=== PATIENT | female | born 1970 | race Caucasian/White ===

== ENCOUNTER 2019-11-18 19:54 | Emergency (ER) | payer OTHER ==
[2019-11-18] MEDS ORDERED: SODIUM CHLORIDE 0.9% 1,000 ML IV STA (20:31)
[2019-11-18] MEDS ORDERED: SODIUM CHLORIDE 0.9% 500 ML 500 ML IV STA (20:31)
--- NOTE | 2019-11-18 20:51 | XR ---
EXAMINATION TYPE: XR KUB DATE OF EXAM: 11/18/2019 COMPARISON: NONE HISTORY: Abdominal pain TECHNIQUE: 2 views upright FINDINGS: Bowel gas pattern is normal. There is no sign of intestinal obstruction or pneumoperitoneum . Fecal pattern is normal there are phleboliths in the pelvis. There are no pathologic calcifications over the kidneys. Lung bases are clear. There is a metal ring over the mid sacrum. IMPRESSION: Nonacute abdomen. Ring metallic foreign body over the sacrum in uncertain location.
[2019-11-18 20:59] LABS: Basophils # (A) 0.1 k/uL (0-0.2); Basophils % (A) 1 %; Eosinophils # (A) 0.1 k/uL (0-0.7); Eosinophils % (A) 1 %; HCT 46.5 % (34.0-46.0); HGB 14.9 gm/dL (11.4-16.0); Lymphocytes # (A) 2.4 k/uL (1.0-4.8); Lymphocytes % (A) 18 %; MCH 27.3 pg (25.0-35.0); MCV 85.3 fL (80.0-100.0); Mean Platelet Volume 7.5; Monocytes # (A) 0.8 k/uL (0-1.0); Monocytes % (A) 6 %; Neutrophils # (A) 9.8 k/uL (1.3-7.7); Neutrophils % (A) 72 %; Platelet Count 504 k/uL (150-450); RBC 5.45 m/uL (3.80-5.40); RDW 13.2 % (11.5-15.5); WBC 13.5 k/uL (3.8-10.6)
[2019-11-18 21:29] LABS: ALT 14 U/L (4-34); AST 29 U/L (14-36); African American GFR (CKD) >90 (>60 ml/min/1.73 sqM); Alkaline Phosphatase 109 U/L (38-126); Anion Gap 12 mmol/L; Blood Urea Nitrogen 10 mg/dL (7-17); Calcium 9.7 mg/dL (8.4-10.2); Carbon Dioxide 27 mmol/L (22-30); Chloride 99 mmol/L (98-107); Glucose 111 mg/dL (74-99); Non-African American GFR(CKD) >90 (>60 ml/min/1.73 sqM); Potassium 3.8 mmol/L (3.5-5.1); Sodium 138 mmol/L (137-145); Total Bilirubin 0.8 mg/dL (0.2-1.3); Total Protein 7.4 g/dL (6.3-8.2)
[2019-11-18 22:11] LABS: Appearance,Urine Cloudy (Clear); Bacteria,Urine Many /hpf; Bilirubin,Urine Negative (Negative); Blood,Urine Moderate (Negative); Color,Urine Dark Yellow; Glucose,Urine (UA) Negative (Negative); Hyaline Casts,Urine 186 /lpf (0-2); Ketones,Urine Trace (Negative); Leukocyte Esterase,Urine Small (Negative); Mucus,Urine Many /hpf; Nitrite,Urine Negative (Negative); Protein,Urine 1+ (Negative); RBC,Urine 8 /hpf (0-5); Squamous Epithelial Cell,Urine 13 /hpf (0-4); WBC,Urine 46 /hpf (0-5)
--- NOTE | 2019-11-18 22:59 | ED ---
Nausea/Vomiting/Diarrhea HPI - General Chief complaint: Nausea/Vomiting/Diarrhea Stated complaint: Blood in Stool Time Seen by Provider: 11/18/19 20:08 Source: patient Mode of arrival: ambulatory Limitations: no limitations - History of Present Illness Initial comments: 49-year-old female patient presents to the emergency department today for evaluation of abdominal pain and diarrhea. Patient states symptoms were present for the last 3 months. States just prior to symptom onset she ate dinner at a diner thought she had food poisoning but never went away. Patient states whenever she eats or drinks anything she becomes very crampy and has diarrhea almost immediately. States she has upwards of 20 episodes per day. States more recently the stool has been formed. States she does occasionally pass blood with this. Denies any fevers but states she has been chilled. Denies any travel in her out of the country within the last few months. Denies any sick contacts. Patient denies any recent rash, cough, shortness of breath, chest pain, back pain, numbness, tingling, dizziness, weakness, hematuria, dysuria, urinary urgency, urinary frequency, headache, visual changes, or any other complaints. - Related Data Allergies Allergy/AdvReac Type Severity Reaction Status Date / Time clarithromycin [From Biaxin] Allergy Rash/Hives Verified 11/18/19 20:03 fluticasone [From Flonase] Allergy Rash/Hives Verified 11/18/19 20:03 gatifloxacin [From Tequin] Allergy Rash/Hives Verified 11/18/19 20:03 Penicillins Allergy Rash/Hives Verified 11/18/19 20:03 Sulfa (Sulfonamide Allergy Rash/Hives Verified 11/18/19 20:03 Antibiotics) Review of Systems ROS Statement: Those systems with pertinent positive or pertinent negative responses have been documented in the HPI. ROS Other: All systems not noted in ROS Statement are negative. Past Medical History Past Medical History: Cancer, Thyroid Disorder History of Any Multi-Drug Resistant Organisms: None Reported Past Surgical History: Appendectomy Additional Past Surgical History / Comment(s): thyroidectomy, right labia Past Psychological History: Anxiety Smoking Status: Current some day smoker Past Alcohol Use History: None Reported Past Drug Use History: None Reported General Exam Limitations: no limitations General appearance: alert, in no apparent distress, other (Physical well-d eveloped, well-nourished adult female patient in no acute distress. Vital signs upon presentation are temperature 98.2F, pulse 119, respirations 18, blood pressure 118/80, pulse ox 94% on room air.) ENT exam: Present: normal exam, normal oropharynx, mucous membranes moist Respiratory exam: Present: normal lung sounds bilaterally. Absent: respiratory distress, wheezes, rales, rhonchi, stridor Cardiovascular Exam: Present: regular rate, normal rhythm, normal heart sounds. Absent: systolic murmur, diastolic murmur, rubs, gallop, clicks GI/Abdominal exam: Present: soft, normal bowel sounds. Absent: distended, tenderness, guarding, rebound, rigid Neurological exam: Present: alert, oriented X3, CN II-XII intact Psychiatric exam: Present: normal affect, normal mood Skin exam: Present: warm, dry, intact, normal color. Absent: rash Course Vital Signs 11/18/19 11/18/19 11/18/19 19:58 22:04 23:01 Temperature 98.2 F 97.9 F Pulse Rate 119 H 83 85 Respiratory 18 18 19 Rate Blood Pressure 118/80 114/79 119/76 O2 Sat by Pulse 94 L 98 100 Oximetry Medical Decision Making - Medical Decision Making 49-year-old female patient presented to the emergency department today for evaluation of diarrhea 3 months. Physical examination revealed soft nontender abdomen. Labs revealed did reveal mildly elevated white blood cell count at 13.5. Urinalysis did show 46 white blood cells. Patient is having no urinary infectious symptoms. We will send urine for culture. We did send obtain a stool culture but patient was unable to go. She is afebrile normal vital signs currently stable discharged home with a stool collection kit. We did discuss antibiotic use however given her multiple ALLERGIES would be beneficial for her to await culture results. She is instructed to follow up with GI specialist for further evaluation as soon as possible. Instructed to follow-up with the primary care physician, one was recommended to her. Return parameters were discussed in detail. She verbalizes understanding and agrees with this plan. - Lab Data Result diagrams: 11/18/19 20:20 11/18/19 20:20 Lab Results 11/18/19 11/18/19 11/18/19 Range/Units 20:20 20:20 21:40 WBC 13.5 H (3.8-10.6) k/uL RBC 5.45 H (3.80-5.40) m/uL Hgb 14.9 (11.4-16.0) gm/dL Hct 46.5 H (34.0-46.0) % MCV 85.3 (80.0-100.0) fL MCH 27.3 (25.0-35.0) pg MCHC 32.0 (31.0-37.0) g/dL RDW 13.2 (11.5-15.5) % Plt Count 504 H (150-450) k/uL Neutrophils % 72 % Lymphocytes % 18 % Monocytes % 6 % Eosinophils % 1 % Basophils % 1 % Neutrophils # 9.8 H (1.3-7.7) k/uL Lymphocytes # 2.4 (1.0-4.8) k/uL Monocytes # 0.8 (0-1.0) k/uL Eosinophils # 0.1 (0-0.7) k/uL Basophils # 0.1 (0-0.2) k/uL Sodium 138 (137-145) mmol/L Potassium 3.8 (3.5-5.1) mmol/L Chloride 99 (98-107) mmol/L Carbon Dioxide 27 (22-30) mmol/L Anion Gap 12 mmol/L BUN 10 (7-17) mg/dL Creatinine 0.69 (0.52-1.04) mg/dL Est GFR (CKD-EPI)AfAm >90 (>60 ml/min/1.73 sqM) Est GFR (CKD-EPI)NonAf >90 (>60 ml/min/1.73 sqM) Glucose 111 H (74-99) mg/dL Calcium 9.7 (8.4-10.2) mg/dL Total Bilirubin 0.8 (0.2-1.3) mg/dL AST 29 (14-36) U/L ALT 14 (4-34) U/L Alkaline Phosphatase 109 (38-126) U/L Total Protein 7.4 (6.3-8.2) g/dL Albumin 4.0 (3.5-5.0) g/dL Lipase 30 (23-300) U/L Urine Color Dark Yellow Urine Appearance Cloudy H (Clear) Urine pH 6.0 (5.0-8.0) Ur Specific [place] 1.020 (1.001-1.035) Urine Protein 1+ H (Negative) Urine Glucose (UA) Negative (Negative) Urine Ketones Trace H (Negative) Urine Blood Moderate H (Negative) Urine Nitrite Negative (Negative) Urine Bilirubin Negative (Negative) Urine Urobilinogen 4.0 (<2.0) mg/dL Ur Leukocyte Esterase Small H (Negative) Urine RBC 8 H (0-5) /hpf Urine WBC 46 H (0-5) /hpf Ur Squamous Epith Cells 13 H (0-4) /hpf Urine Bacteria Many H (None) /hpf Hyaline Casts 186 H (0-2) /lpf Urine Mucus Many H (None) /hpf - Radiology Data Radiology results: report reviewed, image reviewed KUB x-ray was obtained. Report was reviewed in its entirety. Impression by Dr. Alfaro shows nonacute abdomen. Ring metallic foreign body over the sacrum and uncertain location. Patient admits to having a ring in her umbilicus. Disposition Clinical Impression: Diarrhea, Dehydration Disposition: HOME SELF-CARE Condition: Good Instructions (If sedation given, give patient instructions): Acute Diarrhea (ED) Additional Instructions: Collect stool sample and return it to the lab with the order. Follow up with a primary care physician one has been recommended below. Follow up with GI specia list for further evaluation as soon as possible. Return to the emergency department immediately for any new, worsening, or concerning symptoms. Is patient prescribed a controlled substance at d/c from ED?: No Referrals: Masood Coker DO [STAFF PHYSICIAN] - 1-2 days Linda Helton MD [STAFF PHYSICIAN] - 1-2 days Time of Disposition: 22:58
[2019-11-18 23:11] VITALS: BP 119/76; PULSE 85; RESP 19; TEMP 97.9
== END 2019-11-18 23:01 | disposition home or self-care (01) ==
LOC: EC 19:54
DX: E86.0 Dehydration (principal); R19.7 Diarrhea, unspecified; D72.829 Elevated white blood cell count, unspecified; R82.998 Other abnormal findings in urine; F17.200 Nicotine dependence, unspecified, uncomplicated; Z88.1 Allergy status to other antibiotic agents; Z88.0 Allergy status to penicillin; Z88.2 Allergy status to sulfonamides; Z88.8 Allergy status to other drugs, medicaments and biological substances
CPT/HCPCS: 36415; 74018; 80053; 81001; 83690; 85025; 87086; 96360; 99285

== ENCOUNTER 2020-05-19 17:21 | Inpatient (IN) | payer OTHER ==
[2020-05-19] MEDS ORDERED: SODIUM CHLORIDE 0.9% 1,000 ML IV STA (18:02)
[2020-05-19] MEDS ORDERED: KETOROLAC 15 MG/ML 1 ML VIAL IVP STA (18:02)
--- NOTE | 2020-05-19 18:24 | ED ---
Abdominal Pain HPI - General Source: patient Mode of arrival: ambulatory Limitations: no limitations <Isa Aranda - Last Filed: 05/19/20 19:27> <Nova Barfield - Last Filed: 05/19/20 20:14> - General Chief Complaint: Abdominal Pain Stated Complaint: lt lower abdominal pain Time Seen by Provider: 05/19/20 17:35 - History of Present Illness Initial Comments: Patient is a 49-year-old female presenting to the emergency Department with complaints of lower left quadrant abdominal pain as well as nausea and intermittent diarrhea has been giving worse over the past week. Patient states she has been having abdominal issues since the beginning of this year including bloating, intermittent diarrhea, intermittent abdominal pains. Patient states she has not seen a PCP as she just moved to [place] from [place] this year. She has never had these issues in the past. She has not seen a GI doctor. She denies any fever, chills, chest pain, shortness of breath. She admits to history of appendectomy, no other abdominal surgeries. She denies any urinary complaints. She denies being . She states that the pain has been more severe over the past 2 days and she wanted to be seen. She has no further complaints at this time. Upon arrival to the ER her vitals are stable. (Isa Aranda) - Related Data Allergies Allergy/AdvReac Type Severity Reaction Status Date / Time clarithromycin [From Biaxin] Allergy Rash/Hives Verified 05/19/20 17:26 fluticasone [From Flonase] Allergy Rash/Hives Verified 05/19/20 17:26 gatifloxacin [From Tequin] Allergy Rash/Hives Verified 05/19/20 17:26 Penicillins Allergy Rash/Hives Verified 05/19/20 17:26 Sulfa (Sulfonamide Allergy Rash/Hives Verified 05/19/20 17:26 Antibiotics) Review of Systems ROS Other: All systems not noted in ROS Statement are negative. <Isa Aranda - Last Filed: 05/19/20 19:27> ROS Other: All systems not noted in ROS Statement are negative. <Nova Barfield - Last Filed: 05/19/20 20:14> ROS Statement: Those systems with pertinent positive or pertinent negative responses have been documented in the HPI. Past Medical History Past Medical History: Cancer, Thyroid Disorder History of Any Multi-Drug Resistant Organisms: None Reported Past Surgical History: Appendectomy Additional Past Surgical History / Comment(s): thyroidectomy, right labia Past Psychological History: Anxiety Smoking Status: Former smoker Past Alcohol Use History: None Reported Past Drug Use History: None Reported <Isa Aranda - Last Filed: 05/19/20 19:27> General Exam Limitations: no limitations <Isa Aranda - Last Filed: 05/19/20 19:27> - General Exam Comments Initial Comments: GENERAL: Patient is well-developed and well-nourished. Patient is nontoxic and in no acute distress. HEAD: Atraumatic, normocephalic. EYES: Pupils equal round and reactive to light, extraocular movements intact, sclera anicteric, conjunctiva are normal. Eyelids were unremarkable. ENT: TMs normal, nares patent, oropharynx clear without exudates. Moist mucous memb ranes. NECK: Normal range of motion, supple without lymphadenopathy or JVD. LUNGS: Unlabored respirations. Breath sounds clear to auscultation bilaterally and equal. No wheezes rales or rhonchi. HEART: Regular rate and rhythm without murmurs, rubs or gallops. ABDOMEN: Tender to palpation of left lower quadrant. Soft, normoactive bowel sounds. No guarding, no rebound. No masses appreciated. : Deferred MUSCULOSKELETAL: Normal extremities with adequate strength and normal range of motion, no pitting or edema. No clubbing or cyanosis. NEUROLOGICAL: Patient is alert and oriented x 3. Motor and sensory are also intact. Cranial nerves II through XII grossly intact. Symmetrical smile. Normal speech, normal gait. PSYCH: Normal mood, normal affect. SKIN: Warm, Dry, normal turgor, no rashes or lesions noted. (Isa Aranda) Course <Isa Aranda - Last Filed: 05/19/20 19:27> Vital Signs 05/19/20 05/19/20 17:24 19:49 Temperature 98.4 F 98.5 F Pulse Rate 97 99 Respiratory 20 18 Rate Blood Pressure 155/98 178/81 O2 Sat by Pulse 98 100 Oximetry - Reevaluation(s) Reevaluation #1: 05/19/20 19:27 Care was transferred to GLENDA Garvin at shift change. (Isa Aranda) Medical Decision Making - Lab Data Result diagrams: 05/19/20 18:17 05/19/20 18:17 <Isa Aranda - Last Filed: 05/19/20 19:27> - Lab Data Result diagrams: 05/19/20 18:17 05/19/20 18:17 - Radiology Data Radiology results: report reviewed, image reviewed <Nova Barfield - Last Filed: 05/19/20 20:14> - Medical Decision Making 49-year-old female patient presents to the emergency department today for evaluation of left lower quadrant abdominal pain and diarrhea. Patient has been having intermittent pain over the last year but symptoms worsened over the last few days. Denies fever or chills. Physical examination did reveal left lower quadrant abdominal tenderness. Vital signs within normal ranges. Labs did reveal elevated white blood cell count, acute kidney injury most likely secondary to dehydration. She was given IV fluids. A CT abdomen and pelvis was obtained and showed evidence for diverticulitis with possible intra-abdominal abscess formation. There is also left hydronephrosis. She'll be admitted to the hospital with surgery consult. He did request interventional radiology consult as well. We'll start Flagyl and Rocephin. Patient is agreeable with this plan. (Nova Barfield) - Lab Data Lab Results 05/19/20 05/19/20 05/19/20 Range/Units 18:17 18:17 18:17 WBC 13.1 H (3.8-10.6) k/uL RBC 4.85 (3.80-5.40) m/uL Hgb 13.0 (11.4-16.0) gm/dL Hct 42.3 (34.0-46.0) % MCV 87.2 (80.0-100.0) fL MCH 26.9 (25.0-35.0) pg MCHC 30.8 L (31.0-37.0) g/dL RDW 13.9 (11.5-15.5) % Plt Count 668 H (150-450) k/uL Neutrophils % 68 % Lymphocytes % 19 % Monocytes % 5 % Eosinophils % 7 % Basophils % 1 % Neutrophils # 8.9 H (1.3-7.7) k/uL Lymphocytes # 2.4 (1.0-4.8) k/uL Monocytes # 0.7 (0-1.0) k/uL Eosinophils # 0.9 H (0-0.7) k/uL Basophils # 0.1 (0-0.2) k/uL Hypochromasia Slight Sodium 140 (137-145) mmol/L Potassium 4.7 (3.5-5.1) mmol/L Chloride 107 (98-107) mmol/L Carbon Dioxide 24 (22-30) mmol/L Anion Gap 9 mmol/L BUN 18 H (7-17) mg/dL Creatinine 1.19 H (0.52-1.04) mg/dL Est GFR (CKD-EPI)AfAm 62 (>60 ml/min/1.73 sqM) Est GFR (CKD-EPI)NonAf 54 (>60 ml/min/1.73 sqM) Glucose 103 H (74-99) mg/dL Plasma Lactic Acid Eleazar 1.4 (0.7-2.0) mmol/L Calcium 9.8 (8.4-10.2) mg/dL Total Bilirubin 0.4 (0.2-1.3) mg/dL AST 20 (14-36) U/L ALT 10 (4-34) U/L Alkaline Phosphatase 103 (38-126) U/L Total Protein 7.1 (6.3-8.2) g/dL Albumin 3.7 (3.5-5.0) g/dL Lipase 60 (23-300) U/L Urine Color Urine Appearance (Clear) Urine pH (5.0-8.0) Ur Specific [place] (1.001-1.035) Urine Protein (Negative) Urine Glucose (UA) (Negative) Urine Ketones (Negative) Urine Blood (Negative) Urine Nitrite (Negative) Urine Bilirubin (Negative) Urine Urobilinogen (<2.0) mg/dL Ur Leukocyte Esterase (Negative) Urine RBC (0-5) /hpf Urine WBC (0-5) /hpf Ur Squamous Epith Cells (0-4) /hpf Urine Bacteria (None) /hpf Urine Mucus (None) /hpf Urine HCG, Qual (Not Detectd) 05/19/20 05/19/20 Range/Units 18:17 18:21 WBC (3.8-10.6) k/uL RBC (3.80-5.40) m/uL Hgb (11.4-16.0) gm/dL Hct (34.0-46.0) % MCV (80.0-100.0) fL MCH (25.0-35.0) pg MCHC (31.0-37.0) g/dL RDW (11.5-15.5) % Plt Count (150-450) k/uL Neutrophils % % Lymphocytes % % Monocytes % % Eosinophils % % Basophils % % Neutrophils # (1.3-7.7) k/uL Lymphocytes # (1.0-4.8) k/uL Monocytes # (0-1.0) k/uL Eosinophils # (0-0.7) k/uL Basophils # (0-0.2) k/uL Hypochromasia Sodium (137-145) mmol/L Potassium (3.5-5.1) mmol/L Chloride (98-107) mmol/L Carbon Dioxide (22-30) mmol/L Anion Gap mmol/L BUN (7-17) mg/dL Creatinine (0.52-1.04) mg/dL Est GFR (CKD-EPI)AfAm (>60 ml/min/1.73 sqM) Est GFR (CKD-EPI)NonAf (>60 ml/min/1.73 sqM) Glucose (74-99) mg/dL Plasma Lactic Acid Eleazar (0.7-2.0) mmol/L Calcium (8.4-10.2) mg/dL Total Bilirubin (0.2-1.3) mg/dL AST (14-36) U/L ALT (4-34) U/L Alkaline Phosphatase (38-126) U/L Total Protein (6.3-8.2) g/dL Albumin (3.5-5.0) g/dL Lipase (23-300) U/L Urine Color Yellow Urine Appearance Cloudy H (Clear) Urine pH 5.5 (5.0-8.0) Ur Specific [place] 1.017 (1.001-1.035) Urine Protein Trace H (Negative) Urine Glucose (UA) Negative (Negative) Urine Ketones Negative (Negative) Urine Blood Trace H (Negative) Urine Nitrite Negative (Negative) Urine Bilirubin Negative (Negative) Urine Urobilinogen <2.0 (<2.0) mg/dL Ur Leukocyte Esterase Small H (Negative) Urine RBC 1 (0-5) /hpf Urine WBC 6 H (0-5) /hpf Ur Squamous Epith Cells 4 (0-4) /hpf Urine Bacteria Rare H (None) /hpf Urine Mucus Few H (None) /hpf Urine HCG, Qual Not Detected (Not Detectd) - Radiology Data CT abdomen and pelvis is obtained. Report reviewed in its entirety. Impression by Dr. Alfaro shows inflammatory appearing mass involving the left lower quadrant. This overall measures 8 x 5 cm and is adjacent to thickened sigmoid colon with diverticula. I consider possibilities of diverticulitis with hermelinda- diverticular phlegmon and abscess and less likely tubo-ovarian abscess. There is involvement of the distal ureter on the left side with obstruction of the left upper collecting system. (Nova Barfield) Disposition <Isa Aranda - Last Filed: 05/19/20 19:27> Decision to Admit Reason: Admit from EC Decision Date: 05/19/20 Decision Time: 20:11 <Nova Barfield - Last Filed: 05/19/20 20:14> Clinical Impression: Diverticulitis of intestine with abscess, Acute kidney injury Disposition: ADMITTED IP TO THIS [facility] Condition: Serious Referrals: None,Stated [Primary Care Provider] - 1-2 days
[2020-05-19 18:39] LABS: Appearance,Urine Cloudy (Clear); Bacteria,Urine Rare /hpf; Bilirubin,Urine Negative (Negative); Blood,Urine Trace (Negative); Color,Urine Yellow; Glucose,Urine (UA) Negative (Negative); Ketones,Urine Negative (Negative); Leukocyte Esterase,Urine Small (Negative); Mucus,Urine Few /hpf; Nitrite,Urine Negative (Negative); PH, Urine 5.5 (5.0-8.0); Protein,Urine Trace (Negative); RBC,Urine 1 /hpf (0-5); Specific Gravity,Urine 1.017 (1.001-1.035); Squamous Epithelial Cell,Urine 4 /hpf (0-4); Urobilinogen,Urine <2.0 mg/dL (<2.0); WBC,Urine 6 /hpf (0-5)
[2020-05-19 18:47] LABS: Basophils # (A) 0.1 k/uL (0-0.2); Basophils % (A) 1 %; Eosinophils # (A) 0.9 k/uL (0-0.7); Eosinophils % (A) 7 %; HCT 42.3 % (34.0-46.0); Hypochromasia Slight; Lymphocytes # (A) 2.4 k/uL (1.0-4.8); Lymphocytes % (A) 19 %; MCH 26.9 pg (25.0-35.0); MCHC 30.8 g/dL (31.0-37.0); MCV 87.2 fL (80.0-100.0); Mean Platelet Volume 6.7; Monocytes # (A) 0.7 k/uL (0-1.0); Monocytes % (A) 5 %; Neutrophils # (A) 8.9 k/uL (1.3-7.7); Neutrophils % (A) 68 %; Platelet Count 668 k/uL (150-450); RBC 4.85 m/uL (3.80-5.40); RDW 13.9 % (11.5-15.5); WBC 13.1 k/uL (3.8-10.6)
[2020-05-19 18:56] LABS: Albumin 3.7 g/dL (3.5-5.0); Calcium 9.8 mg/dL (8.4-10.2); Potassium 4.7 mmol/L (3.5-5.1); Total Bilirubin 0.4 mg/dL (0.2-1.3); Total Protein 7.1 g/dL (6.3-8.2)
--- NOTE | 2020-05-19 19:30 | CT ---
EXAMINATION TYPE: CT abdomen pelvis w con DATE OF EXAM: 05/19/2020 COMPARISON: None HISTORY: Left lower quadrant abdominal pain. CT DLP: 1090.4 mGycm Automated exposure control for dose reduction was used. CONTRAST: Performed with IV Contrast, patient injected with 100ml mL of Isovue 300. Images were obtained from the diaphragm to the floor the pelvis with IV contrast. FINDINGS: Lung bases are clear. There is no pleural effusion. Heart size is normal. There is no pericardial eff usion. There is 5 cm low-density thin wall cystic fluid collection at the right cardiac border. This could be a pericardial cyst. Liver and spleen appear normal. Stomach is intact. The bile ducts are not dilated. There is no eviden ce of pancreatic mass. There is no adrenal mass. Kidneys have normal size. There is left-sided hydronephrosis and hydrourete r. There are numerous phleboliths in the pelvis. Delayed images show a delayed left side pyelogram. There is no definite ureteral calculus. Uterus is anteverted. Bladder distends smoothly. There is wal l thickening and fat stranding around the mid sigmoid colon. There are multiple diverticula. There is also complex septated fluid collection in the pelvis on the left side in the left adnexal region. I see no definite free fluid in the pelvis. Appendix is not definitely seen. There is no sign of thickened appendix. There is no evidence of a bowel obstruction. There are no dilated loops. There is no evidence of free air. There is some surgical clips on the anterior mid abdomen in the omentum. Lumbar vertebra have normal alignment. Disc spaces are fairly normal. There is no compression fractur e. IMPRESSION: Inflammatory-appearing mass involving the left lower quadrant. This overall measures 8 x 5 cm and is adjacent to thickened sigmoid colon with diverticula. I consider possibilities of diverticulitis with peridiverticular phlegmon and abscess and less likely tubo-ovarian abscess. There is involvement of the distal ureter on the left side with obstruction of the left upper collecting system.
[2020-05-19] MEDS ORDERED: metroNIDAZOLE-NS PMX 500 MG in SALINE 1 100ML.BAG IVPB STA (19:37)
[2020-05-19] MEDS ORDERED: ONDANSETRON 4 MG/2 ML VIAL IVP PRN (20:03)
[2020-05-19] MEDS ORDERED: MORPHINE SULFATE 4 MG/ML SYRINGE IV PRN (20:03)
[2020-05-19] MEDS ORDERED: NALOXONE 0.4 MG/ML 1 ML VIAL IV PRN (20:03)
[2020-05-19] MEDS: SODIUM CHLORIDE 0.9% 1,000 ML IV SCH (21:04)
[2020-05-19] MEDS ORDERED: ALPRAZolam 0.5 MG TAB PO STA (21:12)
[2020-05-20] MEDS ORDERED: KETOROLAC 15 MG/ML 1 ML VIAL IVP PRN ×2 (00:30→01:00)
[2020-05-20] MEDS: ALPRAZolam 0.5 MG TAB PO PRN ×2 (00:55→19:39)
--- NOTE | 2020-05-20 01:24 | P.HPIM ---
History of Present Illness H&P Date: 05/19/20 Chief Complaint: abd pain 49 year old female with hypothyroid patient comes in complaining of left lower quadrant abd pain . she claims that she hadpain since July of this year, with pain off/on. however over the past 2 weeks she felt pain has progressively gotten worse,. associated with diarrhea sts with blood. she also claims occasional fever and chills, no vomiting, but positive for nausea. pain currently is up to 8/10 in severity over the past week , but responds well to pain meds. she denies any travel, or unsanitary food, denies any urinary symptoms , denies any history of kidney stones. denies any vaginal discharge or bleeding in the ED, imaging showed, peridiverticular abscess along with left hydroureter. patient started on antibiotics in the ED. Review of Systems Pertinent positives as noted in HPI. All other systems were reviewed and are negative Past Medical History Past Medical History: Cancer, Thyroid Disorder Additional Past Medical History / Comment(s): Thyroid cancer History of Any Multi-Drug Resistant Organisms: None Reported Past Surgical History: Appendectomy Additional Past Surgical History / Comment(s): Thyroidectomy, right labia Past Psychological History: Anxiety Smoking Status: Former smoker Past Alcohol Use History: None Reported Past Drug Use History: None Reported - Past Family History family Family Medical History: Coronary Artery Disease (CAD), CVA/TIA Medications and Allergies Home Medications Medication Instructions Recorded Confirmed Type ALPRAZolam [Xanax] 1 mg PO BID PRN 05/19/20 05/19/20 History Dextroamphetamine/Amphetamine 20 mg PO BID PRN 05/19/20 05/19/20 History [Adderall] Levothyroxine Sodium [Synthroid] 137 mcg PO DAILY 05/19/20 05/19/20 History Liothyronine Sodium [Cytomel] 5 mcg PO DAILY 05/19/20 05/19/20 History Allergies Allergy/AdvReac Type Severity Reaction Status Date / Time clarithromycin [From Biaxin] Allergy Rash/Hives Verified 05/19/20 21:10 fluticasone [From Flonase] Allergy Rash/Hives Verified 05/19/20 21:10 gatifloxacin [From Tequin] Allergy Rash/Hives Verified 05/19/20 21:10 Penicillins Allergy Rash/Hives Verified 05/19/20 21:10 Sulfa (Sulfonamide Allergy Rash/Hives Verified 05/19/20 21:10 Antibiotics) Physical Exam Vitals: Vital Signs Temp Pulse Resp BP Pulse Ox 05/19/20 21:05 98.7 F 115 H 19 167/102 96 05/19/20 19:49 98.5 F 99 18 178/81 100 05/19/20 17:24 98.4 F 97 20 155/98 98 Intake and Output 05/19/20 05/19/20 05/19/20 06:59 14:59 22:59 Other: Weight 83.007 kg Constitutional: No acute distress, conversant, pleasant Eyes: Anicteric sclerae, moist conjunctiva, Pupils equal round reactive to light ENMT: NC/AT Oropharynx clear, no erythema, or exudates Neck: Supple, FROM, no masses, or JVD No carotid bruits No thyromegaly Lungs: Clear to auscultation Clear to percussion Normal respiratory effort, no accessory muscle use Cardiovascular: Heart regular in rate and rhythm, No murmurs, gallops, or rubs No peripheral edema Abdominal: Soft Tenderness palpation over the suprapubic and left lower quadrant area, no guarding, rebound or rigidity Abdomen moving with respiration Normoactive bowel sounds No hepatomegaly, No splenomegaly No palpable mass No abdominal wall hernia noted Skin: Normal temperature, tone, texture, turgor No induration No subcutaneous nodules No rash, lesions No ulcers Extremities: No digital cyanosis No clubbing Pedal pulses intact and symmetrical Radial pulses intact and symmetrical No calf tenderness Psychiatric: Alert and oriented to person, place and time Appropriate affect fair judgement Neuro Muscles Strength 5/5 in all 4 extremities Sensation to light touch grossly present throughout Cranial nerves II-XII grossly intact No focal sensory deficits Lymphatics: no palpable cervical or supraclavicular , or inguinal lymph nodes Results CBC & Chem 7: 05/19/20 18:17 05/19/20 18:17 Labs: Abnormal Lab Results - Last 24 Hours (Table) 05/19/20 05/19/20 05/19/20 Range/Units 18:17 18:17 18:21 WBC 13.1 H (3.8-10.6) k/uL MCHC 30.8 L (31.0-37.0) g/dL Plt Count 668 H (150-450) k/uL Neutrophils # 8.9 H (1.3-7.7) k/uL Eosinophils # 0.9 H (0-0.7) k/uL BUN 18 H (7-17) mg/dL Creatinine 1.19 H (0.52-1.04) mg/dL Glucose 103 H (74-99) mg/dL Urine Appearance Cloudy H (Clear) Urine Protein Trace H (Negative) Urine Blood Trace H (Negative) Ur Leukocyte Esterase Small H (Negative) Urine WBC 6 H (0-5) /hpf Urine Bacteria Rare H (None) /hpf Urine Mucus Few H (None) /hpf Thrombosis Risk Factor Assmnt - Choose All That Apply Any of the Below Risk Factors Present?: Yes Each Factor Represents 1 point: Age 41-60 years Other Risk Factors: No Thrombosis Risk Factor Assessment Total Risk Factor Score: 1 Thrombosis Risk Factor Assessment Level: Low Risk Assessment and Plan Assessment: 30 diverticular abscess Follow-up cultures Antibiotics with Rocephin and Flagyl Nothing by mouth IV fluid hydration Pain control with Toradol patient declined opiates Surgery consultation to evaluate abscess Hypothyroid Resume levothyroxine CODE STATUS: Full code DVT prophylaxis: Lovenox Discussed with: Patient, ER, RN Anticipated length of stay more than [address]: home A total of 70 minutes was spent on the care of this complex patient more than 50% of the time was spent in counseling and care coordination.
[2020-05-20] MEDS: metroNIDAZOLE-NS PMX 500 MG in SALINE 1 100ML.BAG IVPB SCH ×3 (04:33→19:39)
[2020-05-20] MEDS: SODIUM CHLORIDE 0.9% 1,000 ML IV SCH ×2 (04:33→14:23)
[2020-05-20] MEDS ORDERED: LEVOTHYROXINE 137 MCG TAB PO SCH (06:30)
[2020-05-20 07:19] LABS: Basophils # (A) 0.1 k/uL (0-0.2); Basophils % (A) 1 %; Eosinophils # (A) 0.9 k/uL (0-0.7); Eosinophils % (A) 8 %; HCT 33.9 % (34.0-46.0); HGB 10.5 gm/dL (11.4-16.0); Hypochromasia Slight; Lymphocytes # (A) 2.7 k/uL (1.0-4.8); Lymphocytes % (A) 24 %; MCH 27.3 pg (25.0-35.0); MCV 88.2 fL (80.0-100.0); Mean Platelet Volume 6.6; Monocytes # (A) 0.6 k/uL (0-1.0); Monocytes % (A) 5 %; Neutrophils % (A) 61 %; Platelet Count 536 k/uL (150-450); RBC 3.84 m/uL (3.80-5.40); WBC 11.4 k/uL (3.8-10.6)
[2020-05-20] MEDS: KETOROLAC 15 MG/ML 1 ML VIAL IVP PRN ×2 (08:23→17:00)
--- NOTE | 2020-05-20 08:42 | US ---
EXAMINATION TYPE: US transvaginal DATE OF EXAM: 05/20/2020 COMPARISON: CT yesterday CLINICAL HISTORY: Left ovarian mass. Abnormal CT. TECHNIQUE: Transvaginal (TV). Date of LMP: over one year ago, no HRT. EXAM MEASUREMENTS: Uterus: 8.9 x 2.6 x 5.2 cm Endometrial Stripe: 0.6 cm Right Ovary: 3.7 x 2.1 x 3.1 cm Left Ovary: 4.9 x 4.7 x 4.3 cm 1. Uterus: Anteverted wnl 2. Endometrium: measures 0.6 cm 3. Right Ovary: Hypoechoic lesion 4. Left Ovary: appears bulky with multiple cystic areas. Spectral, color and waveform doppler imaging shows good arterial and venous flow within the ovaries ; . 5. Bilateral Adnexa: wnl 6. Posterior cul-de-sac: bowel mass affect measuring 8.8 x 4.6 cm. Heterogeneous anteverted uterus. Endometrium is 6 mm in thickness. No free fluid in pelvis. Left ovary is asymmetrically larger with thin-walled cysts by solid tissue. Right ovary hyp oechoic poorly defined lesion occupying the majority of it. IMPRESSION: Probable 3.0 cm hemorrhagic cyst right ovary. Suspicion for mixed solid and cystic mass o r neoplasm left ovary versus asymmetrically enlarged left ovary that has scattered thin-walled cysts. Advise short-term ultrasound in 6 weeks' time to reassess. Consider correlating with ovarian tumor m meenu. Pelvic MRI may be beneficial based on follow-up and correlation.
[2020-05-20 08:58] LABS: ALT 8 U/L (4-34); AST 14 U/L (14-36); African American GFR (CKD) 74 (>60 ml/min/1.73 sqM); Albumin 2.6 g/dL (3.5-5.0); Alkaline Phosphatase 75 U/L (38-126); Anion Gap 3 mmol/L; Blood Urea Nitrogen 12 mg/dL (7-17); Calcium 8.7 mg/dL (8.4-10.2); Carbon Dioxide 25 mmol/L (22-30); Chloride 110 mmol/L (98-107); Globulin 2.7 g/dL; Glucose 89 mg/dL (74-99); Non-African American GFR(CKD) 65 (>60 ml/min/1.73 sqM); Potassium 4.6 mmol/L (3.5-5.1); Sodium 138 mmol/L (137-145); Total Bilirubin 0.4 mg/dL (0.2-1.3); Total Protein 5.3 g/dL (6.3-8.2)
[2020-05-20] MEDS ORDERED: LIOTHYRONINE SODIUM 5 MCG TAB PO SCH (09:00)
[2020-05-20] MEDS: CYTOMEL 5 MCG PO SCH (12:14)
[2020-05-20] MEDS: SYNTHROID 137 MCG PO SCH (12:15)
[2020-05-20] MEDS: ENOXAPARIN 40 MG/0.4 ML SYRINGE SQ SCH (12:32)
--- NOTE | 2020-05-20 12:41 | P.GSCN ---
History of Present Illness Consult date: 05/20/20 Reason for Consult: Left Hydronephrosis Requesting physician: Frederick Connors History of present illness: Patient is a 49-year-old white female with a 9 month history of left lower quadrant abdominal pain, associated with nausea. For the past 2 weeks, the pain has increased, and for the past several days she has experienced left flank discomfort. She denies dysuria and hematuria. She has no prior history of urolithiasis. She's been treated for UTIs in the remote past. A computed tomography scan has shown evidence of left hydroureteronephrosis, down to a 5 x 8 cm inflammatory mass within the left lower quadrant, and adjacent to the sigmoid colon. I am consulted for this reason. Review of Systems - Constitutional Reports fever, Denies chills - Gastrointestinal Reports abdominal pain, Reports diarrhea, Reports nausea - Genitourinary Genitourinary: Reports as per HPI Past Medical History Past Medical History: Cancer, Thyroid Disorder Additional Past Medical History / Comment(s): Thyroid cancer History of Any Multi-Drug Resistant Organisms: None Reported Past Surgical History: Appendectomy Additional Past Surgical History / Comment(s): Thyroidectomy, right labia Past Psychological History: Anxiety Smoking Status: Former smoker Past Alcohol Use History: None Reported Past Drug Use History: None Reported - Past Family History family Family Medical History: Coronary Artery Disease (CAD), CVA/TIA Medications and Allergies Home Medications Medication Instructions Recorded Confirmed Type ALPRAZolam [Xanax] 1 mg PO BID PRN 05/19/20 05/19/20 History Dextroamphetamine/Amphetamine 20 mg PO BID PRN 05/19/20 05/19/20 History [Adderall] Levothyroxine Sodium [Synthroid] 137 mcg PO DAILY 05/19/20 05/19/20 History Liothyronine Sodium [Cytomel] 5 mcg PO DAILY 05/19/20 05/19/20 History Allergies Allergy/AdvReac Type Severity Reaction Status Date / Time clarithromycin [From Biaxin] Allergy Rash/Hives Verified 05/19/20 21:10 fluticasone [From Flonase] Allergy Rash/Hives Verified 05/19/20 21:10 gatifloxacin [From Tequin] Allergy Rash/Hives Verified 05/19/20 21:10 Penicillins Allergy Rash/Hives Verified 05/19/20 21:10 Sulfa (Sulfonamide Allergy Rash/Hives Verified 05/19/20 21:10 Antibiotics) Surgical - Exam Vital Signs Temp Pulse Resp BP Pulse Ox 98.4 F 97 20 155/98 98 05/19/20 17:24 05/19/20 17:24 05/19/20 17:24 05/19/20 17:24 05/19/20 17:24 - General well developed, well nourished, no distress - Respiratory normal respiratory effort - Abdomen Abdomen: soft, tender (Mild left lower quadrant tenderness to palpation), no masses, no guarding, no rigid, no rebound - Psychiatric oriented to time, oriented to person, oriented to place, speech is normal, memory intact Results - Labs 05/20/20 06:11 05/20/20 06:11 Abnormal Lab Results - Last 24 Hours (Table) 05/19/20 05/19/20 05/19/20 Range/Units 18:17 18:17 18:21 WBC 13.1 H (3.8-10.6) k/uL Hgb (11.4-16.0) gm/dL Hct (34.0-46.0) % MCHC 30.8 L (31.0-37.0) g/dL Plt Count 668 H (150-450) k/uL Neutrophils # 8.9 H (1.3-7.7) k/uL Eosinophils # 0.9 H (0-0.7) k/uL Chloride (98-107) mmol/L BUN 18 H (7-17) mg/dL Creatinine 1.19 H (0.52-1.04) mg/dL Glucose 103 H (74-99) mg/dL Total Protein (6.3-8.2) g/dL Albumin (3.5-5.0) g/dL Urine Appearance Cloudy H (Clear) Urine Protein Trace H (Negative) Urine Blood Trace H (Negative) Ur Leukocyte Esterase Small H (Negative) Urine WBC 6 H (0-5) /hpf Urine Bacteria Rare H (None) /hpf Urine Mucus Few H (None) /hpf 05/20/20 05/20/20 Range/Units 06:11 06:11 WBC 11.4 H (3.8-10.6) k/uL Hgb 10.5 L (11.4-16.0) gm/dL Hct 33.9 L (34.0-46.0) % MCHC (31.0-37.0) g/dL Plt Count 536 H (150-450) k/uL Neutrophils # (1.3-7.7) k/uL Eosinophils # 0.9 H (0-0.7) k/uL Chloride 110 H (98-107) mmol/L BUN (7-17) mg/dL Creatinine (0.52-1.04) mg/dL Glucose (74-99) mg/dL Total Protein 5.3 L (6.3-8.2) g/dL Albumin 2.6 L (3.5-5.0) g/dL Urine Appearance (Clear) Urine Protein (Negative) Urine Blood (Negative) Ur Leukocyte Esterase (Negative) Urine WBC (0-5) /hpf Urine Bacteria (None) /hpf Urine Mucus (None) /hpf Diabetes panel 05/19/20 05/20/20 Range/Units 18:17 06:11 Sodium 140 138 (137-145) mmol/L Potassium 4.7 4.6 (3.5-5.1) mmol/L Chloride 107 110 H (98-107) mmol/L Carbon Dioxide 24 25 (22-30) mmol/L BUN 18 H 12 (7-17) mg/dL Creatinine 1.19 H 1.03 (0.52-1.04) mg/dL Glucose 103 H 89 (74-99) mg/dL Calcium 9.8 8.7 (8.4-10.2) mg/dL AST 20 14 (14-36) U/L ALT 10 8 (4-34) U/L Alkaline Phosphatase 103 75 (38-126) U/L Total Protein 7.1 5.3 L (6.3-8.2) g/dL Albumin 3.7 2.6 L (3.5-5.0) g/dL Calcium panel 05/19/20 05/20/20 Range/Units 18:17 06:11 Calcium 9.8 8.7 (8.4-10.2) mg/dL Albumin 3.7 2.6 L (3.5-5.0) g/dL Pituitary panel 05/19/20 05/20/20 Range/Units 18:17 06:11 Sodium 140 138 (137-145) mmol/L Potassium 4.7 4.6 (3.5-5.1) mmol/L Chloride 107 110 H (98-107) mmol/L Carbon Dioxide 24 25 (22-30) mmol/L BUN 18 H 12 (7-17) mg/dL Creatinine 1.19 H 1.03 (0.52-1.04) mg/dL Glucose 103 H 89 (74-99) mg/dL Calcium 9.8 8.7 (8.4-10.2) mg/dL Adrenal panel 05/19/20 05/20/20 Range/Units 18:17 06:11 Sodium 140 138 (137-145) mmol/L Potassium 4.7 4.6 (3.5-5.1) mmol/L Chloride 107 110 H (98-107) mmol/L Carbon Dioxide 24 25 (22-30) mmol/L BUN 18 H 12 (7-17) mg/dL Creatinine 1.19 H 1.03 (0.52-1.04) mg/dL Glucose 103 H 89 (74-99) mg/dL Calcium 9.8 8.7 (8.4-10.2) mg/dL Total Bilirubin 0.4 0.4 (0.2-1.3) mg/dL AST 20 14 (14-36) U/L ALT 10 8 (4-34) U/L Alkaline Phosphatase 103 75 (38-126) U/L Total Protein 7.1 5.3 L (6.3-8.2) g/dL Albumin 3.7 2.6 L (3.5-5.0) g/dL - Imaging CT scan - abdomen: report reviewed, image reviewed Assessment and Plan (1) Unspecified hydronephrosis Current Visit: Yes Status: Acute Code(s): N13.30 - UNSPECIFIED HYDRONEPHROSIS SNOMED Code(s): 03241636 Plan: The patient has left hydroureteronephrosis due to a left pelvic inflammatory mass. This is likely due to a diverticular abscess, which will likely require surgical drainage. I anticipate that this will relieve the ureteral obstruction. If placement of a ureteral stent at the time of exploration is desired, please contact us in advance so that this can be coordinated. Time with Patient: Greater than 30
--- NOTE | 2020-05-20 12:49 | P.GSCN ---
History of Present Illness Consult date: 05/20/20 History of present illness: This is a 49 y/o female that presented to the ER with abdominal pain. She states she has been having abdominal pain and diarrhea for the better part of a year. She has had stool studies done in the past apparently but says she was not told that there were any abnormal results. She has a history of ovarian cysts on the left which have been operated on before in the past when she lived in [place]. She states that over the past two weeks she has had increasing left lower quadrant abdominal pain she states this feels very similar to the pain she has with her ovarian cysts. She denies fever/chills. No other complaints. No NV Past Medical History Past Medical History: Cancer, Thyroid Disorder Additional Past Medical History / Comment(s): Thyroid cancer History of Any Multi-Drug Resistant Organisms: None Reported Past Surgical History: Appendectomy Additional Past Surgical History / Comment(s): Thyroidectomy, right labia Past Psychological History: Anxiety Smoking Status: Former smoker Past Alcohol Use History: None Reported Past Drug Use History: None Reported - Past Family History family Family Medical History: Coronary Artery Disease (CAD), CVA/TIA Medications and Allergies Home Medications Medication Instructions Recorded Confirmed Type ALPRAZolam [Xanax] 1 mg PO BID PRN 05/19/20 05/19/20 History Dextroamphetamine/Amphetamine 20 mg PO BID PRN 05/19/20 05/19/20 History [Adderall] Levothyroxine Sodium [Synthroid] 137 mcg PO DAILY 05/19/20 05/19/20 History Liothyronine Sodium [Cytomel] 5 mcg PO DAILY 05/19/20 05/19/20 History Allergies Allergy/AdvReac Type Severity Reaction Status Date / Time clarithromycin [From Biaxin] Allergy Rash/Hives Verified 05/19/20 21:10 fluticasone [From Flonase] Allergy Rash/Hives Verified 05/19/20 21:10 gatifloxacin [From Tequin] Allergy Rash/Hives Verified 05/19/20 21:10 Penicillins Allergy Rash/Hives Verified 05/19/20 21:10 Sulfa (Sulfonamide Allergy Rash/Hives Verified 05/19/20 21:10 Antibiotics) Surgical - Exam Osteopathic Statement: *. No significant issues noted on an osteopathic structural exam other than those noted in the History and Physical/Consult. Vital Signs Temp Pulse Resp BP Pulse Ox 98.4 F 97 20 155/98 98 05/19/20 17:24 05/19/20 17:24 05/19/20 17:24 05/19/20 17:24 05/19/20 17:24 - General well developed, well nourished, no distress - Neck no masses, no bruits - Respiratory normal expansion, normal respiratory effort - Cardiovascular Rhythm: regular - Abdomen Abdomen: soft, non tender - Psychiatric oriented to time Results - Labs 05/20/20 06:11 05/20/20 06:11 Abnormal Lab Results - Last 24 Hours (Table) 05/19/20 05/19/20 05/19/20 Range/Units 18:17 18:17 18:21 WBC 13.1 H (3.8-10.6) k/uL Hgb (11.4-16.0) gm/dL Hct (34.0-46.0) % MCHC 30.8 L (31.0-37.0) g/dL Plt Count 668 H (150-450) k/uL Neutrophils # 8.9 H (1.3-7.7) k/uL Eosinophils # 0.9 H (0-0.7) k/uL Chloride (98-107) mmol/L BUN 18 H (7-17) mg/dL Creatinine 1.19 H (0.52-1.04) mg/dL Glucose 103 H (74-99) mg/dL Total Protein (6.3-8.2) g/dL Albumin (3.5-5.0) g/dL Urine Appearance Cloudy H (Clear) Urine Protein Trace H (Negative) Urine Blood Trace H (Negative) Ur Leukocyte Esterase Small H (Negative) Urine WBC 6 H (0-5) /hpf Urine Bacteria Rare H (None) /hpf Urine Mucus Few H (None) /hpf 05/20/20 05/20/20 Range/Units 06:11 06:11 WBC 11.4 H (3.8-10.6) k/uL Hgb 10.5 L (11.4-16.0) gm/dL Hct 33.9 L (34.0-46.0) % MCHC (31.0-37.0) g/dL Plt Count 536 H (150-450) k/uL Neutrophils # (1.3-7.7) k/uL Eosinophils # 0.9 H (0-0.7) k/uL Chloride 110 H (98-107) mmol/L BUN (7-17) mg/dL Creatinine (0.52-1.04) mg/dL Glucose (74-99) mg/dL Total Protein 5.3 L (6.3-8.2) g/dL Albumin 2.6 L (3.5-5.0) g/dL Urine Appearance (Clear) Urine Protein (Negative) Urine Blood (Negative) Ur Leukocyte Esterase (Negative) Urine WBC (0-5) /hpf Urine Bacteria (None) /hpf Urine Mucus (None) /hpf Diabetes panel 05/19/20 05/20/20 Range/Units 18:17 06:11 Sodium 140 138 (137-145) mmol/L Potassium 4.7 4.6 (3.5-5.1) mmol/L Chloride 107 110 H (98-107) mmol/L Carbon Dioxide 24 25 (22-30) mmol/L BUN 18 H 12 (7-17) mg/dL Creatinine 1.19 H 1.03 (0.52-1.04) mg/dL Glucose 103 H 89 (74-99) mg/dL Calcium 9.8 8.7 (8.4-10.2) mg/dL AST 20 14 (14-36) U/L ALT 10 8 (4-34) U/L Alkaline Phosphatase 103 75 (38-126) U/L Total Protein 7.1 5.3 L (6.3-8.2) g/dL Albumin 3.7 2.6 L (3.5-5.0) g/dL Calcium panel 05/19/20 05/20/20 Range/Units 18:17 06:11 Calcium 9.8 8.7 (8.4-10.2) mg/dL Albumin 3.7 2.6 L (3.5-5.0) g/dL Pituitary panel 05/19/20 05/20/20 Range/Units 18:17 06:11 Sodium 140 138 (137-145) mmol/L Potassium 4.7 4.6 (3.5-5.1) mmol/L Chloride 107 110 H (98-107) mmol/L Carbon Dioxide 24 25 (22-30) mmol/L BUN 18 H 12 (7-17) mg/dL Creatinine 1.19 H 1.03 (0.52-1.04) mg/dL Glucose 103 H 89 (74-99) mg/dL Calcium 9.8 8.7 (8.4-10.2) mg/dL Adrenal panel 05/19/20 05/20/20 Range/Units 18:17 06:11 Sodium 140 138 (137-145) mmol/L Potassium 4.7 4.6 (3.5-5.1) mmol/L Chloride 107 110 H (98-107) mmol/L Carbon Dioxide 24 25 (22-30) mmol/L BUN 18 H 12 (7-17) mg/dL Creatinine 1.19 H 1.03 (0.52-1.04) mg/dL Glucose 103 H 89 (74-99) mg/dL Calcium 9.8 8.7 (8.4-10.2) mg/dL Total Bilirubin 0.4 0.4 (0.2-1.3) mg/dL AST 20 14 (14-36) U/L ALT 10 8 (4-34) U/L Alkaline Phosphatase 103 75 (38-126) U/L Total Protein 7.1 5.3 L (6.3-8.2) g/dL Albumin 3.7 2.6 L (3.5-5.0) g/dL Assessment and Plan Assessment: Left lower quadrant pain Ovarian cysts Questionable diverticulitis Plan: General surgery was initially consulted secondary to concern for diverticular abscess. Looking at the CT and pelvic ultrasound along with the presentation and history I do not feel this is likely diverticulitis and is more likely pathology related to the left ovary. IR was consulted last night due to the CT stating large diverticular abscess and will follow up on IR recs. There appears to be dilation of the left proximal ureter likely secondary to mass affect, follow up urology recs. Recommend [employer]OR consult regard the left ovarian cysts. Continue with abx and patient will benefit from colonoscopy to rule out colon pathology as an outpatient once the inflammation resolves. No plans for general surgical intervention
--- NOTE | 2020-05-20 13:22 | P.PN ---
Subjective Progress Note Date: 05/20/20 Patient was seen and examined. No acute events overnight. Patient reports significant improvement in her left lower quadrant abdominal pain. She denies any chest pain, shortness of breath or palpitations. No nausea or vomiting. No fever or chills. Reports history of ruptured cyst on the left ovary. Has family history of breast cancer and ovarian cancer. Objective - Vital Signs Vital signs: Vital Signs Temp 98.3 F 05/20/20 07:00 Pulse 92 05/20/20 07:00 Resp 16 05/20/20 07:00 BP 100/69 05/20/20 07:00 Pulse Ox 96 05/20/20 07:00 Intake & Output 05/19/20 05/20/20 05/20/20 18:59 06:59 18:59 Weight 83.007 kg 83.007 kg Other: Voiding Method Toilet # Voids 1 - Exam General: [non toxic], [no distress], [appears at stated age] Derm: [warm], [dry] Head: [atraumatic], [normocephalic], [symmetric] Eyes: [EOMI], [no lid lag], [anicteric sclera] Mouth: [no lip lesion], [mucus membranes moist] Cardiovascular: [S1S2 reg], [no murmur], [positive DP pulse bilateral], Lungs: [CTA bilateral], [no rhonchi, no rales] , [no accessory muscle use] Abdominal: [soft], [ nontender to palpation], [no guarding], [no appreciable organomegaly] Ext: [no gross muscle atrophy], [no edema], [no contractures] Neuro: [no focal neuro deficits] Psych: [Alert], [oriented], [appropriate affect] - Labs CBC & Chem 7: 05/20/20 06:11 05/20/20 06:11 Labs: Abnormal Lab Results - Last 24 Hours (Table) 05/19/20 05/19/20 05/19/20 Range/Units 18:17 18:17 18:21 WBC 13.1 H (3.8-10.6) k/uL Hgb (11.4-16.0) gm/dL Hct (34.0-46.0) % MCHC 30.8 L (31.0-37.0) g/dL Plt Count 668 H (150-450) k/uL Neutrophils # 8.9 H (1.3-7.7) k/uL Eosinophils # 0.9 H (0-0.7) k/uL Chloride (98-107) mmol/L BUN 18 H (7-17) mg/dL Creatinine 1.19 H (0.52-1.04) mg/dL Glucose 103 H (74-99) mg/dL Total Protein (6.3-8.2) g/dL Albumin (3.5-5.0) g/dL Urine Appearance Cloudy H (Clear) Urine Protein Trace H (Negative) Urine Blood Trace H (Negative) Ur Leukocyte Esterase Small H (Negative) Urine WBC 6 H (0-5) /hpf Urine Bacteria Rare H (None) /hpf Urine Mucus Few H (None) /hpf 05/20/20 05/20/20 Range/Units 06:11 06:11 WBC 11.4 H (3.8-10.6) k/uL Hgb 10.5 L (11.4-16.0) gm/dL Hct 33.9 L (34.0-46.0) % MCHC (31.0-37.0) g/dL Plt Count 536 H (150-450) k/uL Neutrophils # (1.3-7.7) k/uL Eosinophils # 0.9 H (0-0.7) k/uL Chloride 110 H (98-107) mmol/L BUN (7-17) mg/dL Creatinine (0.52-1.04) mg/dL Glucose (74-99) mg/dL Total Protein 5.3 L (6.3-8.2) g/dL Albumin 2.6 L (3.5-5.0) g/dL Urine Appearance (Clear) Urine Protein (Negative) Urine Blood (Negative) Ur Leukocyte Esterase (Negative) Urine WBC (0-5) /hpf Urine Bacteria (None) /hpf Urine Mucus (None) /hpf Assessment and Plan Assessment: Left lower quadrant mass Ovarian cyst Hydroureteronephrosis Chronic diarrhea with hematochezia Hypothyroidism with history of thyroid cancer CT abdomen and pelvis shows inflammatory appearing mass involving the left lower quadrant, 8 x 5 cm, thickened sigmoid colon, diverticulitis with abscess less likely tubo-ovarian abscess with involvement of the distal ureter on the left si de with obstruction of the left upper collecting system. Transvaginal ultrasound shows probable 3 cm hemorrhagic cyst, suspicious for mixed solid and cystic mass or neoplasm. Plans: CHURN DRILLER consulted. Follow general surgery recommendations. Continue Rocephin and Flagyl. Zofran as needed for nausea or vomiting. Pain control with Toradol or morphine as needed. Follow blood culture. Plans: Management as above. Urology consulted, recommends stent placement if necessary. Plans: Continue to monitor. Patient reports chronic diarrhea with hematochezia that has been on and off for the past year. Plans: Given her family history for malignancy, she would benefit from colonoscopy to rule out serious pathology in the outpatient setting. Plans: Continue liothyronine. [Patient admitted for left lower quadrant mass causing hydroureteronephrosis. On IV antibiotics for possible abscess. General surgery and will be on board. She is pending clinical improvement. Likely DC in 2-3 days.]
--- NOTE | 2020-05-20 14:48 | P.OBCN ---
History of Present Illness Consult date: 05/20/20 Requesting physician: Frederick Connors Reason for consult: pelvic mass Chief complaint: Pelvic pain with mass History of present illness: Patient is a 49-year-old G one P0 with an elective termination at age 16 who presents for pelvic pain that is been going on for approximately 2 weeks in the left lower quadrant. She gives a somewhat distally did history that goes back to August this year when she had some diarrhea issues and then some bloody diarrhea and then normal stool that was not fully worked up. She relates in October she was seen in the emergency room and was told she had a bladder infection and while she still had some GI issues through the summer and into the fall 2 weeks ago she began having significant left lower quadrant pain that continued to progress and worsen until she came into the emergency room last night. She relates that she has had nausea and vomiting as well and that the pain is located in the left lower quadrant. She relates that if it rotates anywhere it rotates to the midline. In her medical history she has a history of thyroid cancer but she also has a remote history of an ovarian cyst that ruptured she believes on the left side approximately 23 years ago. At that time she was told she has significant adhesions from unknown source although she believes that they said it was from her elective termination. Clinically I'm not sure how that really would happen since the termination would've been intrauterine and her scarring is extrauterine. She further relates that from a gynecologic perspective, she has not had a period in almost 18 months and has had no workup for possible menopause. Her significant other that is also there relates that she is had perimenopausal symptoms for a number of years so this is certainly possible particularly when you consider that she had thyroid cancer and had removal of her thyroid about the same time. I have ordered labs for menopause as well as this may factor into decisions on who anywhere her surgery for her ovary may need to be done. I did review the CAT scan and the ultrasound and there appears to be a large 8 x 5 cm left ovarian mass. Ultrasound shows both cystic and solid components sodas difficult to completely exclude neoplasm. I understand the inflammatory changes that were noted on CT the don't seem to be as reflected in the ultrasound and with her white count coming down and not quite as concerned with urgent need for surgical intervention since her pain has essentially resolved at this time. Due to the fact that I cannot rule out neoplasm and with a family history of having a sister that had ovarian cancer at age 25, I have ordered tumor markers for ovarian cancer. Should these be elevated I would certainly think referral to a gynecologic oncologist like yaneth was would be within her best interest stable have a much higher success rate in getting the cancer removed and would do the correct surgical procedure. That said, if she has a significant turn for the worse with pain indicating potential for torsion or reocclusion of her ureter it is certainly possible that I would be willing to take her to surgery for an exploratory laparotomy and removal of the left ovary. Again with her being essentially asymptomatic at this time I would not recommend doing that without further knowing what her potential risk for cancer is. Certainly if I took her to surgery due to the fact that I cannot rule out the possibility that there is also some other bowel involvement would definitely notify Dr. connors prior to surgery so he was at least aware if we needed him to assist for some reason. Past medical history is seen him for thyroid cancer. Past gynecologic history is significant for starting menses at age 13, elective termination at age 16, and menopause likely at age 48 Past surgical history exploratory laparotomy for left ovarian cyst at age 26, labial biopsy for carcinoma in situ, 2 surgeries for thyroid cancer On physical exam by manual exam was performed with what felt to be a heavy mass now more midline and a mid-flexed uterus. She had significant tenderness on exam but all for tenderness was in the midline. I did not feel anything in the posterior cul-de-sac or the left adnexa so I think that the cyst has rotated towards the midline which would also explain her decrease in back pain and potential symptomatic relief of her hydroureter with the shift of this heavy mass. Assessment left ovarian mass no evidence of torsion based on ultrasound today and at this time likely there is at least some resolution of the hydroureter aced on her symptoms Plan tumor markers are ordered if elevated and her labs revealed postmenopausal status would recommend transfer to [facility] or other gynecologic oncologist for definitive therapy. Should she have a change in symptoms and required emergent surgery would plan to do that here is I think very difficult to transfer her in a timely manner and have surgery scheduled there during the weekend. She understands that there is a risk that should we have to surgery and she has ovarian cancer that we would definitely not complete the surgery and would transfer her at some point for definitive surgery. Past Medical History Past Medical History: Cancer, Thyroid Disorder Additional Past Medical History / Comment(s): Thyroid cancer History of Any Multi-Drug Resistant Organisms: None Reported Past Surgical History: Appendectomy Additional Past Surgical History / Comment(s): Thyroidectomy, right labia Past Psychological History: Anxiety Smoking Status: Former smoker Past Alcohol Use History: None Reported Past Drug Use History: None Reported - Past Family History family Family Medical History: Coronary Artery Disease (CAD), CVA/TIA Medications and Allergies Home Medications Medication Instructions Recorded Confirmed Type ALPRAZolam [Xanax] 1 mg PO BID PRN 05/19/20 05/19/20 History Dextroamphetamine/Amphetamine 20 mg PO BID PRN 05/19/20 05/19/20 History [Adderall] Levothyroxine Sodium [Synthroid] 137 mcg PO DAILY 05/19/20 05/19/20 History Liothyronine Sodium [Cytomel] 5 mcg PO DAILY 05/19/20 05/19/20 History Allergies Allergy/AdvReac Type Severity Reaction Status Date / Time clarithromycin [From Biaxin] Allergy Rash/Hives Verified 05/19/20 21:10 fluticasone [From Flonase] Allergy Rash/Hives Verified 05/19/20 21:10 gatifloxacin [From Tequin] Allergy Rash/Hives Verified 05/19/20 21:10 Mushroom Allergy Rash/Hives Verified 05/20/20 14:24 Penicillins Allergy Rash/Hives Verified 05/19/20 21:10 Sulfa (Sulfonamide Allergy Rash/Hives Verified 05/19/20 21:10 Antibiotics) naproxin Allergy Swelling Uncoded 05/20/20 14:26 Exam Osteopathic Statement: *. No significant issues noted on an osteopathic structural exam other than those noted in the History and Physical/Consult. Vital Signs Temp Pulse Pulse Resp BP BP Pulse Ox 05/20/20 07:00 98.3 F 92 16 100/69 96 05/20/20 01:05 98.0 F 101 H 16 146/97 99 05/20/20 00:40 100 16 05/19/20 21:50 98.1 F 102 H 16 138/94 98 05/19/20 21:05 98.7 F 115 H 19 167/102 96 05/19/20 19:49 98.5 F 99 18 178/81 100 05/19/20 17:24 98.4 F 97 20 155/98 98 Intake and Output 05/19/20 05/20/20 05/20/20 22:59 06:59 14:59 Intake Total 1040 Balance 1040 Intake: IV 1040 Sodium Chloride 0.9% 1, 1040 000 ml @ 130 mls/hr IV . Q7H42M [facility] Rx#:[id number] Other: Voiding Method Toilet # Voids 1 Weight 83.007 kg Results Result Diagrams: 05/20/20 06:11 05/20/20 06:11 Abnormal Lab Results - Last 24 Hours (Table) 05/19/20 05/19/20 05/19/20 Range/Units 18:17 18:17 18:21 WBC 13.1 H (3.8-10.6) k/uL Hgb (11.4-16.0) gm/dL Hct (34.0-46.0) % MCHC 30.8 L (31.0-37.0) g/dL Plt Count 668 H (150-450) k/uL Neutrophils # 8.9 H (1.3-7.7) k/uL Eosinophils # 0.9 H (0-0.7) k/uL Chloride (98-107) mmol/L BUN 18 H (7-17) mg/dL Creatinine 1.19 H (0.52-1.04) mg/dL Glucose 103 H (74-99) mg/dL Total Protein (6.3-8.2) g/dL Albumin (3.5-5.0) g/dL Urine Appearance Cloudy H (Clear) Urine Protein Trace H (Negative) Urine Blood Trace H (Negative) Ur Leukocyte Esterase Small H (Negative) Urine WBC 6 H (0-5) /hpf Urine Bacteria Rare H (None) /hpf Urine Mucus Few H (None) /hpf 05/20/20 05/20/20 Range/Units 06:11 06:11 WBC 11.4 H (3.8-10.6) k/uL Hgb 10.5 L (11.4-16.0) gm/dL Hct 33.9 L (34.0-46.0) % MCHC (31.0-37.0) g/dL Plt Count 536 H (150-450) k/uL Neutrophils # (1.3-7.7) k/uL Eosinophils # 0.9 H (0-0.7) k/uL Chloride 110 H (98-107) mmol/L BUN (7-17) mg/dL Creatinine (0.52-1.04) mg/dL Glucose (74-99) mg/dL Total Protein 5.3 L (6.3-8.2) g/dL Albumin 2.6 L (3.5-5.0) g/dL Urine Appearance (Clear) Urine Protein (Negative) Urine Blood (Negative) Ur Leukocyte Esterase (Negative) Urine WBC (0-5) /hpf Urine Bacteria (None) /hpf Urine Mucus (None) /hpf
[2020-05-21 01:25] LABS: T4, Free (Free Thyroxine) 2.33 ng/dL (0.78-2.19)
[2020-05-21] MEDS: KETOROLAC 15 MG/ML 1 ML VIAL IVP PRN ×4 (01:54→21:07)
[2020-05-21] MEDS: SODIUM CHLORIDE 0.9% 1,000 ML IV SCH ×4 (04:06→21:08)
[2020-05-21] MEDS: metroNIDAZOLE-NS PMX 500 MG in SALINE 1 100ML.BAG IVPB SCH ×3 (05:16→21:05)
[2020-05-21] MEDS: SYNTHROID 137 MCG PO SCH (05:20)
[2020-05-21] MEDS: CYTOMEL 5 MCG PO SCH (05:20)
[2020-05-21] MEDS: ENOXAPARIN 40 MG/0.4 ML SYRINGE SQ SCH (10:14)
[2020-05-21 12:09] LABS: Follicle Stimulating Hormone 83.2 mIU/mL; Luteinizing Hormone 59.7 mIU/mL; Prolactin 9.5 ng/mL (2.8-29.2)
--- NOTE | 2020-05-21 12:14 | P.PN ---
Progress Note - Text Progress Note Date: 05/21/20 Patient is seen and evaluated again this morning. From a gynecologic standpoint she seems very stable. Her pain is essentially completely resolved and at this time she voices no complaints other than that she has not slept the last 2 days. Review of current labs do include a normal CA-125, CA-19-9, and CEA. Her menopausal hormone labs are not back. I believe that with this reduced risk for ovarian cancer with a normal CA-125 level she is safe for surgical intervention locally if she desires. She and I had a long discussion on options and she is not interested in surgery unless it is absolutely necessary. Following the recommendations from radiology she could have an ultrasound in 6-8 weeks to reassess ovaries and verify resolution or at least reduction in size of the complex ovarian mass on the left side. I did explain I suspected at some point she would need surgical intervention because I'm out that this was a pretty heavy mass and that it likely is not going to just resolve on its own and remains at risk for torsion or repeat occlusion of the left ureter and continued hydronephrosis. She again relates that she does not want surgery at this time she understands and verbalizes understanding of risks of ovarian torsion but unless she absolutely has to have surgery she does not want surgery. I have provided my office card and will have them make an appointment with me in the next week or to sit we can reevaluate her on an outpatient basis and reschedule a ultrasound to reassess the ovary in the near future. All of the questions are answered for her at this time and from a gynecologic standpoint again she is stable.
[2020-05-21 12:54] LABS: Estradiol 18.6 pg/mL
--- NOTE | 2020-05-21 13:30 | P.PN ---
Subjective Progress Note Date: 05/21/20 Principal diagnosis: CC: L lower quadrant pain Patient stated that she still has left lower quadrant pain. She is also complaining of left flank pain. Patient denies any fever or chills. Objective - Vital Signs Vital signs: Vital Signs Temp 97.7 F 05/21/20 12:07 Pulse 85 05/21/20 12:07 Resp 18 05/21/20 12:07 BP 160/92 05/21/20 12:07 Pulse Ox 98 05/21/20 12:07 Intake & Output 05/20/20 05/21/20 05/21/20 19:59 06:59 18:59 Intake Total Balance Intake: IV Sodium Chloride 0.9% 1, 000 ml @ 130 mls/hr IV . Q7H42M [facility] Rx#:[id number] Oral Other: Voiding Method Toilet # Voids - Exam General examination - Alert and Oriented 3 in NAD Heart - + S1S2 no murmurs Lungs - Clear to auscultation Abdomen soft tenderness to palpate in the left lower quadrant ND +ve BS Extremities - No edema WIRE DROPPER - Moving all 4 extremities spontaneously Psych - Calm and cooperative - Labs CBC & Chem 7: 05/20/20 06:11 05/20/20 06:11 Labs: Abnormal Lab Results - Last 24 Hours (Table) 05/21/20 Range/Units 00:23 TSH <0.015 L (0.465-4.680) mIU/L Free T4 2.33 H (0.78-2.19) ng/dL Microbiology - Last 24 Hours (Table) 05/19/20 20:03 Blood Culture - Preliminary Blood No Growth after 24 hours Assessment and Plan Assessment: #Left lower quadrant pain #Left lower quadrant mass concerning for diverticulitis with abscess versus left ovarian mass. #Distal left ureteral obstruction likely due to mass -Patient initially had a CT abdomen and pelvis that showed inflammatory appearing mass in the left lower quadrant that is more likely diverticulitis with abscess and less likely to be ovarian abscess and also obstruction of the distal ureter on the left side -Patient seen by general surgery who ordered a transvaginal ultrasound that showed suspicion for mixed solid and cystic mass or neoplasm of the left ovary. -Patient tumor markers were within normal limits. Patient was seen by POWER PLANT ENGINEER who offered surgery however patient declined. -Awaiting for follow-up from Gen. surgery. Gen. surgery also waiting for IR evaluation. -Patient also seen by urology who said that ureter obstruction likely to be relieved after aspiration of the possible abscess. If no surgical intervention or aspiration is planned then we will need to discuss with urology if there is plan for ureteral stent placement. -Patient currently on Rocephin and Flagyl -Abdominal pain has been improving while on antibiotics -Follow blood cultures. #Chronic diarrhea with hematochezia -Patient reports chronic diarrhea with hematochezia that has been on and off for the past year. Plans: Given her family history for malignancy, she would benefit from colonoscopy to rule out serious pathology in the outpatient setting . #Hypothyroidism with history of thyroid cancer -Continue liothyronine. Disposition: If no IR or Gen. surgical interventions will then need to discuss with urology about possible ureteral stent placement. Anticipate patient will be ready for discharge in the next 24 hours if there is no surgical intervention planned.
--- NOTE | 2020-05-21 14:44 | P.PN ---
Subjective Progress Note Date: 05/21/20 patient is feeling better today Objective - Vital Signs Vital signs: Vital Signs Temp 97.7 F 05/21/20 12:07 Pulse 85 05/21/20 12:07 Resp 18 05/21/20 12:07 BP 160/92 05/21/20 12:07 Pulse Ox 98 05/21/20 12:07 Intake & Output 05/20/20 05/21/20 05/21/20 19:59 06:59 18:59 Intake Total 240 Balance 240 Intake: IV Sodium Chloride 0.9% 1, 000 ml @ 130 mls/hr IV . Q7H42M [facility] Rx#:[id number] Oral 240 Other: Voiding Method Toilet # Voids 1 - Constitutional General appearance: Present: cooperative - Respiratory Details: nonlabored - Cardiovascular Rhythm: regular - Gastrointestinal Gastrointestinal Comment(s): S/NT/ND - Psychiatric Psychiatric: Present: A&O x's 3 - Labs CBC & Chem 7: 05/20/20 06:11 05/20/20 06:11 Labs: Abnormal Lab Results - Last 24 Hours (Table) 05/21/20 Range/Units 00:23 TSH <0.015 L (0.465-4.680) mIU/L Free T4 2.33 H (0.78-2.19) ng/dL Microbiology - Last 24 Hours (Table) 05/19/20 20:03 Blood Culture - Preliminary Blood No Growth after 24 hours Assessment and Plan Assessment: Left lower quadrant pain Ovarian cyst/mass Questionable diverticulitis Plan: Appreciate CONSTRUCTION CONTROLLER recs. I think that it is less likely that this is related to diverticulitis given CONSTRUCTION CONTROLLER findings. Patient is cleared from general surgery standpoint. I do not believe she would benefit from IR at this time given that this likely not a diverticular abscess. She should still follow up for colonoscopy once this is resolved as an outpatient. Patient has plans to follow up with Dr. Smith who recommended possible surgery due to size and nature of cyst/mass but patient is declining at this time.
[2020-05-21] MEDS: ALPRAZolam 0.5 MG TAB PO PRN (19:36)
[2020-05-22] MEDS: ALPRAZolam 0.5 MG TAB PO PRN (01:36)
[2020-05-22] MEDS: KETOROLAC 15 MG/ML 1 ML VIAL IVP PRN ×2 (05:07→10:59)
[2020-05-22] MEDS: SYNTHROID 137 MCG PO SCH (05:09)
[2020-05-22] MEDS: metroNIDAZOLE-NS PMX 500 MG in SALINE 1 100ML.BAG IVPB SCH ×2 (05:09→11:00)
[2020-05-22] MEDS: CYTOMEL 5 MCG PO SCH (05:09)
[2020-05-22] MEDS: SODIUM CHLORIDE 0.9% 1,000 ML IV SCH ×2 (05:10→10:56)
[2020-05-22 06:22] LABS: Basophils # (A) 0.1 k/uL (0-0.2); Basophils % (A) 1 %; Eosinophils # (A) 0.8 k/uL (0-0.7); Eosinophils % (A) 8 %; HCT 34.3 % (34.0-46.0); HGB 10.8 gm/dL (11.4-16.0); Hypochromasia Slight; Lymphocytes # (A) 2.3 k/uL (1.0-4.8); Lymphocytes % (A) 25 %; MCH 27.4 pg (25.0-35.0); MCHC 31.3 g/dL (31.0-37.0); MCV 87.6 fL (80.0-100.0); Mean Platelet Volume 6.5; Monocytes # (A) 0.5 k/uL (0-1.0); Monocytes % (A) 5 %; Neutrophils # (A) 5.5 k/uL (1.3-7.7); Neutrophils % (A) 59 %; Platelet Count 542 k/uL (150-450); RBC 3.92 m/uL (3.80-5.40); RDW 13.9 % (11.5-15.5); WBC 9.3 k/uL (3.8-10.6)
[2020-05-22 06:55] LABS: Calcium 8.7 mg/dL (8.4-10.2); Potassium 4.1 mmol/L (3.5-5.1)
[2020-05-22 09:08] LABS: INR 0.9 (<1.2); Prothrombin Time 9.7 sec (9.0-12.0)
[2020-05-22 09:13] VITALS: BP 125/86; PULSE 109; RESP 20; TEMP 98.4
[2020-05-22] MEDS: ENOXAPARIN 40 MG/0.4 ML SYRINGE SQ SCH (09:43)
--- NOTE | 2020-05-22 13:01 | P.DS ---
Providers Date of admission: 05/19/20 19:45 Expected date of discharge: 05/22/20 Attending physician: Rowdy Topete MD Consults: 05/19/20 20:04 Consult Physician Routine Consulting Provider: Frederick Connors Consult Reason/Comments: Diverticulitis with abscess Do you want consulting provider notified?: Already Contacted 05/20/20 10:46 Consult Physician Routine Consulting Provider: Sohail Castellanos Consult Reason/Comments: possible blockage related to cysts Do you want consulting provider notified?: Yes 05/20/20 10:56 Consult Physician Routine Consulting Provider: Paul Noguera Consult Reason/Comments: ovarian cysts Do you want consulting provider notified?: Yes Primary care physician: Stated None Hospital Course: #Left lower quadrant pain #Left lower quadrant mass concerning for diverticulitis with abscess versus left ovarian mass. #Distal left ureteral obstruction likely due to mass 41-year-old woman hypothyroidism and chronic pelvic pain/diarrhea presented with acute on chronic left lower quadrant abdominal pain. In the ED, imaging showed massive left lower quadrant thought to be abscess versus ovarian mass with some mild hydroureter. Follow-up transvaginal ultrasound demonstrated a 3 cm hemorrhagic cyst of the right ovary, and suspicion for mixed solid and cystic mass or neoplasm the left ovary. General surgery was consulted and recommended IR guided drainage of possible diverticular abscess; I taniya Loomis thought that history isn't consistent with abscess and possibly more related to tubular ovarian disease. Therefore, NETWORK RELAY TESTER consulted, who recommended that we obtain tumor markers to determine whether or not referral to [facility] for gynecologic definitive therapy was warranted, otherwise, they felt no need for surgery at this time given improvement pain, improvement in hydroureter on repeat ultrasound, and the patient herself did not want any surgical procedure done unless emergently warranted. Patient was treated for diverticulitis with ceftriaxone and Flagyl, and improved during the course of her hospitalization. She was able tolerate a diet, regular, on day of discharge. She'll have outpatient colonoscopy arranged, and return to see DIRECTOR LONG TERM CARE, surgery in the future. I spent more than 30 minutes preparing this discharge Assessment: Gen: awake, alert HEENT: normocephalic, atraumatic, good hearing acuity, moist mucous membranes Resp: CTAB, good air exchange, no accessory muscle use, no wheezes, crackles, rhonchi CVS: good distal perfusion x 4, RRR, no murmurs, clicks, gallops GI: soft, NTTP, ND : no SPT, no CVAT, mcnally catheter not present MSK: no pitting edema, no clubbing Neuro: non-focal, no sensory deficits, appropriate tone Psych: cooperative, euthymic mood Patient Condition at Discharge: Serious Plan - Discharge Summary Discharge Rx Participant: No New Discharge Prescriptions: New Cefdinir [Omnicef] 300 mg PO Q12HR #14 capsule Azithromycin [Zithromax] 500 mg PO DAILY 7 Days #7 tab Continue Dextroamphetamine/Amphetamine [Adderall] 20 mg PO BID PRN PRN Reason: ADHD ALPRAZolam [Xanax] 1 mg PO BID PRN PRN Reason: Anxiety Or Insomnia Liothyronine Sodium [Cytomel] 5 mcg PO DAILY Levothyroxine Sodium [Synthroid] 137 mcg PO DAILY Discharge Medication List ALPRAZolam [Xanax] 1 mg PO BID PRN 05/19/20 [History] Dextroamphetamine/Amphetamine [Adderall] 20 mg PO BID PRN 05/19/20 [History] Levothyroxine Sodium [Synthroid] 137 mcg PO DAILY 05/19/20 [History] Liothyronine Sodium [Cytomel] 5 mcg PO DAILY 05/19/20 [History] Azithromycin [Zithromax] 500 mg PO DAILY 7 Days #7 tab 05/22/20 [Rx] Cefdinir [Omnicef] 300 mg PO Q12HR #14 capsule 05/22/20 [Rx] Follow up Appointment(s)/Referral(s): Paul Noguera DO [Doctor of Osteopathic Medicine] - 05/30/20 11:00 am Frederick Connors DO [Doctor of Osteopathic Medicine] - As Needed Bright Boyce MD [STAFF PHYSICIAN] - 1 Week None,Stated [Primary Care Provider] - 1-2 days Activity/Diet/Wound Care/Special Instructions: ( HOME MEDS IN MED ROOM)
[2020-05-23 18:44] LABS: Inhibin B <10 pg/mL
== END 2020-05-22 13:40 | disposition home or self-care (01) | DRG 392 ==
LOC: EC 17:21 → 4SSUR 19:45 → 6PED 05-21 10:44
PROVIDERS: ADMIT Internal Medicine; ATTEND Internal Medicine
DX: K57.20 Diverticulitis of large intestine with perforation and abscess without bleeding (principal); N17.9 Acute kidney failure, unspecified; N13.1 Hydronephrosis with ureteral stricture, not elsewhere classified; K92.1 Melena; E89.0 Postprocedural hypothyroidism; F41.9 Anxiety disorder, unspecified; E86.0 Dehydration; N83.202 Unspecified ovarian cyst, left side; K52.9 Noninfective gastroenteritis and colitis, unspecified; N83.201 Unspecified ovarian cyst, right side; G89.29 Other chronic pain; N70.93 Salpingitis and oophoritis, unspecified; G47.00 Insomnia, unspecified; R19.09 Other intra-abdominal and pelvic swelling, mass and lump; Z79.890 Hormone replacement therapy; Z79.899 Other long term (current) drug therapy; Z90.49 Acquired absence of other specified parts of digestive tract; Z98.890 Other specified postprocedural states; Z87.891 Personal history of nicotine dependence; Z85.850 Personal history of malignant neoplasm of thyroid; Z78.0 Asymptomatic menopausal state; Z87.440 Personal history of urinary (tract) infections; Z86.008 Personal history of in-situ neoplasm of other site; Z87.42 Personal history of other diseases of the female genital tract; Z88.1 Allergy status to other antibiotic agents; Z88.0 Allergy status to penicillin; Z88.2 Allergy status to sulfonamides; Z88.8 Allergy status to other drugs, medicaments and biological substances; Z80.3 Family history of malignant neoplasm of breast; Z80.41 Family history of malignant neoplasm of ovary; Z82.49 Family history of ischemic heart disease and other diseases of the circulatory system; Z82.3 Family history of stroke
CPT/HCPCS: 36415; 74177; 76830; 80048; 80053; 81001; 81025; 82378; 82670; 83001; 83002; 83520; 83605; 83690; 84146; 84439; 84443; 85025; 85610; 86301; 86304; 86336; 87040; 93975; 96361; 96365; 96366; 96375; 99285

== ENCOUNTER 2020-07-29 15:08 | Emergency (ER) | payer OTHER ==
[2020-07-29 15:15] VITALS: TEMP 98.2
[2020-07-29] MEDS ORDERED: oxyCODONE-APAP 5-325MG 1 EACH TAB PO STA (15:29)
--- NOTE | 2020-07-29 15:33 | ED ---
General Adult HPI - General Chief complaint: Recheck/Abnormal Lab/Rx Stated complaint: colostomy issues, Colon Cancer Time Seen by Provider: 07/29/20 15:22 Source: patient Mode of arrival: ambulatory Limitations: no limitations - History of Present Illness Initial comments: 50-year-old female with history of advanced colon cancer presenting to the emerg ency department with chief complaint of abdominal pain. Patient reports recent colectomy and a new ostomy site which she has been maintaining accordingly. Patient reports she was only discharged with one week of oxycodone 53 25. Patient states she contacted her surgeon Dr. Toney out of [facility] regarding the pain and he could not prescribe her any refills of the oxycodone over the phone. He advised her to come to the emergency department for symptomatic control. Patient reports she has an appointment with her oncologist on who will give a refill for her oxycodone. Patient reports she is here only for pain relief. She did also report increased urinary urgency but denies dysuria or frequency. Denies any flank pain. - Related Data Home Medications Medication Instructions Recorded Confirmed ALPRAZolam [Xanax] 1 mg PO BID PRN 05/19/20 07/29/20 Levothyroxine Sodium [Synthroid] 137 mcg PO DAILY 05/19/20 07/29/20 Liothyronine Sodium [Cytomel] 5 mcg PO DAILY 05/19/20 07/29/20 Acetaminophen [Tylenol] 1,000 mg PO Q4-6H PRN 07/29/20 07/29/20 oxyCODONE HCL [OxyIR] 5 mg PO Q6H PRN 07/29/20 07/29/20 Previous Rx's Medication Instructions Recorded Cephalexin [Keflex] 500 mg PO Q6HR #28 cap 07/29/20 diphenhydrAMINE [Benadryl] 50 mg PO QID PRN #20 capsule 07/29/20 oxyCODONE-APAP 5-325MG [Percocet 1 tab PO Q6HR PRN 3 Days #12 tab 07/29/20 5-325 mg] Allergies Allergy/AdvReac Type Severity Reaction Status Date / Time clarithromycin [From Biaxin] Allergy Rash/Hives Verified 07/29/20 15:52 fluticasone [From Flonase] Allergy Rash/Hives Verified 07/29/20 15:52 gatifloxacin [From Tequin] Allergy Rash/Hives Verified 07/29/20 15:52 Mushroom Allergy Rash/Hives Verified 07/29/20 15:52 Penicillins Allergy Rash/Hives Verified 07/29/20 15:52 Sulfa (Sulfonamide Allergy Rash/Hives Verified 07/29/20 15:52 Antibiotics) naproxin Allergy Swelling Uncoded 07/29/20 15:15 Review of Systems ROS Statement: Those systems with pertinent positive or pertinent negative responses have been documented in the HPI. ROS Other: All systems not noted in ROS Statement are negative. Past Medical History Past Medical History: Cancer, Thyroid Disorder Additional Past Medical History / Comment(s): Thyroid cancer, COLON CA History of Any Multi-Drug Resistant Organisms: None Reported Past Surgical History: Appendectomy Additional Past Surgical History / Comment(s): Thyroidectomy, right labia Past Psychological History: Anxiety Smoking Status: Former smoker Past Alcohol Use History: None Reported Past Drug Use History: None Reported - Past Family History family Family Medical History: Coronary Artery Disease (CAD), CVA/TIA General Exam Limitations: no limitations General appearance: alert, in no apparent distress Head exam: Present: atraumatic, normocephalic, normal inspection Eye exam: Present: normal appearance, PERRL, EOMI Pupils: Present: normal accommodation ENT exam: Present: normal exam, normal oropharynx, mucous membranes moist, TM's normal bilaterally, normal external ear exam Neck exam: Present: normal inspection, full ROM. Absent: tenderness Respiratory exam: Present: normal lung sounds bilaterally. Absent: respiratory distress, wheezes, rales Cardiovascular Exam: Present: normal rhythm, tachycardia, normal heart sounds GI/Abdominal exam: Present: soft, other (Laparoscopic incision sites appear to be healing well. Ostomy sites have new dressings on them and are not having any discharge.). Absent: distended Extremities exam: Present: normal inspection, full ROM, normal capillary refill. Absent: tenderness, pedal edema, joint swelling Back exam: Present: normal inspection, full ROM. Absent: tenderness, CVA tenderness (R), CVA tenderness (L) Neurological exam: Present: alert, oriented X3 Psychiatric exam: Present: normal affect, normal mood Skin exam: Present: warm, dry, intact, normal color Course Vital Signs 07/29/20 07/29/20 15:12 16:29 Temperature 98.2 F Pulse Rate 125 H 110 H Respiratory 20 Rate Blood Pressure 115/72 O2 Sat by Pulse 98 Oximetry Medical Decision Making - Medical Decision Making 50-year-old female with advanced colon cancer presenting to the emergency department with chief complaint of abdominal pain. Patient is only requesting refill of her Percocet until she is able to see her oncologist on Friday. On physical examination, the ostomy site appears to be well without any discharge. No signs of any surrounding infection. Dressing was clean. The incision sites from a laparoscopic procedure were healing well. Patient has minimal abdominal tenderness. Patient was offered laboratory work, she declined. She did complain of UTI like symptoms. UA did reveal elevated leukocyte esterase and white blood cells. Microscopic hematuria also noted. Urine culture pending. Patient will be started on Keflex. She tolerated this before. Patient was given Percocet in the emergency department. Considering her advanced metastatic disease, She will be discharged with 3 days of Percocet for symptom control. Patient was offered imaging as well, she declined. Return parameters discussed with patient was up standing and agreeable. Narcotic form signed. Case discussed with physician. - Lab Data Lab Results 07/29/20 Range/Units 15:35 Urine Color Yellow Urine Appearance Turbid H (Clear) Urine pH 7.0 (5.0-8.0) Ur Specific [place] 1.029 (1.001-1.035) Urine Protein 2+ H (Negative) Urine Glucose (UA) Negative (Negative) Urine Ketones Negative (Negative) Urine Blood Trace H (Negative) Urine Nitrite Negative (Negative) Urine Bilirubin Negative (Negative) Urine Urobilinogen 2.0 (<2.0) mg/dL Ur Leukocyte Esterase Large H (Negative) Urine RBC 58 H (0-5) /hpf Urine WBC >182 H (0-5) /hpf Urine WBC Clumps Moderate H (None) /hpf Ur Squamous Epith Cells 14 H (0-4) /hpf Urine Bacteria Occasional H (None) /hpf Urine Mucus Rare H (None) /hpf Disposition Clinical Impression: Encounter for medication refill, Urinary tract infection Disposition: HOME SELF-CARE Condition: Stable Instructions (If sedation given, give patient instructions): Urinary Tract Infection in Women (DC) Additional Instructions: Take the medication as directed. Follow up with an oncologist. Return to emergency department if symptoms worsen. Prescriptions: diphenhydrAMINE [Benadryl] 50 mg PO QID PRN #20 capsule PRN Reason: rash Cephalexin [Keflex] 500 mg PO Q6HR #28 cap oxyCODONE-APAP 5-325MG [Percocet 5-325 mg] 1 tab PO Q6HR PRN 3 Days #12 tab PRN Reason: Pain Is patient prescribed a controlled substance at d/c from ED?: No Referrals: Julee Garcia III, MD [Primary Care Provider] - 1-2 days Time of Disposition: 16:12
[2020-07-29] MEDS ORDERED: ONDANSETRON 4 MG TAB PO STA (15:46)
[2020-07-29 15:55] LABS: Appearance,Urine Turbid (Clear); Bacteria,Urine Occasional /hpf; Bilirubin,Urine Negative (Negative); Blood,Urine Trace (Negative); Color,Urine Yellow; Glucose,Urine (UA) Negative (Negative); Ketones,Urine Negative (Negative); Leukocyte Esterase,Urine Large (Negative); Mucus,Urine Rare /hpf; Nitrite,Urine Negative (Negative); Protein,Urine 2+ (Negative); RBC,Urine 58 /hpf (0-5); Specific Gravity,Urine 1.029 (1.001-1.035); Squamous Epithelial Cell,Urine 14 /hpf (0-4); WBC,Urine >182 /hpf (0-5)
[2020-07-29] MEDS ORDERED: CEPHALEXIN 500 MG CAP PO STA (16:11)
[2020-07-29 16:29] VITALS: PULSE 110
[2020-07-29 16:54] VITALS: BP 118/75; RESP 18
== END 2020-07-29 16:54 | disposition home or self-care (01) ==
LOC: EC 15:08
DX: N39.0 Urinary tract infection, site not specified (principal); R10.9 Unspecified abdominal pain; R10.819 Abdominal tenderness, unspecified site; E07.9 Disorder of thyroid, unspecified; F41.9 Anxiety disorder, unspecified; Z79.890 Hormone replacement therapy; Z88.1 Allergy status to other antibiotic agents; Z88.0 Allergy status to penicillin; Z88.2 Allergy status to sulfonamides; Z91.018 Allergy to other foods; Z88.6 Allergy status to analgesic agent; Z76.0 Encounter for issue of repeat prescription; Z85.850 Personal history of malignant neoplasm of thyroid; Z85.038 Personal history of other malignant neoplasm of large intestine; Z87.891 Personal history of nicotine dependence; Z90.89 Acquired absence of other organs; Z90.49 Acquired absence of other specified parts of digestive tract; Z93.3 Colostomy status
CPT/HCPCS: 81001; 87086; 99284

== ENCOUNTER 2020-10-07 00:23 | Inpatient (IN) | payer OTHER ==
[2020-10-07] MEDS ORDERED: PANTOPRAZOLE 40 MG/10 ML VIAL IVP STA (00:38)
[2020-10-07] MEDS ORDERED: SODIUM CHLORIDE 0.9% 1,000 ML IV STA (00:38)
--- NOTE | 2020-10-07 01:18 | ED ---
GI Bleed HPI - General Chief complaint: GI Bleed Stated complaint: Colostomy bag broke/rectal bleeding Time Seen by Provider: 10/07/20 00:37 Source: patient, family, RN notes reviewed, old records reviewed Mode of arrival: wheelchair Limitations: no limitations - History of Present Illness Initial comments: This is a 50-year-old female in for blood in her ostomy. Also blood and mucus from her rectum. Patient does have a positive diagnosis: 1, colorectal cancer. Has not had surgery, patient is continuing to do be under evaluation for treatment plan. Patient has severe diffuse body aches and pains. Otherwise no fevers no other complaints she is on blood thinners, shots of Lovenox for DVT prophylaxis MD complaint: blood on toilet paper, blood streaked stool -: hour(s) Radiation: none Severity scale (1-10): 6 Quality: painless Consistency: constant Improves with: none Worsens with: none Context: history of GI bleed, medication/supplement use, blood thinners Associated Symptoms: abdominal pain, weakness Treatments Prior to Arrival: none - Related Data Home Medications Medication Instructions Recorded Confirmed Levothyroxine Sodium [Synthroid] 137 mcg PO DAILY 05/19/20 10/07/20 Ergocalciferol [Vitamin D2 (1250 1,250 mcg PO Q7D 10/07/20 10/07/20 Mcg = 25961 Iu)] HYDROcodone/APAP 10-325MG [[place] 1 tab PO Q6H PRN 10/07/20 10/07/20 10-325] Naloxone HCl [Narcan] 4 mg NASAL ONCE PRN 10/07/20 10/07/20 Ondansetron [Zofran] 4 mg PO Q8H PRN 10/07/20 10/07/20 Previous Rx's Medication Instructions Recorded Apixaban [Eliquis] 5 mg PO BID #60 tab 10/11/20 Morphine Sulfate ER [Ms Contin] 30 mg PO Q8H #21 tab 10/13/20 Allergies Allergy/AdvReac Type Severity Reaction Status Date / Time clarithromycin [From Biaxin] Allergy Rash/Hives Verified 10/07/20 00:30 fluticasone [From Flonase] Allergy Rash/Hives Verified 10/07/20 00:30 gatifloxacin [From Tequin] Allergy Rash/Hives Verified 10/07/20 00:30 Mushroom Allergy Rash/Hives Verified 10/07/20 00:30 Penicillins Allergy Rash/Hives Verified 10/07/20 00:30 Sulfa (Sulfonamide Allergy Rash/Hives Verified 10/07/20 00:30 Antibiotics) hydromorphone [From Dilaudid] AdvReac Unknown Verified 10/16/20 19:33 prochlorperazine AdvReac Hallucinati Verified 10/16/20 19:33 ons naproxin Allergy Swelling Uncoded 10/07/20 00:30 Review of Systems ROS Statement: Those systems with pertinent positive or pertinent negative responses have been documented in the HPI. ROS Other: All systems not noted in ROS Statement are negative. Past Medical History Past Medical History: Cancer, Thyroid Disorder Additional Past Medical History / Comment(s): Thyroid cancer, COLON CA History of Any Multi-Drug Resistant Organisms: None Reported Past Surgical History: Appendectomy Additional Past Surgical History / Comment(s): Thyroidectomy, right labia Past Psychological History: Anxiety Smoking Status: Former smoker Past Alcohol Use History: None Reported Past Drug Use History: None Reported - Past Family History family Family Medical History: Coronary Artery Disease (CAD), CVA/TIA General Exam Limitations: no limitations General appearance: alert, in no apparent distress, anxious, in distress Head exam: Present: atraumatic, normocephalic, normal inspection Eye exam: Present: normal appearance, PERRL, EOMI. Absent: scleral icterus, conjunctival injection, periorbital swelling ENT exam: Present: normal exam, mucous membranes moist Neck exam: Present: normal inspection. Absent: tenderness, meningismus, lymphadenopathy Respiratory exam: Present: normal lung sounds bilaterally. Absent: respiratory distress, wheezes, rales, rhonchi, stridor Cardiovascular Exam: Present: normal rhythm, bradycardia, normal heart sounds. Absent: systolic murmur, diastolic murmur, rubs, gallop, clicks GI/Abdominal exam: Present: soft, normal bowel sounds. Absent: distended, tenderness, guarding, rebound, rigid Extremities exam: Present: normal inspection, full ROM, normal capillary refill. Absent: tenderness, pedal edema, joint swelling, calf tenderness Back exam: Present: normal inspection Neurological exam: Present: alert, oriented X3, CN II-XII intact Psychiatric exam: Present: normal affect, normal mood Skin exam: Present: warm, dry, intact, normal color. Absent: rash Course Vital Signs 10/07/20 10/07/20 10/07/20 00:30 03:38 03:53 Temperature 98.1 F 98.3 F 98.3 F Pulse Rate 135 H 102 H Pulse Rate [ 106 H Pulse Oximetery ] Respiratory 16 16 16 Rate Blood Pressure 106/70 93/68 Blood Pressure 98/62 [Left Arm] O2 Sat by Pulse 97 100 99 Oximetry - Reevaluation(s) Reevaluation #1: Medical record is reviewed Patient feels significantly improved well here in the ER Patient spoke with results, questions answered Patient has no blood output here in the ER Medical Decision Making - Medical Decision Making 50 female DF for evaluation patient presents today for evaluation regards to GI bleed with diffuse body aches and pains. Patient will be admitted for further evaluation management watching of bleeding, patient does have generalized pain - Lab Data Result diagrams: 10/17/20 11:44 10/17/20 11:44 Lab Results 10/07/20 10/07/20 10/07/20 Range/Units 01:36 01:36 01:36 WBC 14.5 H (3.8-10.6) k/uL RBC 3.40 L (3.80-5.40) m/uL Hgb 9.1 L (11.4-16.0) gm/dL Hct 29.2 L (34.0-46.0) % MCV 86.0 (80.0-100.0) fL MCH 26.9 (25.0-35.0) pg MCHC 31.3 (31.0-37.0) g/dL RDW 19.3 H (11.5-15.5) % Plt Count 866 H (150-450) k/uL MPV 6.5 Neutrophils % 83 % Lymphocytes % 10 % Monocytes % 5 % Eosinophils % 1 % Basophils % 0 % Neutrophils # 11.9 H (1.3-7.7) k/uL Lymphocytes # 1.5 (1.0-4.8) k/uL Monocytes # 0.8 (0-1.0) k/uL Eosinophils # 0.1 (0-0.7) k/uL Basophils # 0.0 (0-0.2) k/uL Hypochromasia Slight Anisocytosis Slight Microcytosis Slight PT 10.7 (9.0-12.0) sec INR 1.0 (<1.2) APTT 32.0 H (22.0-30.0) sec Sodium 134 L (137-145) mmol/L Potassium 4.1 (3.5-5.1) mmol/L Chloride 97 L (98-107) mmol/L Carbon Dioxide 27 (22-30) mmol/L Anion Gap 10 mmol/L BUN 14 (7-17) mg/dL Creatinine 0.96 (0.52-1.04) mg/dL Est GFR (CKD-EPI)AfAm 80 (>60 ml/min/1.73 sqM) Est GFR (CKD-EPI)NonAf 70 (>60 ml/min/1.73 sqM) Glucose 110 H (74-99) mg/dL Calcium 9.2 (8.4-10.2) mg/dL Magnesium 1.9 (1.6-2.3) mg/dL Iron (50-170) ug/dL TIBC (228-460) ug/dL % Saturation (12.00-45.00) Ferritin (10.0-291.0) ng/mL Total Bilirubin 0.4 (0.2-1.3) mg/dL AST 22 (14-36) U/L ALT <6 (4-34) U/L Alkaline Phosphatase 72 (38-126) U/L Troponin I (0.000-0.034) ng/mL Total Protein 6.5 (6.3-8.2) g/dL Albumin 3.4 L (3.5-5.0) g/dL Lipase 51 (23-300) U/L Coronavirus (PCR) (Not Detectd) Blood Type Blood Type Confirm Blood Type Recheck Bld Type Recheck Status Antibody Screen Antibody Identification Direct Antiglob Test Spec Expiration Date 10/07/20 10/07/20 10/07/20 Range/Units 01:36 01:36 01:38 WBC (3.8-10.6) k/uL RBC (3.80-5.40) m/uL Hgb (11.4-16.0) gm/dL Hct (34.0-46.0) % MCV (80.0-100.0) fL MCH (25.0-35.0) pg MCHC (31.0-37.0) g/dL RDW (11.5-15.5) % Plt Count (150-450) k/uL MPV Neutrophils % % Lymphocytes % % Monocytes % % Eosinophils % % Basophils % % Neutrophils # (1.3-7.7) k/uL Lymphocytes # (1.0-4.8) k/uL Monocytes # (0-1.0) k/uL Eosinophils # (0-0.7) k/uL Basophils # (0-0.2) k/uL Hypochromasia Anisocytosis Microcytosis PT (9.0-12.0) sec INR (<1.2) APTT (22.0-30.0) sec Sodium (137-145) mmol/L Potassium (3.5-5.1) mmol/L Chloride (98-107) mmol/L Carbon Dioxide (22-30) mmol/L Anion Gap mmol/L BUN (7-17) mg/dL Creatinine (0.52-1.04) mg/dL Est GFR (CKD-EPI)AfAm (>60 ml/min/1.73 sqM) Est GFR (CKD-EPI)NonAf (>60 ml/min/1.73 sqM) Glucose (74-99) mg/dL Calcium (8.4-10.2) mg/dL Magnesium (1.6-2.3) mg/dL Iron (50-170) ug/dL TIBC (228-460) ug/dL % Saturation (12.00-45.00) Ferritin (10.0-291.0) ng/mL Total Bilirubin (0.2-1.3) mg/dL AST (14-36) U/L ALT (4-34) U/L Alkaline Phosphatase (38-126) U/L Troponin I <0.012 (0.000-0.034) ng/mL Total Protein (6.3-8.2) g/dL Albumin (3.5-5.0) g/dL Lipase (23-300) U/L Coronavirus (PCR) (Not Detectd) Blood Type O Positive Blood Type Confirm O Positive Blood Type Recheck No Previous Record Bld Type Recheck Status CABO Indicated Antibody Screen POSITIVE Antibody Identification Not Reportable Direct Antiglob Test Positive Spec Expiration Date 10/10/2020233510/07/20 10/07/20 10/08/20 Range/Units 02:47 08:56 06:57 WBC 7.9 (3.8-10.6) k/uL RBC 3.22 L (3.80-5.40) m/uL Hgb 8.6 L (11.4-16.0) gm/dL Hct 27.9 L (34.0-46.0) % MCV 86.8 (80.0-100.0) fL MCH 26.8 (25.0-35.0) pg MCHC 30.8 L (31.0-37.0) g/dL RDW 19.4 H (11.5-15.5) % Plt Count 703 H (150-450) k/uL MPV 6.5 Neutrophils % 72 % Lymphocytes % 16 % Monocytes % 7 % Eosinophils % 3 % Basophils % 1 % Neutrophils # 5.7 (1.3-7.7) k/uL Lymphocytes # 1.3 (1.0-4.8) k/uL Monocytes # 0.6 (0-1.0) k/uL Eosinophils # 0.2 (0-0.7) k/uL Basophils # 0.0 (0-0.2) k/uL Hypochromasia Moderate Anisocytosis Slight Microcytosis Slight PT (9.0-12.0) sec INR (<1.2) APTT (22.0-30.0) sec Sodium (137-145) mmol/L Potassium (3.5-5.1) mmol/L Chloride (98-107) mmol/L Carbon Dioxide (22-30) mmol/L Anion Gap mmol/L BUN (7-17) mg/dL Creatinine (0.52-1.04) mg/dL Est GFR (CKD-EPI)AfAm (>60 ml/min/1.73 sqM) Est GFR (CKD-EPI)NonAf (>60 ml/min/1.73 sqM) Glucose (74-99) mg/dL Calcium (8.4-10.2) mg/dL Magnesium (1.6-2.3) mg/dL Iron (50-170) ug/dL TIBC (228-460) ug/dL % Saturation (12.00-45.00) Ferritin (10.0-291.0) ng/mL Total Bilirubin (0.2-1.3) mg/dL AST (14-36) U/L ALT (4-34) U/L Alkaline Phosphatase (38-126) U/L Troponin I (0.000-0.034) ng/mL Total Protein (6.3-8.2) g/dL Albumin (3.5-5.0) g/dL Lipase (23-300) U/L Coronavirus (PCR) Not Detected (Not Detectd) Blood Type O Positive Blood Type Confirm Blood Type Recheck O Pos Bld Type Recheck Status No Antibody Screen POSITIVE Antibody Identification Anti-K Direct Antiglob Test Positive Spec Expiration Date 10/10/2020 - 235510/08/20 10/08/20 10/09/20 Range/Units 06:57 21:31 01:04 WBC 11.0 H 8.8 (3.8-10.6) k/uL RBC 3.28 L 3.33 L (3.80-5.40) m/uL Hgb 8.8 L 9.4 L (11.4-16.0) gm/dL Hct 28.4 L 28.9 L (34.0-46.0) % MCV 86.6 86.8 (80.0-100.0) fL MCH 26.8 28.1 (25.0-35.0) pg MCHC 30.9 L 32.4 (31.0-37.0) g/dL RDW 19.2 H 19.4 H (11.5-15.5) % Plt Count 709 H 692 H (150-450) k/uL MPV 6.1 6.3 Neutrophils % 73 % Lymphocytes % 17 % Monocytes % 6 % Eosinophils % 3 % Basophils % 0 % Neutrophils # 6.4 (1.3-7.7) k/uL Lymphocytes # 1.5 (1.0-4.8) k/uL Monocytes # 0.5 (0-1.0) k/uL Eosinophils # 0.2 (0-0.7) k/uL Basophils # 0.0 (0-0.2) k/uL Hypochromasia Moderate Slight Anisocytosis Slight Slight Microcytosis Slight Slight PT (9.0-12.0) sec INR (<1.2) APTT (22.0-30.0) sec Sodium (137-145) mmol/L Potassium (3.5-5.1) mmol/L Chloride (98-107) mmol/L Carbon Dioxide (22-30) mmol/L Anion Gap mmol/L BUN (7-17) mg/dL Creatinine (0.52-1.04) mg/dL Est GFR (CKD-EPI)AfAm (>60 ml/min/1.73 sqM) Est GFR (CKD-EPI)NonAf (>60 ml/min/1.73 sqM) Glucose (74-99) mg/dL Calcium (8.4-10.2) mg/dL Magnesium (1.6-2.3) mg/dL Iron 31 L (50-170) ug/dL TIBC 158 L (228-460) ug/dL % Saturation 19.62 (12.00-45.00) Ferritin 179.5 (10.0-291.0) ng/mL Total Bilirubin (0.2-1.3) mg/dL AST (14-36) U/L ALT (4-34) U/L Alkaline Phosphatase (38-126) U/L Troponin I (0.000-0.034) ng/mL Total Protein (6.3-8.2) g/dL Albumin (3.5-5.0) g/dL Lipase (23-300) U/L Coronavirus (PCR) (Not Detectd) Blood Type Blood Type Confirm Blood Type Recheck Bld Type Recheck Status Antibody Screen Antibody Identification Direct Antiglob Test Spec Expiration Date 10/09/20 10/09/20 10/09/20 Range/Units 01:04 06:24 06:24 WBC 8.4 (3.8-10.6) k/uL RBC 3.13 L (3.80-5.40) m/uL Hgb 8.8 L (11.4-16.0) gm/dL Hct 27.1 L (34.0-46.0) % MCV 86.8 (80.0-100.0) fL MCH 28.1 (25.0-35.0) pg MCHC 32.4 (31.0-37.0) g/dL RDW 19.3 H (11.5-15.5) % Plt Count 652 H (150-450) k/uL MPV 6.3 Neutrophils % % Lymphocytes % % Monocytes % % Eosinophils % % Basophils % % Neutrophils # (1.3-7.7) k/uL Lymphocytes # (1.0-4.8) k/uL Monocytes # (0-1.0) k/uL Eosinophils # (0-0.7) k/uL Basophils # (0-0.2) k/uL Hypochromasia Slight Anisocytosis Slight Microcytosis Slight PT 10.5 (9.0-12.0) sec INR 1.0 (<1.2) APTT (22.0-30.0) sec Sodium 135 L (137-145) mmol/L Potassium 4.3 (3.5-5.1) mmol/L Chloride 100 (98-107) mmol/L Carbon Dioxide 30 (22-30) mmol/L Anion Gap 5 mmol/L BUN 12 (7-17) mg/dL Creatinine 0.84 (0.52-1.04) mg/dL Est GFR (CKD-EPI)AfAm >90 (>60 ml/min/1.73 sqM) Est GFR (CKD-EPI)NonAf 82 (>60 ml/min/1.73 sqM) Glucose 87 (74-99) mg/dL Calcium 8.7 (8.4-10.2) mg/dL Magnesium (1.6-2.3) mg/dL Iron (50-170) ug/dL TIBC (228-460) ug/dL % Saturation (12.00-45.00) Ferritin (10.0-291.0) ng/mL Total Bilirubin (0.2-1.3) mg/dL AST (14-36) U/L ALT (4-34) U/L Alkaline Phosphatase (38-126) U/L Troponin I (0.000-0.034) ng/mL Total Protein (6.3-8.2) g/dL Albumin (3.5-5.0) g/dL Lipase (23-300) U/L Coronavirus (PCR) (Not Detectd) Blood Type Blood Type Confirm Blood Type Recheck Bld Type Recheck Status Antibody Screen Antibody Identification Direct Antiglob Test Spec Expiration Date 10/09/20 Range/Units 06:24 WBC (3.8-10.6) k/uL RBC (3.80-5.40) m/uL Hgb (11.4-16.0) gm/dL Hct (34.0-46.0) % MCV (80.0-100.0) fL MCH (25.0-35.0) pg MCHC (31.0-37.0) g/dL RDW (11.5-15.5) % Plt Count (150-450) k/uL MPV Neutrophils % % Lymphocytes % % Monocytes % % Eosinophils % % Basophils % % Neutrophils # (1.3-7.7) k/uL Lymphocytes # (1.0-4.8) k/uL Monocytes # (0-1.0) k/uL Eosinophils # (0-0.7) k/uL Basophils # (0-0.2) k/uL Hypochromasia Anisocytosis Microcytosis PT (9.0-12.0) sec INR (<1.2) APTT 32.8 H (22.0-30.0) sec Sodium (137-145) mmol/L Potassium (3.5-5.1) mmol/L Chloride (98-107) mmol/L Carbon Dioxide (22-30) mmol/L Anion Gap mmol/L BUN (7-17) mg/dL Creatinine (0.52-1.04) mg/dL Est GFR (CKD-EPI)AfAm (>60 ml/min/1.73 sqM) Est GFR (CKD-EPI)NonAf (>60 ml/min/1.73 sqM) Glucose (74-99) mg/dL Calcium (8.4-10.2) mg/dL Magnesium (1.6-2.3) mg/dL Iron (50-170) ug/dL TIBC (228-460) ug/dL % Saturation (12.00-45.00) Ferritin (10.0-291.0) ng/mL Total Bilirubin (0.2-1.3) mg/dL AST (14-36) U/L ALT (4-34) U/L Alkaline Phosphatase (38-126) U/L Troponin I (0.000-0.034) ng/mL Total Protein (6.3-8.2) g/dL Albumin (3.5-5.0) g/dL Lipase (23-300) U/L Coronavirus (PCR) (Not Detectd) Blood Type Blood Type Confirm Blood Type Recheck Bld Type Recheck Status Antibody Screen Antibody Identification Direct Antiglob Test Spec Expiration Date Disposition Clinical Impression: GI bleed, Anemia Disposition: ADMITTED IP TO THIS HOSP Condition: Fair Is patient prescribed a controlled substance at d/c from ED?: No
[2020-10-07 02:01] LABS: Anisocytosis Slight; Basophils % (A) 0 %; Eosinophils # (A) 0.1 k/uL (0-0.7); Eosinophils % (A) 1 %; HCT 29.2 % (34.0-46.0); HGB 9.1 gm/dL (11.4-16.0); Hypochromasia Slight; Lymphocytes # (A) 1.5 k/uL (1.0-4.8); Lymphocytes % (A) 10 %; MCH 26.9 pg (25.0-35.0); MCHC 31.3 g/dL (31.0-37.0); Mean Platelet Volume 6.5; Microcytosis Slight; Monocytes # (A) 0.8 k/uL (0-1.0); Monocytes % (A) 5 %; Neutrophils # (A) 11.9 k/uL (1.3-7.7); Neutrophils % (A) 83 %; Platelet Count 866 k/uL (150-450); RDW 19.3 % (11.5-15.5); WBC 14.5 k/uL (3.8-10.6)
[2020-10-07] MEDS ORDERED: LORazepam 2 MG/ML INJ IV STA (02:03)
[2020-10-07] MEDS ORDERED: HYDROmorphone 1 MG/ML 1 ML SYRINGE IVP STA (02:03)
[2020-10-07] MEDS ORDERED: HYDROmorphone 1 MG/ML 1 ML SYRINGE IVP PRN (02:03)
[2020-10-07 02:17] LABS: Prothrombin Time 10.7 sec (9.0-12.0)
[2020-10-07] MEDS ORDERED: NALOXONE 0.4 MG/ML 1 ML VIAL IV PRN (02:28)
[2020-10-07] MEDS ORDERED: HYDROcodone/APAP 10-325MG 1 EACH TAB PO ONE (02:30)
[2020-10-07] MEDS: ONDANSETRON 4 MG/2 ML VIAL IVP PRN ×3 (02:37→19:57)
[2020-10-07 02:40] LABS: AST 22 U/L (14-36); African American GFR (CKD) 80 (>60 ml/min/1.73 sqM); Albumin 3.4 g/dL (3.5-5.0); Alkaline Phosphatase 72 U/L (38-126); Anion Gap 10 mmol/L; Blood Urea Nitrogen 14 mg/dL (7-17); Carbon Dioxide 27 mmol/L (22-30); Chloride 97 mmol/L (98-107); Glucose 110 mg/dL (74-99); Non-African American GFR(CKD) 70 (>60 ml/min/1.73 sqM); Potassium 4.1 mmol/L (3.5-5.1); Sodium 134 mmol/L (137-145); Total Bilirubin 0.4 mg/dL (0.2-1.3); Total Protein 6.5 g/dL (6.3-8.2)
[2020-10-07 03:43] LABS: ALT <6 U/L (4-34); Calcium 9.2 mg/dL (8.4-10.2); Lipase 51 U/L (23-300); Magnesium 1.9 mg/dL (1.6-2.3)
[2020-10-07] MEDS: metroNIDAZOLE 500 MG TAB PO SCH ×2 (05:36→13:01)
[2020-10-07] MEDS: HYDROcodone/APAP 10-325MG 1 EACH TAB PO PRN ×3 (05:37→19:55)
[2020-10-07] MEDS: ALPRAZolam 0.5 MG TAB PO PRN ×2 (05:37→13:01)
[2020-10-07] MEDS: LEVOTHYROXINE 137 MCG PO SCH (05:38)
[2020-10-07] MEDS: MORPHINE SULFATE ER 30 MG TABLET PO SCH ×2 (08:06→16:47)
[2020-10-07] MEDS: PANTOPRAZOLE 40 MG/10 ML VIAL IVP SCH (08:07)
--- NOTE | 2020-10-07 17:22 | P.HPIM ---
History of Present Illness 50-year-old female is admitted with concerns of GI bleed. Patient the had a colostomy. Patient had colon cancer with a colostomy and patient also had history of abscesses around the colostomy site area leading to urinary obstruction patient presently has nephrostomy tubes. Is having some blood per rectum which is slight x-ray with liquidy small amount of stool. This started yesterday. Patient was started on the Lovenox for her DVT in the right leg. Patient was also complaining of excess amount of stool into her colostomy bag. She says her colostomy bag broke although no evidence of bleeding in the colostomy. Patient denied any hematemesis and the trapezia denied any significant abdominal pain. Patient was not started on chemotherapy yet. Review of Systems REVIEW OF SYSTEMS: CONSTITUTIONAL: No fever, no malaise, no fatigue. HEENT: No recent visual problems or hearing problems. Denied any sore throat. CARDIOVASCULAR: No chest pain, orthopnea, PND, no palpitations, no syncope. PULMONARY: No shortness of breath, no cough, no hemoptysis. GASTROINTESTINAL: no abdominal pain. NEUROLOGICAL: No headaches, no weakness, no numbness. HEMATOLOGICAL: Denies any bleeding or petechiae. GENITOURINARY: Denies any burning micturition, frequency, or urgency. MUSCULOSKELETAL/RHEUMATOLOGICAL: Denies any joint pain, swelling, or any muscle pain. ENDOCRINE: Denies any polyuria or polydipsia. The rest of the 14-point review of systems is negative. Past Medical History Past Medical History: Cancer, Thyroid Disorder Additional Past Medical History / Comment(s): Thyroid cancer, COLON CA History of Any Multi-Drug Resistant Organisms: None Reported Past Surgical History: Appendectomy Additional Past Surgical History / Comment(s): Thyroidectomy, right labia Past Anesthesia/Blood Transfusion Reactions: No Reported Reaction Past Psychological History: Anxiety Smoking Status: Former smoker Past Alcohol Use History: None Reported Past Drug Use History: None Reported - Past Family History family Family Medical History: Coronary Artery Disease (CAD), CVA/TIA Medications and Allergies Home Medications Medication Instructions Recorded Confirmed Type Levothyroxine Sodium [Synthroid] 137 mcg PO DAILY 05/19/20 10/07/20 History Enoxaparin [Lovenox] 100 mg SQ DAILY 10/07/20 10/07/20 History Ergocalciferol [Vitamin D2 (1250 1,250 mcg PO Q7D 10/07/20 10/07/20 History Mcg = 61435 Iu)] HYDROcodone/APAP 10-325MG [[place] 1 tab PO Q6H PRN 10/07/20 10/07/20 History 10-325] Morphine Sulfate ER [Ms Contin] 30 mg PO Q8H 10/07/20 10/07/20 History Naloxone HCl [Narcan] 4 mg NASAL ONCE PRN 10/07/20 10/07/20 History Ondansetron [Zofran] 4 mg PO Q8H PRN 10/07/20 10/07/20 History metroNIDAZOLE [Flagyl] 500 mg PO TID 10/07/20 10/07/20 History Allergies Allergy/AdvReac Type Severity Reaction Status Date / Time clarithromycin [From Biaxin] Allergy Rash/Hives Verified 10/07/20 00:30 fluticasone [From Flonase] Allergy Rash/Hives Verified 10/07/20 00:30 gatifloxacin [From Tequin] Allergy Rash/Hives Verified 10/07/20 00:30 Mushroom Allergy Rash/Hives Verified 10/07/20 00:30 Penicillins Allergy Rash/Hives Verified 10/07/20 00:30 Sulfa (Sulfonamide Allergy Rash/Hives Verified 10/07/20 00:30 Antibiotics) naproxin Allergy Swelling Uncoded 10/07/20 00:30 Physical Exam Vitals: Vital Signs Temp Pulse Pulse Resp BP BP Pulse Ox 10/07/20 16:50 98.4 F 94 16 91/52 97 10/07/20 11:53 98.3 F 64 14 89/50 94 L 10/07/20 08:00 97.8 F 96 14 87/55 97 10/07/20 03:53 98.3 F 102 H 16 93/68 99 10/07/20 03:38 98.3 F 106 H 16 98/62 100 10/07/20 00:30 98.1 F 135 H 16 106/70 97 Intake and Output 10/07/20 10/07/20 10/07/20 06:59 14:59 22:59 Output Total 200 Balance -200 Output: Drainage 200 Left Lateral 100 Right Lateral 100 Other: Weight 72.9 kg 72.9 kg PHYSICAL EXAMINATION: GENERAL: The patient is alert and oriented x3, not in any acute distress. Well d eveloped, well nourished. He is to be tired and fatigued HEENT: Pupils are round and equally reacting to light. EOMI. No scleral icterus. No conjunctival pallor. Normocephalic, atraumatic. No pharyngeal erythema. No thyromegaly. CARDIOVASCULAR: S1 and S2 present. No murmurs, rubs, or gallops. PULMONARY: Chest is clear to auscultation, no wheezing or crackles. ABDOMEN: Soft, nontender, nondistended, normoactive bowel sounds. No palpable organomegaly. Left-sided colostomy bag in place nephrostomy site looks clean without any infection MUSCULOSKELETAL: No joint swelling or deformity. EXTREMITIES: No cyanosis, clubbing, or pedal edema. NEUROLOGICAL: Gross neurological examination did not reveal any focal deficits. SKIN: No rashes. Results CBC & Chem 7: 10/07/20 01:36 10/07/20 01:36 Labs: Abnormal Lab Results - Last 24 Hours (Table) 10/07/20 10/07/20 10/07/20 Range/Units 01:36 01:36 01:36 WBC 14.5 H (3.8-10.6) k/uL RBC 3.40 L (3.80-5.40) m/uL Hgb 9.1 L (11.4-16.0) gm/dL Hct 29.2 L (34.0-46.0) % RDW 19.3 H (11.5-15.5) % Plt Count 866 H (150-450) k/uL Neutrophils # 11.9 H (1.3-7.7) k/uL APTT 32.0 H (22.0-30.0) sec Sodium 134 L (137-145) mmol/L Chloride 97 L (98-107) mmol/L Glucose 110 H (74-99) mg/dL Albumin 3.4 L (3.5-5.0) g/dL Thrombosis Risk Factor Assmnt - Choose All That Apply Any of the Below Risk Factors Present?: Yes Each Factor Represents 1 point: Age 41-60 years, Obesity (BMI >25), Swollen legs (current) Other Risk Factors: No Each Risk Factor Represents 3 Points: History of DVT/PE Other congenital or acquired thrombophilia - If yes, enter type in comment: No Thrombosis Risk Factor Assessment Total Risk Factor Score: 6 Thrombosis Risk Factor Assessment Level: High Risk Assessment and Plan Plan: possible mild lower GI bleed: Patient will be monitored gastroenterology will be consulted will hold off on anticoagulation for now but patient need to be resumed on this and anticoagulation as soon as possible will obtain medical records from the subacute rehabilitation where she had Doppler of the right lower extremity that showed DVT. We will also consult hematology. -Abdominal abscess patient completed antibiotic therapy antibiotics were discontinued -Diarrhea may be related to antibiotics if she can use her diarrhea will obtain C. diff testing patient will be started and continued on IV fluids -Colon cancer status post colectomy not initiated on chemotherapy at patient has a colostomy in place -Hypothyroidism -IPOL anemic hyponatremia expected to improve with IV fluids -Leukocytosis reactive -Tachycardia: Secondary to dehydration IV fluids as mentioned above
[2020-10-08] MEDS: MORPHINE SULFATE ER 30 MG TABLET PO SCH ×4 (00:02→23:52)
[2020-10-08] MEDS: HYDROcodone/APAP 10-325MG 1 EACH TAB PO PRN ×4 (02:26→20:41)
[2020-10-08] MEDS: ONDANSETRON 4 MG/2 ML VIAL IVP PRN ×4 (02:26→20:42)
[2020-10-08] MEDS: SODIUM CHLORIDE 0.9% 1,000 ML IV SCH ×4 (04:09→20:55)
[2020-10-08] MEDS: LEVOTHYROXINE 137 MCG PO SCH (05:22)
[2020-10-08] MEDS: ALPRAZolam 0.5 MG TAB PO PRN ×2 (05:23→18:34)
[2020-10-08 07:59] LABS: Anisocytosis Slight; Basophils % (A) 1 %; Eosinophils # (A) 0.2 k/uL (0-0.7); Eosinophils % (A) 3 %; HCT 27.9 % (34.0-46.0); HGB 8.6 gm/dL (11.4-16.0); Hypochromasia Moderate; Lymphocytes # (A) 1.3 k/uL (1.0-4.8); Lymphocytes % (A) 16 %; MCH 26.8 pg (25.0-35.0); MCHC 30.8 g/dL (31.0-37.0); MCV 86.8 fL (80.0-100.0); Mean Platelet Volume 6.5; Microcytosis Slight; Monocytes # (A) 0.6 k/uL (0-1.0); Monocytes % (A) 7 %; Neutrophils # (A) 5.7 k/uL (1.3-7.7); Neutrophils % (A) 72 %; Platelet Count 703 k/uL (150-450); RBC 3.22 m/uL (3.80-5.40); RDW 19.4 % (11.5-15.5); WBC 7.9 k/uL (3.8-10.6)
[2020-10-08] MEDS: PANTOPRAZOLE 40 MG/10 ML VIAL IVP SCH (08:02)
--- NOTE | 2020-10-08 10:27 | P.PN ---
Subjective 50-year-old female is admitted with concerns of GI bleed. Patient the had a colostomy. Patient had colon cancer with a colostomy and patient also had history of abscesses around the colostomy site area leading to urinary obstruction patient presently has nephrostomy tubes. Is having some blood per rectum which is slight x-ray with liquidy small amount of stool. This started yesterday. Patient was started on the Lovenox for her DVT in the right leg. Patient was also complaining of excess amount of stool into her colostomy bag. She says her colostomy bag broke although no evidence of bleeding in the colostomy. Patient denied any hematemesis and the trapezia denied any significant abdominal pain. Patient was not started on chemotherapy yet. 10/08/2020 Patient has multiple areas of bullous lesions which are draining serous fluid no evidence of infection but will consult the general surgery because of this reason. Patient probably will not require any antibiotics at this time. Patient's surgical site areas appear to be clean with multiple of these bullous lesions. Patient's immobility remains fairly stable no more GI bleed issues Constitutional: Denied any fatigue denied any fever. Cardio vascular: denied any chest pain, palpitations Gastrointestinal denied any nausea vomiting Pulmonary: Denied any shortness of breath cough Neurologic denied any new focal deficits All inpatient medications were reviewed and appropriate changes in these medications as dictated in the interval history and assessment and plan. Objective - Vital Signs Vital signs: Vital Signs Temp 98.3 F 10/08/20 07:58 Pulse 80 10/08/20 07:58 Resp 16 10/08/20 07:58 BP 94/62 10/08/20 07:58 Pulse Ox 97 10/08/20 07:58 Intake & Output 10/07/20 10/08/20 10/08/20 18:59 06:59 18:59 Intake Total 561 350 Output Total 600 400 300 Balance -39 -400 50 Weight 72.9 kg Intake: Intake, IV Titration 75 150 Amount Sodium Chloride 0.9% 1, 75 150 000 ml @ 75 mls/hr IV . [id number] [facility] Rx#:[id number] Oral 486 200 Output: Drainage 300 300 Left Lateral 200 100 Right Lateral 100 200 Stool 600 100 Other: Voiding Method Ileal Conduit (Right) Ileal Conduit (Right) Ileal Conduit (Left) Ileal Conduit (Left) - Exam PHYSICAL EXAMINATION: GENERAL: The patient is alert and oriented x3, not in any acute distress. Well developed, well nourished. He is to be tired and fatigued HEENT: Pupils are round and equally reacting to light. EOMI. No scleral icterus. No conjunctival pallor. Normocephalic, atraumatic. No pharyngeal erythema. No thyromegaly. CARDIOVASCULAR: S1 and S2 present. No murmurs, rubs, or gallops. PULMONARY: Chest is clear to auscultation, no wheezing or crackles. ABDOMEN: Soft, nontender, nondistended, normoactive bowel sounds. No palpable organomegaly. Left-sided colostomy bag in place nephrostomy site looks clean without any infection, there are multiple bullae particularly around the surgical site area is draining serous fluid MUSCULOSKELETAL: No joint swelling or deformity. EXTREMITIES: No cyanosis, clubbing, or pedal edema. NEUROLOGICAL: Gross neurological examination did not reveal any focal deficits. SKIN: As mentioned above - Labs CBC & Chem 7: 10/08/20 06:57 10/07/20 01:36 Labs: Abnormal Lab Results - Last 24 Hours (Table) 10/08/20 Range/Units 06:57 RBC 3.22 L (3.80-5.40) m/uL Hgb 8.6 L (11.4-16.0) gm/dL Hct 27.9 L (34.0-46.0) % MCHC 30.8 L (31.0-37.0) g/dL RDW 19.4 H (11.5-15.5) % Plt Count 703 H (150-450) k/uL Assessment and Plan Plan: possible mild lower GI bleed: Patient will be monitored gastroenterology will be consulted will hold off on anticoagulation for now but patient need to be resumed on this and anticoagulation as soon as possible will obtain medical records from the subacute rehabilitation where she had Doppler of the right lower extremity that showed DVT. We will also consult hematology. -Abdominal abscess patient completed antibiotic therapy antibiotics were discontinued, patient has serous drainage from around the surgical site areas -Diarrhea may be related to antibiotics if she can use her diarrhea will obtain C. diff testing patient will be started and continued on IV fluids -Colon cancer status post colectomy not initiated on chemotherapy at patient has a colostomy in place -Hypothyroidism -Hypovolemic hyponatremia expected to improve with IV fluids, today morning labs are pending -Leukocytosis reactive -Tachycardia: Secondary to dehydration IV fluids as mentioned above
--- NOTE | 2020-10-08 10:35 | P.GSCN ---
History of Present Illness Consult date: 10/08/20 Reason for Consult: Lower midline wound History of present illness: 50-year-old female with recent diagnosis of nonresectable sigmoid colon cancer. Patient underwent her recent workup and procedures at [facility]. Patient had a diverting ostomy created and then later revised. She has bilateral ureterostomy tubes present. Has plans for chemotherapy to begin in [facility] where her family and support system are located. She was supposed to leave to drive to [place] tomorrow with her family. She came to the ER because she was having some mucousy bloody stools rectally and also was having some issues with her ostomy appliance leaking. Patient has a wound in the lower midline which has been present since her prior surgery. It seemed to be gradually getting smaller but recently now is draining more serous fluid. Patient complaining of mild pain. We're consulted to evaluate her lower midline wound. Patient was recently diagnosed with right lower extremity DVT and started Lovenox at home. Patient is afebrile. She was tachycardic on arrival but that has improved. White blood cell count 14.5. Review of Systems The patient denies any acute changes in vision or hearing, no dysphagia or odynophagia, no chest pain or shortness of breath, no dysuria or hematuria, no headache, no runny nose, no melena Past Medical History Past Medical History: Cancer, Thyroid Disorder Additional Past Medical History / Comment(s): Thyroid cancer, COLON CA History of Any Multi-Drug Resistant Organisms: None Reported Past Surgical History: Appendectomy Additional Past Surgical History / Comment(s): Thyroidectomy, right labia Past Anesthesia/Blood Transfusion Reactions: No Reported Reaction Past Psychological History: Anxiety Smoking Status: Former smoker Past Alcohol Use History: None Reported Past Drug Use History: None Reported - Past Family History family Family Medical History: Coronary Artery Disease (CAD), CVA/TIA Medications and Allergies Home Medications Medication Instructions Recorded Confirmed Type Levothyroxine Sodium [Synthroid] 137 mcg PO DAILY 05/19/20 10/07/20 History Enoxaparin [Lovenox] 100 mg SQ DAILY 10/07/20 10/07/20 History Ergocalciferol [Vitamin D2 (1250 1,250 mcg PO Q7D 10/07/20 10/07/20 History Mcg = 04955 Iu)] HYDROcodone/APAP 10-325MG [[place] 1 tab PO Q6H PRN 10/07/20 10/07/20 History 10-325] Morphine Sulfate ER [Ms Contin] 30 mg PO Q8H 10/07/20 10/07/20 History Naloxone HCl [Narcan] 4 mg NASAL ONCE PRN 10/07/20 10/07/20 History Ondansetron [Zofran] 4 mg PO Q8H PRN 10/07/20 10/07/20 History metroNIDAZOLE [Flagyl] 500 mg PO TID 10/07/20 10/07/20 History Allergies Allergy/AdvReac Type Severity Reaction Status Date / Time clarithromycin [From Biaxin] Allergy Rash/Hives Verified 10/07/20 00:30 fluticasone [From Flonase] Allergy Rash/Hives Verified 10/07/20 00:30 gatifloxacin [From Tequin] Allergy Rash/Hives Verified 10/07/20 00:30 Mushroom Allergy Rash/Hives Verified 10/07/20 00:30 Penicillins Allergy Rash/Hives Verified 10/07/20 00:30 Sulfa (Sulfonamide Allergy Rash/Hives Verified 10/07/20 00:30 Antibiotics) naproxin Allergy Swelling Uncoded 10/07/20 00:30 Surgical - Exam Vital Signs Temp Pulse Resp BP Pulse Ox 98.1 F 135 H 16 106/70 97 10/07/20 00:30 10/07/20 00:30 10/07/20 00:30 10/07/20 00:30 10/07/20 00:30 Physical exam: General: Well-developed, well-nourished HEENT: Normocephalic, sclerae nonicteric Abdomen: Nontender, nondistended, left upper quadrant ostomy with appliance in place, midline incision with lower aspect of the incision open wound measuring 3 x 3 cm with a depth of approximately 3 cm, serous fluid small volume seen draining from the wound site, no significant erythema, bilateral urostomy tubes present Extremities: No edema Neuro: Alert and oriented Results - Labs 10/08/20 06:57 10/07/20 01:36 Abnormal Lab Results - Last 24 Hours (Table) 10/08/20 Range/Units 06:57 RBC 3.22 L (3.80-5.40) m/uL Hgb 8.6 L (11.4-16.0) gm/dL Hct 27.9 L (34.0-46.0) % MCHC 30.8 L (31.0-37.0) g/dL RDW 19.4 H (11.5-15.5) % Plt Count 703 H (150-450) k/uL Assessment and Plan (1) Colon cancer Narrative/Plan: 50-year-old female with unresectable colon cancer. Patient has a lower midline wound present. Begin local wound care. Certainly patient would benefit from being closer to her family so that she can initiate chemotherapy support system in place. Will consult ostomy nurse. Hopefully can have patient discharged so on so that she can make her trip to [place]. Will follow. Current Visit: Yes Status: Acute Code(s): C18.9 - MALIGNANT NEOPLASM OF COLON, UNSPECIFIED SNOMED Code(s): 866391172
--- NOTE | 2020-10-08 11:54 | P.CONS ---
History of Present Illness - Reason for Consult Consult date: 10/08/20 Recent DVT, GIB, Colon ca - History of Present Illness The patient is a 50-year-old, with a very completed recent past medical and surgical history. The patient had been admitted to this hospital at the end of 05/09, for possible diverticular abscess. She was subsequently diagnosed with a sigmoid colon cancer. She had attempted resection at the [facility] in 07/09 which was unsuccessful because of the tumor being locally advanced and adherent to surrounding structures. The patient had a diverting ostomy placed. The plan was to do cytoreductive therapy, followed by the attempt at surgery. According to the patient imaging studies did not show any evidence of metastatic disease. The patient states that unfortunately, the initial ostomy failed with development of a fistula and abscess. Therefore had to have ostomy revision. She also had to have bilateral nephrostomy tubes placed. After recovery from the same, she had a follow-up with Dr. Coelho from medical oncology at the [facility], to start chemotherapy. However she was found to be anemic, and septic and had to be admitted to the hospital for more than 2 weeks. Performance status declined significantly, due to which she required subacute rehab. She was then discharged from rehab on 10/05/20. While in rehab, she was diagnosed with right lower extremity DVT and was started on Lovenox. The plan of discharge was for her to travel to [place], and have further treatment at the [facility], as she has more family and support there. The patient states that she started noticing some blood in the nephrostomy bags, and then also had bleeding per rectum. She was having increased ostomy output and also noted a small amount of blood through the ostomy. She therefore stopped her Lovenox, and given to the hospital. Hemoglobin was in the low 9 range, with subsequent level 8.6. She has had no further, obvious bleeding. Consult was therefore placed further evaluation and recommendations Review of Systems Constitutional: Reports fatigue, Reports weakness, Reports weight loss Eyes: denies blurred vision, denies pain Ears: deny: decreased hearing, ear discharge, earache, tinnitus Ears, nose, mouth and throat: Denies headache, Denies sore throat Cardiovascular: Reports decreased exercise tolerance Respiratory: Denies cough Gastrointestinal: Reports as per HPI, Reports abdominal pain, Reports hematochezia Genitourinary: Reports as per HPI, Reports hematuria Musculoskeletal: Reports muscle weakness Integumentary: Denies pruritus, Denies rash Neurological: Reports weakness Psychiatric: Reports anxiety Endocrine: Reports fatigue, Reports weight change Hematologic/Lymphatic: Reports as per HPI, Reports thrombophilia Past Medical History Past Medical History: Cancer, Thyroid Disorder Additional Past Medical History / Comment(s): Thyroid cancer, COLON CA History of Any Multi-Drug Resistant Organisms: None Reported Past Surgical History: Appendectomy Additional Past Surgical History / Comment(s): Thyroidectomy, right labia Past Anesthesia/Blood Transfusion Reactions: No Reported Reaction Past Psychological History: Anxiety Smoking Status: Former smoker Past Alcohol Use History: None Reported Past Drug Use History: None Reported - Past Family History family Family Medical History: Coronary Artery Disease (CAD), CVA/TIA Medications and Allergies Home Medications Medication Instructions Recorded Confirmed Type Levothyroxine Sodium [Synthroid] 137 mcg PO DAILY 05/19/20 10/07/20 History Enoxaparin [Lovenox] 100 mg SQ DAILY 10/07/20 10/07/20 History Ergocalciferol [Vitamin D2 (1250 1,250 mcg PO Q7D 10/07/20 10/07/20 History Mcg = 41921 Iu)] HYDROcodone/APAP 10-325MG [[place] 1 tab PO Q6H PRN 10/07/20 10/07/20 History 10-325] Morphine Sulfate ER [Ms Contin] 30 mg PO Q8H 10/07/20 10/07/20 History Naloxone HCl [Narcan] 4 mg NASAL ONCE PRN 10/07/20 10/07/20 History Ondansetron [Zofran] 4 mg PO Q8H PRN 10/07/20 10/07/20 History metroNIDAZOLE [Flagyl] 500 mg PO TID 10/07/20 10/07/20 History Allergies Allergy/AdvReac Type Severity Reaction Status Date / Time clarithromycin [From Biaxin] Allergy Rash/Hives Verified 10/07/20 00:30 fluticasone [From Flonase] Allergy Rash/Hives Verified 10/07/20 00:30 gatifloxacin [From Tequin] Allergy Rash/Hives Verified 10/07/20 00:30 Mushroom Allergy Rash/Hives Verified 10/07/20 00:30 Penicillins Allergy Rash/Hives Verified 10/07/20 00:30 Sulfa (Sulfonamide Allergy Rash/Hives Verified 10/07/20 00:30 Antibiotics) naproxin Allergy Swelling Uncoded 10/07/20 00:30 Physical Exam Vitals: Vital Signs Temp Pulse Resp BP Pulse Ox 10/08/20 07:58 98.3 F 80 16 94/62 97 10/08/20 03:17 98.1 F 100 18 96/60 98 10/08/20 01:58 16 10/07/20 23:28 98.4 F 95 16 89/55 99 10/07/20 20:00 98 F 101 H 18 94/61 98 10/07/20 16:50 98.4 F 94 16 91/52 97 10/07/20 11:53 98.3 F 64 14 89/50 94 L Intake and Output 10/07/20 10/08/20 10/08/20 22:59 06:59 14:59 Intake Total 350 Output Total 300 100 300 Balance -300 -100 50 Intake: Intake, IV Titration 150 Amount Sodium Chloride 0.9% 1, 150 000 ml @ 75 mls/hr IV . [id number] [facility] Rx#:[id number] Oral 200 Output: Drainage 300 300 Left Lateral 200 100 Right Lateral 100 200 Stool 100 Other: Voiding Method Ileal Conduit (Right) Ileal Conduit (Right) Ileal Conduit (Left) Ileal Conduit (Left) - Constitutional General appearance: no acute distress - EENT Eyes: EOMI, PERRLA ENT: hearing grossly normal, normal oropharynx - Neck Neck: no lymphadenopathy - Respiratory Respiratory: bilateral: CTA - Cardiovascular Rhythm: regular Heart sounds: normal: S1, S2 - Gastrointestinal Left lower quadrant ostomy. Lower mid abdomen covered with bandage. Patient states open areas on prior incision line General gastrointestinal: normal bowel sounds, soft - Integumentary Integumentary: normal - Neurologic Neurologic: CNII-XII intact - Musculoskeletal Musculoskeletal: generalized weakness, strength equal bilaterally - Psychiatric Psychiatric: A&O x's 3, appropriate affect Results CBC & Chem 7: 10/08/20 06:57 10/07/20 01:36 Labs: Abnormal Lab Results - Last 24 Hours (Table) 10/08/20 Range/Units 06:57 RBC 3.22 L (3.80-5.40) m/uL Hgb 8.6 L (11.4-16.0) gm/dL Hct 27.9 L (34.0-46.0) % MCHC 30.8 L (31.0-37.0) g/dL RDW 19.4 H (11.5-15.5) % Plt Count 703 H (150-450) k/uL Abdominal x-ray: report reviewed CT scan - abdomen: report reviewed CT scan - pelvis: report reviewed US - abdomen: report reviewed Assessment and Plan (1) GI bleed Narrative/Plan: Developed bleeding in her nephrostomy, as well as per rectum, after starting Lovenox. This stopped fairly quickly after stopping Lovenox. Case was discussed with general surgery. The patient had photographs of the rectal bleed in her adult diaper. Overall this appeared to be quite minor and mostly more consistent with a sanguinous mucoid discharge. Amount of bleeding from ostomy appear to be very minor also. - Anticoagulation is currently on hold. Monitor hemoglobin. If this remains stable, it would be reasonable, based on the amount of bleeding experienced by the patient, as well as risk-benefit given recent DVT, to resume anticoagulation with IV heparin and ongoing monitoring. Current Visit: Yes Status: Acute Code(s): K92.2 - GASTROINTESTINAL HEMORRHAGE, UNSPECIFIED SNOMED Code(s): 82161983 (2) Anemia Narrative/Plan: Plan as above. Check iron stores. Replace with IV iron if needed. Transfuse for hemoglobin less than 7 Current Visit: Yes Status: Acute Code(s): D64.9 - ANEMIA, UNSPECIFIED SNOMED Code(s): 659154864 (3) Deep vein thrombosis (DVT) Narrative/Plan: We do not have the actual report of the venous Doppler which diagnosed her DVT at the [facility]. Repeat lower extremity Doppler study. If there is significant clot, this is further support trial of resuming anticoagulation. - Risk versus benefit aspects discussed in detail with the patient. She was advised that with a recent DVT, malignancy, and ongoing inflammation, she would be at very high risk of clot progression and PE without anticoagulation. Risk of and the correlation would obviously be recurrent bleeding. So far based on her clinical picture, risk versus benefit favors repeat trial of anticoagulation. This would be given with IV heparin, due to the short half life easy reversibility if needed. If the patient developed recurrent, significant bleeding, then it would be very reasonable to consider IVC filter placement Current Visit: Yes Status: Acute Code(s): I82.409 - ACUTE EMBOLISM AND THOMBOS UNSP DEEP VN UNSP LOWER EXTREMITY SNOMED Code(s): 761295520
--- NOTE | 2020-10-08 15:00 | US ---
EXAMINATION TYPE: US venous doppler duplex LE BI DATE OF EXAM: 10/08/2020 11:55 AM COMPARISON: NONE CLINICAL HISTORY: RLE DVT , LE swelling. edema bilaterally, no h/o dvt SIDE PERFORMED: Bilateral TECHNIQUE: The lower extremity deep venous system is examined utilizing real time linear array sonog michael with graded compression, doppler sonography and color-flow sonography. VESSELS IMAGED: Common Femoral Vein Deep Femoral Vein Greater Saphenous Vein * Femoral Vein Popliteal Vein Small Saphenous Vein * Proximal Calf Veins (* superficial vessels) Right Leg: Negative for DVT Left Leg: Negative for DVT IMPRESSION: No evidence of deep vein thrombosis in both legs.
[2020-10-08 16:11] LABS: Ferritin 179.5 ng/mL (10.0-291.0)
[2020-10-08 16:39] LABS: % Iron Saturation 19.62 (12.00-45.00)
--- NOTE | 2020-10-08 19:00 | CONS ---
CONSULTATION DATE OF SERVICE: 10/08/2020 REASON FOR CONSULTATION: Bloody rectal discharge. HISTORY OF PRESENT ILLNESS: The patient is a 50-year-old pleasant white female who was diagnosed with unresectable sigmoid colon cancer about two months ago. Apparently she presented with a diverticular abscess and subsequently had multiple imaging studies and had exploratory laparotomy and was diagnosed with sigmoid colon cancer that could not be resected and underwent a diverting colostomy. She was on her way to [place] to undergo chemo radiation, but she was diagnosed with DVT about three years ago and was started on Lovenox. Since then she is noticing some rectal discharge that has been bloody for the last three days. After coming to the hospital her initial hemoglobin was 9.1 g/dL and currently dropped to 8.6. The Lovenox is currently on hold and the rectal discharge has completely subsided. There was no bleeding noted in the colostomy bag. In fact, she has somewhat loose stool in the colostomy bag. She reports no abdominal pain. She reports no nausea, vomiting. No fever, chills, or night sweats. PAST MEDICAL HISTORY: Significant for sigmoid colon cancer diagnosed two months ago and history of thyroid cancer in the past. PAST SURGICAL HISTORY: Exploratory laparotomy with diverting colostomy at [facility], history of appendectomy, thyroidectomy. MEDICATIONS: Medications at home include levothyroxine, Lovenox, vitamin D3, [place], morphine, ( ), Zofran, and Flagyl. ALLERGIES: CLARITHROMYCIN, TEQUIN, FLONASE, PENICILLIN, SULFA, NAPROXEN. SOCIAL HISTORY: No smoking, no alcohol use. FAMILY HISTORY: Father has diabetes mellitus and coronary artery disease. REVIEW OF SYSTEMS: CARDIOPULMONARY: No chest pain or shortness of breath. GENITOURINARY: No dysuria or hematuria. MUSCULOSKELETAL: Unremarkable. SKIN: Unremarkable. ENDOCRINE: Unremarkable. PSYCHIATRIC: Unremarkable. NEUROLOGY: Unremarkable. ENT/VISION: Unremarkable. CONSTITUTIONAL: Weight loss of about 10 pounds. No fever, chills, night sweats. GI: As mentioned above. PHYSICAL EXAMINATION: Blood pressure 94/62, pulse 81, temperature 98.3. HEENT examination unremarkable. Conjunctivae pink. Sclerae anicteric. Oral cavity, no lesions. NECK: No JVD or lymph node enlargement. CHEST: Clear to auscultation. HEART: Regular rate and rhythm. ABDOMEN: Soft. Bowel sounds are positive. Colostomy bag located in the left upper quadrant area. There was minimal tenderness in the suprapubic area. EXTREMITIES: No pedal edema. SKIN; No rashes. NEUROLOGIC: Alert and oriented x3. No focal deficits. LABS: Labs done yesterday: WBC 14.5, hemoglobin 9.1, platelets 866. Today hemoglobin is 8.6 g/dL. PT/INR is within normal limits. BUN and creatinine are within normal limits. Coronavirus PCR is negative. IMPRESSION: 1. This lady with history of unresectable colon cancer diagnosed about a month ago for which she underwent exploratory laparotomy and diverting colostomy and the tumor could not be resected because it was locally invasive. She is set to undergo chemo radiation therapy in [place]. In the meantime she was diagnosed with DVT and was started on Lovenox three days ago and since then she has been having bloody rectal discharge. The Lovenox currently is on hold and the discharge has significantly subsided today. Her hemoglobin has remained stable with a slight drop from 9.1-8.6 g/dL but clinically and hemodynamically she appears to be stable. Most likely the rectal discharge is from the sigmoid tumor currently. 2. History of deep venous thrombosis diagnosed three days ago, on Lovenox, currently on hold. 3. Lower midline open wound for which Dr. Sampson is following the patient, recommended wound care. RECOMMENDATIONS: 1. No need for any endoscopic intervention. 2. If hemoglobin drops less than 7, transfuse as needed. 3. Continue to hold Lovenox for now. 4. Repeat CBC in the morning and will follow with you closely. Thank you for this consultation. MMODL / IJN: [id number] /
[2020-10-08 21:45] LABS: Anisocytosis Slight; HCT 28.4 % (34.0-46.0); HGB 8.8 gm/dL (11.4-16.0); Hypochromasia Moderate; MCH 26.8 pg (25.0-35.0); MCHC 30.9 g/dL (31.0-37.0); MCV 86.6 fL (80.0-100.0); Mean Platelet Volume 6.1; Microcytosis Slight; Platelet Count 709 k/uL (150-450); RBC 3.28 m/uL (3.80-5.40); RDW 19.2 % (11.5-15.5)
[2020-10-09] MEDS ORDERED: HEPARIN SODIUM,PORCINE 5,000 UNIT/ML 1 ML VIAL IV PRN (00:50)
[2020-10-09] MEDS: HEPARIN SOD,PORK IN 0.45% NACL 25,000 UNIT in 0.45% NACL 1 250ML.BAG IV SCH ×2 (01:25→21:16)
[2020-10-09 01:40] LABS: Anisocytosis Slight; Basophils % (A) 0 %; Eosinophils # (A) 0.2 k/uL (0-0.7); Eosinophils % (A) 3 %; HCT 28.9 % (34.0-46.0); HGB 9.4 gm/dL (11.4-16.0); Hypochromasia Slight; Lymphocytes # (A) 1.5 k/uL (1.0-4.8); Lymphocytes % (A) 17 %; MCH 28.1 pg (25.0-35.0); MCHC 32.4 g/dL (31.0-37.0); MCV 86.8 fL (80.0-100.0); Mean Platelet Volume 6.3; Microcytosis Slight; Monocytes # (A) 0.5 k/uL (0-1.0); Monocytes % (A) 6 %; Neutrophils # (A) 6.4 k/uL (1.3-7.7); Neutrophils % (A) 73 %; Platelet Count 692 k/uL (150-450); RBC 3.33 m/uL (3.80-5.40); RDW 19.4 % (11.5-15.5); WBC 8.8 k/uL (3.8-10.6)
[2020-10-09 02:17] LABS: Prothrombin Time 10.5 sec (9.0-12.0)
[2020-10-09] MEDS: HYDROcodone/APAP 10-325MG 1 EACH TAB PO PRN ×5 (02:57→23:27)
[2020-10-09] MEDS: ONDANSETRON 4 MG/2 ML VIAL IVP PRN ×4 (02:57→21:21)
[2020-10-09] MEDS: LEVOTHYROXINE 137 MCG PO SCH (06:18)
[2020-10-09 07:25] LABS: Anisocytosis Slight; HCT 27.1 % (34.0-46.0); HGB 8.8 gm/dL (11.4-16.0); Hypochromasia Slight; MCH 28.1 pg (25.0-35.0); MCHC 32.4 g/dL (31.0-37.0); MCV 86.8 fL (80.0-100.0); Mean Platelet Volume 6.3; Microcytosis Slight; Platelet Count 652 k/uL (150-450); RBC 3.13 m/uL (3.80-5.40); RDW 19.3 % (11.5-15.5); WBC 8.4 k/uL (3.8-10.6)
[2020-10-09 07:39] LABS: African American GFR (CKD) >90 (>60 ml/min/1.73 sqM); Anion Gap 5 mmol/L; Blood Urea Nitrogen 12 mg/dL (7-17); Carbon Dioxide 30 mmol/L (22-30); Chloride 100 mmol/L (98-107); Glucose 87 mg/dL (74-99); Non-African American GFR(CKD) 82 (>60 ml/min/1.73 sqM); Potassium 4.3 mmol/L (3.5-5.1); Sodium 135 mmol/L (137-145)
[2020-10-09 07:40] LABS: Calcium 8.7 mg/dL (8.4-10.2)
[2020-10-09] MEDS: PANTOPRAZOLE 40 MG/10 ML VIAL IVP SCH (08:40)
[2020-10-09] MEDS: MORPHINE SULFATE ER 30 MG TABLET PO SCH ×2 (08:40→17:14)
--- NOTE | 2020-10-09 10:33 | P.PN ---
<[facility] - Last Filed: 10/09/20 10:21> Subjective Progress Note Date: 10/09/20 CHIEF COMPLAINT: Lower midline wound HISTORY OF PRESENT ILLNESS: Patient has recent diagnosis of nonresectable sigmoid colon cancer. She also had diagnosis of right lower extremity DVT and was started on Lovenox at home. She had been having some mucousy bloody stools per her rectum after starting the Lovenox. Lovenox was discontinued. Apparently last night patient was started on IV heparin by Heme/onc service. Patient reported decrease in blood from her rectum yesterday. As of now no blood reported from her ostomy. She is afebrile. WBC is 8.4 hemoglobin is 8.8 venous Doppler shows no DVT bilaterally. She does complain of some nausea and cramping abdominal pain that improves with medication and is not new for patient . PHYSICAL EXAM: VITAL SIGNS: Reviewed. GENERAL: Well-developed in no acute distress. HEENT: No sclera icterus. Extraocular movements grossly intact. Moist buccal mucosa. Head is atraumatic, normocephalic. ABDOMEN: Soft. Nondistended. Nontender. Dressing clean dry and intact. Ostomy with brown orangeish stool present NEUROLOGIC: Alert and oriented. Cranial nerves II through XII grossly intact. ASSESSMENT: 1. Lower midline wound 2. Recent diagnosis of nonresectable sigmoid colon cancer PLAN: -Continue local wound care -Continue supportive care -Anticoagulation per heme/onc service Physician Mental Hygienist note has been reviewed by physician. Signing provider agrees with the documented findings, assessment, and plan of care. Objective - Vital Signs Vital signs: Vital Signs Temp 98.5 F 10/09/20 04:00 Pulse 89 10/09/20 04:00 Resp 17 10/09/20 04:00 BP 101/67 10/09/20 04:00 Pulse Ox 95 10/09/20 04:00 Intake & Output 10/08/20 10/09/20 10/09/20 18:59 06:59 18:59 Intake Total 586 64.589 Output Total 1200 1120 100 Balance -614 -1120 -35.411 Weight 78 kg Intake: Intake, IV Titration 150 64.589 Amount Heparin Sod,Pork in 0.45% 64.589 NaCl 25,000 unit In 0.45 % NaCl 1 250ml.bag @ 12 UNITS/KG/HR 8.748 mls/hr IV .Q24H [facility] Rx#: [id number] Sodium Chloride 0.9% 1, 150 000 ml @ 75 mls/hr IV . [id number] [facility] Rx#:[id number] Oral 436 Output: Drainage 600 920 Left Lateral 200 320 Right Lateral 400 600 Urine 600 100 Stool 200 Other: Voiding Method Ileal Conduit (Right) Ileal Conduit (Left) # Bowel Movements 0 - Labs CBC & Chem 7: 10/09/20 06:24 10/09/20 06:24 Labs: Abnormal Lab Results - Last 24 Hours (Table) 10/08/20 10/08/20 10/09/20 Range/Units 06:57 21:31 01:04 WBC 11.0 H (3.8-10.6) k/uL RBC 3.28 L 3.33 L (3.80-5.40) m/uL Hgb 8.8 L 9.4 L (11.4-16.0) gm/dL Hct 28.4 L 28.9 L (34.0-46.0) % MCHC 30.9 L (31.0-37.0) g/dL RDW 19.2 H 19.4 H (11.5-15.5) % Plt Count 709 H 692 H (150-450) k/uL APTT (22.0-30.0) sec Sodium (137-145) mmol/L Iron 31 L (50-170) ug/dL TIBC 158 L (228-460) ug/dL 10/09/20 10/09/20 10/09/20 Range/Units 06:24 06:24 06:24 WBC (3.8-10.6) k/uL RBC 3.13 L (3.80-5.40) m/uL Hgb 8.8 L (11.4-16.0) gm/dL Hct 27.1 L (34.0-46.0) % MCHC (31.0-37.0) g/dL RDW 19.3 H (11.5-15.5) % Plt Count 652 H (150-450) k/uL APTT 32.8 H (22.0-30.0) sec Sodium 135 L (137-145) mmol/L Iron (50-170) ug/dL TIBC (228-460) ug/dL Microbiology - Last 24 Hours (Table) 10/08/20 12:59 Gram Stain - Preliminary Abdomen Wound Culture - Preliminary 10/08/20 12:59 Anaerobic Culture - Preliminary Abdomen <[facility] - Last Filed: 10/09/20 14:37> Subjective As above. Patient has no new complaints. She is afebrile. Tolerating diet. Wound with serosanguinous drainage. Continue local wound care. We'll follow. Objective - Vital Signs Vital signs: Vital Signs Temp 98.5 F 10/09/20 04:00 Pulse 92 10/09/20 08:00 Resp 20 10/09/20 08:00 BP 102/67 10/09/20 08:00 Pulse Ox 96 10/09/20 08:00 Intake & Output 10/08/20 10/09/20 10/09/20 18:59 06:59 18:59 Intake Total 586 64.589 Output Total 1200 1120 900 Balance -614 -1120 -835.411 Weight 78 kg Intake: Intake, IV Titration 150 64.589 Amount Heparin Sod,Pork in 0.45% 64.589 NaCl 25,000 unit In 0.45 % NaCl 1 250ml.bag @ 12 UNITS/KG/HR 8.748 mls/hr IV .Q24H [facility] Rx#: [id number] Sodium Chloride 0.9% 1, 150 000 ml @ 75 mls/hr IV . [id number] [facility] Rx#:[id number] Oral 436 Output: Drainage 600 920 800 Left Lateral 200 320 200 Right Lateral 400 600 600 Urine 600 100 Stool 200 Other: Voiding Method Ileal Conduit (Right) Ileal Conduit (Right) Ileal Conduit (Left) Ileal Conduit (Left) # Bowel Movements 0 - Labs CBC & Chem 7: 10/09/20 06:24 10/09/20 06:24 Labs: Abnormal Lab Results - Last 24 Hours (Table) 10/08/20 10/08/20 10/09/20 Range/Units 06:57 21:31 01:04 WBC 11.0 H (3.8-10.6) k/uL RBC 3.28 L 3.33 L (3.80-5.40) m/uL Hgb 8.8 L 9.4 L (11.4-16.0) gm/dL Hct 28.4 L 28.9 L (34.0-46.0) % MCHC 30.9 L (31.0-37.0) g/dL RDW 19.2 H 19.4 H (11.5-15.5) % Plt Count 709 H 692 H (150-450) k/uL APTT (22.0-30.0) sec Sodium (137-145) mmol/L Iron 31 L (50-170) ug/dL TIBC 158 L (228-460) ug/dL 10/09/20 10/09/20 10/09/20 Range/Units 06:24 06:24 06:24 WBC (3.8-10.6) k/uL RBC 3.13 L (3.80-5.40) m/uL Hgb 8.8 L (11.4-16.0) gm/dL Hct 27.1 L (34.0-46.0) % MCHC (31.0-37.0) g/dL RDW 19.3 H (11.5-15.5) % Plt Count 652 H (150-450) k/uL APTT 32.8 H (22.0-30.0) sec Sodium 135 L (137-145) mmol/L Iron (50-170) ug/dL TIBC (228-460) ug/dL Microbiology - Last 24 Hours (Table) 10/08/20 12:59 Gram Stain - Preliminary Abdomen Wound Culture - Preliminary 10/08/20 12:59 Anaerobic Culture - Preliminary Abdomen Assessment and Plan (1) Colon cancer Current Visit: Yes Status: Acute Code(s): C18.9 - MALIGNANT NEOPLASM OF COLON, UNSPECIFIED SNOMED Code(s): 197020184
--- NOTE | 2020-10-09 13:38 | P.PN ---
Subjective Progress Note Date: 10/09/20 Principal diagnosis: GI Bleed Hemoglobin has remained stable since initiation of heparin Objective - Vital Signs Vital signs: Vital Signs Temp 98.5 F 10/09/20 04:00 Pulse 92 10/09/20 08:00 Resp 20 10/09/20 08:00 BP 102/67 10/09/20 08:00 Pulse Ox 96 10/09/20 08:00 Intake & Output 10/08/20 10/09/20 10/09/20 18:59 06:59 18:59 Intake Total 586 64.589 Output Total 1200 1120 500 Balance -614 -1120 -435.411 Weight 78 kg Intake: Intake, IV Titration 150 64.589 Amount Heparin Sod,Pork in 0.45% 64.589 NaCl 25,000 unit In 0.45 % NaCl 1 250ml.bag @ 12 UNITS/KG/HR 8.748 mls/hr IV .Q24H [facility] Rx#: [id number] Sodium Chloride 0.9% 1, 150 000 ml @ 75 mls/hr IV . [id number] [facility] Rx#:[id number] Oral 436 Output: Drainage 600 920 400 Left Lateral 200 320 100 Right Lateral 400 600 300 Urine 600 100 Stool 200 Other: Voiding Method Ileal Conduit (Right) Ileal Conduit (Right) Ileal Conduit (Left) Ileal Conduit (Left) # Bowel Movements 0 - Exam Constitutional General appearance: no acute distress - EENT Eyes: EOMI, PERRLA ENT: hearing grossly normal, normal oropharynx - Neck Neck: no lymphadenopathy - Respiratory Respiratory: bilateral: CTA - Cardiovascular Rhythm: regular Heart sounds: normal: S1, S2 - Gastrointestinal Left lower quadrant ostomy. Lower mid abdomen covered with bandage. Patient states open areas on prior incision line General gastrointestinal: normal bowel sounds, soft - Integumentary Integumentary: normal - Neurologic Neurologic: CNII-XII intact - Musculoskeletal Musculoskeletal: generalized weakness, strength equal bilaterally - Psychiatric Psychiatric: A&O x's 3, appropriate affect - Labs CBC & Chem 7: 10/09/20 06:24 10/09/20 06:24 Labs: Abnormal Lab Results - Last 24 Hours (Table) 10/08/20 10/08/20 10/09/20 Range/Units 06:57 21:31 01:04 WBC 11.0 H (3.8-10.6) k/uL RBC 3.28 L 3.33 L (3.80-5.40) m/uL Hgb 8.8 L 9.4 L (11.4-16.0) gm/dL Hct 28.4 L 28.9 L (34.0-46.0) % MCHC 30.9 L (31.0-37.0) g/dL RDW 19.2 H 19.4 H (11.5-15.5) % Plt Count 709 H 692 H (150-450) k/uL APTT (22.0-30.0) sec Sodium (137-145) mmol/L Iron 31 L (50-170) ug/dL TIBC 158 L (228-460) ug/dL 10/09/20 10/09/20 10/09/20 Range/Units 06:24 06:24 06:24 WBC (3.8-10.6) k/uL RBC 3.13 L (3.80-5.40) m/uL Hgb 8.8 L (11.4-16.0) gm/dL Hct 27.1 L (34.0-46.0) % MCHC (31.0-37.0) g/dL RDW 19.3 H (11.5-15.5) % Plt Count 652 H (150-450) k/uL APTT 32.8 H (22.0-30.0) sec Sodium 135 L (137-145) mmol/L Iron (50-170) ug/dL TIBC (228-460) ug/dL Microbiology - Last 24 Hours (Table) 10/08/20 12:59 Gram Stain - Preliminary Abdomen Wound Culture - Preliminary 10/08/20 12:59 Anaerobic Culture - Preliminary Abdomen Assessment and Plan Plan: Abdominal x-ray: report reviewed CT scan - abdomen: report reviewed CT scan - pelvis: report reviewed US - abdomen: report reviewed Assessment and Plan Colon Cancer: - Treatment at outside facility - Return to primary oncologist after hospital discharge GI bleed - Hemoglobin remains stable 8.8 today - Developed bleeding in her nephrostomy, as well as per rectum, after starting Lovenox. - This stopped fairly quickly after stopping Lovenox. - General surgery following. The patient had photographs of the rectal bleed in her adult diaper. Overall this appeared to be quite minor and mostly more consistent with a sanguinous mucoid discharge. Amount of bleeding from ostomy appear to be very minor also. - Anticoagulation has been restarted heparin drip, no overt bleeding noted overnight - Monitor hemoglobin. If this remains stable, it would be reasonable, based on the amount of bleeding experienced by the patient, as well as risk-benefit g iven recent DVT - Await ECF doppler for continued rec Anemia - Stable, Plan as above. - Stable iron stores. - Replace with IV iron if needed. - Transfuse for hemoglobin less than 7 Recent Dx Acute Deep vein thrombosis (DVT) - Awaiting outside doppler, repeat doppler at this hospital stay was negative. - Therefore will need this prior to decision on anti-coagulation at discharge to confirm that there is indeed a recent diagnosis of DVT. - Risk versus benefit aspects discussed in detail with the patient. She was advised that with a recent DVT, malignancy, and ongoing inflammation, she would be at very high risk of clot progression and PE without anticoagulation. - Risk of and the correlation would obviously be recurrent bleeding. So far based on her clinical picture, risk versus benefit favors repeat trial of anticoagulation. Hemoglobin wThis would be given with IV heparin, due to the short half life easy reversibility if needed. If the patient developed recurrent, significant bleeding, then it would be very reasonable to consider IVC filter placement Physician Attest: I have completed the full history and physical and agree with above dictation, dictated as a scribe.
--- NOTE | 2020-10-09 14:57 | P.PN ---
Subjective Progress Note Date: 10/09/20 Principal diagnosis: Rectal bleeding Patient was seen and examined lying in bed. She denies any further rectal bleeding. She was restarted on a heparin drip. She has moderate amount of output from her ostomy, no blood noted. She denies any abdominal pain, nausea, or vomiting today. Objective - Vital Signs Vital signs: Vital Signs Temp 98.5 F 10/09/20 04:00 Pulse 89 10/09/20 04:00 Resp 17 10/09/20 04:00 BP 101/67 10/09/20 04:00 Pulse Ox 95 10/09/20 04:00 Intake & Output 10/08/20 10/09/20 10/09/20 18:59 06:59 18:59 Intake Total 586 64.589 Output Total 1200 1120 100 Balance -614 -1120 -35.411 Weight 78 kg Intake: Intake, IV Titration 150 64.589 Amount Heparin Sod,Pork in 0.45% 64.589 NaCl 25,000 unit In 0.45 % NaCl 1 250ml.bag @ 12 UNITS/KG/HR 8.748 mls/hr IV .Q24H [facility] Rx#: [id number] Sodium Chloride 0.9% 1, 150 000 ml @ 75 mls/hr IV . [id number] [facility] Rx#:[id number] Oral 436 Output: Drainage 600 920 Left Lateral 200 320 Right Lateral 400 600 Urine 600 100 Stool 200 Other: Voiding Method Ileal Conduit (Right) Ileal Conduit (Left) # Bowel Movements 0 - Exam General appearance: The patient is alert, oriented, appears in no acute distress. HET: Head is normocephalic and atraumatic. Conjunctiva pink. Sclera anicteric. Neck: Supple without lymphadenopathy. Abdomen: Soft, nontender, abdominal incision with dressing that is clean dry and intact, ostomy, nondistended with bowel sounds. No guarding or rigidity. Extremities: Normal skin color and turgor. No pedal edema Skin: No rashes, no jaundice Neurological: No focal deficits. Alert and oriented 3. - Labs CBC & Chem 7: 10/09/20 06:24 10/09/20 06:24 Labs: Abnormal Lab Results - Last 24 Hours (Table) 10/08/20 10/08/20 10/09/20 Range/Units 06:57 21:31 01:04 WBC 11.0 H (3.8-10.6) k/uL RBC 3.28 L 3.33 L (3.80-5.40) m/uL Hgb 8.8 L 9.4 L (11.4-16.0) gm/dL Hct 28.4 L 28.9 L (34.0-46.0) % MCHC 30.9 L (31.0-37.0) g/dL RDW 19.2 H 19.4 H (11.5-15.5) % Plt Count 709 H 692 H (150-450) k/uL APTT (22.0-30.0) sec Sodium (137-145) mmol/L Iron 31 L (50-170) ug/dL TIBC 158 L (228-460) ug/dL 10/09/20 10/09/20 10/09/20 Range/Units 06:24 06:24 06:24 WBC (3.8-10.6) k/uL RBC 3.13 L (3.80-5.40) m/uL Hgb 8.8 L (11.4-16.0) gm/dL Hct 27.1 L (34.0-46.0) % MCHC (31.0-37.0) g/dL RDW 19.3 H (11.5-15.5) % Plt Count 652 H (150-450) k/uL APTT 32.8 H (22.0-30.0) sec Sodium 135 L (137-145) mmol/L Iron (50-170) ug/dL TIBC (228-460) ug/dL Microbiology - Last 24 Hours (Table) 10/08/20 12:59 Gram Stain - Preliminary Abdomen Wound Culture - Preliminary 10/08/20 12:59 Anaerobic Culture - Preliminary Abdomen Assessment and Plan (1) Rectal bleeding Narrative/Plan: CC pleasant 50-year-old female with a history of unresectable colon cancer diagnosed about a month ago for which he underwent exploratory laparotomy and eye burning colostomy and the tumor could not be resected because it was locally invasive. She is set to undergo chemoradiation therapy in [place]. In the meantime she was diagnosed with a DVT and was started on Lovenox 3 days ago and has since been having bloody rectal discharge. The Lovenox currently is on hold and the discharge has subsided. Patient is now on a heparin drip, however reports no further rectal bleeding that she knows of. Hemoglobin remained stable. Most likely the rectal discharges from the sigmoid tumor currently. Current Visit: Yes Status: Acute Code(s): K62.5 - HEMORRHAGE OF ANUS AND RECTUM SNOMED Code(s): 21083512 (2) Colon cancer Current Visit: Yes Status: Acute Code(s): C18.9 - MALIGNANT NEOPLASM OF COLON, UNSPECIFIED SNOMED Code(s): 182484093 (3) Deep vein thrombosis (DVT) Narrative/Plan: History of deep vein thrombosis diagnosed 3 days ago was on Lovenox, Lovenox on hold. Currently on heparin drip. Current Visit: Yes Status: Acute Code(s): I82.409 - ACUTE EMBOLISM AND THOMBOS UNSP DEEP VN UNSP LOWER EXTREMITY SNOMED Code(s): 466172756 Plan: 1. No need for any endoscopic intervention 2. CBC daily, transfuse as needed 3. Continue to monitor for signs of GI bleed Thank you for this consultation, will be on standby. Dr. Bray I agree with the dictator's note, documented as a scribe by Lacey López.
[2020-10-09 15:01] VITALS: BMI 30.4
[2020-10-09] MEDS: ALPRAZolam 0.5 MG TAB PO PRN (17:40)
[2020-10-09] MEDS: SODIUM CHLORIDE 0.9% 1,000 ML IV SCH (21:17)
--- NOTE | 2020-10-09 23:06 | P.PN ---
Subjective Progress Note Date: 10/09/20 Principal diagnosis: Bleeding in Nephrostomy tubes and Colostomy Ms. Corral is a 50-year-old female with a past medical history of colon cancer with metastasis coming in with a chief complaint of wanting her nephrostomy bag and also bleeding per rectum along with increased ostomy output with small amount of blood per the ostomy. Patient also has history of intra-abdominal abscess, with pigtail catheter placement at [facility], treated with 3 weeks of antibiotics. Patient has locally advanced tumor that is adherent to surrounding structures for which she needed bilateral nephrostomy tubes and diverting colostomy. She was then discharged to rehab facility. In the rehab facility patient was diagnosed with right lower extremity DVT and was started on Lovenox. As the patient noticed bleeding in her mouth ostomy bags and colostomy she stopped taking her Lovenox and she is here for further management. On 10/09/2020 patient is seen and examined at bedside. She is comfortably lying in bed appears to be in no acute distress. Patient's hemoglobin has been stable around 8-9. She denied having any more bleeding. As the patient has recent lower extremity DVT malignancy, she has been started on by oncology night. Patient denies having any chest pain or palpitations. No cough or difficulty in breathing. No fevers. She complains of some nausea but no vomiting. She complains of abdominal discomfort that is chronic in nature. On reviewing her vitals T-max of 98.5, heart rate 98, respiratory 17, blood pressure 101 x 67 saturating at 100% on room air. Reviewing her labs hemoglobin stable at 8.8, platelets 652, sodium 135, potassium 4.3, BUN 12, creatinine 0.84 Active Medications Hydrocodone Bitart/Acetaminophen (Hydrocodone/Apap 10-325mg 1 Each Tab) 1 each PO Q4HR PRN PRN Reason: Pain Last Admin: 10/09/20 19:21 Dose: 1 each Documented by: Alprazolam (Alprazolam 0.5 Mg Tab) 0.5 mg PO TID PRN PRN Reason: Anxiety Last Admin: 10/09/20 17:40 Dose: 0.5 mg Documented by: Heparin Sodium (Porcine) (Heparin Sodium,Porcine 5,000 Unit/Ml 1 Ml Vial) 0 unit IV PER PROTOCOL PRN; Protocol PRN Reason: Low PTT Hydromorphone HCl (Hydromorphone 1 Mg/Ml 1 Ml Syringe) 1 mg IVP Q4HR PRN PRN Reason: Pain Sodium Chloride (Saline 0.9%) 1,000 mls @ 75 mls/hr IV .[id number] [facility] Last Admin: 10/09/20 21:17 Dose: 75 mls/hr Documented by: Heparin Sodium/Sodium Chloride (25,000 unit/ Sodium Chloride) 250 mls @ 8.748 mls/hr IV .Q24H [facility]; Protocol Last Admin: 10/09/20 21:16 Dose: 18.79 units/kg/hr, 13.7 mls/hr Documented by: Morphine Sulfate (Morphine Sulfate Er 30 Mg Tablet) 30 mg PO Q8HR [facility]; Protocol Last Admin: 10/09/20 17:14 Dose: 30 mg Documented by: Naloxone HCl (Naloxone 0.4 Mg/Ml 1 Ml Vial) 0.2 mg IV Q2M PRN PRN Reason: Opioid Reversal Non Formulary Drug ( Levothyroxine 137mcg . Brand) 1 each PO DAILY@0630 [facility] Last Admin: 10/09/20 06:18 Dose: 1 each Documented by: Ondansetron HCl (Ondansetron 4 Mg/2 Ml Vial) 4 mg IVP Q6HR PRN PRN Reason: Nausea And Vomiting Last Admin: 10/09/20 21:21 Dose: 4 mg Documented by: Pantoprazole Sodium (Pantoprazole 40 Mg/10 Ml Vial) 40 mg IVP DAILY [facility] Last Admin: 10/09/20 08:40 Dose: 40 mg Documented by: Objective - Vital Signs Vital signs: Vital Signs Temp 98.5 F 10/09/20 04:00 Pulse 92 10/09/20 08:00 Resp 20 10/09/20 08:00 BP 102/67 10/09/20 08:00 Pulse Ox 96 10/09/20 08:00 Intake & Output 10/08/20 10/09/20 10/09/20 18:59 06:59 18:59 Intake Total 586 64.589 Output Total 1200 1120 900 Balance -614 -1120 -835.411 Weight 78 kg 78 kg Intake: Intake, IV Titration 150 64.589 Amount Heparin Sod,Pork in 0.45% 64.589 NaCl 25,000 unit In 0.45 % NaCl 1 250ml.bag @ 12 UNITS/KG/HR 8.748 mls/hr IV .Q24H [facility] Rx#: [id number] Sodium Chloride 0.9% 1, 150 000 ml @ 75 mls/hr IV . [id number] [facility] Rx#:[id number] Oral 436 Output: Drainage 600 920 800 Left Lateral 200 320 200 Right Lateral 400 600 600 Urine 600 100 Stool 200 Other: Voiding Method Ileal Conduit (Right) Ileal Conduit (Right) Ileal Conduit (Left) Ileal Conduit (Left) # Bowel Movements 0 - Exam PHYSICAL EXAMINATION: GENERAL: The patient is alert and oriented x3, not in any acute distress. HEENT: Pupils are round and equally reacting to light. EOMI. No scleral icterus. No conjunctival pallor. Normocephalic, atraumatic. No pharyngeal erythema. No thyromegaly. CARDIOVASCULAR: S1 and S2 present. No murmurs, rubs, or gallops. PULMONARY: Chest is clear to auscultation, no wheezing or crackles. ABDOMEN: Adbominal scar covered in dressing - clean. Left-sided colostomy bag in place nephrostomy site looks clean without any infection MUSCULOSKELETAL: No joint swelling or deformity. EXTREMITIES: No cyanosis, clubbing, or pedal edema. NEUROLOGICAL: Gross neurological examination did not reveal any focal deficits. SKIN: No rashes. - Labs CBC & Chem 7: 10/09/20 06:24 10/09/20 06:24 Labs: Abnormal Lab Results - Last 24 Hours (Table) 10/08/20 10/08/20 10/09/20 Range/Units 06:57 21:31 01:04 WBC 11.0 H (3.8-10.6) k/uL RBC 3.28 L 3.33 L (3.80-5.40) m/uL Hgb 8.8 L 9.4 L (11.4-16.0) gm/dL Hct 28.4 L 28.9 L (34.0-46.0) % MCHC 30.9 L (31.0-37.0) g/dL RDW 19.2 H 19.4 H (11.5-15.5) % Plt Count 709 H 692 H (150-450) k/uL APTT (22.0-30.0) sec Sodium (137-145) mmol/L Iron 31 L (50-170) ug/dL TIBC 158 L (228-460) ug/dL 10/09/20 10/09/20 10/09/20 Range/Units 06:24 06:24 06:24 WBC (3.8-10.6) k/uL RBC 3.13 L (3.80-5.40) m/uL Hgb 8.8 L (11.4-16.0) gm/dL Hct 27.1 L (34.0-46.0) % MCHC (31.0-37.0) g/dL RDW 19.3 H (11.5-15.5) % Plt Count 652 H (150-450) k/uL APTT 32.8 H (22.0-30.0) sec Sodium 135 L (137-145) mmol/L Iron (50-170) ug/dL TIBC (228-460) ug/dL Microbiology - Last 24 Hours (Table) 10/08/20 12:59 Gram Stain - Preliminary Abdomen Wound Culture - Preliminary 10/08/20 12:59 Anaerobic Culture - Preliminary Abdomen Assessment and Plan Assessment: ASSESSMENT Mild lower GI bleed Recent right lower extremity DVT Intra-abdominal abscess completed antibiotic therapy Hypovolemic hyponatremia Colon cancer with extensive local invasion Hypothyroidism Bilateral nephrostomy tubes in place Thrombocytosis PLAN: Patient's hemoglobin has been stable around 8-9. She has been initiated on IV heparin for recent diagnosis of right lower extremity DVT. She recently completed an antibiotic course for her intra-abdominal abscess. Bilateral nephrostomy tubes in place and a creatinine has been stable. Continue with Protonix for GI prophylaxis. Continue with current pain medication regimen. Overall prognosis is poor. Further recommendations to follow depending on the progress of the patient.
[2020-10-10] MEDS: MORPHINE SULFATE ER 30 MG TABLET PO SCH ×4 (00:03→23:58)
[2020-10-10] MEDS: HYDROcodone/APAP 10-325MG 1 EACH TAB PO PRN ×4 (03:40→20:43)
[2020-10-10] MEDS: ONDANSETRON 4 MG/2 ML VIAL IVP PRN ×4 (03:40→23:59)
[2020-10-10] MEDS: ALPRAZolam 0.5 MG TAB PO PRN ×2 (04:42→23:58)
[2020-10-10] MEDS: LEVOTHYROXINE 137 MCG PO SCH (06:05)
[2020-10-10 07:20] LABS: Anisocytosis Slight; Basophils # (A) 0.1 k/uL (0-0.2); Basophils % (A) 1 %; Eosinophils # (A) 0.2 k/uL (0-0.7); Eosinophils % (A) 3 %; HCT 27.6 % (34.0-46.0); HGB 9.1 gm/dL (11.4-16.0); Hypochromasia Slight; Lymphocytes # (A) 1.9 k/uL (1.0-4.8); Lymphocytes % (A) 23 %; MCH 28.8 pg (25.0-35.0); MCHC 32.9 g/dL (31.0-37.0); MCV 87.4 fL (80.0-100.0); Mean Platelet Volume 6.3; Microcytosis Slight; Monocytes # (A) 0.5 k/uL (0-1.0); Monocytes % (A) 6 %; Neutrophils # (A) 5.8 k/uL (1.3-7.7); Neutrophils % (A) 67 %; Platelet Count 654 k/uL (150-450); RBC 3.16 m/uL (3.80-5.40); RDW 19.4 % (11.5-15.5); WBC 8.6 k/uL (3.8-10.6)
[2020-10-10 08:19] LABS: African American GFR (CKD) >90 (>60 ml/min/1.73 sqM); Anion Gap 2 mmol/L; Blood Urea Nitrogen 12 mg/dL (7-17); Calcium 8.7 mg/dL (8.4-10.2); Carbon Dioxide 32 mmol/L (22-30); Chloride 102 mmol/L (98-107); Glucose 92 mg/dL (74-99); Non-African American GFR(CKD) 89 (>60 ml/min/1.73 sqM); Sodium 136 mmol/L (137-145)
[2020-10-10] MEDS: PANTOPRAZOLE 40 MG/10 ML VIAL IVP SCH (09:21)
--- NOTE | 2020-10-10 10:57 | P.PN ---
<Selena Small - Last Filed: 10/10/20 10:53> Subjective Progress Note Date: 10/10/20 CHIEF COMPLAINT: Lower midline wound HISTORY OF PRESENT ILLNESS: Patient has recent diagnosis of nonresectable sigmoid colon cancer. She also had diagnosis of right lower extremity DVT and was started on Lovenox at home. She had been having some mucousy bloody stools per her rectum after starting the Lovenox. Lovenox was discontinued. Patient is currently on IV heparin by Heme/onc service for DVT. Patient reports bleeding from rectum has lessened. Per nursing staff who helped patient to the restroom there is no rectal bleeding noted. Stool for occult blood was negative. Patient reports that her pain is better controlled today. She denies any nausea or vomiting. She is tolerating diet. Afebrile. WBC 8.6 hemoglobin is up from 8.8-9.1 PHYSICAL EXAM: VITAL SIGNS: Reviewed. GENERAL: Well-developed in no acute distress. HEENT: No sclera icterus. Extraocular movements grossly intact. Moist buccal mucosa. Head is atraumatic, normocephalic. ABDOMEN: Soft. Nondistended. Nontender. Dressing clean dry and intact. Ostomy with stool present. No bleeding from ostomy noted NEUROLOGIC: Alert and oriented. Cranial nerves II through XII grossly intact. ASSESSMENT: 1. Lower midline wound 2. Recent diagnosis of nonresectable sigmoid colon cancer PLAN: -Continue local wound care -Continue supportive care -Anticoagulation per heme/onc service Physician Territory Development Manager note has been reviewed by physician. Signing provider agrees with the documented findings, assessment, and plan of care. Objective - Vital Signs Vital signs: Vital Signs Temp 97.8 F 10/10/20 08:02 Pulse 85 10/10/20 09:08 Resp 16 10/10/20 08:02 BP 95/54 10/10/20 09:08 Pulse Ox 99 10/10/20 03:39 Intake & Output 10/09/20 10/10/20 10/10/20 18:59 06:59 18:59 Intake Total 886.160 3226.43 Output Total 1350 1300 Balance -1184.770 -46.57 Weight 78 kg 74.4 kg Intake: Intake, IV Titration 459.455 8729.43 Amount Heparin Sod,Pork in 0.45% 165.230 53.43 NaCl 25,000 unit In 0.45 % NaCl 1 250ml.bag @ 12 UNITS/KG/HR 8.748 mls/hr IV .Q24H [facility] Rx#: [id number] Sodium Chloride 0.9% 1, 1200 000 ml @ 75 mls/hr IV . [id number] [facility] Rx#:[id number] Output: Drainage 1250 1300 Left Lateral 300 350 Right Lateral 950 950 Urine 100 Other: Voiding Method Ileal Conduit (Right) Ileal Conduit (Right) Ileal Conduit (Left) Ileal Conduit (Left) - Labs CBC & Chem 7: 10/10/20 06:19 10/10/20 06:19 Labs: Abnormal Lab Results - Last 24 Hours (Table) 10/09/20 10/09/20 10/10/20 Range/Units 15:15 23:10 06:19 RBC 3.16 L (3.80-5.40) m/uL Hgb 9.1 L (11.4-16.0) gm/dL Hct 27.6 L (34.0-46.0) % RDW 19.4 H (11.5-15.5) % Plt Count 654 H (150-450) k/uL APTT 42.1 H 43.8 H (22.0-30.0) sec Sodium (137-145) mmol/L Carbon Dioxide (22-30) mmol/L 10/10/20 10/10/20 Range/Units 06:19 06:19 RBC (3.80-5.40) m/uL Hgb (11.4-16.0) gm/dL Hct (34.0-46.0) % RDW (11.5-15.5) % Plt Count (150-450) k/uL APTT 51.6 H (22.0-30.0) sec Sodium 136 L (137-145) mmol/L Carbon Dioxide 32 H (22-30) mmol/L <Tang Sampson - Last Filed: 10/10/20 16:13> Subjective As above. Patient's wound is clean with serosanguineous drainage noted. No active bleeding. Continue local wound care as ordered. We'll sign off. Please call if needed. Objective - Vital Signs Vital signs: Vital Signs Temp 98.2 F 10/10/20 12:00 Pulse 75 10/10/20 12:00 Resp 16 10/10/20 12:00 BP 107/55 10/10/20 12:00 Pulse Ox 95 10/10/20 12:00 Intake & Output 10/09/20 10/10/20 10/10/20 18:59 06:59 18:59 Intake Total 499.451 1423.43 560 Output Total 1350 1300 750 Balance -1184.770 -46.57 -190 Weight 78 kg 74.4 kg Intake: Intake, IV Titration 610.843 9826.43 Amount Heparin Sod,Pork in 0.45% 165.230 53.43 NaCl 25,000 unit In 0.45 % NaCl 1 250ml.bag @ 12 UNITS/KG/HR 8.748 mls/hr IV .Q24H [facility] Rx#: [id number] Sodium Chloride 0.9% 1, 1200 000 ml @ 75 mls/hr IV . [id number] [facility] Rx#:[id number] Oral 560 Output: Drainage 1250 1300 750 Left Lateral 300 350 650 Right Lateral 950 950 100 Urine 100 Other: Voiding Method Ileal Conduit (Right) Ileal Conduit (Right) Ileal Conduit (Right) Ileal Conduit (Left) Ileal Conduit (Left) Ileal Conduit (Left) # Bowel Movements 1 - Labs CBC & Chem 7: 10/10/20 06:19 10/10/20 06:19 Labs: Abnormal Lab Results - Last 24 Hours (Table) 10/09/20 10/10/20 10/10/20 Range/Units 23:10 06:19 06:19 RBC 3.16 L (3.80-5.40) m/uL Hgb 9.1 L (11.4-16.0) gm/dL Hct 27.6 L (34.0-46.0) % RDW 19.4 H (11.5-15.5) % Plt Count 654 H (150-450) k/uL APTT 43.8 H (22.0-30.0) sec Sodium 136 L (137-145) mmol/L Carbon Dioxide 32 H (22-30) mmol/L 10/10/20 Range/Units 06:19 RBC (3.80-5.40) m/uL Hgb (11.4-16.0) gm/dL Hct (34.0-46.0) % RDW (11.5-15.5) % Plt Count (150-450) k/uL APTT 51.6 H (22.0-30.0) sec Sodium (137-145) mmol/L Carbon Dioxide (22-30) mmol/L Assessment and Plan (1) Colon cancer Current Visit: Yes Status: Acute Code(s): C18.9 - MALIGNANT NEOPLASM OF COLON, UNSPECIFIED SNOMED Code(s): 032981370
[2020-10-10] MEDS: SODIUM CHLORIDE 0.9% 1,000 ML IV SCH ×2 (12:15→20:44)
--- NOTE | 2020-10-10 16:35 | P.PN ---
Subjective Progress Note Date: 10/10/20 Principal diagnosis: GI Bleed Hemoglobin remains stable Objective - Vital Signs Vital signs: Vital Signs Temp 98.2 F 10/10/20 12:00 Pulse 75 10/10/20 12:00 Resp 16 10/10/20 12:00 BP 107/55 10/10/20 12:00 Pulse Ox 95 10/10/20 12:00 Intake & Output 10/09/20 10/10/20 10/10/20 18:59 06:59 18:59 Intake Total 625.207 9785.43 560 Output Total 1350 1300 750 Balance -1184.770 -46.57 -190 Weight 78 kg 74.4 kg Intake: Intake, IV Titration 982.455 0763.43 Amount Heparin Sod,Pork in 0.45% 165.230 53.43 NaCl 25,000 unit In 0.45 % NaCl 1 250ml.bag @ 12 UNITS/KG/HR 8.748 mls/hr IV .Q24H [facility] Rx#: [id number] Sodium Chloride 0.9% 1, 1200 000 ml @ 75 mls/hr IV . [id number] [facility] Rx#:[id number] Oral 560 Output: Drainage 1250 1300 750 Left Lateral 300 350 650 Right Lateral 950 950 100 Urine 100 Other: Voiding Method Ileal Conduit (Right) Ileal Conduit (Right) Ileal Conduit (Right) Ileal Conduit (Left) Ileal Conduit (Left) Ileal Conduit (Left) # Bowel Movements 1 - Exam Constitutional General appearance: no acute distress - EENT Eyes: EOMI, PERRLA ENT: hearing grossly normal, normal oropharynx - Neck Neck: no lymphadenopathy - Respiratory Respiratory: bilateral: CTA - Cardiovascular Rhythm: regular Heart sounds: normal: S1, S2 - Gastrointestinal Left lower quadrant ostomy. Lower mid abdomen covered with bandage. Patient states open areas on prior incision line General gastrointestinal: normal bowel sounds, soft - Integumentary Integumentary: normal - Neurologic Neurologic: CNII-XII intact - Musculoskeletal Musculoskeletal: generalized weakness, strength equal bilaterally - Psychiatric Psychiatric: A&O x's 3, appropriate affect - Labs CBC & Chem 7: 10/11/20 08:55 10/10/20 06:19 Labs: Abnormal Lab Results - Last 24 Hours (Table) 10/09/20 10/10/20 10/10/20 Range/Units 23:10 06:19 06:19 RBC 3.16 L (3.80-5.40) m/uL Hgb 9.1 L (11.4-16.0) gm/dL Hct 27.6 L (34.0-46.0) % RDW 19.4 H (11.5-15.5) % Plt Count 654 H (150-450) k/uL APTT 43.8 H (22.0-30.0) sec Sodium 136 L (137-145) mmol/L Carbon Dioxide 32 H (22-30) mmol/L 10/10/20 Range/Units 06:19 RBC (3.80-5.40) m/uL Hgb (11.4-16.0) gm/dL Hct (34.0-46.0) % RDW (11.5-15.5) % Plt Count (150-450) k/uL APTT 51.6 H (22.0-30.0) sec Sodium (137-145) mmol/L Carbon Dioxide (22-30) mmol/L Assessment and Plan Plan: Abdominal x-ray: report reviewed CT scan - abdomen: report reviewed CT scan - pelvis: report reviewed US - abdomen: report reviewed Assessment and Plan Colon Cancer: - Treatment at outside facility - Return to primary oncologist after hospital discharge GI bleed - Hemoglobin remains stable 9.1 today - Developed bleeding in her nephrostomy, as well as per rectum, after starting Lovenox. - This stopped fairly quickly after stopping Lovenox. - General surgery following. The patient had photographs of the rectal bleed in her adult diaper. Overall this appeared to be quite minor and mostly more consistent with a sanguinous mucoid discharge. Amount of bleeding from ostomy appear to be very minor also. - Anticoagulation has been restarted heparin drip, no overt bleeding noted overnight - Monitor hemoglobin. If this remains stable, it would be reasonable, based on the amount of bleeding experienced by the patient, as well as risk-benefit given recent DVT - Await ECF doppler for continued rec Anemia - Stable, Plan as above. - Stable iron stores. - Replace with IV iron if needed. - Transfuse for hemoglobin less than 7 Recent Dx Acute Deep vein thrombosis (DVT) - Awaiting outside doppler, repeat doppler at this hospital stay was negative. - Therefore will need this prior to decision on anti-coagulation at discharge to confirm that there is indeed a recent diagnosis of DVT. - Risk versus benefit aspects discussed in detail with the patient. She was advised that with a recent DVT, malignancy, and ongoing inflammation, she would be at very high risk of clot progression and PE without anticoagulation. - Risk of and the correlation would obviously be recurrent bleeding. So far based on her clinical picture, risk versus benefit favors repeat trial of anticoagulation. Hemoglobin wThis would be given with IV heparin, due to the short half life easy reversibility if needed. If the patient developed recu rrent, significant bleeding, then it would be very reasonable to consider IVC filter placement Continue to await Ultrasound In the Interim per primary team for abx and other problems including intra abd abscess Physician Attest: I have completed the full history and physical and agree with above dictation, dictated as a scribe.
--- NOTE | 2020-10-10 22:40 | P.PN ---
Subjective Progress Note Date: 10/10/20 Principal diagnosis: Bleeding in Nephrostomy tubes and Colostomy Ms. Corral is a 50-year-old female with a past medical history of colon cancer with metastasis coming in with a chief complaint of wanting her nephrostomy bag and also bleeding per rectum along with increased ostomy output with small amount of blood per the ostomy. Patient also has history of intra-abdominal abscess, with pigtail catheter placement at [facility], treated with 3 weeks of antibiotics. Patient has locally advanced tumor that is adherent to surrounding structures for which she needed bilateral nephrostomy tubes and diverting colostomy. She was then discharged to rehab facility. In the rehab facility patient was diagnosed with right lower extremity DVT and was started on Lovenox. As the patient noticed bleeding in her mouth ostomy bags and colostomy she stopped taking her Lovenox and she is here for further management. On 10/09/2020 patient is seen and examined at bedside. She is comfortably lying in bed appears to be in no acute distress. Patient's hemoglobin has been stable around 8-9. She denied having any more bleeding. As the patient has recent lower extremity DVT malignancy, she has been started on by oncology night. Patient denies having any chest pain or palpitations. No cough or difficulty in breathing. No fevers. She complains of some nausea but no vomiting. She complains of abdominal discomfort that is chronic in nature. On reviewing her vitals T-max of 98.5, heart rate 98, respiratory 17, blood pressure 101 x 67 saturating at 100% on room air. Reviewing her labs hemoglobin stable at 8.8, platelets 652, sodium 135, potassium 4.3, BUN 12, creatinine 0.84\ On 10/10/2020 -patient was seen and examined at bedside. She was comfortably lying in bed appears to be in no acute distress. She denied having any blood in her nephrostomy tubes or colostomy bag. She mentions about having streaks of bloody discharge from her rectum. On reviewing her vitals T-max of 98.2, heart rate 75, respiratory 16, blood pressure 107 x 55, saturating at 95% on room air. On reviewing her labs hemoglobin stable at 9.1, platelets 654. Sodium 136, potassium 4, chloride 102, bicarb 32, BUN 12, creatinine 0.79. Patient continues to be on a heparin drip. On review of systems -constitutional patient denied having any fevers chills or rigors. Respiratory no cough or difficulty breathing. Cardiovascular no chest pain or palpitations. GI as mentioned above. patient has nephrostomy bags in place. Active Medications Hydrocodone Bitart/Acetaminophen (Hydrocodone/Apap 10-325mg 1 Each Tab) 1 each PO Q4HR PRN PRN Reason: Pain Last Admin: 10/10/20 20:43 Dose: 1 each Documented by: Alprazolam (Alprazolam 0.5 Mg Tab) 0.5 mg PO TID PRN PRN Reason: Anxiety Last Admin: 10/10/20 04:42 Dose: 0.5 mg Documented by: Heparin Sodium (Porcine) (Heparin Sodium,Porcine 5,000 Unit/Ml 1 Ml Vial) 0 unit IV PER PROTOCOL PRN; Protocol PRN Reason: Low PTT Hydromorphone HCl (Hydromorphone 1 Mg/Ml 1 Ml Syringe) 1 mg IVP Q4HR PRN PRN Reason: Pain Sodium Chloride (Saline 0.9%) 1,000 mls @ 75 mls/hr IV .[id number] LONNIE Last Admin: 10/10/20 20:44 Dose: 75 mls/hr Documented by: Heparin Sodium/Sodium Chloride (25,000 unit/ Sodium Chloride) 250 mls @ 8.748 mls/hr IV .Q24H LONNIE; Protocol Last Admin: 10/09/20 21:16 Dose: 18.79 units/kg/hr, 13.7 mls/hr Documented by: Morphine Sulfate (Morphine Sulfate Er 30 Mg Tablet) 30 mg PO Q8HR LONNIE; Protocol Last Admin: 10/10/20 17:01 Dose: 30 mg Documented by: Naloxone HCl (Naloxone 0.4 Mg/Ml 1 Ml Vial) 0.2 mg IV Q2M PRN PRN Reason: Opioid Reversal Non Formulary Drug ( Levothyroxine 137mcg . Brand) 1 each PO DAILY@0630 [facility] Last Admin: 10/10/20 06:05 Dose: 1 each Documented by: Ondansetron HCl (Ondansetron 4 Mg/2 Ml Vial) 4 mg IVP Q6HR PRN PRN Reason: Nausea And Vomiting Last Admin: 10/10/20 17:01 Dose: 4 mg Documented by: Pantoprazole Sodium (Pantoprazole 40 Mg/10 Ml Vial) 40 mg IVP DAILY [facility] Last Admin: 10/10/20 09:21 Dose: 40 mg Documented by: Objective - Vital Signs Vital signs: Vital Signs Temp 98.2 F 10/10/20 12:00 Pulse 75 10/10/20 12:00 Resp 16 10/10/20 12:00 BP 107/55 10/10/20 12:00 Pulse Ox 95 10/10/20 12:00 Intake & Output 10/09/20 10/10/20 10/10/20 18:59 06:59 18:59 Intake Total 371.660 5118.43 Output Total 1350 1300 750 Balance -1184.770 -46.57 -750 Weight 78 kg 74.4 kg Intake: Intake, IV Titration 026.318 4297.43 Amount Heparin Sod,Pork in 0.45% 165.230 53.43 NaCl 25,000 unit In 0.45 % NaCl 1 250ml.bag @ 12 UNITS/KG/HR 8.748 mls/hr IV .Q24H [facility] Rx#: [id number] Sodium Chloride 0.9% 1, 1200 000 ml @ 75 mls/hr IV . [id number] [facility] Rx#:[id number] Output: Drainage 1250 1300 750 Left Lateral 300 350 650 Right Lateral 950 950 100 Urine 100 Other: Voiding Method Ileal Conduit (Right) Ileal Conduit (Right) Ileal Conduit (Right) Ileal Conduit (Left) Ileal Conduit (Left) Ileal Conduit (Left) - Exam PHYSICAL EXAMINATION: GENERAL: The patient is alert and oriented x3, not in any acute distress. HEENT: Pupils are round and equally reacting to light. EOMI. No scleral icterus. No conjunctival pallor. Normocephalic, atraumatic. No pharyngeal erythema. No thyromegaly. CARDIOVASCULAR: S1 and S2 present. No murmurs, rubs, or gallops. PULMONARY: Chest is clear to auscultation, no wheezing or crackles. ABDOMEN: Adbominal scar covered in dressing - clean. Left-sided colostomy bag in place. Nephrostomy tubes clear urine MUSCULOSKELETAL: No joint swelling or deformity. EXTREMITIES: No cyanosis, clubbing, or pedal edema. NEUROLOGICAL: Gross neurological examination did not reveal any focal deficits. - Labs CBC & Chem 7: 10/10/20 06:19 10/10/20 06:19 Labs: Abnormal Lab Results - Last 24 Hours (Table) 10/09/20 10/09/20 10/10/20 Range/Units 15:15 23:10 06:19 RBC 3.16 L (3.80-5.40) m/uL Hgb 9.1 L (11.4-16.0) gm/dL Hct 27.6 L (34.0-46.0) % RDW 19.4 H (11.5-15.5) % Plt Count 654 H (150-450) k/uL APTT 42.1 H 43.8 H (22.0-30.0) sec Sodium (137-145) mmol/L Carbon Dioxide (22-30) mmol/L 10/10/20 10/10/20 Range/Units 06:19 06:19 RBC (3.80-5.40) m/uL Hgb (11.4-16.0) gm/dL Hct (34.0-46.0) % RDW (11.5-15.5) % Plt Count (150-450) k/uL APTT 51.6 H (22.0-30.0) sec Sodium 136 L (137-145) mmol/L Carbon Dioxide 32 H (22-30) mmol/L Assessment and Plan Assessment: ASSESSMENT Mild lower GI bleed Recent right lower extremity DVT Intra-abdominal abscess completed antibiotic therapy Hypovolemic hyponatremia Colon cancer with extensive local invasion Hypothyroidism Bilateral nephrostomy tubes in place Thrombocytosis PLAN: Patient's hemoglobin has been stable around 9.No evidence of active bleeding She has been initiated on IV heparin for recent diagnosis of right lower extremity DVT, which will be continued for now. She recently completed an antibiotic course for her intra-abdominal abscess. Bilateral nephrostomy tubes in place and a creatinine has been stable. Continue with Protonix for GI prophylaxis. Continue with current pain medication regimen. Overall prognosis is poor. Further recommendations to follow depending on the progress of the patient.
[2020-10-11] MEDS: HYDROcodone/APAP 10-325MG 1 EACH TAB PO PRN ×5 (03:12→21:05)
[2020-10-11] MEDS: HEPARIN SOD,PORK IN 0.45% NACL 25,000 UNIT in 0.45% NACL 1 250ML.BAG IV SCH (06:16)
[2020-10-11] MEDS: LEVOTHYROXINE 137 MCG PO SCH (06:16)
[2020-10-11] MEDS: MORPHINE SULFATE ER 30 MG TABLET PO SCH ×3 (08:17→22:35)
[2020-10-11] MEDS: ALPRAZolam 0.5 MG TAB PO PRN ×2 (08:19→16:33)
[2020-10-11] MEDS: ONDANSETRON 4 MG/2 ML VIAL IVP PRN ×3 (09:59→22:44)
[2020-10-11] MEDS: PANTOPRAZOLE 40 MG/10 ML VIAL IVP SCH (10:00)
[2020-10-11 10:52] LABS: Anisocytosis Slight; HCT 29.3 % (34.0-46.0); HGB 9.5 gm/dL (11.4-16.0); Hypochromasia Slight; MCH 28.2 pg (25.0-35.0); MCHC 32.4 g/dL (31.0-37.0); MCV 87.1 fL (80.0-100.0); Mean Platelet Volume 7.3; Microcytosis Slight; Platelet Count 689 k/uL (150-450); RBC 3.37 m/uL (3.80-5.40); RDW 19.5 % (11.5-15.5); WBC 10.2 k/uL (3.8-10.6)
[2020-10-11 11:26] LABS: Lymphocytes # (M) 1.63 k/uL (1.0-4.8); Metamyelocytes % 1 %; Monocytes # (M) 0.51 k/uL (0-1.0); Myelocytes % 1 %; Neutrophils # (M) 7.65 k/uL (1.3-7.7); Neutrophils % (M) 75 %; Nucleated Red Blood Cells 0 /100 WBC (0-0); Total Cells Counted 200
[2020-10-11 11:27] LABS: Poikilocytosis (M) Present; Rouleaux Present
--- NOTE | 2020-10-11 11:33 | P.PN ---
Subjective Progress Note Date: 10/11/20 Principal diagnosis: GI Bleed DVT confirmed in report from ECF Right Gastronem Vein, discussed with RN. Hemoglobin remains stable. WIll stop heparin and monitor on eliquis. Have sent script to [facility] pharmacy and asked sr. payroll manager to document copay. Patient had bleeding on Lovenox Objective - Vital Signs Vital signs: Vital Signs Temp 98.3 F 10/11/20 09:46 Pulse 83 10/11/20 09:46 Resp 14 10/11/20 09:46 BP 98/65 10/11/20 09:46 Pulse Ox 96 10/11/20 07:43 Intake & Output 10/10/20 10/11/20 10/11/20 18:59 06:59 18:59 Intake Total 1050 Output Total 1350 2040 Balance -300 -2040 Weight 79 kg Intake: Intake, IV Titration 250 Amount Heparin Sod,Pork in 0.45% 250 NaCl 25,000 unit In 0.45 % NaCl 1 250ml.bag @ 12 UNITS/KG/HR 8.748 mls/hr IV .Q24H [facility] Rx#: [id number] Oral 800 Output: Drainage 1350 1840 Left Lateral 850 500 Right Lateral 500 1340 Urine 100 Stool 100 Other: Voiding Method Ileal Conduit (Right) Ileal Conduit (Right) Ileal Conduit (Left) Ileal Conduit (Left) # Bowel Movements 1 - Exam Constitutional General appearance: no acute distress - EENT Eyes: EOMI, PERRLA ENT: hearing grossly normal, normal oropharynx - Neck Neck: no lymphadenopathy - Respiratory Respiratory: bilateral: CTA - Cardiovascular Rhythm: regular Heart sounds: normal: S1, S2 - Gastrointestinal Left lower quadrant ostomy. Lower mid abdomen covered with bandage. Patient states open areas on prior incision line General gastrointestinal: normal bowel sounds, soft - Integumentary Integumentary: normal - Neurologic Neurologic: CNII-XII intact - Musculoskeletal Musculoskeletal: generalized weakness, strength equal bilaterally - Psychiatric Psychiatric: A&O x's 3, appropriate affect - Labs CBC & Chem 7: 10/11/20 08:55 10/10/20 06:19 Labs: Abnormal Lab Results - Last 24 Hours (Table) 10/11/20 10/11/20 Range/Units 08:55 08:55 RBC 3.37 L (3.80-5.40) m/uL Hgb 9.5 L (11.4-16.0) gm/dL Hct 29.3 L (34.0-46.0) % RDW 19.5 H (11.5-15.5) % Plt Count 689 H (150-450) k/uL APTT 45.0 H (22.0-30.0) sec Microbiology - Last 24 Hours (Table) 10/08/20 12:59 Anaerobic Culture - Preliminary Abdomen 10/08/20 12:59 Gram Stain - Final Abdomen Wound Culture - Final Assessment and Plan Plan: Abdominal x-ray: report reviewed CT scan - abdomen: report reviewed CT scan - pelvis: report reviewed US - abdomen: report reviewed Assessment and Plan Colon Cancer: - Treatment at outside facility - Return to primary oncologist after hospital discharge GI bleed - Hemoglobin remains stable - Developed bleeding in her nephrostomy, as well as per rectum, after starting Lovenox. 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 - Stable iron stores. - Replace with IV iron if needed. - Transfuse for hemoglobin less than 7 Recent Dx Acute Deep vein thrombosis (DVT) - No recurrent bleeding, Hemoglobin continues to improve, will switch to eliquis today. Physician Attest: I have completed the full history and physical and agree with above dictation, dictated as a scribe.
--- NOTE | 2020-10-11 12:42 | CDI ---
Documentation Clarification Form Date: 10/11/2020 12:27:54 PM From: Katiuska DormanRamírezOSMAN, CCDS Admit Date: 10/09/2020 02:52:00 PM Patient Name: Jennifer Corral Visit Number: [id number] Discharge Date: ATTENTION: The Clinical Documentation Specialists (CDI) and [facility] Coding Staff appreciate your assistance in clarifying documentation. Please respond to the clarification below the line at the bottom and electronically sign. The CDI & [facility] Coding staff will review the response and follow-up if needed. Please note: Queries are made part of the Legal Health Record. If you have any questions, please contact the author of this message via ITS. Dr. Jose Novoa: Anemia is documented in the 10/07 ED Note, the 10/08 Hematology/Oncology Consult and in subsequent Hematology/Oncology Progress Notes without further specificity. 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 Clinical indicators: Presented to the ED on 10/07 with GI bleed: rectal bleeding & broken colostomy bag. Ed Clinical Impression: GI bleed, Anemia Hemoglobin 10/07: 9.1. 10/08: 8.6 - 8.8. 10/09: 9.4 - 8.8. 10/10: 9.1. 10/11: 9.5 Hematocrit 10/07: 29.2. 10/08 79.9 - 28.4. 10/09: 28.9 - 27.1. 10/10: 27.6. 10/11: 29.3 10/08 C Diff & Iron studies ordered, pending. 10/09 Stool Occult Blood negative. Treatment: Anticoagulant held, IV fluid 1,000 mls @ 999 mls/hr q1H, IV Ativan, IV Zofran, PO Mosca, Xanax, Flagyl, Synthroid, Ms Contin. 10/09: IV Heparin. 10/11: po Eliquis ordered. In order to capture the severity of condition, please clarify the type of anemia and etiology if known:. [ ] Acute blood loss anemia [ ] Acute on chronic blood loss anemia [ ] Chronic blood loss anemia, please specify condition or cause: [ ] Iron deficiency anemia [ ] Drug induced anemia, please specify drug or drugs: [ ] Anemia due to malignancy [ ] Unable to determine [ ] Other, please specify (Last Form Revision: September 2019) 10/12 Query response documented in 10/11 Hem/Onc Progress Note: Normocytic Anemia secondary to blood loss & malignancy. MTDD
[2020-10-11] MEDS: APIXABAN 5 MG TAB PO SCH ×2 (12:56→21:06)
[2020-10-11] MEDS: SODIUM CHLORIDE 0.9% 1,000 ML IV SCH (15:11)
--- NOTE | 2020-10-11 23:47 | P.PN ---
Subjective Progress Note Date: 10/11/20 Principal diagnosis: Bleeding in Nephrostomy tubes and Colostomy Ms. Corral is a 50-year-old female with a past medical history of colon cancer with metastasis coming in with a chief complaint of wanting her nephrostomy bag and also bleeding per rectum along with increased ostomy output with small amount of blood per the ostomy. Patient also has history of intra-abdominal abscess, with pigtail catheter placement at [facility], treated with 3 weeks of antibiotics. Patient has locally advanced tumor that is adherent to surrounding structures for which she needed bilateral nephrostomy tubes and diverting colostomy. She was then discharged to rehab facility. In the rehab facility patient was diagnosed with right lower extremity DVT and was started on Lovenox. As the patient noticed bleeding in her mouth ostomy bags and colostomy she stopped taking her Lovenox and she is here for further management. On 10/09/2020 patient is seen and examined at bedside. She is comfortably lying in bed appears to be in no acute distress. Patient's hemoglobin has been stable around 8-9. She denied having any more bleeding. As the patient has recent lower extremity DVT malignancy, she has been started on by oncology night. Patient denies having any chest pain or palpitations. No cough or difficulty in breathing. No fevers. She complains of some nausea but no vomiting. She complains of abdominal discomfort that is chronic in nature. On reviewing her vitals T-max of 98.5, heart rate 98, respiratory 17, blood pressure 101 x 67 saturating at 100% on room air. Reviewing her labs hemoglobin stable at 8.8, platelets 652, sodium 135, potassium 4.3, BUN 12, creatinine 0.84\ On 10/10/2020 -patient was seen and examined at bedside. She was comfortably lying in bed appears to be in no acute distress. She denied having any blood in her nephrostomy tubes or colostomy bag. She mentions about having streaks of bloody discharge from her rectum. On reviewing her vitals T-max of 98.2, heart rate 75, respiratory 16, blood pressure 107 x 55, saturating at 95% on room air. On reviewing her labs hemoglobin stable at 9.1, platelets 654. Sodium 136, potassium 4, chloride 102, bicarb 32, BUN 12, creatinine 0.79. Patient continues to be on a heparin drip. On review of systems -constitutional patient denied having any fevers chills or rigors. Respiratory no cough or difficulty breathing. Cardiovascular no chest pain or palpitations. GI as mentioned above. patient has nephrostomy bags in place. 10/11/2020 Patient is currently resting in the bed comfortably. Awake alert oriented x3. He is lethargic and weak. Patient was started on PT OT Otherwise denied any further bleeding from the nephrostomy tubes or colostomy ba g. Patient also complains of streaks of bloody discharge from her rectal area which has improved. Hemoglobin level improved to 9.5 today. Anticoagulation was changed to Eliquis and heparin drip has been discontinued. Oncology/hematology is following. Patient denies any complaints of fever or chills. No nausea vomiting abdominal pain or diarrhea. No headache or dizziness or lightheadedness. Prescription for Eliquis was sent to pharmacy. Possible discharge to home with home PT in the next 24 hours. PT OT is following. Current medications reviewed. Active Medications Generic Name Dose Route Start Last Admin Trade Name Freq PRN Reason Stop Dose Admin Hydrocodone Bitart/Acetaminophen 1 each 10/08/20 19:04 10/11/20 21:05 Hydrocodone/Apap 10-325mg 1 Each Tab PO 1 each Q4HR PRN Administration Pain Alprazolam 0.5 mg 10/07/20 06:00 10/11/20 16:33 Alprazolam 0.5 Mg Tab PO 0.5 mg TID PRN Administration Anxiety Apixaban 5 mg 10/11/20 11:30 10/11/20 21:06 Apixaban 5 Mg Tab PO 5 mg BID LONNIE Administration Hydromorphone HCl 1 mg 10/07/20 02:03 Hydromorphone 1 Mg/Ml 1 Ml Syringe IVP Q4HR PRN Pain Sodium Chloride 1,000 mls @ 75 mls/hr 10/07/20 15:45 10/11/20 15:11 Saline 0.9% IV Not Given .[id number] LONNIE Morphine Sulfate 30 mg 10/07/20 08:00 10/11/20 22:35 Morphine Sulfate Er 30 Mg Tablet PO 30 mg Q8HR LONNIE Administration Protocol Naloxone HCl 0.2 mg 10/07/20 02:28 Naloxone 0.4 Mg/Ml 1 Ml Vial IV Q2M PRN Opioid Reversal Non Formulary Drug ( 1 each 10/07/20 06:30 10/11/20 06:16 Levothyroxine 137mcg PO 1 each . Brand) DAILY@0630 LONNIE Administration Ondansetron HCl 4 mg 10/07/20 20:23 10/11/20 22:44 Ondansetron 4 Mg/2 Ml Vial IVP 4 mg Q6HR PRN Administration Nausea And Vomiting Pantoprazole Sodium 40 mg 10/07/20 09:00 10/11/20 10:00 Pantoprazole 40 Mg/10 Ml Vial IVP 40 mg DAILY LONNIE Administration Objective - Vital Signs Vital signs: Vital Signs Temp 98.4 F 10/11/20 12:00 Pulse 79 10/11/20 16:15 Resp 16 10/11/20 16:15 BP 103/62 10/11/20 16:15 Pulse Ox 95 10/11/20 16:15 Intake & Output 10/10/20 10/11/20 10/11/20 18:59 06:59 18:59 Intake Total 1050 Output Total 1350 2040 975 Balance -300 -2040 -975 Weight 79 kg Intake: Intake, IV Titration 250 Amount Heparin Sod,Pork in 0.45% 250 NaCl 25,000 unit In 0.45 % NaCl 1 250ml.bag @ 12 UNITS/KG/HR 8.748 mls/hr IV .Q24H [facility] Rx#: [id number] Oral 800 Output: Drainage 1350 1840 900 Left Lateral 850 500 225 Right Lateral 500 1340 675 Urine 100 Stool 100 75 Other: Voiding Method Ileal Conduit (Right) Ileal Conduit (Right) Ileal Conduit (Right) Ileal Conduit (Left) Ileal Conduit (Left) Ileal Conduit (Left) # Bowel Movements 1 - Exam PHYSICAL EXAMINATION: GENERAL: The patient is alert and oriented x3, not in any acute distress. HEENT: Pupils are round and equally reacting to light. EOMI. No scleral icterus. No conjunctival pallor. Normocephalic, atraumatic. No pharyngeal erythema. No thyromegaly. CARDIOVASCULAR: S1 and S2 present. No murmurs, rubs, or gallops. PULMONARY: Chest is clear to auscultation, no wheezing or crackles. ABDOMEN: Adbominal scar covered in dressing - clean. Left-sided colostomy bag in place. Nephrostomy tubes clear urine MUSCULOSKELETAL: No joint swelling or deformity. EXTREMITIES: No cyanosis, clubbing, or pedal edema. NEUROLOGICAL: Gross neurological examination did not reveal any focal deficits. - Labs CBC & Chem 7: 10/11/20 08:55 10/10/20 06:19 Labs: Abnormal Lab Results - Last 24 Hours (Table) 10/11/20 10/11/20 Range/Units 08:55 08:55 RBC 3.37 L (3.80-5.40) m/uL Hgb 9.5 L (11.4-16.0) gm/dL Hct 29.3 L (34.0-46.0) % RDW 19.5 H (11.5-15.5) % Plt Count 689 H (150-450) k/uL Metamyelocytes # (Man) 0.10 H (0) k/uL Myelocytes # (Manual) 0.10 H (0) k/uL APTT 45.0 H (22.0-30.0) sec Microbiology - Last 24 Hours (Table) 10/08/20 12:59 Anaerobic Culture - Preliminary Abdomen 10/08/20 12:59 Gram Stain - Final Abdomen Wound Culture - Final Assessment and Plan Assessment: Acute lower GI bleed with streaks of blood per rectum likely due to anticoagulation with Lovenox. Recent right lower extremity DVT Intra-abdominal abscess completed antibiotic therapy Hypovolemic hyponatremia Colon cancer with extensive local invasion Hypothyroidism Bilateral nephrostomy tubes in place Thrombocytosis PLAN: Patient's hemoglobin has been stable around 9.No evidence of active bleeding She has been initiated on IV heparin for recent diagnosis of right lower extremity DVT, Anticoagulation has been changed to Eliquis and monitor his headaches.. She recently completed an antibiotic course for her intra-abdominal abscess. Bilateral nephrostomy tubes in place and a creatinine has been stable. Continue with Protonix for GI prophylaxis. Continue with current pain medication regimen. Overall prognosis is poor. Further recommendations to follow depending on the progress of the patient. Time with Patient: Greater than 30
[2020-10-12] MEDS: ALPRAZolam 0.5 MG TAB PO PRN ×3 (00:29→21:58)
[2020-10-12] MEDS: HYDROcodone/APAP 10-325MG 1 EACH TAB PO PRN ×5 (03:04→22:16)
[2020-10-12] MEDS: SODIUM CHLORIDE 0.9% 1,000 ML IV SCH ×2 (03:36→10:49)
[2020-10-12] MEDS: LEVOTHYROXINE 137 MCG PO SCH (05:42)
[2020-10-12] MEDS: MORPHINE SULFATE ER 30 MG TABLET PO SCH ×3 (08:28→21:58)
[2020-10-12] MEDS: PANTOPRAZOLE 40 MG/10 ML VIAL IVP SCH (08:29)
[2020-10-12] MEDS: APIXABAN 5 MG TAB PO SCH ×2 (08:29→19:45)
[2020-10-12] MEDS: ONDANSETRON 4 MG/2 ML VIAL IVP PRN ×3 (08:37→21:58)
[2020-10-12 10:32] LABS: ALT <6 U/L (4-34); AST 19 U/L (14-36); African American GFR (CKD) 88 (>60 ml/min/1.73 sqM); Albumin 2.8 g/dL (3.5-5.0); Alkaline Phosphatase 59 U/L (38-126); Anion Gap 5 mmol/L; Blood Urea Nitrogen 12 mg/dL (7-17); Calcium 9.1 mg/dL (8.4-10.2); Carbon Dioxide 32 mmol/L (22-30); Chloride 99 mmol/L (98-107); Glucose 81 mg/dL (74-99); Non-African American GFR(CKD) 76 (>60 ml/min/1.73 sqM); Sodium 136 mmol/L (137-145); Total Bilirubin 0.3 mg/dL (0.2-1.3); Total Protein 5.6 g/dL (6.3-8.2)
[2020-10-12 11:00] LABS: Anisocytosis Slight; Basophils % (A) 0 %; Eosinophils # (A) 0.3 k/uL (0-0.7); Eosinophils % (A) 4 %; HCT 31.2 % (34.0-46.0); HGB 9.6 gm/dL (11.4-16.0); Hypochromasia Moderate; Lymphocytes # (A) 1.5 k/uL (1.0-4.8); Lymphocytes % (A) 16 %; MCH 27.2 pg (25.0-35.0); MCHC 30.8 g/dL (31.0-37.0); MCV 88.1 fL (80.0-100.0); Mean Platelet Volume 6.5; Monocytes # (A) 0.6 k/uL (0-1.0); Monocytes % (A) 6 %; Neutrophils # (A) 6.8 k/uL (1.3-7.7); Neutrophils % (A) 73 %; Platelet Count 731 k/uL (150-450); RBC 3.54 m/uL (3.80-5.40); RDW 19.6 % (11.5-15.5); WBC 9.3 k/uL (3.8-10.6)
--- NOTE | 2020-10-12 13:09 | P.PN ---
Subjective Progress Note Date: 10/12/20 Principal diagnosis: GI Bleed Spoke with Brother in detail yesterday at patients request, will need to obtain all records on disc of imaging and reports both from here and from [facility] for her plan to undergo ongoing treatment in [place] with family. She will also need to be prescribed enough of her scheduled pain medication to make the trip to [place] and allow time to establish relationship with oncologist there. Objective - Vital Signs Vital signs: Vital Signs Temp 97.9 F 10/12/20 12:45 Pulse 77 10/12/20 12:45 Resp 16 10/12/20 12:45 BP 105/69 10/12/20 12:45 Pulse Ox 95 10/12/20 12:45 Intake & Output 10/11/20 10/12/20 10/12/20 18:59 06:59 18:59 Intake Total 390 480 Output Total 590 686 3608 Balance -975 -485 -595 Weight 79.5 kg Intake: Intake, IV Titration 150 Amount Sodium Chloride 0.9% 1, 150 000 ml @ 75 mls/hr IV . [id number] [facility] Rx#:[id number] Oral 240 480 Output: Drainage 316 581 1328 Left Lateral 225 175 700 Right Lateral 675 550 300 Stool 75 150 75 Other: Voiding Method Ileal Conduit (Right) Ileal Conduit (Right) Ileal Conduit (Right) Ileal Conduit (Left) Ileal Conduit (Left) Ileal Conduit (Left) - Exam Constitutional General appearance: no acute distress - EENT Eyes: EOMI, PERRLA ENT: hearing grossly normal, normal oropharynx - Neck Neck: no lymphadenopathy - Respiratory Respiratory: bilateral: CTA - Cardiovascular Rhythm: regular Heart sounds: normal: S1, S2 - Gastrointestinal Left lower quadrant ostomy. Lower mid abdomen covered with bandage. Patient states open areas on prior incision line General gastrointestinal: normal bowel sounds, soft - Integumentary Integumentary: normal - Neurologic Neurologic: CNII-XII intact - Musculoskeletal Musculoskeletal: generalized weakness, strength equal bilaterally - Psychiatric Psychiatric: A&O x's 3, appropriate affect - Labs CBC & Chem 7: 10/12/20 08:35 10/12/20 08:35 Labs: Abnormal Lab Results - Last 24 Hours (Table) 10/12/20 10/12/20 Range/Units 08:35 08:35 RBC 3.54 L (3.80-5.40) m/uL Hgb 9.6 L (11.4-16.0) gm/dL Hct 31.2 L (34.0-46.0) % MCHC 30.8 L (31.0-37.0) g/dL RDW 19.6 H (11.5-15.5) % Plt Count 731 H (150-450) k/uL Sodium 136 L (137-145) mmol/L Carbon Dioxide 32 H (22-30) mmol/L Total Protein 5.6 L (6.3-8.2) g/dL Albumin 2.8 L (3.5-5.0) g/dL Assessment and Plan Plan: Abdominal x-ray: report reviewed CT scan - abdomen: report reviewed CT scan - pelvis: report reviewed US - abdomen: report reviewed Assessment and Plan Colon Cancer: - Treatment at outside facility - Return to primary oncologist after hospital discharge GI bleed - Hemoglobin remains stable - Developed bleeding in her nephrostomy, as well as per rectum, after starting Lovenox. 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 - Stable iron stores. - Replace with IV iron if needed. - Transfuse for hemoglobin less than 7 Recent Dx Acute Deep vein thrombosis (DVT) - No recurrent bleeding, Hemoglobin continues to improve, will switch to eliquis today. Patient and family very apprehensive for discharge given her recent re- hospitalizations. The plan is to be home with home healthcare with daily visiting nurse/PT/OT until leaving for [place]. Spoke with primary team an patient will have appropriate amount of pain medications and will follow-up with us in office prior to leaving to confirm she is safe for travel. I have spoke with case management and they will assist in obtaining records on disc and copies of record for her future oncologist. Physician Attest: I have completed the full history and physical and agree with above dictation, dictated as a scribe.
[2020-10-13] MEDS ORDERED: HYDROcodone/APAP 10-325MG 1 EACH TAB ONE (04:15)
[2020-10-13] MEDS: SODIUM CHLORIDE 0.9% 1,000 ML IV SCH ×2 (06:21→11:07)
[2020-10-13] MEDS: LEVOTHYROXINE 137 MCG PO SCH (06:22)
[2020-10-13] MEDS ORDERED: NON FORMULARY DRUG ONE (06:30)
[2020-10-13] MEDS: HYDROcodone/APAP 10-325MG 1 EACH TAB PO PRN ×4 (08:10→20:46)
[2020-10-13] MEDS: ALPRAZolam 0.5 MG TAB PO PRN ×2 (08:10→16:43)
[2020-10-13] MEDS: MORPHINE SULFATE ER 30 MG TABLET PO SCH ×3 (08:10→23:56)
[2020-10-13] MEDS: PANTOPRAZOLE 40 MG/10 ML VIAL IVP SCH (08:11)
[2020-10-13] MEDS: APIXABAN 5 MG TAB PO SCH ×2 (08:11→20:46)
[2020-10-13] MEDS: ONDANSETRON 4 MG/2 ML VIAL IVP PRN ×3 (08:13→20:47)
[2020-10-13 09:23] LABS: Anisocytosis Moderate; Basophils % (A) 1 %; Eosinophils # (A) 0.3 k/uL (0-0.7); Eosinophils % (A) 3 %; HCT 29.6 % (34.0-46.0); HGB 9.2 gm/dL (11.4-16.0); Hypochromasia Slight; Lymphocytes # (A) 1.7 k/uL (1.0-4.8); Lymphocytes % (A) 19 %; MCH 27.6 pg (25.0-35.0); MCHC 31.2 g/dL (31.0-37.0); MCV 88.4 fL (80.0-100.0); Mean Platelet Volume 6.5; Monocytes # (A) 0.6 k/uL (0-1.0); Monocytes % (A) 7 %; Neutrophils # (A) 6.2 k/uL (1.3-7.7); Neutrophils % (A) 69 %; Platelet Count 694 k/uL (150-450); RBC 3.34 m/uL (3.80-5.40); WBC 8.9 k/uL (3.8-10.6)
--- NOTE | 2020-10-13 21:34 | US ---
EXAMINATION TYPE: US venous doppler duplex LE DATE OF EXAM: 10/13/2020 8:40 PM COMPARISON: Same exam done 5 days prior CLINICAL HISTORY: increased swelling and pain. Exam done portable. SIDE PERFORMED: Bilateral TECHNIQUE: The lower extremity deep venous system is examined utilizing real time linear array sonog michael with graded compression, doppler sonography and color-flow sonography. VESSELS IMAGED: Common Femoral Vein Deep Femoral Vein Greater Saphenous Vein * Femoral Vein Popliteal Vein Small Saphenous Vein * Proximal Calf Veins (* superficial vessels) Right Leg: Appears negative for DVT Left Leg: Appears negative for DVT IMPRESSION: No evidence of bilateral lower extremity DVT.
--- NOTE | 2020-10-13 21:38 | P.PN ---
Subjective Progress Note Date: 10/13/20 Principal diagnosis: GI Bleed Objective - Vital Signs Vital signs: Vital Signs Temp 98.2 F 10/13/20 12:00 Pulse 99 10/13/20 16:00 Resp 16 10/13/20 16:00 BP 107/65 10/13/20 16:00 Pulse Ox 99 10/13/20 16:00 Intake & Output 10/13/20 10/13/20 10/14/20 06:59 18:59 06:59 Intake Total 720 Output Total 325 1900 Balance 395 -1900 Weight 78.5 kg Intake: Oral 720 Output: Drainage 250 1050 Left Lateral 50 300 Right Lateral 200 750 Urine 775 Stool 75 75 Other: Voiding Method Ileal Conduit (Right) Ileal Conduit (Right) Ileal Conduit (Left) Ileal Conduit (Left) - Exam Constitutional General appearance: no acute distress - EENT Eyes: EOMI, PERRLA ENT: hearing grossly normal, normal oropharynx - Neck Neck: no lymphadenopathy - Respiratory Respiratory: bilateral: CTA - Cardiovascular Rhythm: regular Heart sounds: normal: S1, S2 - Gastrointestinal Left lower quadrant ostomy. Lower mid abdomen covered with bandage. Patient states open areas on prior incision line General gastrointestinal: normal bowel sounds, soft - Integumentary Integumentary: normal - Neurologic Neurologic: CNII-XII intact - Musculoskeletal Musculoskeletal: generalized weakness, strength equal bilaterally - Psychiatric Psychiatric: A&O x's 3, appropriate affect Diffuse lower extremity edema, left greater than right. Drainage increased at site of abdominal wall. Right neohrostomy with increased blood tinged urine, Left clear - Labs CBC & Chem 7: 10/13/20 07:45 10/12/20 08:35 Labs: Abnormal Lab Results - Last 24 Hours (Table) 10/13/20 Range/Units 07:45 RBC 3.34 L (3.80-5.40) m/uL Hgb 9.2 L (11.4-16.0) gm/dL Hct 29.6 L (34.0-46.0) % RDW 20.0 H (11.5-15.5) % Plt Count 694 H (150-450) k/uL Microbiology - Last 24 Hours (Table) 10/08/20 12:59 Anaerobic Culture - Final Abdomen Assessment and Plan Plan: Abdominal x-ray: report reviewed CT scan - abdomen: report reviewed CT scan - pelvis: report reviewed US - abdomen: report reviewed Assessment and Plan Colon Cancer: - Treatment at outside facility - Return to primary oncologist after hospital discharge - CEA increasing, Increased adenopathy inguinal, concern for progression. Repeat CT scans prior to discharge at direction of onc. GI bleed - Resolved - Hemoglobin remains stable - Developed bleeding in her nephrostomy, as well as per rectum, after starting Lovenox. 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 - Stable iron stores. - Replace with IV iron if needed. - Transfuse for hemoglobin less than 7 Recent Dx Acute Deep vein thrombosis (DVT) - No recurrent bleeding, Hemoglobin continues to improve, will switch to eliquis today. Plan: Long discussion with patient today: concerns and ongoing probable causes of re- admission risks addressed. Increase Physical Activity: Patient has a hard time increasing motivation in am, she has refused PT in am, although we had long discussion of the need to remain adherent as not out of bed longer then to 5-10 minutes and increased muscular atrophy is evident. Increased risk for infections (pneumonia, skin abscess, and worsening edema). Patient understands and agrees to goal of up in chair BID - 20-40 minutes - Incentive spirometer to bedside - Increase activity and assess ostomy and nephrostomies for increased blood, without movement we will not be able to move forward with a treatment plan that bridgette be successful and will not be able to throughly assess for bleeding until movement ddaily included. Patient agrees Increase Protein, asked dieticien to supply campos collagen protein samples for wound healing Ostomy nurse to assess and provide measurements and supplies prior to discharge (likely friday) Repeat doppler (appears to be third space) secondary to intravascular dehydration and malnutrition and no activity PLan discharge friday/Friday Case managment and RN order to ensure records are provided to patient on disc and copies prior to discharge, plan was discharge today although this was not set up, please ensure this is, a second order placed today. Overall prognosis is guarded as patient will need continued reassurance and encouragement to increase activity and po intake.
[2020-10-13 21:49] LABS: Anisocytosis Moderate; Basophils # (A) 0.1 k/uL (0-0.2); Basophils % (A) 1 %; Eosinophils # (A) 0.3 k/uL (0-0.7); Eosinophils % (A) 3 %; HCT 31.8 % (34.0-46.0); HGB 9.7 gm/dL (11.4-16.0); Hypochromasia Slight; Lymphocytes # (A) 1.4 k/uL (1.0-4.8); Lymphocytes % (A) 12 %; MCH 26.8 pg (25.0-35.0); MCHC 30.5 g/dL (31.0-37.0); MCV 87.9 fL (80.0-100.0); Mean Platelet Volume 6.2; Microcytosis Slight; Monocytes # (A) 0.7 k/uL (0-1.0); Monocytes % (A) 6 %; Neutrophils % (A) 78 %; Platelet Count 726 k/uL (150-450); RBC 3.61 m/uL (3.80-5.40); WBC 11.6 k/uL (3.8-10.6)
[2020-10-14] MEDS: HYDROcodone/APAP 10-325MG 1 EACH TAB PO PRN ×5 (01:04→20:21)
[2020-10-14] MEDS: ALPRAZolam 0.5 MG TAB PO PRN ×2 (01:04→08:50)
[2020-10-14] MEDS: ONDANSETRON 4 MG/2 ML VIAL IVP PRN ×4 (01:05→20:21)
[2020-10-14] MEDS: LEVOTHYROXINE 137 MCG PO SCH (06:46)
[2020-10-14 07:44] LABS: Anisocytosis Moderate; Basophils # (A) 0.1 k/uL (0-0.2); Basophils % (A) 1 %; Eosinophils # (A) 0.4 k/uL (0-0.7); Eosinophils % (A) 4 %; HCT 29.6 % (34.0-46.0); HGB 9.3 gm/dL (11.4-16.0); Hypochromasia Slight; Lymphocytes # (A) 1.7 k/uL (1.0-4.8); Lymphocytes % (A) 17 %; MCH 27.5 pg (25.0-35.0); MCHC 31.4 g/dL (31.0-37.0); MCV 87.5 fL (80.0-100.0); Mean Platelet Volume 6.2; Microcytosis Slight; Monocytes # (A) 0.6 k/uL (0-1.0); Monocytes % (A) 6 %; Neutrophils # (A) 6.9 k/uL (1.3-7.7); Neutrophils % (A) 71 %; Platelet Count 689 k/uL (150-450); RBC 3.39 m/uL (3.80-5.40); RDW 20.1 % (11.5-15.5); WBC 9.7 k/uL (3.8-10.6)
[2020-10-14 07:54] LABS: ALT <6 U/L (4-34); AST 17 U/L (14-36); African American GFR (CKD) >90 (>60 ml/min/1.73 sqM); Albumin 2.7 g/dL (3.5-5.0); Alkaline Phosphatase 56 U/L (38-126); Anion Gap 5 mmol/L; Blood Urea Nitrogen 14 mg/dL (7-17); Carbon Dioxide 32 mmol/L (22-30); Chloride 96 mmol/L (98-107); Glucose 92 mg/dL (74-99); Non-African American GFR(CKD) 82 (>60 ml/min/1.73 sqM); Potassium 4.3 mmol/L (3.5-5.1); Sodium 133 mmol/L (137-145); Total Bilirubin 0.3 mg/dL (0.2-1.3); Total Protein 5.3 g/dL (6.3-8.2)
[2020-10-14] MEDS: MORPHINE SULFATE ER 30 MG TABLET PO SCH ×2 (07:56→16:53)
[2020-10-14] MEDS: APIXABAN 5 MG TAB PO SCH ×2 (07:57→20:21)
[2020-10-14] MEDS: PANTOPRAZOLE 40 MG/10 ML VIAL IVP SCH (07:57)
[2020-10-14] MEDS: SODIUM CHLORIDE 0.9% 1,000 ML IV SCH ×2 (09:07→20:33)
[2020-10-14] MEDS ORDERED: LORazepam 2 MG/ML INJ IV STA (12:47)
[2020-10-14] MEDS ORDERED: ONDANSETRON 4 MG/2 ML VIAL IVP STA (12:48)
[2020-10-14] MEDS: IOPAMIDOL CONTRAST (ORAL USE) VIAL PO PRN ×2 (14:01→15:01)
[2020-10-14] MEDS ORDERED: LORazepam 2 MG/ML INJ IV ONE (15:15)
[2020-10-14] MEDS ORDERED: ONDANSETRON 4 MG/2 ML VIAL IVP ONE (15:15)
[2020-10-14 17:53] LABS: % Iron Saturation 9.22 (12.00-45.00); Iron 20 ug/dL (50-170); Total Iron Binding Capacity 217 ug/dL (228-460)
--- NOTE | 2020-10-14 18:49 | CT ---
EXAMINATION TYPE: CT ChestAbdPelvis w con DATE OF EXAM: 10/14/2020 COMPARISON: 05/19/2020. HISTORY: ca restaging, c/o SOB CT DLP: 1282.9 mGycm Automated exposure control for dose reduction was used. CONTRAST: CT scan of the chest, abdomen and pelvis is performed with Oral Contrast and with IV Contrast, patien t injected with 100 mL of Isovue 300. FINDINGS: LUNGS: The lungs are grossly clear, there is no concerning parenchymal mass or nodule identified. T here is no pleural effusion or pneumothorax seen. The tracheobronchial tree is patent. MEDIASTINUM: There are no greater than 1 cm hilar or mediastinal lymph nodes. No specific small to mo derate right anterior epicardial fluid is seen. OTHER: Left IJ port catheter is seen. LIVER/GB: No significant abnormality is appreciated. PANCREAS: No significant abnormality is seen. SPLEEN: No significant abnormality is seen. ADRENALS: No significant abnormality is seen. KIDNEYS: Bilateral nephrostomy tube placements. No hydronephrosis or nephrolithiasis.. BOWEL: Interval left ostomy noted. Associated diffuse wall thickening and surrounding fat stranding involving the sigmoid colon to the level of the rectum. No bowel obstruction or free air. URINARY BLADDER: Decompressed and suboptimally evaluated. PELVIS AND LYMPH NODES: Interval increase in size of left pelvic mass along the iliac chain now measu ring 12 x 7.3 cm (previously measured approximately 7.9 x 3.3 cm). There is also increase in size of images a small mass now measuring 4 x 3.7 cm. There is a new 3.7 x 3.2 cm nodular lesion within the a nterior pelvic wall subcutaneous soft tissues. Also medial 2.8 x 1.9 cm rim-enhancing low attenuating lesion within the left iliopsoas musculature. Moderate pelvic free fluid. Multiple mildly enlarged b ilateral inguinal lymph nodes are seen OSSEOUS STRUCTURES: No significant abnormality is seen. OTHER: None IMPRESSION: Interval increase in size of large left pelvic mass and additional adjacent lesion, binta rning for progression of disease. New nodular lesion in the anterior pelvic wall, left iliopsoas peripherally enhancing lesion and mode rate free fluid. Worsening inflammatory changes and wall thickening of the sigmoid colon and rectum. Nonspecific bilateral mildly prominent inguinal lymph nodes and small epicardial fluid. Otherwise no acute cardiopulmonary abnormality. Additional incidental findings as above.
--- NOTE | 2020-10-14 22:59 | P.PN ---
Subjective Progress Note Date: 10/12/20 Principal diagnosis: Bleeding in Nephrostomy tubes and Colostomy Ms. Corral is a 50-year-old female with a past medical history of colon cancer with metastasis coming in with a chief complaint of wanting her nephrostomy bag and also bleeding per rectum along with increased ostomy output with small amount of blood per the ostomy. Patient also has history of intra-abdominal abscess, with pigtail catheter placement at [facility], treated with 3 weeks of antibiotics. Patient has locally advanced tumor that is adherent to surrounding structures for which she needed bilateral nephrostomy tubes and diverting colostomy. She was then discharged to rehab facility. In the rehab facility patient was diagnosed with right lower extremity DVT and was started on Lovenox. As the patient noticed bleeding in her mouth ostomy bags and colostomy she stopped taking her Lovenox and she is here for further management. On 10/09/2020 patient is seen and examined at bedside. She is comfortably lying in bed appears to be in no acute distress. Patient's hemoglobin has been stable around 8-9. She denied having any more bleeding. As the patient has recent lower extremity DVT malignancy, she has been started on by oncology night. Patient denies having any chest pain or palpitations. No cough or difficulty in breathing. No fevers. She complains of some nausea but no vomiting. She complains of abdominal discomfort that is chronic in nature. On reviewing her vitals T-max of 98.5, heart rate 98, respiratory 17, blood pressure 101 x 67 saturating at 100% on room air. Reviewing her labs hemoglobin stable at 8.8, platelets 652, sodium 135, potassium 4.3, BUN 12, creatinine 0.84\ On 10/10/2020 -patient was seen and examined at bedside. She was comfortably lying in bed appears to be in no acute distress. She denied having any blood in her nephrostomy tubes or colostomy bag. She mentions about having streaks of bloody discharge from her rectum. On reviewing her vitals T-max of 98.2, heart rate 75, respiratory 16, blood pressure 107 x 55, saturating at 95% on room air. On reviewing her labs hemoglobin stable at 9.1, platelets 654. Sodium 136, potassium 4, chloride 102, bicarb 32, BUN 12, creatinine 0.79. Patient continues to be on a heparin drip. On review of systems -constitutional patient denied having any fevers chills or rigors. Respiratory no cough or difficulty breathing. Cardiovascular no chest pain or palpitations. GI as mentioned above. patient has nephrostomy bags in place. 10/11/2020 Patient is currently resting in the bed comfortably. Awake alert oriented x3. He is lethargic and weak. Patient was started on PT OT Otherwise denied any further bleeding from the nephrostomy tubes or colostomy ba g. Patient also complains of streaks of bloody discharge from her rectal area which has improved. Hemoglobin level improved to 9.5 today. Anticoagulation was changed to Eliquis and heparin drip has been discontinued. Oncology/hematology is following. Patient denies any complaints of fever or chills. No nausea vomiting abdominal pain or diarrhea. No headache or dizziness or lightheadedness. Prescription for Eliquis was sent to pharmacy. Possible discharge to home with home PT in the next 24 hours. PT OT is following. 10/12/2020 Patient is currently resting in the bed complaints of pain. Patient is lethargic and complains of generalized weakness. PT OT is on board and patient is not participating very well. Otherwise patient is complaining of bleeding around the ostomy to which is crusted now. Nephrostomy tubes are functioning and no evidence of blood noted. Hemoglobin level improved to 9.7 today. Currently being continued on Eliquis. Patient is afebrile. No headache or dizziness or lightheadedness. Oncology is on board. Patient still feels very weak. Laboratory data reviewed. Current medications reviewed. Objective - Vital Signs Vital signs: Vital Signs Temp 98.2 F 10/12/20 20:00 Pulse 75 10/12/20 20:00 Resp 18 10/12/20 20:00 BP 101/68 10/12/20 20:00 Pulse Ox 99 10/12/20 20:00 Intake & Output 10/12/20 10/12/20 10/13/20 06:59 18:59 06:59 Intake Total 390 1140 Output Total 878 9323 325 Balance -485 -735 -325 Weight 79.5 kg Intake: Intake, IV Titration 150 Amount Sodium Chloride 0.9% 1, 150 000 ml @ 75 mls/hr IV . [id number] [facility] Rx#:[id number] Oral 240 1140 Output: Drainage 725 1000 250 Left Lateral 175 700 50 Right Lateral 550 300 200 Urine 800 Stool 150 75 75 Other: Voiding Method Ileal Conduit (Right) Ileal Conduit (Right) Ileal Conduit (Right) Ileal Conduit (Left) Ileal Conduit (Left) Ileal Conduit (Left) - Exam PHYSICAL EXAMINATION: GENERAL: The patient is alert and oriented x3, not in any acute distress. HEENT: Pupils are round and equally reacting to light. EOMI. No scleral icterus. No conjunctival pallor. Normocephalic, atraumatic. No pharyngeal erythema. No thyromegaly. CARDIOVASCULAR: S1 and S2 present. No murmurs, rubs, or gallops. PULMONARY: Chest is clear to auscultation, no wheezing or crackles. ABDOMEN: Adbominal scar covered in dressing - clean. Left-sided colostomy bag in place. Nephrostomy tubes clear urine MUSCULOSKELETAL: No joint swelling or deformity. EXTREMITIES: No cyanosis, clubbing, or pedal edema. NEUROLOGICAL: Gross neurological examination did not reveal any focal deficits. - Labs CBC & Chem 7: 10/14/20 07:35 10/14/20 07:22 Labs: Abnormal Lab Results - Last 24 Hours (Table) 10/12/20 10/12/20 10/12/20 Range/Units 08:35 08:35 08:35 RBC 3.54 L (3.80-5.40) m/uL Hgb 9.6 L (11.4-16.0) gm/dL Hct 31.2 L (34.0-46.0) % MCHC 30.8 L (31.0-37.0) g/dL RDW 19.6 H (11.5-15.5) % Plt Count 731 H (150-450) k/uL Sodium 136 L (137-145) mmol/L Carbon Dioxide 32 H (22-30) mmol/L Total Protein 5.6 L (6.3-8.2) g/dL Albumin 2.8 L (3.5-5.0) g/dL Carcinoembryonic Ag 10.7 H (0.0-4.9) ng/mL Assessment and Plan Assessment: Acute lower GI bleed with streaks of blood per rectum likely due to anticoagulation with Lovenox. Recent right lower extremity DVT Intra-abdominal abscess completed antibiotic therapy Hypovolemic hyponatremia Colon cancer with extensive local invasion Hypothyroidism Bilateral nephrostomy tubes in place Thrombocytosis PLAN: Patient's hemoglobin has been stable around 9.No evidence of active bleeding She has been initiated on IV heparin for recent diagnosis of right lower extremity DVT, Anticoagulation has been changed to Eliquis and monitor his headaches.. She recently completed an antibiotic course for her intra-abdominal abscess. Bilateral nephrostomy tubes in place and a creatinine has been stable. Continue with Protonix for GI prophylaxis. Continue with current pain medication regimen. Overall prognosis is poor. Further recommendations to foll ow depending on the progress of the patient. Time with Patient: Greater than 30
--- NOTE | 2020-10-14 23:02 | P.PN ---
Subjective Progress Note Date: 10/13/20 Principal diagnosis: Bleeding in Nephrostomy tubes and Colostomy Ms. Corral is a 50-year-old female with a past medical history of colon cancer with metastasis coming in with a chief complaint of wanting her nephrostomy bag and also bleeding per rectum along with increased ostomy output with small amount of blood per the ostomy. Patient also has history of intra-abdominal abscess, with pigtail catheter placement at [facility], treated with 3 weeks of antibiotics. Patient has locally advanced tumor that is adherent to surrounding structures for which she needed bilateral nephrostomy tubes and diverting colostomy. She was then discharged to rehab facility. In the rehab facility patient was diagnosed with right lower extremity DVT and was started on Lovenox. As the patient noticed bleeding in her mouth ostomy bags and colostomy she stopped taking her Lovenox and she is here for further management. On 10/09/2020 patient is seen and examined at bedside. She is comfortably lying in bed appears to be in no acute distress. Patient's hemoglobin has been stable around 8-9. She denied having any more bleeding. As the patient has recent lower extremity DVT malignancy, she has been started on by oncology night. Patient denies having any chest pain or palpitations. No cough or difficulty in breathing. No fevers. She complains of some nausea but no vomiting. She complains of abdominal discomfort that is chronic in nature. On reviewing her vitals T-max of 98.5, heart rate 98, respiratory 17, blood pressure 101 x 67 saturating at 100% on room air. Reviewing her labs hemoglobin stable at 8.8, platelets 652, sodium 135, potassium 4.3, BUN 12, creatinine 0.84\ On 10/10/2020 -patient was seen and examined at bedside. She was comfortably lying in bed appears to be in no acute distress. She denied having any blood in her nephrostomy tubes or colostomy bag. She mentions about having streaks of bloody discharge from her rectum. On reviewing her vitals T-max of 98.2, heart rate 75, respiratory 16, blood pressure 107 x 55, saturating at 95% on room air. On reviewing her labs hemoglobin stable at 9.1, platelets 654. Sodium 136, potassium 4, chloride 102, bicarb 32, BUN 12, creatinine 0.79. Patient continues to be on a heparin drip. On review of systems -constitutional patient denied having any fevers chills or rigors. Respiratory no cough or difficulty breathing. Cardiovascular no chest pain or palpitations. GI as mentioned above. patient has nephrostomy bags in place. 10/11/2020 Patient is currently resting in the bed comfortably. Awake alert oriented x3. He is lethargic and weak. Patient was started on PT OT Otherwise denied any further bleeding from the nephrostomy tubes or colostomy ba g. Patient also complains of streaks of bloody discharge from her rectal area which has improved. Hemoglobin level improved to 9.5 today. Anticoagulation was changed to Eliquis and heparin drip has been discontinued. Oncology/hematology is following. Patient denies any complaints of fever or chills. No nausea vomiting abdominal pain or diarrhea. No headache or dizziness or lightheadedness. Prescription for Eliquis was sent to pharmacy. Possible discharge to home with home PT in the next 24 hours. PT OT is following. 10/12/2020 Patient is currently resting in the bed complaints of pain. Patient is lethargic and complains of generalized weakness. PT OT is on board and patient is not participating very well. Otherwise patient is complaining of bleeding around the ostomy to which is crusted now. Nephrostomy tubes are functioning and no evidence of blood noted. Hemoglobin level improved to 9.7 today. Currently being continued on Eliquis. Patient is afebrile. No headache or dizziness or lightheadedness. Oncology is on board. Patient still feels very weak. Laboratory data reviewed. 10/13/2020 Patient is currently resting in bed comfortably. Tolerating oral diet. Denies any complaints of chest pain or shortness of breath. Laboratory data showed WBCs 11.6, hemoglobin 9.7 and platelets 726. Patient was also found to have CEA 10.7. Patient is also complaining of pain on the upper thigh region and swelling. Ultrasound duplex was ordered to rule DVT. IV fluids will be discontinued since the patient is tolerating oral diet very well. Patient has been afebrile. Complains of generalized weakness and PT OT is on board. Hemoglobin is stable. Oncology is planning for restaging at this time. CT abdomen pelvis and chest was ordered. Patient has been afebrile. Current medications reviewed. Objective - Vital Signs Vital signs: Vital Signs Temp 98.2 F 10/13/20 12:00 Pulse 99 10/13/20 16:00 Resp 16 10/13/20 16:00 BP 107/65 10/13/20 16:00 Pulse Ox 99 10/13/20 16:00 Intake & Output 10/13/20 10/13/20 10/14/20 06:59 18:59 06:59 Intake Total 720 Output Total 325 1900 Balance 395 -1900 Weight 78.5 kg Intake: Oral 720 Output: Drainage 250 1050 Left Lateral 50 300 Right Lateral 200 750 Urine 775 Stool 75 75 Other: Voiding Method Ileal Conduit (Right) Ileal Conduit (Right) Ileal Conduit (Left) Ileal Conduit (Left) - Exam PHYSICAL EXAMINATION: GENERAL: The patient is alert and oriented x3, not in any acute distress. HEENT: Pupils are round and equally reacting to light. EOMI. No scleral icterus. No conjunctival pallor. Normocephalic, atraumatic. No pharyngeal erythema. No thyromegaly. CARDIOVASCULAR: S1 and S2 present. No murmurs, rubs, or gallops. PULMONARY: Chest is clear to auscultation, no wheezing or crackles. ABDOMEN: Adbominal scar covered in dressing - clean. Left-sided colostomy bag in place. Nephrostomy tubes clear urine MUSCULOSKELETAL: No joint swelling or deformity. EXTREMITIES: No cyanosis, clubbing, or pedal edema. NEUROLOGICAL: Gross neurological examination did not reveal any focal deficits. - Labs CBC & Chem 7: 10/14/20 07:35 10/14/20 07:22 Labs: Abnormal Lab Results - Last 24 Hours (Table) 10/13/20 Range/Units 07:45 RBC 3.34 L (3.80-5.40) m/uL Hgb 9.2 L (11.4-16.0) gm/dL Hct 29.6 L (34.0-46.0) % RDW 20.0 H (11.5-15.5) % Plt Count 694 H (150-450) k/uL Microbiology - Last 24 Hours (Table) 10/08/20 12:59 Anaerobic Culture - Final Abdomen Assessment and Plan Assessment: Acute lower GI bleed with streaks of blood per rectum likely due to anticoagulation with Lovenox. Recent right lower extremity DVT Intra-abdominal abscess completed antibiotic therapy Hypovolemic hyponatremia Colon cancer with extensive local invasion Hypothyroidism Bilateral nephrostomy tubes in place Thrombocytosis PLAN: Patient's hemoglobin has been stable around 9.No evidence of active bleeding She has been initiated on IV heparin for recent diagnosis of right lower extremity DVT, Anticoagulation has been changed to Eliquis and monitor Her hemoglobin.. She recently completed an antibiotic course for her intra-abdominal abscess. Bilateral nephrostomy tubes in place and a creatinine has been stable. Continue with Protonix for GI prophylaxis. Continue with current pain medication regimen. Overall prognosis is poor. Further recommendations to follow depending on the progress of the patient. Time with Patient: Greater than 30
--- NOTE | 2020-10-14 23:05 | P.PN ---
Subjective Progress Note Date: 10/14/20 Principal diagnosis: Bleeding in Nephrostomy tubes and Colostomy Ms. Corral is a 50-year-old female with a past medical history of colon cancer with metastasis coming in with a chief complaint of wanting her nephrostomy bag and also bleeding per rectum along with increased ostomy output with small amount of blood per the ostomy. Patient also has history of intra-abdominal abscess, with pigtail catheter placement at [facility], treated with 3 weeks of antibiotics. Patient has locally advanced tumor that is adherent to surrounding structures for which she needed bilateral nephrostomy tubes and diverting colostomy. She was then discharged to rehab facility. In the rehab facility patient was diagnosed with right lower extremity DVT and was started on Lovenox. As the patient noticed bleeding in her mouth ostomy bags and colostomy she stopped taking her Lovenox and she is here for further management. On 10/09/2020 patient is seen and examined at bedside. She is comfortably lying in bed appears to be in no acute distress. Patient's hemoglobin has been stable around 8-9. She denied having any more bleeding. As the patient has recent lower extremity DVT malignancy, she has been started on by oncology night. Patient denies having any chest pain or palpitations. No cough or difficulty in breathing. No fevers. She complains of some nausea but no vomiting. She complains of abdominal discomfort that is chronic in nature. On reviewing her vitals T-max of 98.5, heart rate 98, respiratory 17, blood pressure 101 x 67 saturating at 100% on room air. Reviewing her labs hemoglobin stable at 8.8, platelets 652, sodium 135, potassium 4.3, BUN 12, creatinine 0.84\ On 10/10/2020 -patient was seen and examined at bedside. She was comfortably lying in bed appears to be in no acute distress. She denied having any blood in her nephrostomy tubes or colostomy bag. She mentions about having streaks of bloody discharge from her rectum. On reviewing her vitals T-max of 98.2, heart rate 75, respiratory 16, blood pressure 107 x 55, saturating at 95% on room air. On reviewing her labs hemoglobin stable at 9.1, platelets 654. Sodium 136, potassium 4, chloride 102, bicarb 32, BUN 12, creatinine 0.79. Patient continues to be on a heparin drip. On review of systems -constitutional patient denied having any fevers chills or rigors. Respiratory no cough or difficulty breathing. Cardiovascular no chest pain or palpitations. GI as mentioned above. patient has nephrostomy bags in place. 10/11/2020 Patient is currently resting in the bed comfortably. Awake alert oriented x3. He is lethargic and weak. Patient was started on PT OT Otherwise denied any further bleeding from the nephrostomy tubes or colostomy ba g. Patient also complains of streaks of bloody discharge from her rectal area which has improved. Hemoglobin level improved to 9.5 today. Anticoagulation was changed to Eliquis and heparin drip has been discontinued. Oncology/hematology is following. Patient denies any complaints of fever or chills. No nausea vomiting abdominal pain or diarrhea. No headache or dizziness or lightheadedness. Prescription for Eliquis was sent to pharmacy. Possible discharge to home with home PT in the next 24 hours. PT OT is following. 10/12/2020 Patient is currently resting in the bed complaints of pain. Patient is lethargic and complains of generalized weakness. PT OT is on board and patient is not participating very well. Otherwise patient is complaining of bleeding around the ostomy to which is crusted now. Nephrostomy tubes are functioning and no evidence of blood noted. Hemoglobin level improved to 9.7 today. Currently being continued on Eliquis. Patient is afebrile. No headache or dizziness or lightheadedness. Oncology is on board. Patient still feels very weak. Laboratory data reviewed. 10/13/2020 Patient is currently resting in bed comfortably. Tolerating oral diet. Denies any complaints of chest pain or shortness of breath. Laboratory data showed WBCs 11.6, hemoglobin 9.7 and platelets 726. Patient was also found to have CEA 10.7. Patient is also complaining of pain on the upper thigh region and swelling. Ultrasound duplex was ordered to rule DVT. IV fluids will be discontinued since the patient is tolerating oral diet very well. Patient has been afebrile. Complains of generalized weakness and PT OT is on board. Hemoglobin is stable. Oncology is planning for restaging at this time. CT abdomen pelvis and chest was ordered. Patient has been afebrile. 10/14/2020 Patient is currently resting in the bed comfortably. Bilateral upper thigh swelling is better. Duplex scan negative for DVT. Denied any complaints of bleeding. Hemoglobin level is stable and is at 9.3 today. WBC 9.7 Laboratory showed sodium 133 potassium 4.3 chloride 96 bicarb is 32 B12 and TSH within normal limits. Patient was found to have low iron level. CT of the chest, abdomen pelvis was done for restaging. Interval increase in size of large left pelvic mass and additional red skin lesion concerning for progression of disease. New nodular lesion in the anterior pelvic wall left iliopsoas peripherally enhancing lesion and moderate free fluid. Worsening inflammatory changes and wall thickening of the sigmoid colon and rectum. Nonspecific bilateral mildly prominent inguinal lymph nodes and small epicardial fluid. Otherwise no acute cardiopulmonary abnormality. Discussed with oncology and nursing staff and with the patient in detail. Current medications reviewed. Objective - Vital Signs Vital signs: Vital Signs Temp 98 F 10/14/20 15:21 Pulse 94 10/14/20 15:21 Resp 16 10/14/20 15:21 BP 101/66 10/14/20 15:21 Pulse Ox 98 10/14/20 15:21 Intake & Output 10/13/20 10/14/20 10/14/20 18:59 06:59 18:59 Intake Total 20 145 Output Total 1900 1989 2099 Balance -1899 -1969 -1954 Weight 78.6 kg Intake: IV 20 30 Invasive Line 1 20 30 Oral 115 Output: Drainage 1050 1190 1425 Left Lateral 300 410 375 Right Lateral 626 242 1561 Urine 775 500 675 Stool 75 300 Other: Voiding Method Ileal Conduit (Right) Ileal Conduit (Right) Ileal Conduit (Right) Ileal Conduit (Left) Ileal Conduit (Left) Ileal Conduit (Left) - Exam PHYSICAL EXAMINATION: GENERAL: The patient is alert and oriented x3, not in any acute distress. HEENT: Pupils are round and equally reacting to light. EOMI. No scleral icterus. No conjunctival pallor. Normocephalic, atraumatic. No pharyngeal erythema. No thyromegaly. CARDIOVASCULAR: S1 and S2 present. No murmurs, rubs, or gallops. PULMONARY: Chest is clear to auscultation, no wheezing or crackles. ABDOMEN: Adbominal scar covered in dressing - clean. Left-sided colostomy bag in place. Nephrostomy tubes clear urine MUSCULOSKELETAL: No joint swelling or deformity. EXTREMITIES: No cyanosis, clubbing, or pedal edema. NEUROLOGICAL: Gross neurological examination did not reveal any focal deficits. - Labs CBC & Chem 7: 10/14/20 07:35 10/14/20 07:22 Labs: Abnormal Lab Results - Last 24 Hours (Table) 10/13/20 10/14/20 10/14/20 Range/Units 21: 07:22 07:35 WBC 11.6 H (3.8-10.6) k/uL RBC 3.61 L 3.39 L (3.80-5.40) m/uL Hgb 9.7 L 9.3 L (11.4-16.0) gm/dL Hct 31.8 L 29.6 L (34.0-46.0) % MCHC 30.5 L (31.0-37.0) g/dL RDW 20.0 H 20.1 H (11.5-15.5) % Plt Count 726 H 689 H (150-450) k/uL Neutrophils # 9.0 H (1.3-7.7) k/uL Sodium 133 L (137-145) mmol/L Chloride 96 L (98-107) mmol/L Carbon Dioxide 32 H (22-30) mmol/L Iron 20 L (50-170) ug/dL TIBC 217 L (228-460) ug/dL % Saturation 9.22 L (12.00-45.00) Total Protein 5.3 L (6.3-8.2) g/dL Albumin 2.7 L (3.5-5.0) g/dL Assessment and Plan Assessment: Acute lower GI bleed with streaks of blood per rectum likely due to anticoagulation with Lovenox. Recent right lower extremity DVT Intra-abdominal abscess completed antibiotic therapy Hypovolemic hyponatremia Colon cancer with extensive local invasion Hypothyroidism Bilateral nephrostomy tubes in place Thrombocytosis PLAN: Patient's hemoglobin has been stable around 9.No evidence of active bleeding She has been initiated on IV heparin for recent diagnosis of right lower extremity DVT, Anticoagulation has been changed to Eliquis and monitor Her hemoglobin.. She recently completed an antibiotic course for her intra-abdominal abscess. Bilateral nephrostomy tubes in place and a creatinine has been stable. Continue with Protonix for GI prophylaxis. Continue with current pain medication regimen. CT of abdomen pelvis and chest showed progression of the diseaseWith new lesions. Overall prognosis is poor. Further recommendations to follow depending on the progress of the patient. Time with Patient: Greater than 30
[2020-10-15] MEDS: MORPHINE SULFATE ER 30 MG TABLET PO SCH ×3 (00:07→16:24)
[2020-10-15] MEDS: ALPRAZolam 0.5 MG TAB PO PRN ×3 (00:07→13:52)
[2020-10-15] MEDS: HYDROcodone/APAP 10-325MG 1 EACH TAB PO PRN ×6 (01:22→23:09)
[2020-10-15] MEDS: ONDANSETRON 4 MG/2 ML VIAL IVP PRN ×6 (01:22→23:09)
[2020-10-15] MEDS: LEVOTHYROXINE 137 MCG PO SCH (05:36)
[2020-10-15] MEDS: PANTOPRAZOLE 40 MG/10 ML VIAL IVP SCH (08:19)
[2020-10-15] MEDS: APIXABAN 5 MG TAB PO SCH ×2 (08:19→20:33)
[2020-10-15] MEDS: SODIUM CHLORIDE 0.9% 1,000 ML IV SCH ×2 (08:20→23:09)
[2020-10-15 09:13] LABS: Anisocytosis Slight; Basophils % (A) 1 %; Eosinophils # (A) 0.3 k/uL (0-0.7); Eosinophils % (A) 4 %; HCT 28.9 % (34.0-46.0); HGB 9.2 gm/dL (11.4-16.0); Hypochromasia Slight; Lymphocytes # (A) 1.6 k/uL (1.0-4.8); Lymphocytes % (A) 17 %; MCH 27.7 pg (25.0-35.0); MCHC 31.8 g/dL (31.0-37.0); MCV 87.2 fL (80.0-100.0); Mean Platelet Volume 6.4; Microcytosis Slight; Monocytes # (A) 0.6 k/uL (0-1.0); Monocytes % (A) 6 %; Neutrophils # (A) 6.4 k/uL (1.3-7.7); Neutrophils % (A) 71 %; Platelet Count 689 k/uL (150-450); RBC 3.32 m/uL (3.80-5.40); RDW 19.9 % (11.5-15.5)
[2020-10-15 09:14] LABS: Calcium 9.2 mg/dL (8.4-10.2); Potassium 4.4 mmol/L (3.5-5.1)
[2020-10-15] MEDS: SODIUM FERRIC GLUCONAT-SUCROSE 125 MG in SODIUM CHLORIDE 0.9% 100 ML IVPB SCH (16:25)
[2020-10-15] MEDS: LORazepam 2 MG/ML INJ IV PRN (19:37)
[2020-10-16] MEDS: MORPHINE SULFATE ER 30 MG TABLET PO SCH ×3 (00:24→17:37)
--- NOTE | 2020-10-16 00:57 | P.PN ---
Subjective Progress Note Date: 10/15/20 Principal diagnosis: Bleeding in Nephrostomy tubes and Colostomy Ms. Corral is a 50-year-old female with a past medical history of colon cancer with metastasis coming in with a chief complaint of wanting her nephrostomy bag and also bleeding per rectum along with increased ostomy output with small amount of blood per the ostomy. Patient also has history of intra-abdominal abscess, with pigtail catheter placement at [facility], treated with 3 weeks of antibiotics. Patient has locally advanced tumor that is adherent to surrounding structures for which she needed bilateral nephrostomy tubes and diverting colostomy. She was then discharged to rehab facility. In the rehab facility patient was diagnosed with right lower extremity DVT and was started on Lovenox. As the patient noticed bleeding in her mouth ostomy bags and colostomy she stopped taking her Lovenox and she is here for further management. On 10/09/2020 patient is seen and examined at bedside. She is comfortably lying in bed appears to be in no acute distress. Patient's hemoglobin has been stable around 8-9. She denied having any more bleeding. As the patient has recent lower extremity DVT malignancy, she has been started on by oncology night. Patient denies having any chest pain or palpitations. No cough or difficulty in breathing. No fevers. She complains of some nausea but no vomiting. She complains of abdominal discomfort that is chronic in nature. On reviewing her vitals T-max of 98.5, heart rate 98, respiratory 17, blood pressure 101 x 67 saturating at 100% on room air. Reviewing her labs hemoglobin stable at 8.8, platelets 652, sodium 135, potassium 4.3, BUN 12, creatinine 0.84\ On 10/10/2020 -patient was seen and examined at bedside. She was comfortably lying in bed appears to be in no acute distress. She denied having any blood in her nephrostomy tubes or colostomy bag. She mentions about having streaks of bloody discharge from her rectum. On reviewing her vitals T-max of 98.2, heart rate 75, respiratory 16, blood pressure 107 x 55, saturating at 95% on room air. On reviewing her labs hemoglobin stable at 9.1, platelets 654. Sodium 136, potassium 4, chloride 102, bicarb 32, BUN 12, creatinine 0.79. Patient continues to be on a heparin drip. On review of systems -constitutional patient denied having any fevers chills or rigors. Respiratory no cough or difficulty breathing. Cardiovascular no chest pain or palpitations. GI as mentioned above. patient has nephrostomy bags in place. 10/11/2020 Patient is currently resting in the bed comfortably. Awake alert oriented x3. He is lethargic and weak. Patient was started on PT OT Otherwise denied any further bleeding from the nephrostomy tubes or colostomy ba g. Patient also complains of streaks of bloody discharge from her rectal area which has improved. Hemoglobin level improved to 9.5 today. Anticoagulation was changed to Eliquis and heparin drip has been discontinued. Oncology/hematology is following. Patient denies any complaints of fever or chills. No nausea vomiting abdominal pain or diarrhea. No headache or dizziness or lightheadedness. Prescription for Eliquis was sent to pharmacy. Possible discharge to home with home PT in the next 24 hours. PT OT is following. 10/12/2020 Patient is currently resting in the bed complaints of pain. Patient is lethargic and complains of generalized weakness. PT OT is on board and patient is not participating very well. Otherwise patient is complaining of bleeding around the ostomy to which is crusted now. Nephrostomy tubes are functioning and no evidence of blood noted. Hemoglobin level improved to 9.7 today. Currently being continued on Eliquis. Patient is afebrile. No headache or dizziness or lightheadedness. Oncology is on board. Patient still feels very weak. Laboratory data reviewed. 10/13/2020 Patient is currently resting in bed comfortably. Tolerating oral diet. Denies any complaints of chest pain or shortness of breath. Laboratory data showed WBCs 11.6, hemoglobin 9.7 and platelets 726. Patient was also found to have CEA 10.7. Patient is also complaining of pain on the upper thigh region and swelling. Ultrasound duplex was ordered to rule DVT. IV fluids will be discontinued since the patient is tolerating oral diet very well. Patient has been afebrile. Complains of generalized weakness and PT OT is on board. Hemoglobin is stable. Oncology is planning for restaging at this time. CT abdomen pelvis and chest was ordered. Patient has been afebrile. 10/14/2020 Patient is currently resting in the bed comfortably. Bilateral upper thigh swelling is better. Duplex scan negative for DVT. Denied any complaints of bleeding. Hemoglobin level is stable and is at 9.3 today. WBC 9.7 Laboratory showed sodium 133 potassium 4.3 chloride 96 bicarb is 32 B12 and TSH within normal limits. Patient was found to have low iron level. CT of the chest, abdomen pelvis was done for restaging. Interval increase in size of large left pelvic mass and additional red skin lesion concerning for progression of disease. New nodular lesion in the anterior pelvic wall left iliopsoas peripherally enhancing lesion and moderate free fluid. Worsening inflammatory changes and wall thickening of the sigmoid colon and rectum. Nonspecific bilateral mildly prominent inguinal lymph nodes and small epicardial fluid. Otherwise no acute cardiopulmonary abnormality. Discussed with oncology and nursing staff and with the patient in detail. 10/15/2020 Patient is currently lying in the bed comfortably. Still complains of weakness. Denied any bleeding per rectum or bleeding in the hospital bag site. Bilateral leg swelling is improved. Hemoglobin is stable. Patient is being continued on anticoagulation for recent history of DVT. Change from Lovenox to Eliquis due to bleeding per rectum and ostomy site. No active bleeding so far. Oncology is following. CT thorax, abdomen pelvis was done showed progression of disease and further recommendations from oncology. PT OT is following. Discussed with the patient in detail. All questions were answered. Active Medications Hydrocodone Bitart/Acetaminophen (Hydrocodone/Apap 10-325mg 1 Each Tab) 1 each PO Q4HR PRN PRN Reason: Pain Last Admin: 10/15/20 23:09 Dose: 1 each Documented by: Alprazolam (Alprazolam 0.5 Mg Tab) 0.5 mg PO TID PRN PRN Reason: Anxiety Last Admin: 10/15/20 13:52 Dose: 0.5 mg Documented by: Apixaban (Apixaban 5 Mg Tab) 5 mg PO BID [facility] Last Admin: 10/15/20 20:33 Dose: 5 mg Documented by: Hydromorphone HCl (Hydromorphone 1 Mg/Ml 1 Ml Syringe) 1 mg IVP Q4HR PRN PRN Reason: Pain Sodium Chloride (Saline 0.9%) 1,000 mls @ 75 mls/hr IV .[id number] [facility] Last Admin: 10/15/20 23:09 Dose: Not Given Documented by: Ferric Sodium Gluconate 125 mg (/ Sodium Chloride) 110 mls @ 100 mls/hr IVPB DAILY [facility] Stop: 10/17/20 10:05 Last Admin: 10/15/20 16:25 Dose: 100 mls/hr Documented by: Lorazepam (Lorazepam 2 Mg/Ml Inj) 0.5 mg IV Q6HR PRN PRN Reason: nausea Last Admin: 10/15/20 19:37 Dose: 0.5 mg Documented by: Morphine Sulfate (Morphine Sulfate Er 30 Mg Tablet) 30 mg PO Q8HR [facility]; Protocol Last Admin: 10/16/20 00:24 Dose: 30 mg Documented by: Naloxone HCl (Naloxone 0.4 Mg/Ml 1 Ml Vial) 0.2 mg IV Q2M PRN PRN Reason: Opioid Reversal Non Formulary Drug ( Levothyroxine 137mcg . Brand) 1 each PO DAILY@0630 [facility] Last Admin: 10/15/20 05:36 Dose: 1 each Documented by: Ondansetron HCl (Ondansetron 4 Mg/2 Ml Vial) 4 mg IVP Q4H PRN PRN Reason: Nausea And Vomiting Last Admin: 10/15/20 23:09 Dose: 4 mg Documented by: Pantoprazole Sodium (Pantoprazole 40 Mg/10 Ml Vial) 40 mg IVP DAILY [facility] Last Admin: 10/15/20 08:19 Dose: 40 mg Documented by: Objective - Vital Signs Vital signs: Vital Signs Temp 98.2 F 10/15/20 12:00 Pulse 96 10/15/20 12:00 Resp 16 10/15/20 12:00 BP 96/57 10/15/20 12:00 Pulse Ox 96 10/15/20 12:00 Intake & Output 10/14/20 10/15/20 10/15/20 18:59 06:59 18:59 Intake Total 395 20 10 Output Total 2425 1550 450 Balance -2030 -1530 -440 Weight 78.5 kg Intake: IV 30 20 10 Invasive Line 1 30 20 10 Oral 365 0 Output: Drainage 1750 1350 450 Left Lateral 450 300 100 Right Lateral 1300 1050 350 Urine 675 Stool 200 Other: Voiding Method Ileal Conduit (Right) Ileal Conduit (Right) Ileal Conduit (Right) Ileal Conduit (Left) Ileal Conduit (Left) Ileal Conduit (Left) # Bowel Movements 1 - Exam PHYSICAL EXAMINATION: GENERAL: The patient is alert and oriented x3, not in any acute distress. HEENT: Pupils are round and equally reacting to light. EOMI. No scleral icterus. No conjunctival pallor. Normocephalic, atraumatic. No pharyngeal erythema. No thyromegaly. CARDIOVASCULAR: S1 and S2 present. No murmurs, rubs, or gallops. PULMONARY: Chest is clear to auscultation, no wheezing or crackles. ABDOMEN: Adbominal scar covered in dressing - clean. Left-sided colostomy bag in place. Nephrostomy tubes clear urine MUSCULOSKELETAL: No joint swelling or deformity. EXTREMITIES: No cyanosis, clubbing, or pedal edema. NEUROLOGICAL: Gross neurological examination did not reveal any focal deficits. - Labs CBC & Chem 7: 10/15/20 08:40 10/15/20 08:40 Labs: Abnormal Lab Results - Last 24 Hours (Table) 10/14/20 10/15/20 10/15/20 Range/Units 07:22 08:40 08:40 RBC 3.32 L (3.80-5.40) m/uL Hgb 9.2 L (11.4-16.0) gm/dL Hct 28.9 L (34.0-46.0) % RDW 19.9 H (11.5-15.5) % Plt Count 689 H (150-450) k/uL Sodium 133 L (137-145) mmol/L Chloride 94 L (98-107) mmol/L Carbon Dioxide 32 H (22-30) mmol/L Glucose 111 H (74-99) mg/dL Iron 20 L (50-170) ug/dL TIBC 217 L (228-460) ug/dL % Saturation 9.22 L (12.00-45.00) Assessment and Plan Assessment: Acute lower GI bleed with streaks of blood per rectum likely due to anticoagulation with Lovenox. changed to Eliquis Recent right lower extremity DVT Intra-abdominal abscess completed antibiotic therapy Hypovolemic hyponatremia Colon cancer with extensive local invasion Hypothyroidism Bilateral nephrostomy tubes in place Thrombocytosis PLAN: Patient's hemoglobin has been stable around 9.No evidence of active bleeding She has been initiated on IV heparin for recent diagnosis of right lower extremity DVT, Anticoagulation has been changed to Eliquis and monitor Her hemoglobin.. Hemoglobin is stable currently. Denied any GI bleed or at the ostomy site. She recently completed an antibiotic course for her intra-abdominal abscess. Bilateral nephrostomy tubes in place and a creatinine has been stable. Continue with Protonix for GI prophylaxis. Continue with current pain medication regimen. CT of abdomen pelvis and chest showed progression of the diseaseWith new lesions.Final recommendations from oncology. Overall prognosis is poor. Further recommendations to follow depending on the progress of the patient. Time with Patient: Greater than 30
[2020-10-16] MEDS: LORazepam 2 MG/ML INJ IV PRN ×3 (01:41→21:31)
[2020-10-16] MEDS: ONDANSETRON 4 MG/2 ML VIAL IVP PRN ×4 (04:09→14:26)
[2020-10-16] MEDS: HYDROcodone/APAP 10-325MG 1 EACH TAB PO PRN ×3 (04:09→14:25)
[2020-10-16] MEDS: LEVOTHYROXINE 137 MCG PO SCH (06:08)
[2020-10-16 08:04] LABS: Anisocytosis Slight; Basophils % (A) 0 %; Eosinophils # (A) 0.4 k/uL (0-0.7); Eosinophils % (A) 4 %; HGB 9.2 gm/dL (11.4-16.0); Lymphocytes # (A) 1.7 k/uL (1.0-4.8); Lymphocytes % (A) 18 %; MCH 28.4 pg (25.0-35.0); MCHC 32.7 g/dL (31.0-37.0); MCV 86.8 fL (80.0-100.0); Mean Platelet Volume 6.5; Microcytosis Slight; Monocytes # (A) 0.7 k/uL (0-1.0); Monocytes % (A) 7 %; Neutrophils % (A) 70 %; Platelet Count 664 k/uL (150-450); RBC 3.23 m/uL (3.80-5.40); RDW 19.6 % (11.5-15.5)
[2020-10-16 08:20] LABS: Calcium 9.3 mg/dL (8.4-10.2); Potassium 4.2 mmol/L (3.5-5.1)
[2020-10-16] MEDS: APIXABAN 5 MG TAB PO SCH ×2 (08:56→20:47)
[2020-10-16] MEDS: PANTOPRAZOLE 40 MG/10 ML VIAL IVP SCH (08:56)
[2020-10-16] MEDS: SODIUM FERRIC GLUCONAT-SUCROSE 125 MG in SODIUM CHLORIDE 0.9% 100 ML IVPB SCH (09:59)
--- NOTE | 2020-10-16 14:07 | P.PN ---
Subjective Progress Note Date: 10/16/20 Bleeding in Nephrostomy tubes and Colostomy Ms. Corral is a 50-year-old female with a past medical history of colon cancer with metastasis coming in with a chief complaint of wanting her nephrostomy bag and also bleeding per rectum along with increased ostomy output with small amount of blood per the ostomy. Patient also has history of intra-abdominal abscess, with pigtail catheter placement at [facility], treated with 3 weeks of antibiotics. Patient has locally advanced tumor that is adherent to surrounding structures for which she needed bilateral nephrostomy tubes and diverting colostomy. She was then discharged to rehab facility. In the rehab facility patient was diagnosed with right lower extremity DVT and was started on Lovenox. As the patient noticed bleeding in her mouth ostomy bags and colostomy she stopped taking her Lovenox and she is here for further management. On 10/09/2020 patient is seen and examined at bedside. She is comfortably lying in bed appears to be in no acute distress. Patient's hemoglobin has been stable around 8-9. She denied having any more bleeding. As the patient has recent lower extremity DVT malignancy, she has been started on by oncology night. Patient denies having any chest pain or palpitations. No cough or difficulty in breathing. No fevers. She complains of some nausea but no vomiting. She complains of abdominal discomfort that is chronic in nature. On reviewing her vitals T-max of 98.5, heart rate 98, respiratory 17, blood pressure 101 x 67 saturating at 100% on room air. Reviewing her labs hemoglobin stable at 8.8, platelets 652, sodium 135, potassium 4.3, BUN 12, creatinine 0.84\ On 10/10/2020 -patient was seen and examined at bedside. She was comfortably lying in bed appears to be in no acute distress. She denied having any blood in her nephrostomy tubes or colostomy bag. She mentions about having streaks of bloody discharge from her rectum. On reviewing her vitals T-max of 98.2, heart rate 75, respiratory 16, blood pressure 107 x 55, saturating at 95% on room air. On reviewing her labs hemoglobin stable at 9.1, platelets 654. Sodium 136, potassium 4, chloride 102, bicarb 32, BUN 12, creatinine 0.79. Patient continues to be on a heparin drip. On review of systems -constitutional patient denied having any fevers chills or rigors. Respiratory no cough or difficulty breathing. Cardiovascular no chest pain or palpitations. GI as mentioned above. patient has nephrostomy bags in place. 10/11/2020 Patient is currently resting in the bed comfortably. Awake alert oriented x3. He is lethargic and weak. Patient was started on PT OT Otherwise denied any further bleeding from the nephrostomy tubes or colostomy bag. Patient also complains of streaks of bloody discharge from her rectal area which has improved. Hemoglobin level improved to 9.5 today. Anticoagulation was changed to Eliquis and heparin drip has been discontinued. Oncology/hematology is following. Patient denies any complaints of fever or chills. No nausea vomiting abdominal pain or diarrhea. No headache or dizziness or lightheadedness. Prescription for Eliquis was sent to pharmacy. Possible discharge to home with home PT in the next 24 hours. PT OT is following. 10/12/2020 Patient is currently resting in the bed complaints of pain. Patient is lethargic and complains of generalized weakness. PT OT is on board and patient is not participating very well. Otherwise patient is complaining of bleeding around the ostomy to which is crusted now. Nephrostomy tubes are functioning and no evidence of blood noted. Hemoglobin level improved to 9.7 today. Currently being continued on Eliquis. Patient is afebrile. No headache or dizziness or lightheadedness. Oncology is on board. Patient still feels very weak. Laboratory data reviewed. 10/13/2020 Patient is currently resting in bed comfortably. Tolerating oral diet. Denies any complaints of chest pain or shortness of breath. Laboratory data showed WBCs 11.6, hemoglobin 9.7 and platelets 726. Patient was also found to have CEA 10.7. Patient is also complaining of pain on the upper thigh region and swelling. Ultrasound duplex was ordered to rule DVT. IV fluids will be discontinued since the patient is tolerating oral diet very well. Patient has been afebrile. Complains of generalized weakness and PT OT is on board. Hemoglobin is stable. Oncology is planning for restaging at this time. CT abdomen pelvis and chest was ordered. Patient has been afebrile. 10/14/2020 Patient is currently resting in the bed comfortably. Bilateral upper thigh swelling is better. Duplex scan negative for DVT. Denied any complaints of bleeding. Hemoglobin level is stable and is at 9.3 today. WBC 9.7 Laboratory showed sodium 133 potassium 4.3 chloride 96 bicarb is 32 B12 and TSH within normal limits. Patient was found to have low iron level. CT of the chest, abdomen pelvis was done for restaging. Interval increase in size of large left pelvic mass and additional red skin lesion concerning for progression of disease. New nodular lesion in the anterior pelvic wall left iliopsoas peripherally enhancing lesion and moderate free fluid. Worsening inflammatory changes and wall thickening of the sigmoid colon and rectum. Nonspecific bilateral mildly prominent inguinal lymph nodes and small epicardial fluid. Otherwise no acute cardiopulmonary abnormality. Discussed with oncology and nursing staff and with the patient in detail. 10/15/2020 Patient is currently lying in the bed comfortably. Still complains of weakness. Denied any bleeding per rectum or bleeding in the hospital bag site. Bilateral leg swelling is improved. Hemoglobin is stable. Patient is being continued on anticoagulation for recent history of DVT. Change from Lovenox to Eliquis due to bleeding per rectum and ostomy site. No active bleeding so far. Oncology is following. CT thorax, abdomen pelvis was done showed progression of disease and further recommendations from oncology. PT OT is following. Discussed with the patient in detail. All questions were answered. 10/16/2020 Patient is seen and evaluated in follow-up this morning currently working with physical therapy as patient continues to be extremely weak. Patient is having extreme nausea and difficulty working with physical therapy. Apparently patient is moving to [place] and will be seeking further treatment there. Hemoglobin is stable at 9.2 with no active bleeding noted. Oncology is following and recommending inpatient chemotherapy. Infectious disease consulted as patient re cently completed a course of antibiotics for intra-abdominal abscess and is currently pending. Patient underwent repeat CT abdomen showing further progression of the disease and will need to discuss with oncology about treatments moving forward. Review of systems: Constitutional: reports continued fatigue, no reports of fever, or chills Cardiovascular: No reports of chest pain or palpitations Respiratory: No reports of shortness of breath or cough GI: Reports continued nausea : No reports of dysuria or retention Neurovascular: Reports generalized weakness All medications have been reviewed Active Medications Hydrocodone Bitart/Acetaminophen (Hydrocodone/Apap 10-325mg 1 Each Tab) 1 each PO Q4HR PRN PRN Reason: Pain Last Admin: 10/16/20 08:56 Dose: 1 each Documented by: Alprazolam (Alprazolam 0.5 Mg Tab) 0.5 mg PO TID PRN PRN Reason: Anxiety Last Admin: 10/15/20 13:52 Dose: 0.5 mg Documented by: Apixaban (Apixaban 5 Mg Tab) 5 mg PO BID [facility] Last Admin: 10/16/20 08:56 Dose: 5 mg Documented by: Hydromorphone HCl (Hydromorphone 1 Mg/Ml 1 Ml Syringe) 1 mg IVP Q4HR PRN PRN Reason: Pain Sodium Chloride (Saline 0.9%) 1,000 mls @ 50 mls/hr IV .Q20H [facility] Last Admin: 10/15/20 23:09 Dose: Not Given Documented by: Ferric Sodium Gluconate 125 mg (/ Sodium Chloride) 110 mls @ 100 mls/hr IVPB DAILY [facility] Stop: 10/17/20 10:05 Last Admin: 10/16/20 09:59 Dose: 100 mls/hr Documented by: Lorazepam (Lorazepam 2 Mg/Ml Inj) 0.5 mg IV Q6HR PRN PRN Reason: nausea Last Admin: 10/16/20 01:41 Dose: 0.5 mg Documented by: Morphine Sulfate (Morphine Sulfate Er 30 Mg Tablet) 30 mg PO Q8HR [facility]; Protocol Last Admin: 10/16/20 08:56 Dose: 30 mg Documented by: Naloxone HCl (Naloxone 0.4 Mg/Ml 1 Ml Vial) 0.2 mg IV Q2M PRN PRN Reason: Opioid Reversal Non Formulary Drug ( Levothyroxine 137mcg . Brand) 1 each PO DAILY@0630 [facility] Last Admin: 10/16/20 06:08 Dose: 1 each Documented by: Ondansetron HCl (Ondansetron 4 Mg/2 Ml Vial) 4 mg IVP Q4H PRN PRN Reason: Nausea And Vomiting Last Admin: 10/16/20 09:58 Dose: 4 mg Documented by: Pantoprazole Sodium (Pantoprazole 40 Mg/10 Ml Vial) 40 mg IVP DAILY [facility] Last Admin: 10/16/20 08:56 Dose: 40 mg Documented by: Objective - Vital Signs Vital signs: Vital Signs Temp 98.5 F 10/16/20 08:00 Pulse 94 10/16/20 08:00 Resp 16 10/16/20 08:00 BP 90/58 10/16/20 08:00 Pulse Ox 96 10/16/20 08:00 Intake & Output 10/15/20 10/16/20 10/16/20 18:59 06:59 18:59 Intake Total 420 20 10 Output Total 1550 1270 1020 Balance -1130 -1250 -1010 Weight 77.8 kg Intake: IV 120 20 10 Invasive Line 1 20 20 10 Sodium Ferric Gluconat- 100 Sucrose 125 mg In Sodium Chloride 0.9% 100 ml @ 100 mls/hr IVPB DAILY [facility] Rx#:[id number] Oral 300 Output: Drainage 1450 970 720 Left Lateral 375 250 200 Right Lateral 1075 720 520 Stool 100 300 300 Other: Voiding Method Ileal Conduit (Right) Ileal Conduit (Right) Ileal Conduit (Right) Ileal Conduit (Left) Ileal Conduit (Left) Ileal Conduit (Left) # Voids 0 - Exam GENERAL: The patient is alert and oriented x3, awake. HEENT: Pupils are round and equally reacting to light. EOMI. No scleral icterus. No conjunctival pallor. Normocephalic, atraumatic. No pharyngeal erythema. No thyromegaly. CARDIOVASCULAR: S1 and S2 present. No murmurs, rubs, or gallops. PULMONARY: Chest is clear to auscultation, no wheezing or crackles. ABDOMEN: Adbominal scar covered in dressing - clean. Left-sided colostomy bag in place. Nephrostomy tubes clear urine MUSCULOSKELETAL: No joint swelling or deformity. EXTREMITIES: No cyanosis, clubbing, or pedal edema. NEUROLOGICAL: Gross neurological examination did not reveal any focal deficits. - Labs CBC & Chem 7: 10/16/20 06:50 10/16/20 06:50 Labs: Abnormal Lab Results - Last 24 Hours (Table) 10/16/20 10/16/20 Range/Units 06:50 06:50 RBC 3.23 L (3.80-5.40) m/uL Hgb 9.2 L (11.4-16.0) gm/dL Hct 28.0 L (34.0-46.0) % RDW 19.6 H (11.5-15.5) % Plt Count 664 H (150-450) k/uL Sodium 133 L (137-145) mmol/L Chloride 95 L (98-107) mmol/L Carbon Dioxide 34 H (22-30) mmol/L Assessment and Plan Assessment: Acute lower GI bleed with streaks of blood per rectum likely due to anticoagulation with Lovenox. changed to Eliquis Recent right lower extremity DVT Intra-abdominal abscess completed antibiotic therapy Hypovolemic hyponatremia Colon cancer with extensive local invasion Hypothyroidism Bilateral nephrostomy tubes in place Thrombocytosis GI prophylaxis DVT prophylaxis Full code Recommendations and discussion: Recommend to continue with current medications and management. Oncology following recommending inpatient chemotherapy as patient is apparently moving to [place] to seek further treatment although has no providers for follow-up therapy. She continues to be extremely weak and is having severe nausea today. PT/OT following. Patient continues bilateral nephrostomy tubes with recent completion of antibiotic for intra-abdominal abscess. Infectious disease consulted and pending at this time as a repeat CT of the abdomen was done showing increase in size of a large left pelvic mass with an additional adjacent lesion concerning for progression of disease along with new nodular lesion in the anterior pelvic wall, left iliopsoas peripherally enhancing lesion and moderate free fluid along with worsening inflammatory changes and wall thickening of the sigmoid colon and rectum. Hemoglobin is stable at 9.2 with no active bleeding noted. Sodium today is 133, potassium is 4.2, current creat inine is 0.98. Overall prognosis remains poor and will continue to monitor closely. Further recommendations to follow. Will discuss with oncology about the treatment plan moving forward.
--- NOTE | 2020-10-16 14:56 | P.PN ---
Subjective Progress Note Date: 10/16/20 Principal diagnosis: GI Bleed Patient up in chair, she is feeling better. Has worked with ostomy nurse today, has been using incentive spirometer, been sitting in chair for 2-4 hours a day. Her drainage from prior abscess has not changed. Her pain continues to spike after 4 hours without norco, however she is very worried to increase long acting. When 5 hours goes by she is unable to catch up on the level of pain. FOcus of controlling her pain will help to increase her mobility and this in turn will help for more positive outcomes with chemotherapy treatment to control her cancer. We will schedule her medications at this time and monitor closely. Objective - Vital Signs Vital signs: Vital Signs Temp 98.5 F 10/16/20 08:00 Pulse 94 10/16/20 08:00 Resp 16 10/16/20 08:00 BP 90/58 10/16/20 08:00 Pulse Ox 96 10/16/20 08:00 Intake & Output 10/15/20 10/16/20 10/16/20 18:59 06:59 18:59 Intake Total 420 20 970 Output Total 1550 1270 1020 Balance -1130 -1250 -50 Weight 77.8 kg Intake: IV 120 20 10 Invasive Line 1 20 20 10 Sodium Ferric Gluconat- 100 Sucrose 125 mg In Sodium Chloride 0.9% 100 ml @ 100 mls/hr IVPB DAILY [facility] Rx#:[id number] Oral 300 960 Output: Drainage 1450 970 720 Left Lateral 375 250 200 Right Lateral 1075 720 520 Stool 100 300 300 Other: Voiding Method Ileal Conduit (Right) Ileal Conduit (Right) Ileal Conduit (Right) Ileal Conduit (Left) Ileal Conduit (Left) Ileal Conduit (Left) # Voids 0 - Exam Constitutional General appearance: no acute distress - EENT Eyes: EOMI, PERRLA ENT: hearing grossly normal, normal oropharynx - Neck Neck: no lymphadenopathy - Respiratory Respiratory: bilateral: CTA - Cardiovascular Rhythm: regular Heart sounds: normal: S1, S2 - Gastrointestinal Left lower quadrant ostomy. Lower mid abdomen covered with bandage. Patient states open areas on prior incision line General gastrointestinal: normal bowel sounds, soft Right nephrostomy darker urine, left clear - Integumentary Integumentary: normal - Neurologic Neurologic: CNII-XII intact - Musculoskeletal Musculoskeletal: generalized weakness, strength equal bilaterally - Psychiatric Psychiatric: A&O x's 3, appropriate affect Diffuse lower extremity edema, left greater than right. Drainage increased at site of abdominal wall. Right neohrostomy with increased blood tinged urine, Left clear - Labs CBC & Chem 7: 10/16/20 06:50 10/16/20 06:50 Labs: Abnormal Lab Results - Last 24 Hours (Table) 10/16/20 10/16/20 Range/Units 06:50 06:50 RBC 3.23 L (3.80-5.40) m/uL Hgb 9.2 L (11.4-16.0) gm/dL Hct 28.0 L (34.0-46.0) % RDW 19.6 H (11.5-15.5) % Plt Count 664 H (150-450) k/uL Sodium 133 L (137-145) mmol/L Chloride 95 L (98-107) mmol/L Carbon Dioxide 34 H (22-30) mmol/L Assessment and Plan Plan: Abdominal x-ray: report reviewed CT scan - abdomen: report reviewed CT scan - pelvis: report reviewed US - abdomen: report reviewed Assessment and Plan Plan 10/16/20: CT Restaging: - Progressive cancer - Patient has yet to undergo treatment, will need all pathology from outside hospital - Spoke with patient and brother extensively and concern is she was recently hospitalized with psudomonas infection in abdomen, will ask ID to clear in the picture of emergent need of chemotherapy - Patient is suppose to be continuing care in [place], however the insurance delay between states is unknown and she does not see this oncologist until next month. - Risk and benefit of chemo is unknown, if we forgo treatment and delay further her overall performance may worsen and cancer may progress further, however if we treat and she is not strong enough and has any residual infection this could be very serious. Patient and brother aware of the overall situation and are hoping to undergo treatment. Await clearance from ID. - Transfer to [facility] Colon Cancer: - Treatment at outside facility - Return to primary oncologist after hospital discharge - CEA increasing, Increased adenopathy inguinal, concern for progression. Repeat CT scans prior to discharge at direction of onc. GI bleed - Resolved - Hemoglobin remains stable - Developed bleeding in her nephrostomy, as well as per rectum, after starting Lovenox. 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 - Stable iron stores. - Replace with IV iron if needed. - Transfuse for hemoglobin less than 7 Recent Dx Acute Deep vein thrombosis (DVT) - No recurrent bleeding, Hemoglobin continues to improve, will switch to eliquis today. Long discussion with patient today: concerns and ongoing probable causes of re-admission risks addressed. Increase Physical Activity: Patient has a hard time increasing motivation in am, she has refused PT in am, although we had long discussion of the need to remain adherent as not out of bed longer then to 5-10 minutes and increased muscular atrophy is evident. Increased risk for infections (pneumonia, skin abscess, and worsening edema). Patient understands and agrees to goal of up in chair BID - 20-40 minutes - Incentive spirometer to bedside - Increase activity and assess ostomy and nephrostomies for increased blood, without movement we will not be able to move forward with a treatment plan that bridgette be successful and will not be able to throughly assess for bleeding until movement ddaily included. Patient agrees Increase Protein, asked dieticien to supply campos collagen protein samples for wound healing Ostomy nurse to assess and provide measurements and supplies prior to discharge (likely friday) Repeat doppler (appears to be third space) secondary to intravascular dehydration and malnutrition and no activity
[2020-10-16] MEDS: ONDANSETRON 4 MG/2 ML VIAL IVP SCH (20:46)
[2020-10-16] MEDS: HYDROcodone/APAP 10-325MG 1 EACH TAB PO SCH ×2 (20:47→22:09)
[2020-10-16] MEDS: SODIUM CHLORIDE 0.9% 1,000 ML IV SCH (21:15)
[2020-10-17] MEDS: ONDANSETRON 4 MG/2 ML VIAL IVP SCH ×6 (00:40→20:33)
[2020-10-17] MEDS: MORPHINE SULFATE ER 30 MG TABLET PO SCH ×3 (00:40→16:59)
[2020-10-17] MEDS: HYDROcodone/APAP 10-325MG 1 EACH TAB PO SCH ×6 (00:51→20:32)
[2020-10-17] MEDS: LORazepam 2 MG/ML INJ IV PRN ×2 (04:03→18:19)
[2020-10-17] MEDS: PANTOPRAZOLE 40 MG/10 ML VIAL IVP SCH (08:11)
[2020-10-17] MEDS: APIXABAN 5 MG TAB PO SCH ×2 (08:11→20:32)
[2020-10-17] MEDS: SODIUM FERRIC GLUCONAT-SUCROSE 125 MG in SODIUM CHLORIDE 0.9% 100 ML IVPB SCH (09:41)
[2020-10-17] MEDS: LEVOTHYROXINE 137 MCG PO SCH (10:34)
--- NOTE | 2020-10-17 11:24 | P.PN ---
Subjective Progress Note Date: 10/17/20 Principal diagnosis: GI Bleed Plan for FOLFOX inpatient today as patient has rapid progression. with the anticipated delay in [place] state insurance coverage and her rapid growth the need to initiate chemo is imperative. She is still rather weak and performance status 2-3, although increased movement and up in chair >50% of day. She is anxious about treatment and feeling nauseated. Plan to start FOLFOX tomorrow, if ID clears from prior infection and then plan for inpatient rehab. ECF rehab will not be best suited for her as her overall status will decline, and this will pot entially delay the important need of staying on tract with chemo and hinder her overall outcome. Dr. Alfaro has been consulted and elementary school social worker has been asked to assist with insurance, disability coverage to prevent delay during transfer. she lives on second floor and does not have help here, her family is all in [place]. Objective - Vital Signs Vital signs: Vital Signs Temp 97.9 F 10/17/20 05:29 Pulse 96 10/17/20 05:29 Resp 16 10/17/20 05:29 BP 92/61 10/17/20 05:29 Pulse Ox 97 10/17/20 05:29 Intake & Output 10/16/20 10/17/20 10/17/20 18:59 06:59 18:59 Intake Total 1070 1840 10 Output Total 1745 1150 825 Balance -675 690 -815 Intake: IV 110 10 10 Invasive Line 1 10 10 10 Sodium Ferric Gluconat- 100 Sucrose 125 mg In Sodium Chloride 0.9% 100 ml @ 100 mls/hr IVPB DAILY [facility] Rx#:[id number] Oral 960 1830 Output: Drainage 1445 625 825 Left Lateral 775 450 275 Right Lateral 670 175 550 Urine 325 Stool 300 200 Other: Voiding Method Ileal Conduit (Right) Ileal Conduit (Right) Ileal Conduit (Left) Ileal Conduit (Left) - Exam Constitutional General appearance: no acute distress - EENT Eyes: EOMI, PERRLA ENT: hearing grossly normal, normal oropharynx - Neck Neck: no lymphadenopathy - Respiratory Respiratory: bilateral: CTA - Cardiovascular Rhythm: regular Heart sounds: normal: S1, S2 - Gastrointestinal Left lower quadrant ostomy. Lower mid abdomen covered with bandage. Patient states open areas on prior incision line General gastrointestinal: normal bowel sounds, soft Right nephrostomy darker urine, left clear - Integumentary Integumentary: normal - Neurologic Neurologic: CNII-XII intact - Musculoskeletal Musculoskeletal: generalized weakness, strength equal bilaterally - Psychiatric Psychiatric: A&O x's 3, appropriate affect Diffuse lower extremity edema, left greater than right. Drainage increased at site of abdominal wall. Right neohrostomy with increased blood tinged urine, Left clear - Labs CBC & Chem 7: 10/17/20 11:44 10/17/20 11:44 Assessment and Plan Plan: Abdominal x-ray: report reviewed CT scan - abdomen: report reviewed CT scan - pelvis: report reviewed US - abdomen: report reviewed Assessment and Plan Plan 10/16/20: CT Restaging: - Progressive cancer - Patient has yet to undergo treatment, will need all pathology from outside hospital Plan for FOLFOX inpatient today as patient has rapid progression. with the anticipated delay in cross state insurance coverage and her rapid growth the need to initiate chemo is imperative. She is still rather weak and performance status 2-3, although increased movement and up in chair >50% of day. She is anxious about treatment and feeling nauseated. Plan to start FOLFOX tomorrow, if ID clears from prior infection and then plan for inpatient rehab. ECF rehab will not be best suited for her as her overall status will decline, and this will potentially delay the important need of staying on tract with chemo and hinder her overall outcome. Dr. Alfaro has been consulted and elementary school social worker has been asked to assist with insurance, disability coverage to prevent delay during transfer. she lives on second floor and does not have help here, her family is all in [place]. Colon Cancer: - Treatment at outside facility - Return to primary oncologist after hospital discharge - CEA increasing, Increased adenopathy inguinal, concern for progression. Repeat CT scans prior to discharge at direction of onc. GI bleed - Resolved - Hemoglobin remains stable - Developed bleeding in her nephrostomy, as well as per rectum, after starting Lovenox. 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 - Stable iron stores. - Replace with IV iron if needed. - Transfuse for hemoglobin less than 7 Recent Dx Acute Deep vein thrombosis (DVT) - No recurrent bleeding, Hemoglobin continues to improve, will switch to eliquis today. Plan for FOLFOX inpatient today as patient has rapid progression. with the anticipated delay in cross state insurance coverage and her rapid growth the need to initiate chemo is imperative. She is still rather weak and performance status 2-3, although increased movement and up in chair >50% of day. She is anxious about treatment and feeling nauseated. Plan to start FOLFOX tomorrow, if ID clears from prior infection and then plan for inpatient rehab. ECF rehab will not be best suited for her as her overall status will decline, and this will potentially delay the important need of staying on tract with chemo and hinder her overall outcome. Dr. Alfaro has been consulted and elementary school social worker has been asked to assist with insurance, disability coverage to prevent delay during transfer. she lives on second floor and does not have help here, her family is all in [place]. - Discussed with primary team, RN and reed worker Physician Attest: I have completed the full history and physical and agree with above dictation, dictated as a scribe.
[2020-10-17] MEDS: SODIUM CHLORIDE 0.9% 1,000 ML IV SCH (12:23)
[2020-10-17 12:37] LABS: Albumin 3.3 g/dL (3.5-5.0); Albumin/Globulin Ratio 1.1; Globulin 2.9 g/dL; Glucose 118 mg/dL (74-99); Total Protein 6.2 g/dL (6.3-8.2)
[2020-10-17 12:38] LABS: ALT 6 U/L (4-34); AST 22 U/L (14-36); African American GFR (CKD) 78 (>60 ml/min/1.73 sqM); Alkaline Phosphatase 62 U/L (38-126); Anion Gap 6 mmol/L; Blood Urea Nitrogen 16 mg/dL (7-17); Calcium 9.7 mg/dL (8.4-10.2); Carbon Dioxide 33 mmol/L (22-30); Chloride 96 mmol/L (98-107); Magnesium 2.1 mg/dL (1.6-2.3); Non-African American GFR(CKD) 68 (>60 ml/min/1.73 sqM); Potassium 4.6 mmol/L (3.5-5.1); Sodium 135 mmol/L (137-145); Total Bilirubin 0.3 mg/dL (0.2-1.3)
[2020-10-17 13:24] LABS: Anisocytosis Slight; Basophils # (A) 0.1 k/uL (0-0.2); Basophils % (A) 1 %; Eosinophils # (A) 0.4 k/uL (0-0.7); Eosinophils % (A) 4 %; HCT 31.8 % (34.0-46.0); Hypochromasia Slight; Lymphocytes # (A) 1.5 k/uL (1.0-4.8); Lymphocytes % (A) 15 %; MCH 27.7 pg (25.0-35.0); MCHC 31.3 g/dL (31.0-37.0); MCV 88.3 fL (80.0-100.0); Mean Platelet Volume 6.6; Monocytes # (A) 0.6 k/uL (0-1.0); Monocytes % (A) 6 %; Neutrophils # (A) 7.5 k/uL (1.3-7.7); Neutrophils % (A) 74 %; Platelet Count 716 k/uL (150-450); RDW 19.8 % (11.5-15.5); WBC 10.1 k/uL (3.8-10.6)
--- NOTE | 2020-10-17 14:57 | PN ---
PROGRESS NOTE DATE OF SERVICE: 10/17/2020 This 50-year-old woman who was admitted with acute lower GI bleed also had significant history of colon cancer with extensive local invasion. The patient is also seen by Hematology/Oncology. CT restaging was recommended. Treatment chemotherapy is being planned. No chest pain. No palpitations. No fever. REVIEW OF SYSTEMS: CARDIOVASCULAR SYSTEM: No angina. RESPIRATORY SYSTEM: As mentioned earlier. GI: As mentioned earlier. : No dysuria. NERVOUS SYSTEM: No numbness, weakness. CURRENT MEDICATIONS: Current medications are [place], Xanax, Eliquis, Ativan, MS Contin, Narcan. Doses are reviewed. PHYSICAL EXAMINATION: Alert and oriented x3. Pulse 89, blood pressure 98/63, respirations 16, temperature 98.1, pulse ox 96% on room air. HEENT: Conjunctivae normal. NECK: No jugular venous distention. CARDIOVASCULAR: S1, S2 muffled. RESPIRATORY: Breath sounds diminished at the bases. No rhonchi, no crackles. ABDOMEN: Soft, nontender. No mass palpable. LEGS: No edema. No swelling. NERVOUS SYSTEM: No focal deficits. LABS: WBC 10.1, hemoglobin 10. Sodium 135. ASSESSMENT: 1. Acute lower gastrointestinal bleeding from anticoagulation with Lovenox, change it to Eliquis. 2. Colon cancer with diffuse metastasis. 3. Recent right lower extremity deep vein thrombosis. 4. History of recent intraabdominal abscess completed IV antibiotic therapy. 5. Hypovolemic hyponatremia. 6. Hypothyroidism. 7. Bilateral nephrostomy tubes in place. 8. Thrombocytopenia. 9. GI prophylaxis. 10.Deep vein thrombosis prophylaxis. 11.FULL CODE. RECOMMENDATIONS AND DISCUSSION: Recommend to continue current medications, continue symptomatic treatment. Otherwise hemoglobin is 10 at this time. Sodium is 135. Will monitor. Repeat electrolytes. Chemotherapy per Hematology/Oncology. PT, OT evaluation, possible inpatient rehab. Prognosis guarded. Further recommendations to follow. MMODL / IJN: [id number] /
--- NOTE | 2020-10-17 16:09 | P.CONS ---
History of Present Illness - Chief Complaint Medical debility - History of Present Illness I had the opportunity to see patient for inpatient rehab consultation with regard to patient with medical debility. Patient admitted to [facility] October 07 bright red blood per rectum. Note patient with renal and had a diverting ostomy created and then later revised. She has bilateral ureterostomy tubes present. Chemotherapy planned apparently to start tomorrow. Patient was on anticoagulation which apparently causes the BRBPR. Seen in consultation by surgeon Dr. cruz and oncology, Dr. Novoa. Started therapies. PT reports supervision for bed mobility, transfers, gait with roller walker for a total of 150 feet. OT reports supervision for all basic self-care tasks and functional mobility. Previous functional history as elicited patient: 50-year-old right-handed white female single lives and 2 floor home with boyfriend. Patient unemployed. has been doing the cooking, laundry, driving, at least for the last 2 months. Patient has been battling current problem for the last 2 months. Previously was independent. Since and has been independent with sponge bath and gait with walker. Review of Systems Review of systems: ENT: Denies sneezes or discharge. Eyes: Denies discharge or photophobia. Cardiac: Denies chest pain or palpitation. Pulmonary: Denies cough or shortness of breath. Breast: Denies discharge or lumps. Gastrointestinal: Denies nausea, emesis, constipation, diarrhea. Genitourinary: Denies discharge or frequency. Musculoskeletal: Denies muscle or bone aches. Neurologic: Patient reports numbness and weakness left leg since procedure and left groin area as well as current generalized weakness. Endocrine: Denies shakes or sweats. Oncology: Denies cancers. Dermatologic: Denies rash, itching, pruritus. ALLERGY/immunology: Denies sneezes, rashes. Past Medical History Past Medical History: Cancer, Thyroid Disorder Additional Past Medical History / Comment(s): Thyroid cancer, COLON CA History of Any Multi-Drug Resistant Organisms: None Reported Past Surgical History: Appendectomy Additional Past Surgical History / Comment(s): Thyroidectomy, right labia Past Anesthesia/Blood Transfusion Reactions: No Reported Reaction Past Psychological History: Anxiety Smoking Status: Former smoker Past Alcohol Use History: None Reported Past Drug Use History: None Reported - Past Family History family Family Medical History: Coronary Artery Disease (CAD), CVA/TIA Medications and Allergies Home Medications Medication Instructions Recorded Confirmed Type Levothyroxine Sodium [Synthroid] 137 mcg PO DAILY 05/19/20 10/07/20 History Ergocalciferol [Vitamin D2 (1250 1,250 mcg PO Q7D 10/07/20 10/07/20 History Mcg = [id number] Iu)] HYDROcodone/APAP 10-325MG [Temple 1 tab PO Q6H PRN 10/07/20 10/07/20 History 10-325] Naloxone HCl [Narcan] 4 mg NASAL ONCE PRN 10/07/20 10/07/20 History Ondansetron [Zofran] 4 mg PO Q8H PRN 10/07/20 10/07/20 History Apixaban [Eliquis] 5 mg PO BID #60 tab 10/11/20 Rx Morphine Sulfate ER [Ms Contin] 30 mg PO Q8H #21 tab 10/13/20 Rx Allergies Allergy/AdvReac Type Severity Reaction Status Date / Time clarithromycin [From Biaxin] Allergy Rash/Hives Verified 10/07/20 00:30 fluticasone [From Flonase] Allergy Rash/Hives Verified 10/07/20 00:30 gatifloxacin [From Tequin] Allergy Rash/Hives Verified 10/07/20 00:30 Mushroom Allergy Rash/Hives Verified 10/07/20 00:30 Penicillins Allergy Rash/Hives Verified 10/07/20 00:30 Sulfa (Sulfonamide Allergy Rash/Hives Verified 10/07/20 00:30 Antibiotics) hydromorphone [From Dilaudid] AdvReac Unknown Verified 10/16/20 19:33 prochlorperazine AdvReac Hallucinati Verified 10/16/20 19:33 ons naproxin Allergy Swelling Uncoded 10/07/20 00:30 Physical Exam Vitals: Vital Signs Temp Pulse Resp BP Pulse Ox 10/17/20 11:29 98.1 F 89 16 98/63 96 10/17/20 05:29 97.9 F 96 16 92/61 97 10/17/20 02:10 99.1 F 97 20 104/68 97 10/17/20 00:35 98.5 F 94 16 98/64 100 10/16/20 20:00 98.5 F 98 18 96/67 98 Intake and Output 10/17/20 10/17/20 10/17/20 06:59 14:59 22:59 Intake Total 690 10 Output Total 625 825 Balance 65 -815 Intake: IV 10 Invasive Line 1 10 Oral 690 Output: Drainage 300 825 Left Lateral 300 275 Right Lateral 550 Urine 325 Other: Weight 77.8 kg Skin: Good color, texture, turgor. General: Medium build and comfortable appearance. Head: Normocephalic, atraumatic. Eyes: Symmetric. Pupils equal round. Ears: Symmetric. Hearing within normal limits. Mouth: Clear. Neck: Supple. Carotid without bruit. Cardiac: Regular rate and rhythm. Lungs: Clear anteriorly and posteriorly. Abdomen: Soft active nontender. Extremities: Normal tone. Neurological: Mental status: Alert, cooperative, pleasant. Cranial nerves: Symmetric facial tone and trapezius. Motor: Active movement all 4 limbs. Sensation: Intact throughout. DTRs: Symmetric and equal throughout. Mobility: Did not sit or stand at this time. Results CBC & Chem 7: 10/17/20 11:44 10/17/20 11:44 Labs: Abnormal Lab Results - Last 24 Hours (Table) 10/17/20 10/17/20 Range/Units 11:44 11:44 RBC 3.60 L (3.80-5.40) m/uL Hgb 10.0 L (11.4-16.0) gm/dL Hct 31.8 L (34.0-46.0) % RDW 19.8 H (11.5-15.5) % Plt Count 716 H (150-450) k/uL Sodium 135 L (137-145) mmol/L Chloride 96 L (98-107) mmol/L Carbon Dioxide 33 H (22-30) mmol/L Glucose 118 H (74-99) mg/dL Total Protein 6.2 L (6.3-8.2) g/dL Albumin 3.3 L (3.5-5.0) g/dL Assessment and Plan (1) Colon cancer Current Visit: Yes Status: Acute Code(s): C18.9 - MALIGNANT NEOPLASM OF COLON, UNSPECIFIED SNOMED Code(s): 259141387 (2) GI bleed Current Visit: Yes Status: Acute Code(s): K92.2 - GASTROINTESTINAL HEMORRHAGE, UNSPECIFIED SNOMED Code(s): 46672753 (3) Acute kidney injury Current Visit: No Status: Acute Code(s): N17.9 - ACUTE KIDNEY FAILURE, UNSPECIFIED SNOMED Code(s): 63312158 (4) Diverticulitis of intestine with abscess Current Visit: No Status: Acute Code(s): K57.80 - DVTRCLI OF INTEST, PART UNSP, W PERF AND ABSCESS W/O BLEED SNOMED Code(s): 256480111 Plan: Impression: As noted above and to include hypothyroid. Comments and plan: PT and OT are ongoing. Patient reported and supervision or neural need for physical cyst. There are definite endurance issues but will not be able to admit patient for endurance issues alone. Thus do not anticipate inpatient rehab at this time.
--- NOTE | 2020-10-17 18:48 | PN ---
PROGRESS NOTE DATE OF SERVICE: 10/17/2020 REASON FOR FOLLOWUP: Abdominal wound, abnormal CT with concern for progression of tumor, recent history of abdominal sepsis. INTERVAL HISTORY: The patient is currently afebrile. The patient with no fever during this hospital stay, as the patient has been hospitalized for about 10 days now. The patient denies having any chest pain or shortness of breath or cough. The patient denies any worsening abdominal pain. The patient's lower abdominal incision is currently healing well. The patient denies any surrounding swelling or redness and there is no drainage. No nausea, no vomiting, no diarrhea. The patient has been evaluated by Oncology and they are planning for chemotherapy in view of the rapid progression of her malignancy. PHYSICAL EXAMINATION: Blood pressure is 98/63 with a pulse of 89, temperature 98.1. She is 96% on room air. General description is a middle-aged female up in the chair in no distress. HEENT: Examination shows pallor. Oral mucous membrane is dry. LUNGS: Unlabored breathing. Clear to auscultation anteriorly. HEART: S1, S2. Regular rate and rhythm. D ABDOMEN: Soft. No guarding or rigidity. The patient did show me the picture taken this morning. Wound is healing well. There is no swelling, no redness or any foul- smelling drainage. EXTREMITIES: No edema of the feet. LABS: Hemoglobin is 10 with white count 10.1, BUN of 16, creatinine 0.98. The patient did have a CT of the chest, abdomen and pelvis that was completed on 10/14; results showed lungs were clear. The patient did have an interval increase in the size of a large left pelvic mass and additional adjacent lesion, new nodular lesion in the anterior pelvic wall, left iliopsoas peripherally enhancing lesion and moderate fluid. DIAGNOSTIC IMPRESSION AND PLAN: Patient with a history of inoperable sigmoid malignancy in this patient who is status post diverting ostomy that has to be revised later and also bilateral urostomy tubes. The patient was admitted to the hospital about 10 days ago for some mucus drainage from her rectal area in this patient who did not have any fever over the last 10 days, and her white count has been normal. CT findings are mostly suspicious for progression of her malignancy rather than any abscess, as the patient is not showing any fever or elevated white count. Still the fluid seen on the anterior pelvic wall iliopsoas is concerning, which could be an abscess. Will request IR drainage of that area and the fluid sent for culture. If the culture is negative, the patient will be cleared for chemo however is high risk and this has been discussed with Oncology WAIST CUTTER. Continue with supportive care. ROLY / MILAN: [id number] / MENA
[2020-10-17] MEDS ORDERED: LORazepam 2 MG/ML INJ IV STA (20:46)
[2020-10-18] MEDS: MORPHINE SULFATE ER 30 MG TABLET PO SCH ×3 (00:14→15:43)
[2020-10-18] MEDS: ONDANSETRON 4 MG/2 ML VIAL IVP SCH ×6 (00:15→20:14)
[2020-10-18] MEDS: HYDROcodone/APAP 10-325MG 1 EACH TAB PO SCH ×6 (00:16→20:11)
[2020-10-18] MEDS: LORazepam 2 MG/ML INJ IV PRN ×3 (02:57→22:52)
[2020-10-18] MEDS: SODIUM CHLORIDE 0.9% 1,000 ML IV SCH ×2 (05:17→22:53)
[2020-10-18] MEDS: LEVOTHYROXINE 137 MCG PO SCH (05:20)
[2020-10-18 07:12] LABS: ALT <6 U/L (4-34); AST 18 U/L (14-36); African American GFR (CKD) 88 (>60 ml/min/1.73 sqM); Albumin 2.8 g/dL (3.5-5.0); Albumin/Globulin Ratio 1.1; Alkaline Phosphatase 60 U/L (38-126); Anion Gap 8 mmol/L; Blood Urea Nitrogen 16 mg/dL (7-17); Calcium 9.2 mg/dL (8.4-10.2); Carbon Dioxide 28 mmol/L (22-30); Chloride 98 mmol/L (98-107); Globulin 2.5 g/dL; Glucose 90 mg/dL (74-99); Magnesium 1.9 mg/dL (1.6-2.3); Non-African American GFR(CKD) 76 (>60 ml/min/1.73 sqM); Potassium 4.5 mmol/L (3.5-5.1); Sodium 134 mmol/L (137-145); Total Bilirubin 0.2 mg/dL (0.2-1.3); Total Protein 5.3 g/dL (6.3-8.2)
[2020-10-18] MEDS: PANTOPRAZOLE 40 MG/10 ML VIAL IVP SCH (08:02)
[2020-10-18 08:56] LABS: Basophils # (A) 0.06 X 10*3/uL (0.00-0.10); Basophils % (A) 0.6 %; Eosinophils # (A) 0.38 X 10*3/uL (0.04-0.35); HGB 8.6 g/dL (12.0-15.0); Lymphocytes # (A) 1.74 X 10*3/uL (0.90-5.00); Lymphocytes % (A) 18.5 %; MCH 28.4 pg (27.0-32.0); MCHC 30.7 g/dL (32.0-37.0); MCV 92.4 fL (80.0-97.0); Mean Platelet Volume 8.7 fL (9.5-12.2); Monocytes # (A) 0.81 X 10*3/uL (0.20-1.00); Monocytes % (A) 8.6 %; Neutrophils # (A) 6.38 X 10*3/uL (1.80-7.70); Neutrophils % (A) 67.9 %; Platelet Count 596 X 10*3/uL (140-440); RBC 3.03 X 10*6/uL (4.10-5.20); RDW 19.9 % (11.5-14.5); WBC 9.41 X 10*3/uL (4.50-10.00)
[2020-10-18] MEDS ORDERED: HEPARIN SODIUM,PORCINE 5,000 UNIT/ML 1 ML VIAL IV PRN (09:07)
[2020-10-18 10:05] LABS: Prothrombin Time 10.7 sec (9.0-12.0)
[2020-10-18 10:13] LABS: Anisocytosis Slight; Basophils # (A) 0.1 k/uL (0-0.2); Basophils % (A) 1 %; Eosinophils # (A) 0.4 k/uL (0-0.7); Eosinophils % (A) 4 %; HCT 28.1 % (34.0-46.0); HGB 8.9 gm/dL (11.4-16.0); Hypochromasia Slight; Lymphocytes # (A) 1.5 k/uL (1.0-4.8); Lymphocytes % (A) 17 %; MCH 27.9 pg (25.0-35.0); MCHC 31.8 g/dL (31.0-37.0); MCV 87.8 fL (80.0-100.0); Mean Platelet Volume 6.3; Microcytosis Slight; Monocytes # (A) 0.7 k/uL (0-1.0); Monocytes % (A) 8 %; Neutrophils # (A) 6.2 k/uL (1.3-7.7); Neutrophils % (A) 70 %; Platelet Count 656 k/uL (150-450); RDW 19.6 % (11.5-15.5)
[2020-10-18] MEDS ORDERED: FAMOTIDINE 20 MG/2 ML VIAL IV ONE (11:00)
[2020-10-18] MEDS ORDERED: DEXAMETHASONE SOD PHOSPHATE 10 MG/ML 1 ML VIAL IV ONE (11:00)
[2020-10-18] MEDS ORDERED: ONDANSETRON 16 MG in SODIUM CHLORIDE 0.9% 50 ML IVPB ONE (11:00)
[2020-10-18] MEDS: HEPARIN SOD,PORK IN 0.45% NACL 25,000 UNIT in 0.45% NACL 1 250ML.BAG IV SCH (11:32)
[2020-10-18] MEDS ORDERED: OXALIPLATIN 100 MG, OXALIPLATIN 50 MG in DEXTROSE 5% IN WATER 500 ML IV ONE ×3 (12:00)
[2020-10-18] MEDS ORDERED: LEUCOVORIN 700 MG in DEXTROSE 5% IN WATER 500 ML IV ONE ×2 (12:00)
[2020-10-18] MEDS ORDERED: FLUOROURACIL IV ONE (14:00)
[2020-10-18] MEDS ORDERED: SODIUM CHLORIDE 0.9% IV ONE (14:00)
[2020-10-18] MEDS ORDERED: LORazepam 2 MG/ML INJ IV STA (14:13)
--- NOTE | 2020-10-18 15:06 | P.PN ---
Subjective Progress Note Date: 10/18/20 Principal diagnosis: GI Bleed continues with persistent nausea and headache, question relation to her anxiety at baseline, however she does get relief with zofran and ativan. With her progressive cancer we need to consider progressive disease to brain, thereofre will assess with MRI. I have discussed case in detail with RN, ID, IR, and primary team, as well as IPR, the plan for her as changed as the immediate need for treatment is required to improve her overall status, she was recently treated for abdominal abscess pseudomonas. ID feels that it is resonable to drain abscess (psoas muscle) and re-culture as well as sent for cytology prior to initiation of chemo to ensure we do not increase risk of a systemic infection if still present. IR will need patient off eliquis for 3 days, heparin drip 4 hours. therefore eliquis last dose given on 10/17, and heparin drip without bolus started today. plan is to perform drainage and send culture and cytology tomorrow afternoon, this should hopefully allow for chemotherapy plan to be on Friday. Apparently PT attempted to work with patient htis am and she needed to change her ostomy bag as she was nervous of an accident once she started to move, PT has stated she refused, however this is not exactly clear of she has refused versus they were unable to come back and accomodate a later date. I will discuss with them further to see if they could strive for an early afternoon appointment daily as this will greatly help improve patients overall outcomes. Objective - Vital Signs Vital signs: Vital Signs Temp 97.8 F 10/18/20 11:39 Pulse 94 10/18/20 11:39 Resp 16 10/18/20 11:39 BP 96/61 10/18/20 11:39 Pulse Ox 95 10/18/20 11:39 Intake & Output 10/17/20 10/18/20 10/18/20 18:59 06:59 18:59 Intake Total 10 1490 Output Total 1175 1050 1025 Balance -1165 440 -1025 Weight 77.8 kg Intake: IV 10 Invasive Line 1 10 Intake, IV Titration 600 Amount Sodium Chloride 0.9% 1, 600 000 ml @ 50 mls/hr IV . Q20H [facility] Rx#:[id number] Oral 890 Output: Drainage 1134 218 6849 Left Lateral 375 200 325 Right Lateral 800 650 700 Stool 200 Other: Voiding Method Ileal Conduit (Right) Ileal Conduit (Left) - Exam Constitutional General appearance: no acute distress - EENT Eyes: EOMI, PERRLA ENT: hearing grossly normal, normal oropharynx - Neck Neck: no lymphadenopathy - Respiratory Respiratory: bilateral: CTA - Cardiovascular Rhythm: regular Heart sounds: normal: S1, S2 - Gastrointestinal Left lower quadrant ostomy. Lower mid abdomen covered with bandage. Patient states open areas on prior incision line General gastrointestinal: normal bowel sounds, soft Right nephrostomy darker urine, left clear - Integumentary Integumentary: normal - Neurologic Neurologic: CNII-XII intact - Musculoskeletal Musculoskeletal: generalized weakness, strength equal bilaterally - Psychiatric Psychiatric: A&O x's 3, appropriate affect Diffuse lower extremity edema, left greater than right. Drainage increased at site of abdominal wall. Right neohrostomy with increased blood tinged urine, Left clear - Labs CBC & Chem 7: 10/18/20 09:22 10/18/20 05:56 Labs: Abnormal Lab Results - Last 24 Hours (Table) 10/17/20 10/17/20 10/18/20 Range/Units 18:21 18:21 05:56 RBC (4.10-5.20) X 10*6/uL Hgb (12.0-15.0) g/dL Hct (37.2-46.3) % MCHC (32.0-37.0) g/dL RDW (11.5-14.5) % Plt Count (140-440) X 10*3/uL MPV (9.5-12.2) fL Eosinophils # (0.04-0.35) X 10*3/uL ESR 115 H (0-20) mm/hr Sodium 134 L (137-145) mmol/L C-Reactive Protein 66.1 H (<10.0) mg/L Total Protein 5.3 L (6.3-8.2) g/dL Albumin 2.8 L (3.5-5.0) g/dL 10/18/20 10/18/20 Range/Units 05:56 09:22 RBC 3.03 L 3.20 L (4.10-5.20) X 10*6/uL Hgb 8.6 L 8.9 L (12.0-15.0) g/dL Hct 28.0 L 28.1 L (37.2-46.3) % MCHC 30.7 L (32.0-37.0) g/dL RDW 19.9 H 19.6 H (11.5-14.5) % Plt Count 596 H 656 H (140-440) X 10*3/uL MPV 8.7 L (9.5-12.2) fL Eosinophils # 0.38 H (0.04-0.35) X 10*3/uL ESR (0-20) mm/hr Sodium (137-145) mmol/L C-Reactive Protein (<10.0) mg/L Total Protein (6.3-8.2) g/dL Albumin (3.5-5.0) g/dL Assessment and Plan Plan: Abdominal x-ray: report reviewed CT scan - abdomen: report reviewed CT scan - pelvis: report reviewed US - abdomen: report reviewed Assessment and Plan Persistent Nausea/Anxiety: - Worse after walking with PT/OT today - Also with complaints of dizziness and headache - This is all related to debilitiation and myopathy secondary to deconditioning - PT/OT to continue to work with her daily., - Ativan to utilize prn for nausea - I will add olanzaprine at bed to see if that helps with nausea and sleep - MRI brain for metastatic disease and premedicate prior. CT Restaging: - Progressive cancer - Patient has yet to undergo treatment, will need all pathology from outside hospital Plan for FOLFOX inpatient today as patient has rapid progression. with the anticipated delay in cross state insurance coverage and her rapid growth the need to initiate chemo is imperative. She is still rather weak and performance status 2-3, although increased movement and up in chair >50% of day. She is anxious about treatment and feeling nauseated. Plan to start FOLFOX tomorrow, if ID clears from prior infection and then plan for inpatient rehab. ECF rehab will not be best suited for her as her overall status will decline, and this will potentially delay the important need of staying on tract with chemo and hinder her overall outcome. Dr. Alfaro has been consulted and straightedge worker has been asked to assist with insurance, disability coverage to prevent delay during transfer. she lives on second floor and does not have help here, her family is a ll in [place]. Colon Cancer: - Treatment at outside facility - Return to primary oncologist after hospital discharge - CEA increasing, Increased adenopathy inguinal, concern for progression. Repeat CT scans prior to discharge at direction of onc. GI bleed - Resolved - Hemoglobin remains stable - Developed bleeding in her nephrostomy, as well as per rectum, after starting Lovenox. 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 - Stable iron stores. - Replace with IV iron if needed. - Transfuse for hemoglobin less than 7 Recent Dx Acute Deep vein thrombosis (DVT) - No recurrent bleeding, Hemoglobin continues to improve, will switch to eliquis today. PLAN: - Eliquis on Hold - Heparin drip without bolus until Abscess drainage, hold 4 hours prior - IR to drain 10/19/20 in afternoon, await culture and path - If neg culture, initiate FOLFOX Friday-Friday - COntinue daily PT/OT - MRI Brain with Premedication - Intensive PT program after discharge through [facility] (PT/OT will decide closer if eligible) versus home with homecare. Physician Attest: I have completed the full history and physical and agree with above dictation, dictated as a scribe.
--- NOTE | 2020-10-18 16:43 | P.PN ---
Subjective Progress Note Date: 10/18/20 This is a 50 year old female who was recently admitted with acute lower GI bleed also had significant history of colon cancer with extensive local invasion and is being closely monitored. Multiple medical consultations following. Oncology also following and recommending inpatient chemotherapy and currently being planned. Patient recently underwent repeat CT of the abdomen showing further progression and an interventional radiology consulted for possible drainage of the abscess and anticoagulation has been placed on hold. Patient continues to be extremely weak and needs physical therapy daily. Patient was interviewed and evaluated by Dr. Alfaro possible inpatient rehab at [facility] although has been denied believes she would not be a good candidate. Will continue to monitor closely with possible drainage of the abscess tomorrow. Will repeat a.m. labs. Review of systems: Constitutional: reports continued fatigue, no reports of fever, or chills Cardiovascular: No reports of chest pain or palpitations Respiratory: No reports of shortness of breath or cough GI: Reports continued nausea : No reports of dysuria or retention Neurovascular: Reports generalized weakness All medications have been reviewed Active Medications Hydrocodone Bitart/Acetaminophen (Hydrocodone/Apap 10-325mg 1 Each Tab) 1 each PO Q4HR [facility] Last Admin: 10/18/20 15:43 Dose: 1 each Documented by: Alprazolam (Alprazolam 0.5 Mg Tab) 0.5 mg PO TID PRN PRN Reason: Anxiety Last Admin: 10/15/20 13:52 Dose: 0.5 mg Documented by: Heparin Sodium (Porcine) (Heparin Sodium,Porcine 5,000 Unit/Ml 1 Ml Vial) 0 unit IV PER PROTOCOL PRN; Protocol PRN Reason: Low PTT Sodium Chloride (Saline 0.9%) 1,000 mls @ 50 mls/hr IV .Q20H [facility] Last Admin: 10/18/20 05:17 Dose: Not Given Documented by: Heparin Sodium/Sodium Chloride (25,000 unit/ Sodium Chloride) 250 mls @ 9.336 mls/hr IV .Q24H LONN[facility]; Protocol Last Admin: 10/18/20 11:32 Dose: 12 units/kg/hr, 9.336 mls/hr Documented by: Lorazepam (Lorazepam 2 Mg/Ml Inj) 0.5 mg IV Q4HR PRN PRN Reason: nausea Morphine Sulfate (Morphine Sulfate Er 30 Mg Tablet) 30 mg PO Q8HR LON[facility]; Protocol Last Admin: 10/18/20 15:43 Dose: 30 mg Documented by: Naloxone HCl (Naloxone 0.4 Mg/Ml 1 Ml Vial) 0.2 mg IV Q2M PRN PRN Reason: Opioid Reversal Non Formulary Drug ( Levothyroxine 137mcg . Brand) 1 each PO DAILY@0630 [facility] Last Admin: 10/18/20 05:20 Dose: 1 each Documented by: Ondansetron HCl (Ondansetron 4 Mg/2 Ml Vial) 4 mg IVP Q4H [facility] Last Admin: 10/18/20 15:43 Dose: 4 mg Documented by: Oxycodone HCl (Oxycodone Hcl 5 Mg Tab) 5 mg PO Q6H PRN PRN Reason: Pain Pantoprazole Sodium (Pantoprazole 40 Mg/10 Ml Vial) 40 mg IVP DAILY [facility] Last Admin: 10/18/20 08:02 Dose: 40 mg Documented by: Objective - Vital Signs Vital signs: Vital Signs Temp 97.8 F 10/18/20 11:39 Pulse 94 10/18/20 11:39 Resp 16 10/18/20 11:39 BP 96/61 10/18/20 11:39 Pulse Ox 95 10/18/20 11:39 Intake & Output 10/17/20 10/18/20 10/18/20 18:59 06:59 18:59 Intake Total 10 1490 Output Total 1175 1050 Balance -1165 440 Weight 77.8 kg Intake: IV 10 Invasive Line 1 10 Intake, IV Titration 600 Amount Sodium Chloride 0.9% 1, 600 000 ml @ 50 mls/hr IV . Q20H [facility] Rx#:[id number] Oral 890 Output: Drainage 1175 850 Left Lateral 375 200 Right Lateral 800 650 Stool 200 Other: Voiding Method Ileal Conduit (Right) Ileal Conduit (Left) - Exam GENERAL: The patient is alert and oriented x3, awake. Temp is 97.8F, pulse is 94, respirations are 16, blood pressure is 96/61, oxygen saturation is 95% on ro om air HEENT: Pupils are round and equally reacting to light. EOMI. No scleral icterus. No conjunctival pallor. Normocephalic, atraumatic. No pharyngeal erythema. No thyromegaly. CARDIOVASCULAR: S1, S2 are muffled PULMONARY: Diminished breath sounds bilaterally with no wheezing or rhonchi noted ABDOMEN: Adbominal scar covered in dressing - clean. Left-sided colostomy bag in place. Nephrostomy tubes clear urine MUSCULOSKELETAL: No joint swelling or deformity. EXTREMITIES: No cyanosis, clubbing, or pedal edema. NEUROLOGICAL: Gross neurological examination did not reveal any focal deficits. Diffuse weakness - Labs CBC & Chem 7: 10/18/20 09:22 10/18/20 05:56 Labs: Abnormal Lab Results - Last 24 Hours (Table) 10/17/20 10/17/20 10/17/20 Range/Units 11:44 18:21 18:21 RBC 3.60 L (3.80-5.40) m/uL Hgb 10.0 L (11.4-16.0) gm/dL Hct 31.8 L (34.0-46.0) % MCHC (32.0-37.0) g/dL RDW 19.8 H (11.5-15.5) % Plt Count 716 H (150-450) k/uL MPV (9.5-12.2) fL Eosinophils # (0.04-0.35) X 10*3/uL ESR 115 H (0-20) mm/hr Sodium (137-145) mmol/L C-Reactive Protein 66.1 H (<10.0) mg/L Total Protein (6.3-8.2) g/dL Albumin (3.5-5.0) g/dL 10/18/20 10/18/20 10/18/20 Range/Units 05:56 05:56 09:22 RBC 3.03 L 3.20 L (3.80-5.40) m/uL Hgb 8.6 L 8.9 L (11.4-16.0) gm/dL Hct 28.0 L 28.1 L (34.0-46.0) % MCHC 30.7 L (32.0-37.0) g/dL RDW 19.9 H 19.6 H (11.5-15.5) % Plt Count 596 H 656 H (150-450) k/uL MPV 8.7 L (9.5-12.2) fL Eosinophils # 0.38 H (0.04-0.35) X 10*3/uL ESR (0-20) mm/hr Sodium 134 L (137-145) mmol/L C-Reactive Protein (<10.0) mg/L Total Protein 5.3 L (6.3-8.2) g/dL Albumin 2.8 L (3.5-5.0) g/dL Assessment and Plan Assessment: Acute lower GI bleed with streaks of blood per rectum likely due to anticoagulation with Lovenox. changed to Eliquis Recent right lower extremity DVT Intra-abdominal abscess completed antibiotic therapy Hypovolemic hyponatremia Colon cancer with extensive local invasion and also with diffuse metastasis Hypothyroidism Bilateral nephrostomy tubes in place Thrombocytosis GI prophylaxis DVT prophylaxis Full code Recommendations and discussion: Recommend to continue with current medications and management. Oncology following recommending inpatient chemotherapy as patient is apparently moving to [place] to seek further treatment although has no providers for follow-up therapy. She continues to be extremely weak and needs aggressive PT/OT therapy. PT/OT following an need them to work with her daily. Interventional radiology consulted for possible abscess drainage of the abdomen and will continue to hold anticoagulants. Hold IV heparin 4 hours prior to procedure tomorrow. Infectious disease following and will be obtaining culture of the abscess for antibiotic recommendations. Hemoglobin is stable with no active bleeding noted. Continue to monitor labs closely and repeat a.m. labs. Overall prognosis remains poor and will continue to monitor closely. Further recommendations to follow.
--- NOTE | 2020-10-18 22:33 | PN ---
PROGRESS NOTE DATE OF SERVICE: 10/18/2020 REASON FOR FOLLOWUP: Abnormal CT and question of progression of malignancy versus abscess. INTERVAL HISTORY: The patient is currently afebrile. The patient is breathing comfortably. Denies having any chest pain. No shortness of breath or cough. No worsening abdominal pain. Did have output in her colostomy. PHYSICAL EXAMINATION: Blood pressure 105/69, pulse of 97, temperature of 98.5. She is 97% on room air. General description is a middle-aged female lying in bed in no distress. Respiratory system: Unlabored breathing, clear to auscultation anteriorly. Heart: S1, S2. Regular rate and rhythm. ABDOMEN: Soft, no tenderness. LAB DATA: Hemoglobin 8.1, white count 9.0. BUN of 16, creatinine 0.89. DIAGNOSTIC IMPRESSION AND PLAN: Patient with abnormal CT with concern for progression of her malignancy with question of possible iliopsoas collection. This patient did have a history of an abscess. Waiting for the CT-guided aspirate of this area to make sure no evidence of any abscess. If negative, she will be able to start chemo however is considered to be high risk. We will now continue to monitor the patient closely off antibiotic therapy. Continue supportive care. MMODL / IJN: [id number] / [id number]
[2020-10-19] MEDS: HYDROcodone/APAP 10-325MG 1 EACH TAB PO SCH ×6 (00:04→19:43)
[2020-10-19] MEDS: MORPHINE SULFATE ER 30 MG TABLET PO SCH ×3 (00:04→17:07)
[2020-10-19] MEDS: ONDANSETRON 4 MG/2 ML VIAL IVP SCH ×6 (00:05→19:44)
[2020-10-19] MEDS: ALPRAZolam 0.5 MG TAB PO PRN (04:21)
[2020-10-19] MEDS: LEVOTHYROXINE 137 MCG PO SCH (06:19)
[2020-10-19] MEDS ORDERED: HEPARIN SODIUM 1,000 UN/ML (10ML VL) IV PRN (08:28)
[2020-10-19 09:36] LABS: Basophils # (A) 0.06 X 10*3/uL (0.00-0.10); Basophils % (A) 0.6 %; HCT 27.9 % (37.2-46.3); HGB 8.5 g/dL (12.0-15.0); Lymphocytes # (A) 2.05 X 10*3/uL (0.90-5.00); Lymphocytes % (A) 20.7 %; MCH 28.2 pg (27.0-32.0); MCHC 30.5 g/dL (32.0-37.0); MCV 92.7 fL (80.0-97.0); Mean Platelet Volume 9.2 fL (9.5-12.2); Monocytes # (A) 0.76 X 10*3/uL (0.20-1.00); Monocytes % (A) 7.7 %; Neutrophils # (A) 6.55 X 10*3/uL (1.80-7.70); Neutrophils % (A) 66.4 %; Platelet Count 619 X 10*3/uL (140-440); RBC 3.01 X 10*6/uL (4.10-5.20); RDW 19.7 % (11.5-14.5); WBC 9.88 X 10*3/uL (4.50-10.00)
[2020-10-19] MEDS: PANTOPRAZOLE 40 MG/10 ML VIAL IVP SCH (09:49)
[2020-10-19] MEDS: LORazepam 2 MG/ML INJ IV PRN (09:49)
[2020-10-19] MEDS ORDERED: HYDROmorphone 0.5 MG/0.5 ML SYRINGE IVP STA (10:39)
--- NOTE | 2020-10-19 11:28 | CT ---
EXAMINATION TYPE: CT guided abscess drainage DATE OF EXAM: 10/19/2020 COMPARISON: CT 10/14/2020 HISTORY: Psoas abscess CT DLP: 917 mGycm Automated exposure control for dose reduction was used. PROCEDURE: Maximal barrier technique was utilized. The skin over suitable path to the abscess in the left psoas muscle was localized with CT and the overlying skin prepped and draped. Lidocaine was used for loca l anesthesia. A skin kaitlynn made with a scalpel. Access was gained using CT guidance with a 20-gauge needle, cloudy serous sanguinous material returned in the hub of the needle, approximately 5 cc. Aspi rated specimen submitted to cytology, microbiology. Needle was removed. No immediate complication. Th e patient remained in stable condition. IMPRESSION: STATUS POST CT GUIDED ABSCESS ASPIRATION, MICROBIOLOGY AND CYTOLOGY ANALYSIS IS PENDING. THIS PROCED URE WAS PERFORMED BY THE UNDERSIGNED.
--- NOTE | 2020-10-19 11:51 | P.PN ---
Subjective Progress Note Date: 10/19/20 Principal diagnosis: GI Bleed patient extremely anxious regarding the drainage today, regarding chemotherapy and situation. She is apprehensive to increase long acting pain meds or add long acting anti-anxiety. She has persistent nausea, dizziness, headaches, unsure if this is related to her anxiety or other. MRI brain is ordered. Will attempt olanzaprine low dose at bed to help with both. Objective - Vital Signs Vital signs: Vital Signs Temp 98.0 F 10/19/20 07:12 Pulse 98 10/19/20 11:10 Resp 16 10/19/20 11:10 BP 110/65 10/19/20 11:10 Pulse Ox 95 10/19/20 11:10 Intake & Output 10/18/20 10/19/20 10/19/20 18:59 06:59 18:59 Intake Total 987.379 Output Total 1025 1675 975 Balance -1025 -687.621 -975 Intake: Intake, IV Titration 397.379 Amount Heparin Sod,Pork in 0.45% 197.379 NaCl 25,000 unit In 0.45 % NaCl 1 250ml.bag @ 12 UNITS/KG/HR 9.336 mls/hr IV .Q24H [facility] Rx#: [id number] Sodium Chloride 0.9% 1, 200 000 ml @ 50 mls/hr IV . Q20H [facility] Rx#:[id number] Oral 590 Output: Drainage 1025 1475 975 Left Lateral 325 350 250 Right Lateral 700 1125 725 Stool 200 Other: # Voids 2 # Bowel Movements 1 - Exam Constitutional General appearance: no acute distress - EENT Eyes: EOMI, PERRLA ENT: hearing grossly normal, normal oropharynx - Neck Neck: no lymphadenopathy - Respiratory Respiratory: bilateral: CTA - Cardiovascular Rhythm: regular Heart sounds: normal: S1, S2 - Gastrointestinal Left lower quadrant ostomy. Lower mid abdomen covered with bandage. Patient states open areas on prior incision line General gastrointestinal: normal bowel sounds, soft Right nephrostomy darker urine, left clear - Integumentary Integumentary: normal - Neurologic Neurologic: CNII-XII intact - Musculoskeletal Musculoskeletal: generalized weakness, strength equal bilaterally - Psychiatric Psychiatric: A&O x's 3, appropriate affect Diffuse lower extremity edema, left greater than right. Drainage increased at site of abdominal wall. Right neohrostomy with increased blood tinged urine, Left clear Abdominal open area is protruding more, evidence of granulated tissue is present. - Labs CBC & Chem 7: 10/19/20 05:48 10/18/20 05:56 Labs: Abnormal Lab Results - Last 24 Hours (Table) 10/18/20 10/19/20 10/19/20 Range/Units 17:24 00:38 05:48 RBC 3.01 L (4.10-5.20) X 10*6/uL Hgb 8.5 L (12.0-15.0) g/dL Hct 27.9 L (37.2-46.3) % MCHC 30.5 L (32.0-37.0) g/dL RDW 19.7 H (11.5-14.5) % Plt Count 619 H (140-440) X 10*3/uL MPV 9.2 L (9.5-12.2) fL Immature Gran # 0.06 H (0.00-0.04) X 10*3/uL Eosinophils # 0.40 H (0.04-0.35) X 10*3/uL APTT 33.3 H 46.7 H (22.0-30.0) sec Microbiology - Last 24 Hours (Table) 10/17/20 18:21 Blood Culture - Preliminary Blood No Growth after 24 hours Assessment and Plan Plan: Abdominal x-ray: report reviewed CT scan - abdomen: report reviewed CT scan - pelvis: report reviewed US - abdomen: report reviewed Assessment and Plan Persistent Nausea/Anxiety: - Worse after walking with PT/OT today - Also with complaints of dizziness and headache - This is all related to debilitiation and myopathy secondary to deconditioning - PT/OT to continue to work with her daily., - Ativan to utilize prn for nausea - I will add olanzaprine at bed to see if that helps with nausea and sleep - MRI brain for metastatic disease and premedicate prior. CT Restaging: - Progressive cancer - Patient has yet to undergo treatment, will need all pathology from outside hospital Plan for FOLFOX inpatient today as patient has rapid progression. with the anticipated delay in cross state insurance coverage and her rapid growth the need to initiate chemo is imperative. She is still rather weak and performance status 2-3, although increased movement and up in chair >50% of day. She is anxious about treatment and feeling nauseated. Plan to start FOLFOX tomorrow, if ID clears from prior infection and then plan for inpatient rehab. ECF rehab will not be best suited for her as her overall status will decline, and this will potentially delay the important need of staying on tract with chemo and hinder her overall outcome. Dr. Alfaro has been consulted and brush worker has been asked to assist with insurance, disability coverage to prevent delay during transfer. she lives on second floor and does not have help here, her family is all in [place]. Colon Cancer: - Treatment at outside facility - Return to primary oncologist after hospital discharge - CEA increasing, Increased adenopathy inguinal, concern for progression. Repeat CT scans prior to discharge at direction of onc. GI bleed - Resolved NOrmocytic Anemia - Stable - Secondary to blood loss and malignancy - Stable, Plan as above. - Stable iron stores. - Replace with IV iron if needed. - Transfuse for hemoglobin less than 7 Recent Dx Acute Deep vein thrombosis (DVT) - No recurrent bleeding, Hemoglobin continues to improve, will switch to eliquis today. PLAN: - Eliquis to restart night of procedure - MRI brain Friday - IR to drain today 10/19/20 if culture negative after 48 hours ok to start chemo Friday - path - Discussed with ID - If neg culture, initiate FOLFOX Friday-Friday - COntinue daily PT/OT - MRI Brain with Premedication - Intensive PT program after discharge through [facility] (PT/OT will decide closer if eligible) versus home with homecare. - COncern of radpid progression Physician Attest: I have completed the full history and physical and agree with above dictation dictated asd ascribe Physician Attest: I have completed the full history and physical and agree with above dictation, dictated as a scribe.
[2020-10-19] MEDS: HEPARIN SOD,PORK IN 0.45% NACL 25,000 UNIT in 0.45% NACL 1 250ML.BAG IV SCH (13:51)
--- NOTE | 2020-10-19 16:03 | P.PN ---
Subjective Progress Note Date: 10/19/20 This is a 50 year old female who was recently admitted with acute lower GI bleed also had significant history of colon cancer with extensive local invasion and is being closely monitored. Multiple medical consultations following. Oncology also following and recommending inpatient chemotherapy and currently being planned. Patient recently underwent repeat CT of the abdomen showing further progression and an interventional radiology consulted for possible drainage of the abscess and anticoagulation has been placed on hold. Patient continues to be extremely weak and needs physical therapy daily. Patient was interviewed and evaluated by Dr. Alfaro possible inpatient rehab at [facility] although has been denied believes she would not be a good candidate. Will continue to monitor closely with possible drainage of the abscess tomorrow. Will repeat a.m. labs. 10/19/2020 Patient is seen and examined and follow-up this morning currently scheduled to undergo IR guided drainage to the abscess of the left psoas muscle. Microbiology and cytology obtained and currently pending. Infectious disease and oncology following. Patient was maintained on IV heparin as she needed to be off her anticoagulants for at least 3 days for this procedure and will resume Eliquis. Plan is for cultures to finalize and chemotherapy to start this Friday. Hemoglobin is stable at 8.5 with no active bleeding noted. White blood count is 9.8. Will repeat labs and continue to monitor closely. Patient contin ues to work with physical therapy and was able to walk slowly up and down the hallway yesterday. PT/OT therapy will be working with her daily. Review of systems: Constitutional: reports continued fatigue, no reports of fever, or chills Cardiovascular: No reports of chest pain or palpitations Respiratory: No reports of shortness of breath or cough GI: Reports continued nausea : No reports of dysuria or retention Neurovascular: Reports generalized weakness All medications have been reviewed Active Medications Hydrocodone Bitart/Acetaminophen (Hydrocodone/Apap 10-325mg 1 Each Tab) 1 each PO Q4HR [facility] Last Admin: 10/19/20 13:49 Dose: 1 each Documented by: Alprazolam (Alprazolam 0.5 Mg Tab) 0.5 mg PO TID PRN PRN Reason: Anxiety Last Admin: 10/19/20 04:21 Dose: 0.5 mg Documented by: Apixaban (Apixaban 5 Mg Tab) 5 mg PO BID [facility] Sodium Chloride (Saline 0.9%) 1,000 mls @ 50 mls/hr IV .Q20H [facility] Last Admin: 10/18/20 22:53 Dose: 50 mls/hr Documented by: Lorazepam (Lorazepam 2 Mg/Ml Inj) 0.5 mg IV Q4HR PRN PRN Reason: nausea Last Admin: 10/19/20 09:49 Dose: 0.5 mg Documented by: Morphine Sulfate (Morphine Sulfate Er 30 Mg Tablet) 30 mg PO Q8HR [facility]; Protocol Last Admin: 10/19/20 08:20 Dose: 30 mg Documented by: Naloxone HCl (Naloxone 0.4 Mg/Ml 1 Ml Vial) 0.2 mg IV Q2M PRN PRN Reason: Opioid Reversal Non Formulary Drug ( Levothyroxine 137mcg . Brand) 1 each PO DAILY@0630 [facility] Last Admin: 10/19/20 06:19 Dose: 1 each Documented by: Olanzapine (Olanzapine 2.5 Mg Tab) 2.5 mg PO HS [facility] Ondansetron HCl (Ondansetron 4 Mg/2 Ml Vial) 4 mg IVP Q4H [facility] Oxycodone HCl (Oxycodone Hcl 5 Mg Tab) 5 mg PO Q6H PRN PRN Reason: Pain Last Admin: 10/19/20 15:35 Dose: 5 mg Documented by: Pantoprazole Sodium (Pantoprazole 40 Mg/10 Ml Vial) 40 mg IVP DAILY [facility] Last Admin: 10/19/20 09:49 Dose: 40 mg Documented by: Objective - Vital Signs Vital signs: Vital Signs Temp 98.0 F 10/19/20 07:12 Pulse 90 10/19/20 07:12 Resp 16 10/19/20 07:12 BP 104/68 10/19/20 09:10 Pulse Ox 95 10/19/20 07:12 Intake & Output 10/18/20 10/19/20 10/19/20 18:59 06:59 18:59 Intake Total 987.379 Output Total 6422 9351 115 Balance -4709 -499.506 -253 Intake: Intake, IV Titration 397.379 Amount Heparin Sod,Pork in 0.45% 197.379 NaCl 25,000 unit In 0.45 % NaCl 1 250ml.bag @ 12 UNITS/KG/HR 9.336 mls/hr IV .Q24H [facility] Rx#: [id number] Sodium Chloride 0.9% 1, 200 000 ml @ 50 mls/hr IV . Q20H [facility] Rx#:[id number] Oral 590 Output: Drainage 1025 1475 975 Left Lateral 325 350 250 Right Lateral 700 1125 725 Stool 200 Other: # Voids 2 # Bowel Movements 1 - Exam GENERAL: The patient is alert and oriented x3, awake. Temp is 98.6F, pulse is 87, respirations are 16, blood pressure is 101/68, oxygen saturation is 98% on room air HEENT: Pupils are round and equally reacting to light. EOMI. No scleral icterus. No conjunctival pallor. Normocephalic, atraumatic. No pharyngeal erythema. No thyromegaly. CARDIOVASCULAR: S1, S2 are muffled PULMONARY: Diminished breath sounds bilaterally with no wheezing or rhonchi noted ABDOMEN: Adbominal scar covered in dressing - clean. Left-sided colostomy bag in place. Nephrostomy tubes clear urine MUSCULOSKELETAL: No joint swelling or deformity. EXTREMITIES: No cyanosis, clubbing, or pedal edema. NEUROLOGICAL: Gross neurological examination did not reveal any focal deficits. Diffuse weakness - Labs CBC & Chem 7: 10/19/20 05:48 10/18/20 05:56 Labs: Abnormal Lab Results - Last 24 Hours (Table) 10/18/20 10/18/20 10/19/20 Range/Units 09:22 17:24 00:38 RBC 3.20 L (3.80-5.40) m/uL Hgb 8.9 L (11.4-16.0) gm/dL Hct 28.1 L (34.0-46.0) % RDW 19.6 H (11.5-15.5) % Plt Count 656 H (150-450) k/uL APTT 33.3 H 46.7 H (22.0-30.0) sec Microbiology - Last 24 Hours (Table) 10/17/20 18:21 Blood Culture - Preliminary Blood No Growth after 24 hours Assessment and Plan Assessment: Acute lower GI bleed with streaks of blood per rectum likely due to anticoagulation with Lovenox. changed to Eliquis Recent right lower extremity DVT Intra-abdominal abscess completed antibiotic therapy Hypovolemic hyponatremia Colon cancer with extensive local invasion and also with diffuse metastasis Hypothyroidism Bilateral nephrostomy tubes in place Thrombocytosis GI prophylaxis DVT prophylaxis Full code Recommendations and discussion: Recommend to continue with current medications and management. Oncology following recommending inpatient chemotherapy as patient is apparently moving to [place] to seek further treatment although has no providers for follow-up therapy. She continues to be extremely weak and needs aggressive PT/OT therapy. PT/OT following will be working with her daily. Yesterday afternoon patient was able to walk the halls with physical therapy. Patient underwent Interventional radiology guided drainage of the abscess of the left psoas muscle today and cultures obtained and pending. Infectious disease is following. Anticoagulation has been resumed. Infectious disease awaiting for culture finalization to determine antibiotic recommendations. Hemoglobin is stable at 8.5 with no active bleeding noted. Continue to monitor labs closely and repeat a.m. labs. Overall prognosis remains poor and will continue to monitor closely. Further recommendations to follow.
[2020-10-19 17:09] LABS: Appearance,BF Blood Tinged; Color,BF Pink; Nucleated Cells, Body Fluid 67800 /uL; RBC, Body Fluid 63800 /uL
[2020-10-19 17:24] LABS: Mononuclear WBC,Body Fluid 2 %; Polynuclear WBC,Body Fluid 98 %; Total Cells Counted,Body Fluid 100
[2020-10-19] MEDS: OLANZapine 2.5 MG TAB PO SCH ×2 (19:44→19:54)
[2020-10-19] MEDS: APIXABAN 5 MG TAB PO SCH (19:44)
[2020-10-19] MEDS: SODIUM CHLORIDE 0.9% 1,000 ML IV SCH (21:41)
[2020-10-20] MEDS: ONDANSETRON 4 MG/2 ML VIAL IVP SCH ×7 (00:01→23:59)
[2020-10-20] MEDS: HYDROcodone/APAP 10-325MG 1 EACH TAB PO SCH ×7 (00:01→23:58)
--- NOTE | 2020-10-20 00:03 | PN ---
PROGRESS NOTE DATE OF SERVICE: 10/19/2020 REASON FOR FOLLOW UP: Locally advanced colon cancer, abnormal CT and a question of malignancy versus abscess. INTERVAL HISTORY: The patient is currently afebrile. The patient has been breathing comfortably. The patient is status post CT-guided aspirate of the suspicious area with drainage of some serosanguineous . Patient tolerated the procedure. Denies any worsening abdominal pain. No chest pain, shortness of breath or cough. PHYSICAL EXAMINATION: Blood pressure 100/66, pulse 83, temperature 98. She is 95% on room air. General description is a middle-aged female up in the chair in no distress. Respiratory system: Unlabored breathing. Clear to auscultation anteriorly. Heart S1, S2. Regular rate and rhythm. ABDOMEN: Soft, no tenderness. LABS: Hemoglobin 8.5, white count 9.88. DIAGNOSTIC IMPRESSION AND PLAN: Patient with locally advanced colon cancer in this patient with abnormal CT for possible progression of her malignancy and there was question of possible malignancy versus abscess/hematoma, status post surgical aspirate. We wait for the culture to finalize, if the cultures remain to be negative, she will be cleared for the chemo, currently being monitored closely off antibiotic therapy. Continue supportive care. MMODL / IJN: [id number] /
[2020-10-20] MEDS: LORazepam 2 MG/ML INJ IV PRN ×2 (01:46→20:09)
[2020-10-20] MEDS: LEVOTHYROXINE 137 MCG PO SCH (04:10)
[2020-10-20] MEDS: APIXABAN 5 MG TAB PO SCH ×2 (07:30→20:09)
[2020-10-20] MEDS: PANTOPRAZOLE 40 MG/10 ML VIAL IVP SCH (07:30)
[2020-10-20] MEDS: MORPHINE SULFATE ER 30 MG TABLET PO SCH ×4 (07:31→23:58)
[2020-10-20 07:32] LABS: ALT <6 U/L (4-34); AST 19 U/L (14-36); African American GFR (CKD) 85 (>60 ml/min/1.73 sqM); Albumin 2.8 g/dL (3.5-5.0); Alkaline Phosphatase 62 U/L (38-126); Anion Gap 3 mmol/L; Blood Urea Nitrogen 13 mg/dL (7-17); Calcium 9.2 mg/dL (8.4-10.2); Carbon Dioxide 32 mmol/L (22-30); Chloride 99 mmol/L (98-107); Globulin 2.7 g/dL; Glucose 89 mg/dL (74-99); Magnesium 1.9 mg/dL (1.6-2.3); Non-African American GFR(CKD) 74 (>60 ml/min/1.73 sqM); Potassium 4.3 mmol/L (3.5-5.1); Sodium 134 mmol/L (137-145); Total Bilirubin 0.2 mg/dL (0.2-1.3); Total Protein 5.5 g/dL (6.3-8.2)
[2020-10-20 11:30] LABS: Basophils # (A) 0.05 X 10*3/uL (0.00-0.10); Basophils % (A) 0.5 %; Eosinophils # (A) 0.36 X 10*3/uL (0.04-0.35); Eosinophils % (A) 3.7 %; HCT 28.4 % (37.2-46.3); HGB 8.5 g/dL (12.0-15.0); Lymphocytes # (A) 1.66 X 10*3/uL (0.90-5.00); Lymphocytes % (A) 17.3 %; MCH 28.1 pg (27.0-32.0); MCHC 29.9 g/dL (32.0-37.0); MCV 93.7 fL (80.0-97.0); Mean Platelet Volume 8.8 fL (9.5-12.2); Monocytes # (A) 0.72 X 10*3/uL (0.20-1.00); Monocytes % (A) 7.5 %; Neutrophils # (A) 6.77 X 10*3/uL (1.80-7.70); Neutrophils % (A) 70.5 %; Platelet Count 594 X 10*3/uL (140-440); RBC 3.03 X 10*6/uL (4.10-5.20); RDW 19.7 % (11.5-14.5); WBC 9.61 X 10*3/uL (4.50-10.00)
--- NOTE | 2020-10-20 12:35 | P.PN ---
Subjective Progress Note Date: 10/20/20 Principal diagnosis: GI Bleed Discussed with Dr. Anglin. Ok to begin chemo Friday or Friday. Utilize Ativan for nausea. Long discussion with Primary and PT/OT. She continues to work with them daily. Objective - Vital Signs Vital signs: Vital Signs Temp 98.0 F 10/20/20 07:25 Pulse 97 10/20/20 07:25 Resp 14 10/20/20 07:25 BP 100/65 10/20/20 07:25 Pulse Ox 98 10/20/20 07:25 Intake & Output 10/19/20 10/20/20 10/20/20 18:59 06:59 18:59 Intake Total 2760 240 Output Total 3825 1280 450 Balance -1065 -1040 -450 Intake: Intake, IV Titration 600 Amount Sodium Chloride 0.9% 1, 600 000 ml @ 50 mls/hr IV . Q20H [facility] Rx#:[id number] Oral 2160 240 Output: Drainage 2825 980 450 Left Lateral 600 350 100 Right Lateral 2225 630 350 Urine 1000 300 Other: Voiding Method Ileal Conduit (Right) Ileal Conduit (Left) - Exam Constitutional General appearance: no acute distress - EENT Eyes: EOMI, PERRLA ENT: hearing grossly normal, normal oropharynx - Neck Neck: no lymphadenopathy - Respiratory Respiratory: bilateral: CTA - Cardiovascular Rhythm: regular Heart sounds: normal: S1, S2 - Gastrointestinal Left lower quadrant ostomy. Lower mid abdomen covered with bandage. Patient states open areas on prior incision line General gastrointestinal: normal bowel sounds, soft Right nephrostomy darker urine, left clear - Integumentary Integumentary: normal - Neurologic Neurologic: CNII-XII intact - Musculoskeletal Musculoskeletal: generalized weakness, strength equal bilaterally - Psychiatric Psychiatric: A&O x's 3, appropriate affect Diffuse lower extremity edema, left greater than right. Drainage increased at site of abdominal wall. Right neohrostomy with increased blood tinged urine, Left clear Abdominal open area is protruding more, evidence of granulated tissue is present. - Labs CBC & Chem 7: 10/20/20 06:11 10/20/20 06:11 Labs: Abnormal Lab Results - Last 24 Hours (Table) 10/20/20 10/20/20 Range/Units 06:11 06:11 RBC 3.03 L (4.10-5.20) X 10*6/uL Hgb 8.5 L (12.0-15.0) g/dL Hct 28.4 L (37.2-46.3) % MCHC 29.9 L (32.0-37.0) g/dL RDW 19.7 H (11.5-14.5) % Plt Count 594 H (140-440) X 10*3/uL MPV 8.8 L (9.5-12.2) fL Immature Gran # 0.05 H (0.00-0.04) X 10*3/uL Eosinophils # 0.36 H (0.04-0.35) X 10*3/uL Sodium 134 L (137-145) mmol/L Carbon Dioxide 32 H (22-30) mmol/L Total Protein 5.5 L (6.3-8.2) g/dL Albumin 2.8 L (3.5-5.0) g/dL Microbiology - Last 24 Hours (Table) 10/19/20 10:57 Gram Stain - Preliminary Aspirate Body Fluid Culture - Preliminary 10/19/20 10:57 Fungal Culture - Preliminary Aspirate 10/19/20 10:57 Anaerobic Culture - Preliminary Aspirate 10/17/20 18:21 Blood Culture - Preliminary Blood No Growth after 48 hours Assessment and Plan Plan: Abdominal x-ray: report reviewed CT scan - abdomen: report reviewed CT scan - pelvis: report reviewed US - abdomen: report reviewed Assessment and Plan Persistent Nausea/Anxiety: - Worse after walking with PT/OT today - Also with complaints of dizziness and headache - This is all related to debilitiation and myopathy secondary to deconditioning - PT/OT to continue to work with her daily., - Ativan to utilize prn for nausea - I will add olanzaprine at bed to see if that helps with nausea and sleep - MRI brain for metastatic disease and premedicate prior. CT Restaging: - Progressive cancer - Patient has yet to undergo treatment, will need all pathology from outside hospital Plan for FOLFOX inpatient today as patient has rapid progression. with the anticipated delay in [place] and her rapid growth the need to initiate chemo is imperative. She is still rather weak and performance status 2-3, although increased movement and up in chair >50% of day. She is anxious about treatment and feeling nauseated. Plan to start FOLFOX tomorrow, if ID clears from prior infection and then plan for inpatient rehab. ECF rehab will not be best suited for her as her overall status will decline, and this will potentially delay the important need of staying on tract with chemo and hinder her overall outcome. Dr. Alfaro has been consulted and hoe worker has been asked to assist with insurance, disability coverage to prevent delay during transfer. she lives on second floor and does not have help here, her family is all in [place]. Colon Cancer: - Treatment at outside facility - Return to primary oncologist after hospital discharge - CEA increasing, Increased adenopathy inguinal, concern for progression. Repeat CT scans prior to discharge at direction of onc. GI bleed - Resolved NOrmocytic Anemia - Stable - Secondary to blood loss and malignancy - Stable, Plan as above. - Stable iron stores. - Replace with IV iron if needed. - Transfuse for hemoglobin less than 7 Recent Dx Acute Deep vein thrombosis (DVT) - No recurrent bleeding, Hemoglobin continues to improve, will switch to eliquis today. PLAN: - Eliquis to restart night of procedure - MRI brain Friday - IR to drain today 10/19/20 if culture negative after 48 hours ok to start chemo Friday - path - Discussed with ID - If neg culture, initiate FOLFOX Friday-Friday - COntinue daily PT/OT - MRI Brain with Premedication - Intensive PT program after discharge through [facility] (PT/OT will decide closer if eligible) versus home with homecare. - COncern of radpid progression ID cleared for start Friday or Friday if no growth.
--- NOTE | 2020-10-20 14:55 | P.PN ---
Subjective Progress Note Date: 10/20/20 This is a 50 year old female who was recently admitted with acute lower GI bleed also had significant history of colon cancer with extensive local invasion and is being closely monitored. Multiple medical consultations following. Oncology also following and recommending inpatient chemotherapy and currently being planned. Patient recently underwent repeat CT of the abdomen showing further progression and an interventional radiology consulted for possible drainage of the abscess and anticoagulation has been placed on hold. Patient continues to be extremely weak and needs physical therapy daily. Patient was interviewed and evaluated by Dr. Alfaro possible inpatient rehab at [facility] although has been denied believes she would not be a good candidate. Will continue to monitor closely with possible drainage of the abscess tomorrow. Will repeat a.m. labs. 10/19/2020 Patient is seen and examined and follow-up this morning currently scheduled to undergo IR guided drainage to the abscess of the left psoas muscle. Microbiology and cytology obtained and currently pending. Infectious disease and oncology following. Patient was maintained on IV heparin as she needed to be off her anticoagulants for at least 3 days for this procedure and will resume Eliquis. Plan is for cultures to finalize and chemotherapy to start this Friday. Hemoglobin is stable at 8.5 with no active bleeding noted. White blood count is 9.8. Will repeat labs and continue to monitor closely. Patient contin ues to work with physical therapy and was able to walk slowly up and down the hallway yesterday. PT/OT therapy will be working with her daily. 10/20/2020 Patient is seen this morning in follow-up and recently underwent IR guided drainage of the left psoas muscle and is being closely monitored. Oncology along with infectious disease following closely. Specimens obtained and currently pending at this time. If cultures are negative discussion is being had about starting chemotherapy. PT/OT has been working with the patient daily as tolerated. Patient was resumed on anticoagulant with no active bleeding noted. Hemoglobin remains at 8.5 today. White blood count is 9.61. Sodium is 134 with a potassium of 4.3 and current creatinine is 0.92. Patient continues to have nausea although is tolerating diet. Patient remains fatigued with continued abdominal discomfort. Pain management per oncology. No reports of chest pain or shortness of breath. Patient is afebrile. Review of systems: Constitutional: reports continued fatigue, no reports of fever, or chills Cardiovascular: No reports of chest pain or palpitations Respiratory: No reports of shortness of breath or cough GI: Reports continued nausea : No reports of dysuria or retention Neurovascular: Reports generalized weakness All medications have been reviewed Active Medications Hydrocodone Bitart/Acetaminophen (Hydrocodone/Apap 10-325mg 1 Each Tab) 1 each PO Q4HR [facility] Last Admin: 10/20/20 11:13 Dose: 1 each Documented by: Alprazolam (Alprazolam 0.5 Mg Tab) 0.5 mg PO TID PRN PRN Reason: Anxiety Last Admin: 10/19/20 04:21 Dose: 0.5 mg Documented by: Apixaban (Apixaban 5 Mg Tab) 5 mg PO BID [facility] Last Admin: 10/20/20 07:30 Dose: 5 mg Documented by: Sodium Chloride (Saline 0.9%) 1,000 mls @ 50 mls/hr IV .Q20H [facility] Last Admin: 10/19/20 21:41 Dose: 50 mls/hr Documented by: Lorazepam (Lorazepam 2 Mg/Ml Inj) 0.5 mg IV Q4HR PRN PRN Reason: nausea Last Admin: 10/20/20 01:46 Dose: 0.5 mg Documented by: Morphine Sulfate (Morphine Sulfate Er 30 Mg Tablet) 30 mg PO Q8HR [facility]; Protocol Last Admin: 10/20/20 07:31 Dose: 30 mg Documented by: Naloxone HCl (Naloxone 0.4 Mg/Ml 1 Ml Vial) 0.2 mg IV Q2M PRN PRN Reason: Opioid Reversal Non Formulary Drug ( Levothyroxine 137mcg . Brand) 1 each PO DAILY@0630 [facility] Last Admin: 10/20/20 04:10 Dose: 1 each Documented by: Olanzapine (Olanzapine 2.5 Mg Tab) 2.5 mg PO HS [facility] Ondansetron HCl (Ondansetron 4 Mg/2 Ml Vial) 4 mg IVP Q4H [facility] Last Admin: 10/20/20 11:15 Dose: 4 mg Documented by: Oxycodone HCl (Oxycodone Hcl 5 Mg Tab) 5 mg PO Q6H PRN PRN Reason: Pain Last Admin: 10/20/20 13:39 Dose: 5 mg Documented by: Pantoprazole Sodium (Pantoprazole 40 Mg/10 Ml Vial) 40 mg IVP DAILY [facility] Last Admin: 10/20/20 07:30 Dose: 40 mg Documented by: Objective - Vital Signs Vital signs: Vital Signs Temp 98.0 F 10/20/20 07:25 Pulse 97 10/20/20 07:25 Resp 14 10/20/20 07:25 BP 100/65 10/20/20 07:25 Pulse Ox 98 10/20/20 07:25 Intake & Output 10/19/20 10/20/20 10/20/20 18:59 06:59 18:59 Intake Total 2760 240 Output Total 3825 1280 Balance -1065 -1040 Intake: Intake, IV Titration 600 Amount Sodium Chloride 0.9% 1, 600 000 ml @ 50 mls/hr IV . Q20H [facility] Rx#:[id number] Oral 2160 240 Output: Drainage 2825 980 Left Lateral 600 350 Right Lateral 2225 630 Urine 1000 300 Other: Voiding Method Ileal Conduit (Right) Ileal Conduit (Left) - Exam GENERAL: The patient is alert and oriented x3, awake. Temp is 98.0F, pulse is 97, respirations are 14, blood pressure is 100/65, oxygen saturation is 98% on room air HEENT: Pupils are round and equally reacting to light. EOMI. No scleral icterus. No conjunctival pallor. Normocephalic, atraumatic. No pharyngeal erythema. No thyromegaly. CARDIOVASCULAR: S1, S2 are muffled PULMONARY: Diminished breath sounds bilaterally with no wheezing or rhonchi noted ABDOMEN: Adbominal scar covered in dressing - clean. Left-sided colostomy bag in place. Nephrostomy tubes clear urine MUSCULOSKELETAL: No joint swelling or deformity. EXTREMITIES: No cyanosis, clubbing, or pedal edema. NEUROLOGICAL: Gross neurological examination did not reveal any focal deficits. Diffuse weakness - Labs CBC & Chem 7: 10/20/20 06:11 10/20/20 06:11 Labs: Abnormal Lab Results - Last 24 Hours (Table) 10/19/20 10/20/20 Range/Units 05:48 06:11 RBC 3.01 L (4.10-5.20) X 10*6/uL Hgb 8.5 L (12.0-15.0) g/dL Hct 27.9 L (37.2-46.3) % MCHC 30.5 L (32.0-37.0) g/dL RDW 19.7 H (11.5-14.5) % Plt Count 619 H (140-440) X 10*3/uL MPV 9.2 L (9.5-12.2) fL Immature Gran # 0.06 H (0.00-0.04) X 10*3/uL Eosinophils # 0.40 H (0.04-0.35) X 10*3/uL Sodium 134 L (137-145) mmol/L Carbon Dioxide 32 H (22-30) mmol/L Total Protein 5.5 L (6.3-8.2) g/dL Albumin 2.8 L (3.5-5.0) g/dL Microbiology - Last 24 Hours (Table) 10/19/20 10:57 Gram Stain - Preliminary Aspirate Body Fluid Culture - Preliminary 10/19/20 10:57 Fungal Culture - Preliminary Aspirate 10/19/20 10:57 Anaerobic Culture - Preliminary Aspirate 10/17/20 18:21 Blood Culture - Preliminary Blood No Growth after 48 hours Assessment and Plan Assessment: Acute lower GI bleed with streaks of blood per rectum likely due to anticoagulation with Lovenox. changed to Eliquis Recent right lower extremity DVT Lesion within the left iliopsoas musculature measuring 2.8 x 1.9 cm as noted on CT status post IR CT-guided drainage for fluid analysis Intra-abdominal abscess completed antibiotic therapy Hypovolemic hyponatremia Colon cancer with extensive local invasion and also with diffuse metastasis Hypothyroidism Bilateral nephrostomy tubes in place Thrombocytosis GI prophylaxis DVT prophylaxis Full code Recommendations and discussion: Recommend to continue with current medications and management. Oncology following recommending inpatient chemotherapy. She continues to be extremely weak and needs aggressive PT/OT therapy. PT/OT following will be working with her daily. Patient underwent Interventional radiology guided drainage of the left iliopsoas muscle and cultures obtained and pending. Infectious disease is following. Anticoagulation has been resumed. Infectious disease awaiting for culture finalization to determine antibiotic recommendations and if cultures are negative chemotherapy will proceed per oncology. Hemoglobin is stable at 8.5 with no active bleeding noted. Continue to monitor labs closely and repeat a.m. labs. Overall prognosis remains guarded and will continue to monitor closely. Further recommendations to follow.
[2020-10-20] MEDS: SODIUM CHLORIDE 0.9% 1,000 ML IV SCH ×2 (16:04→20:11)
--- NOTE | 2020-10-20 19:02 | PN ---
PROGRESS NOTE DATE OF SERVICE: 10/20/2020 REASON FOR FOLLOWUP: Abnormal CT and question of malignancy versus abscess. INTERVAL HISTORY: The patient is currently afebrile. The patient is feeling better, breathing comfortably. The patient denies having any chest pain or shortness of breath or cough. Abdominal pain is currently controlled. No nausea, no vomiting. No diarrhea. PHYSICAL EXAMINATION: Blood pressure is 96/57, pulse of 94, temperature 98.1. She is 95% on room air. General description is a middle-aged female lying in bed in no distress. RESPIRATORY SYSTEM: Unlabored breathing. Clear to auscultation anteriorly. HEART: S1, S2. Regular rate and rhythm. ABDOMEN: Soft. No guarding or rigidity. LABS: Hemoglobin 8.5, white count 9.6. BUN of 13, creatinine 0.92. Abdominal culture so far negative. DIAGNOSTIC IMPRESSION AND PLAN: Patient with nonoperable colon cancer with progression in this patient who did have abnormal CT with a question of possible malignancy versus abscess. Clinically not behaving as an abscess in this patient with no fever or elevated white count, status post CT-guided aspirate, and those cultures negative. If they remain negative at 72 hours, she will be cleared to go for chemo. This was discussed with the nurse practitioner for Oncology. No need for systemic antibiotic therapy at this point, as clinical suspicion is low for abscess. MMODL / IJN: [id number] /
[2020-10-20] MEDS ORDERED: LORazepam 2 MG/ML INJ IV STA (23:34)
[2020-10-20] MEDS: OLANZapine 2.5 MG TAB PO SCH (23:58)
[2020-10-21] MEDS: ALPRAZolam 0.5 MG TAB PO PRN ×3 (01:33→22:00)
[2020-10-21] MEDS: OLANZapine 2.5 MG TAB PO SCH ×2 (02:14→20:27)
[2020-10-21] MEDS: HYDROcodone/APAP 10-325MG 1 EACH TAB PO SCH ×5 (04:08→20:27)
[2020-10-21] MEDS: LEVOTHYROXINE 137 MCG PO SCH (05:43)
[2020-10-21] MEDS: ONDANSETRON 4 MG/2 ML VIAL IVP SCH ×5 (05:45→20:28)
[2020-10-21] MEDS: MORPHINE SULFATE ER 30 MG TABLET PO SCH ×2 (08:48→17:54)
[2020-10-21] MEDS: PANTOPRAZOLE 40 MG/10 ML VIAL IVP SCH (08:49)
[2020-10-21 08:57] LABS: Basophils # (A) 0.07 X 10*3/uL (0.00-0.10); Basophils % (A) 0.7 %; Eosinophils # (A) 0.34 X 10*3/uL (0.04-0.35); Eosinophils % (A) 3.3 %; HCT 27.7 % (37.2-46.3); HGB 8.4 g/dL (12.0-15.0); Lymphocytes % (A) 17.4 %; MCH 28.1 pg (27.0-32.0); MCHC 30.3 g/dL (32.0-37.0); MCV 92.6 fL (80.0-97.0); Mean Platelet Volume 8.8 fL (9.5-12.2); Monocytes # (A) 0.88 X 10*3/uL (0.20-1.00); Monocytes % (A) 8.5 %; Neutrophils # (A) 7.23 X 10*3/uL (1.80-7.70); Neutrophils % (A) 69.7 %; Platelet Count 603 X 10*3/uL (140-440); RBC 2.99 X 10*6/uL (4.10-5.20); RDW 19.5 % (11.5-14.5); WBC 10.36 X 10*3/uL (4.50-10.00)
[2020-10-21 12:13] LABS: Appearance,Urine Clear (Clear); Bacteria,Urine Rare /hpf; Bilirubin,Urine Negative (Negative); Blood,Urine Large (Negative); Color,Urine Light Yellow; Glucose,Urine (UA) Negative (Negative); Hyaline Casts,Urine 1 /lpf (0-2); Ketones,Urine Negative (Negative); Leukocyte Esterase,Urine Moderate (Negative); Mucus,Urine Rare /hpf; Nitrite,Urine Negative (Negative); Protein,Urine Trace (Negative); RBC,Urine 153 /hpf (0-5); Specific Gravity,Urine 1.005 (1.001-1.035); Urobilinogen,Urine <2.0 mg/dL (<2.0); WBC,Urine 8 /hpf (0-5)
[2020-10-21] MEDS ORDERED: ONDANSETRON 16 MG in SODIUM CHLORIDE 0.9% 50 ML IVPB ONE (12:30)
[2020-10-21] MEDS ORDERED: FAMOTIDINE 20 MG/2 ML VIAL IV ONE (12:30)
[2020-10-21] MEDS ORDERED: DEXAMETHASONE SOD PHOSPHATE 10 MG/ML 1 ML VIAL IV ONE (12:30)
[2020-10-21] MEDS ORDERED: OXALIPLATIN 100 MG, OXALIPLATIN 50 MG in DEXTROSE 5% IN WATER 500 ML IV ONE ×3 (13:00)
[2020-10-21] MEDS ORDERED: LEUCOVORIN 700 MG in DEXTROSE 5% IN WATER 500 ML IV ONE ×2 (13:00)
[2020-10-21] MEDS: APIXABAN 5 MG TAB PO SCH ×2 (14:56→20:28)
[2020-10-21] MEDS: LORazepam 2 MG/ML INJ IV PRN (15:04)
[2020-10-21] MEDS: SODIUM CHLORIDE 0.9% 1,000 ML IV SCH (15:07)
[2020-10-21] MEDS ORDERED: FLUOROURACIL IV ONE (15:15)
[2020-10-21] MEDS ORDERED: SODIUM CHLORIDE 0.9% IV ONE (15:15)
--- NOTE | 2020-10-21 19:07 | PN ---
PROGRESS NOTE DATE OF SERVICE: 10/21/2020 This 50-year-old woman who was admitted with acute lower gastrointestinal bleed also had significant malignancy. Patient started on chemotherapy. No chest pain. No palpitations. No fever. The patient is extremely anxious. Patient had psoas abscess which was aspirated the last week. PHYSICAL EXAMINATION: Alert and oriented x3. Pulse 91, blood pressure 90/61, respiration 17, temperature 98.2, pulse ox 98% on room air. HEENT: Conjunctivae normal. Oral mucosa moist. NECK: No jugular venous distention. No lymph node enlargement. CARDIOVASCULAR: S1, S2, muffled. No S3, no S4, RESPIRATORY: Diminished breath sounds at the bases. Bilateral scattered rhonchi and crackles. ABDOMEN: Soft, nontender. LEGS: No edema, no swelling. NERVOUS SYSTEM: No focal motor or sensory deficits. LAB STUDIES: WBC 10.2, hemoglobin is 8.4. UA noted some hematuria. ASSESSMENT: 1. Acute lower gastrointestinal bleeding and streaks of blood per rectum, likely due to anticoagulation with Lovenox, change to Eliquis. 2. Mild hematuria. 3. History of recent right lower leg deep vein thrombosis. 4. Left iliopsoas abscess status post Interventional Radiology guided drainage. 5. Hypovolemic hyponatremia. 6. Colon cancer with extensive local invasion and some diffuse metastases. 7. Hypothyroidism. 8. Bilateral nephrostomy tubes in place. 9. Gait dysfunction. 10.Thrombocytosis. 11.GI and DVT prophylaxis. 12.FULL CODE. RECOMMENDATIONS: Recommend to continue current management and symptomatic treatment. Otherwise, at this time I recommend hold the Eliquis if okay with Hematology because of the continued hematuria. Other than that, continue the rest of medications. Chemotherapy per Hematology/Oncology. Await final culture report. Guarded prognosis. Further recommendations to follow. MMODL / IJN: [id number] /
--- NOTE | 2020-10-21 21:49 | PN ---
PROGRESS NOTE DATE OF SERVICE: 10/21/2020 REASON FOR FOLLOWUP: Abnormal CT, likely progression of her malignancy with question of infection. INTERVAL HISTORY: The patient is currently afebrile. Patient is feeling better. Breathing comfortably. The patient denies having any chest pain, shortness of breath or cough or any worsening abdominal pain. No nausea, no vomiting. She has been started on chemo which the patient has tolerated so far. PHYSICAL EXAMINATION: Blood pressure 116/69 with pulse of 89, temperature 98.1. She is 98% on room air. General description: The patient is a middle-aged female lying in bed in no distress. Respiratory system: Unlabored breathing, clear to auscultation anteriorly. Heart S1, S2. Regular rate and rhythm ABDOMEN: Soft, no tenderness. LABS: Hemoglobin 8.4, white count 10.36. Positive UA. No significant urinary symptoms though. 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 Patient is status post CT-guided drainage and those cultures have been negative so far. The patient has been starting chemo. Will monitor closely and continue supportive care. MMODL / IJN: [id number] /
--- NOTE | 2020-10-21 22:37 | P.PN ---
Subjective Progress Note Date: 10/21/20 Principal diagnosis: GI Bleed Chemotherapy initiated, patient is tolerating well. Objective - Vital Signs Vital signs: Vital Signs Temp 98.6 F 10/21/20 12:15 Pulse 97 10/21/20 12:15 Resp 17 10/21/20 12:15 BP 97/61 10/21/20 12:15 Pulse Ox 97 10/21/20 12:15 Intake & Output 10/20/20 10/21/20 10/21/20 18:59 06:59 18:59 Intake Total 3140 Output Total 2320 950 Balance 820 -950 Intake: Intake, IV Titration 600 Amount Sodium Chloride 0.9% 1, 600 000 ml @ 50 mls/hr IV . Q20H [facility] Rx#:[id number] Oral 2540 Output: Drainage 2120 950 Left Lateral 570 250 Right Lateral 1550 700 Stool 200 Other: Voiding Method Ileal Conduit (Right) Ileal Conduit (Right) Ileal Conduit (Right) Ileal Conduit (Left) Ileal Conduit (Left) Ileal Conduit (Left) - Exam Constitutional General appearance: no acute distress - EENT Eyes: EOMI, PERRLA ENT: hearing grossly normal, normal oropharynx - Neck Neck: no lymphadenopathy - Respiratory Respiratory: bilateral: CTA - Cardiovascular Rhythm: regular Heart sounds: normal: S1, S2 - Gastrointestinal Left lower quadrant ostomy. Lower mid abdomen covered with bandage. Patient states open areas on prior incision line General gastrointestinal: normal bowel sounds, soft Right nephrostomy darker urine, left clear - Integumentary Integumentary: normal - Neurologic Neurologic: CNII-XII intact - Musculoskeletal Musculoskeletal: generalized weakness, strength equal bilaterally - Psychiatric Psychiatric: A&O x's 3, appropriate affect Diffuse lower extremity edema, left greater than right. Drainage increased at site of abdominal wall. Right neohrostomy with increased blood tinged urine, Left clear Abdominal open area is protruding more, evidence of granulated tissue is present. - Labs CBC & Chem 7: 10/21/20 05:45 10/20/20 06:11 Labs: Abnormal Lab Results - Last 24 Hours (Table) 10/21/20 10/21/20 Range/Units 05:45 11:40 WBC 10.36 H (4.50-10.00) X 10*3/uL RBC 2.99 L (4.10-5.20) X 10*6/uL Hgb 8.4 L (12.0-15.0) g/dL Hct 27.7 L (37.2-46.3) % MCHC 30.3 L (32.0-37.0) g/dL RDW 19.5 H (11.5-14.5) % Plt Count 603 H (140-440) X 10*3/uL MPV 8.8 L (9.5-12.2) fL Urine Protein Trace H (Negative) Urine Blood Large H (Negative) Ur Leukocyte Esterase Moderate H (Negative) Urine RBC 153 H (0-5) /hpf Urine WBC 8 H (0-5) /hpf Urine Bacteria Rare H (None) /hpf Urine Mucus Rare H (None) /hpf Microbiology - Last 24 Hours (Table) 10/17/20 18:21 Blood Culture - Preliminary Blood No Growth after 72 hours 10/19/20 10:57 Gram Stain - Preliminary Aspirate Body Fluid Culture - Preliminary Assessment and Plan Plan: Abdominal x-ray: report reviewed CT scan - abdomen: report reviewed CT scan - pelvis: report reviewed US - abdomen: report reviewed Assessment and Plan Persistent Nausea/Anxiety: - Worse after walking with PT/OT today - Also with complaints of dizziness and headache - This is all related to debilitiation and myopathy secondary to deconditioning - PT/OT to continue to work with her daily., - Ativan to utilize prn for nausea - I will add olanzaprine at bed to see if that helps with nausea and sleep - MRI brain for metastatic disease and premedicate prior. CT Restaging: - Progressive cancer - Patient has yet to undergo treatment, will need all pathology from outside h ospital Plan for FOLFOX inpatient today as patient has rapid progression. with the anticipated delay in [place] and her rapid growth the need to initiate chemo is imperative. She is still rather weak and performance status 2-3, although increased movement and up in chair >50% of day. She is anxious about treatment and feeling nauseated. Plan to start FOLFOX tomorrow, if ID clears from prior infection and then plan for inpatient rehab. ECF rehab will not be best suited for her as her overall status will decline, and this will potentially delay the important need of staying on tract with chemo and hinder her overall outcome. Dr. Alfaro has been consulted and die storage worker has been asked to assist with insurance, disability coverage to prevent delay during transfer. she lives on second floor and does not have help here, her family is all in [place]. Colon Cancer: - Treatment at outside facility - Return to primary oncologist after hospital discharge - CEA increasing, Increased adenopathy inguinal, concern for progression. Repeat CT scans prior to discharge at direction of onc. GI bleed - Resolved NOrmocytic Anemia - Stable - Secondary to blood loss and malignancy - Stable, Plan as above. - Stable iron stores. - Replace with IV iron if needed. - Transfuse for hemoglobin less than 7 Recent Dx Acute Deep vein thrombosis (DVT) - No recurrent bleeding, Hemoglobin continues to improve, will switch to eliquis today. PLAN: - Day one of chemotherapy - TOlerating well - Discussed potentially increasing long acting pain medication if needed: Next dose 60 q12
[2020-10-22] MEDS: MORPHINE SULFATE ER 30 MG TABLET PO SCH ×3 (00:08→16:46)
[2020-10-22] MEDS: HYDROcodone/APAP 10-325MG 1 EACH TAB PO SCH ×6 (00:08→19:48)
[2020-10-22] MEDS: SODIUM CHLORIDE 0.9% 1,000 ML IV SCH ×2 (00:10→20:44)
[2020-10-22] MEDS: ONDANSETRON 4 MG/2 ML VIAL IVP SCH ×6 (00:51→19:48)
[2020-10-22] MEDS: LORazepam 2 MG/ML INJ IV PRN ×2 (02:03→20:48)
[2020-10-22] MEDS: LEVOTHYROXINE 137 MCG PO SCH (06:38)
[2020-10-22 09:13] LABS: Basophils # (A) 0.03 X 10*3/uL (0.00-0.10); Basophils % (A) 0.2 %; Eosinophils # (A) 0 X 10*3/uL (0.04-0.35); Eosinophils % (A) 0 %; HCT 29.2 % (37.2-46.3); Lymphocytes # (A) 0.97 X 10*3/uL (0.90-5.00); Lymphocytes % (A) 6.8 %; MCH 28.1 pg (27.0-32.0); MCHC 30.8 g/dL (32.0-37.0); MCV 91.3 fL (80.0-97.0); Monocytes # (A) 0.54 X 10*3/uL (0.20-1.00); Monocytes % (A) 3.8 %; Neutrophils # (A) 12.57 X 10*3/uL (1.80-7.70); Neutrophils % (A) 88.8 %; Platelet Count 631 X 10*3/uL (140-440); RDW 18.3 % (11.5-14.5); WBC 14.17 X 10*3/uL (4.50-10.00)
[2020-10-22] MEDS: ALPRAZolam 0.5 MG TAB PO PRN (09:22)
[2020-10-22] MEDS: PANTOPRAZOLE 40 MG/10 ML VIAL IVP SCH ×2 (09:22→20:52)
[2020-10-22] MEDS: APIXABAN 5 MG TAB PO SCH ×2 (09:23→20:45)
[2020-10-22] MEDS: SALT AND SODA MOUTHWASH 1,000 ML PO SCH ×3 (09:24→18:29)
[2020-10-22 10:23] LABS: ALT <8 U/L (8-44); AST 15 U/L (13-35); African American GFR (CKD) 100.3 (60.0-200.0); Albumin/Globulin Ratio 1.59 (1.60-3.17); Alkaline Phosphatase 66 U/L (41-126); BUN/Creat Ratio 21.25 Ratio (12.00-20.00); Calcium 9.5 mg/dL (8.7-10.3); Carbon Dioxide 27.4 mmol/L (21.6-31.8); Chloride 101 mmol/L (96-109); Globulin 2.2 g/dL (1.6-3.3); Glucose 133 mg/dL (70-110); Non-African American GFR(CKD) 86.6 (60.0-200.0); Potassium 5.2 mmol/L (3.5-5.5); Sodium 136 mmol/L (135-145); Total Bilirubin 0.2 mg/dL (0.2-1.2); Total Protein 5.7 g/dL (6.2-8.2)
[2020-10-22 19:03] LABS: Anisocytosis Slight; HCT 30.1 % (34.0-46.0); HGB 9.9 gm/dL (11.4-16.0); Hypochromasia Slight; MCH 29.3 pg (25.0-35.0); MCHC 32.8 g/dL (31.0-37.0); MCV 89.5 fL (80.0-100.0); Mean Platelet Volume 6.6; Platelet Count 663 k/uL (150-450); RBC 3.36 m/uL (3.80-5.40)
--- NOTE | 2020-10-22 20:33 | PN ---
PROGRESS NOTE DATE OF SERVICE: 10/22/2020 REASON FOR FOLLOWUP: Abnormal CT and question of malignancy. INTERVAL HISTORY: The patient is currently afebrile. The patient is feeling better. Breathing comfortably. Denies having any chest pain or shortness of breath or cough. No worsening abdominal pain. No nausea, vomiting or diarrhea. PHYSICAL EXAMINATION: Blood pressure 100/59, pulse of 74, temperature 98. She is 99% on room air. General description is a middle-aged female lying in bed in no distress. Respiratory system: Unlabored breathing, clear to auscultation anteriorly. Heart S1, S2. Regular rate and rhythm. ABDOMEN: Soft, no tenderness. EXTREMITIES: No edema of the feet. LABS: White count slightly up to 14.17. DIAGNOSTIC IMPRESSION AND PLAN: Patient with inoperable locally advanced sigmoid colon cancer in this patient status post multiple surgery including diverting colostomy with recent rapid progression. Abnormal CT with concern for possible abscess. However, the area has been drained and those cultures were negative. Patient with no fever or elevated white count on this admission. Patient will be started on chemo. Will monitor closely off antibiotic therapy and continue supportive care. MMODL / IJN: [id number] /
[2020-10-22] MEDS: OLANZapine 2.5 MG TAB PO SCH (20:41)
--- NOTE | 2020-10-22 22:04 | PN ---
PROGRESS NOTE DATE OF SERVICE: 10/22/2020 This 50-year-old woman who was admitted with acute lower gastrointestinal bleed and also had significant malignancy. The patient is started on chemotherapy per Infectious Disease. The patient is apparently tolerated the chemotherapy well. The patient also had a psoas abscess which was aspirated and cultures negative so far. Past medical history reviewed. PHYSICAL EXAM: Patient is alert, oriented x2. Pulse 75. Blood pressure 100/59, respiration 17, temperature 97.4, pulse ox 99% on room air. HEENT: Conjunctivae normal. NECK: No JVD. CARDIOVASCULAR: S1, S2 muffled. RESPIRATORY: Breath sounds diminished in the bases. No rhonchi. No crackles. ABDOMEN: Soft, nontender. Nervous system: No focal deficits. LABS: WBC 14.2, hemoglobin is 9. Other labs are noted. UA noted. Cultures are negative so far. ASSESSMENT: 1. Acute lower gastrointestinal bleeding and streaks of blood per rectum, likely due to anticoagulation with Lovenox. 2. Colon cancer with extensive local invasion with diffuse metastasis on chemotherapy. 3. Mild hematuria. 4. History of recent right lower leg deep vein thrombosis. 5. Left iliopsoas abscess status post interventional Radiology and guided drainage. 6. Cultures negative. 7. Hypovolemic hyponatremia. 8. Hypothyroidism. 9. Bilateral nephrostomy tubes in place. 10.Gait dysfunction. 11.Thrombocytosis. 12.FULL CODE. RECOMMENDATIONS AND DISCUSSION: Recommend to continue current medications, symptomatic treatment. Otherwise at this time I recommend to continue the chemotherapy per Hematology/Oncology and we will await further culture reports. Prognosis guarded because of multiple complex medical issues. Further recommendations to follow. MMODL / IJN: [id number] /
[2020-10-23] MEDS: HYDROcodone/APAP 10-325MG 1 EACH TAB PO SCH ×6 (00:02→21:18)
[2020-10-23] MEDS: MORPHINE SULFATE ER 30 MG TABLET PO SCH ×3 (00:02→15:59)
[2020-10-23] MEDS: ONDANSETRON 4 MG/2 ML VIAL IVP SCH ×6 (00:03→20:10)
[2020-10-23] MEDS: SALT AND SODA MOUTHWASH 1,000 ML PO SCH ×5 (00:09→20:55)
[2020-10-23] MEDS: LORazepam 2 MG/ML INJ IV PRN ×3 (03:26→21:17)
[2020-10-23] MEDS: LEVOTHYROXINE 137 MCG PO SCH (04:55)
[2020-10-23] MEDS: LORazepam 1 MG TAB PO STA ×2 (07:58→08:05)
[2020-10-23] MEDS ORDERED: LORazepam 2 MG/ML INJ IV STA (08:04)
[2020-10-23] MEDS: PANTOPRAZOLE 40 MG/10 ML VIAL IVP SCH ×2 (08:15→20:52)
[2020-10-23] MEDS: APIXABAN 5 MG TAB PO SCH ×2 (08:15→20:51)
[2020-10-23] MEDS: FAMOTIDINE 20 MG TAB PO SCH ×2 (08:15→20:51)
[2020-10-23] MEDS: ALPRAZolam 0.5 MG TAB PO PRN (09:43)
[2020-10-23] MEDS ORDERED: METOCLOPRAMIDE 5 MG/ML 2 ML VIAL IVP PRN (14:13)
--- NOTE | 2020-10-23 14:33 | P.PN ---
Subjective Progress Note Date: 10/23/20 Principal diagnosis: colon adenocarcinoma with funngating wound from malignancy In follow-up today patient has complaints of severe indigestion/heartburn, nausea, denies any fever, vomiting, difficulty in breathing. Her abdominal pain is fairly well-controlled on her narcotic regimen currently. Still having stool in ostomy. There is hematuria in urostomy bag. She refused PT this a.m. Objective - Vital Signs Vital signs: Vital Signs Temp 98.0 F 10/23/20 08:33 Pulse 96 10/23/20 08:33 Resp 18 10/23/20 08:33 BP 115/78 10/23/20 08:33 Pulse Ox 98 10/23/20 08:33 Intake & Output 10/22/20 10/23/20 10/23/20 18:59 06:59 18:59 Intake Total 582.88 300 Output Total 1200 1450 800 Balance -617.12 -1150 -800 Intake: Intake, IV Titration 32.88 Amount fluorouraciL 4,350 mg In 32.88 SODIUM CHLORIDE 0.9% 20mL VL 13 ml In Empty Bag 1 bag @ 2.174 mls/hr IV ONCE ONE Rx#:[id number] Oral 550 300 Output: Drainage 1200 1450 800 Left Lateral 200 100 250 Right Lateral 1000 1350 550 Other: Voiding Method Ileal Conduit (Right) Ileal Conduit (Right) Ileal Conduit (Left) Ileal Conduit (Left) # Voids 1 1 - Constitutional General appearance: Present: average body habitus, cooperative, mild distress - EENT Eyes: Present: anicteric sclerae, EOMI ENT: Present: hearing grossly normal, normal oropharynx - Respiratory Respiratory: bilateral: CTA - Cardiovascular Rhythm: regular Heart sounds: normal: S1, S2 Abnormal Heart Sounds: Absent: systolic murmur, diastolic murmur, rub, S3 Gallop, S4 Gallop, click, other - Peripheral edema leg Peripheral Edema: bilateral: None - Gastrointestinal Gastrointestinal Comment(s): wound in center of abd is dressed, no drainage on the bandages, tender to touch General gastrointestinal: Present: tenderness - Genitourinary Genitourinary Comment(s): Clear, red urine and urostomy - Integumentary Integumentary: Present: normal, pale - Neurologic Neurologic: Present: CNII-XII intact - Musculoskeletal Musculoskeletal: Present: generalized weakness - Psychiatric Psychiatric: Present: A&O x's 3, intact judgment & insight - Labs CBC & Chem 7: 10/22/20 18:44 10/22/20 05:23 Labs: Abnormal Lab Results - Last 24 Hours (Table) 10/22/20 Range/Units 18:44 WBC 14.0 H (3.8-10.6) k/uL RBC 3.36 L (3.80-5.40) m/uL Hgb 9.9 L (11.4-16.0) gm/dL Hct 30.1 L (34.0-46.0) % RDW 19.0 H (11.5-15.5) % Plt Count 663 H (150-450) k/uL Microbiology - Last 24 Hours (Table) 10/17/20 18:21 Blood Culture - Preliminary Blood No Growth after 120 hours 10/19/20 10:57 Gram Stain - Preliminary Aspirate Body Fluid Culture - Preliminary Assessment and Plan (1) Anemia Narrative/Plan: Normocytic, normochromic, low iron studies. Secondary to chronic blood loss, recent surgery, wounds. Want patient to be a little more stable prior to administering parenteral iron. Hemoglobin is low but stable, not requiring brock sfusion at this time. CBC daily. Current Visit: Yes Status: Acute Priority: High Code(s): D64.9 - ANEMIA, UNSPECIFIED SNOMED Code(s): 121452495 (2) Colon cancer Narrative/Plan: Newly diagnosed. Status post first cycle of FOLFOX. Malignant obstructive uropathy, percutaneous nephrostomy tubes. Fungating tumor coming through the abdominal wall. Current Visit: Yes Status: Acute Priority: High Code(s): C18.9 - MALIGNANT NEOPLASM OF COLON, UNSPECIFIED SNOMED Code(s): 256097303 (3) Deep vein thrombosis (DVT) Narrative/Plan: On eliquis. Cont treatment, monitor for bleeding, Hgb stability Current Visit: Yes Status: Acute Priority: High Code(s): I82.409 - ACUTE EMBOLISM AND THOMBOS UNSP DEEP VN UNSP LOWER EXTREMITY SNOMED Code(s): 018503129 (4) Chemotherapy-induced nausea Narrative/Plan: Zofran is available every 4 hours. Patient was recommended to start olanzapine at at bedtime but, she refuses. We will add Compazine when necessary as well. Patient is on benzodiazepine. Current Visit: Yes Status: Acute Priority: High Code(s): R11.0 - NAUSEA; T45.1X5A - ADVERSE EFFECT OF ANTINEOPLASTIC AND IMMUNOSUP DRUGS, INIT SNOMED Code(s): 931632408 (5) Heartburn Narrative/Plan: Patient is on PPI and H2 receptor antagonist. Both of them twice a day. Added Tums, patient isn't sure if she is going to use that. Current Visit: Yes Status: Acute Priority: High Code(s): R12 - HEARTBURN SNOMED Code(s): 65562595 (6) Anxiety about health Narrative/Plan: Severe anxiety. Patient has been on 0.5 mg of Xanax 3 times a day. Discussed with patient, she is okay with an increase of Xanax to 1 mg 3 times a day. Will reevaluate patient in the a.m. Current Visit: Yes Status: Acute Priority: High Code(s): F41.8 - OTHER SPECIFIED ANXIETY DISORDERS SNOMED Code(s): 292346334 Plan: Discussed the case with Weight Loss Sales Consultant and Field Professional. Unfortunately, patient is not going to be able to apply for stay provided medical assistance in [place] until she is physically in the state. She finished her first cycle of treatment today. We will see if we were to get her stable in the next 24-48 hrs. I will try to get ahold of the brother and explained to him the situation. He will need to pick her up and take her to [place] to begin the process of getting me dical coverage. I will update the chart as information becomes available. Goal is to get patient stable post chemo so she can be discharged safely and travel. Doctor attests: I performed a history and physical examination of this patient, developed impression and plan of care. Discussed with dictator. I agree with dictators note, documented as a scribe.
[2020-10-23] MEDS: ALPRAZolam 1 MG TAB PO SCH ×2 (15:59→20:51)
--- NOTE | 2020-10-23 16:22 | P.PN ---
Subjective Progress Note Date: 10/23/20 This is a 50-year-old female was recently admitted with lower gastrointestinal bleed acute and also found to have significant malignancy. Patient has been Started on chemotherapy and oncology following closely. Patient also recently underwent psoas abscess drainage and cultures have been negative. Infectious disease is following. Patient does have bilateral urostomy tubes and hematuria is noted. Patient is maintained on Eliquis and to continue. Hemoglobin today is able at 9.9 and will continue to monitor closely. Will repeat a.m. labs. Patient is very anxious and having increased nausea today and Reglan has been added. Patient's anxiety meds have been increased as well and will continue to monitor closely. Case management and social work also following and working on discharge planning needs as the patient is potentially moving to [place] to live with family to help take care of her although her insurance is [employer] only. Will discuss with case management about treatment plan moving forward. Review of systems: Constitutional: Reports fatigue and increased anxiety, fever, or chills Cardiovascular: No reports of chest pain or palpitations Respiratory: No reports of shortness of breath or cough GI: Reports increased nausea and vomiting : No reports of dysuria or retention Neurovascular: Reports generalized weakness All medications have been reviewed Active Medications Hydrocodone Bitart/Acetaminophen (Hydrocodone/Apap 10-325mg 1 Each Tab) 1 each PO Q4HR [facility] Last Admin: 10/23/20 15:59 Dose: 1 each Documented by: Alprazolam (Alprazolam 1 Mg Tab) 1 mg PO TID [facility] Last Admin: 10/23/20 15:59 Dose: 1 mg Documented by: Apixaban (Apixaban 5 Mg Tab) 5 mg PO BID [facility] Last Admin: 10/23/20 08:15 Dose: 5 mg Documented by: Calcium Carbonate/Glycine (Calcium Carbonate 500 Mg Chewable) 1,000 mg PO QID PRN PRN Reason: Heartburn Famotidine (Famotidine 20 Mg Tab) 20 mg PO BID [facility] Last Admin: 10/23/20 08:15 Dose: 20 mg Documented by: Sodium Chloride (Saline 0.9%) 1,000 mls @ 50 mls/hr IV .Q20H [facility] Last Admin: 10/22/20 20:44 Dose: 50 mls/hr Documented by: Lorazepam (Lorazepam 2 Mg/Ml Inj) 0.5 mg IV Q4HR PRN PRN Reason: nausea Last Admin: 10/23/20 12:45 Dose: 0.5 mg Documented by: Metoclopramide HCl (Metoclopramide 5 Mg/Ml 2 Ml Vial) 5 mg IVP Q6HR PRN PRN Reason: Nausea And Vomiting Last Admin: 10/23/20 14:37 Dose: 5 mg Documented by: Morphine Sulfate (Morphine Sulfate Er 30 Mg Tablet) 30 mg PO Q8HR [facility]; Protocol Last Admin: 10/23/20 15:59 Dose: 30 mg Documented by: Naloxone HCl (Naloxone 0.4 Mg/Ml 1 Ml Vial) 0.2 mg IV Q2M PRN PRN Reason: Opioid Reversal Non Formulary Drug ( Levothyroxine 137mcg . Brand) 1 each PO DAILY@0630 [facility] Last Admin: 10/23/20 04:55 Dose: 1 each Documented by: Olanzapine (Olanzapine 2.5 Mg Tab) 2.5 mg PO HS [facility] Last Admin: 10/22/20 20:41 Dose: Not Given Documented by: Ondansetron HCl (Ondansetron 4 Mg/2 Ml Vial) 4 mg IVP Q4H [facility] Last Admin: 10/23/20 15:59 Dose: 4 mg Documented by: Pantoprazole Sodium (Pantoprazole 40 Mg/10 Ml Vial) 40 mg IVP BID [facility] Last Admin: 10/23/20 08:15 Dose: 40 mg Documented by: Sodium Bicarbonate (Salt And Soda Mouthwash 1,000 Ml) 20 ml PO QID [facility] Last Admin: 10/23/20 13:55 Dose: Not Given Documented by: Objective - Vital Signs Vital signs: Vital Signs Temp 98.0 F 10/23/20 08:33 Pulse 96 10/23/20 08:33 Resp 18 10/23/20 08:33 BP 115/78 10/23/20 08:33 Pulse Ox 98 10/23/20 08:33 Intake & Output 10/22/20 10/23/20 10/23/20 18:59 06:59 18:59 Intake Total 582.88 300 Output Total 1200 1450 Balance -617.12 -1150 Intake: Intake, IV Titration 32.88 Amount fluorouraciL 4,350 mg In 32.88 SODIUM CHLORIDE 0.9% 20mL VL 13 ml In Empty Bag 1 bag @ 2.174 mls/hr IV ONCE ONE Rx#:[id number] Oral 550 300 Output: Drainage 1200 1450 Left Lateral 200 100 Right Lateral 1000 1350 Other: Voiding Method Ileal Conduit (Right) Ileal Conduit (Left) # Voids 1 1 - Exam GENERAL: The patient is alert and oriented x3, awake. Temp is 98.2F, pulse is 96, respirations are 18, blood pressure is 115/78, oxygen saturation is 98% on room air HEENT: Pupils are round and equally reacting to light. EOMI. No scleral icterus. No conjunctival pallor. Normocephalic, atraumatic. No pharyngeal erythema. No thyromegaly. CARDIOVASCULAR: S1, S2 are muffled PULMONARY: Diminished breath sounds bilaterally with no wheezing or rhonchi noted ABDOMEN: Adbominal scar covered in dressing - clean. Left-sided colostomy bag in place. Nephrostomy tubes showing some red tinged urine MUSCULOSKELETAL: No joint swelling or deformity. EXTREMITIES: No cyanosis, clubbing, or pedal edema. NEUROLOGICAL: Gross neurological examination did not reveal any focal deficits. Diffuse weakness - Labs CBC & Chem 7: 10/22/20 18:44 10/22/20 05:23 Labs: Abnormal Lab Results - Last 24 Hours (Table) 10/22/20 10/22/20 Range/Units 05:23 18:44 WBC 14.0 H (3.8-10.6) k/uL RBC 3.36 L (3.80-5.40) m/uL Hgb 9.9 L (11.4-16.0) gm/dL Hct 30.1 L (34.0-46.0) % RDW 19.0 H (11.5-15.5) % Plt Count 663 H (150-450) k/uL BUN/Creatinine Ratio 21.25 H (12.00-20.00) Ratio Glucose 133 H (70-110) mg/dL ALT <8 L (8-44) U/L Total Protein 5.7 L (6.2-8.2) g/dL Albumin 3.50 L (3.80-4.90) g/dL Albumin/Globulin Ratio 1.59 L (1.60-3.17) g/dL Microbiology - Last 24 Hours (Table) 10/17/20 18:21 Blood Culture - Preliminary Blood No Growth after 120 hours 10/19/20 10:57 Gram Stain - Preliminary Aspirate Body Fluid Culture - Preliminary Assessment and Plan Assessment: Acute lower GI bleed with streaks of blood per rectum likely due to anticoagulation with Lovenox. changed to Eliquis Recent right lower extremity DVT Mild hematuria left iliopsoas abscess status post IR CT-guided drainage for fluid analysis Intra-abdominal abscess completed antibiotic therapy Hypovolemic hyponatremia Colon cancer with extensive local invasion and also with diffuse metastasis on chemotherapy Hypothyroidism Bilateral nephrostomy tubes in place Thrombocytosis GI prophylaxis DVT prophylaxis Full code Recommendations and discussion: Recommend to continue with current medications and management. Patient has been receiving chemotherapy and oncology following closely. PT/OT was refused by patient today due to increased nausea and anxiety. PT/OT following will be working with her daily. Infectious disease is following. Anticoagulation has been resumed. Infectious disease awaiting for culture finalization to determine antibiotic recommendations. Hemoglobin is stable at 9.9 with no active bleeding noted. Some mild hematuria noted in the nephrostomy tubes. Continue to monitor labs closely and repeat a.m. labs. Overall prognosis remains guarded and will continue to monitor closely. Further recommendations to follow.
[2020-10-23] MEDS: OLANZapine 2.5 MG TAB PO SCH (20:52)
[2020-10-24] MEDS: ONDANSETRON 4 MG/2 ML VIAL IVP SCH ×6 (00:06→19:51)
[2020-10-24] MEDS: MORPHINE SULFATE ER 30 MG TABLET PO SCH ×3 (00:07→15:06)
[2020-10-24] MEDS: CALCIUM CARBONATE 500 MG CHEWABLE PO PRN ×2 (00:29→21:59)
--- NOTE | 2020-10-24 00:52 | PN ---
PROGRESS NOTE DATE OF SERVICE: 10/23/2020 REASON FOR FOLLOWUP: Abnormal CT, likely progression of malignancy and question of abscess. INTERVAL HISTORY: Patient is currently afebrile, has been complaining of feeling nauseated and vomiting. The patient denies any worsening abdominal pain. No chest pain, shortness of breath or cough. No diarrhea. PHYSICAL EXAMINATION: Blood pressure is 91/65, pulse of 113, temperature 98.3. She is 97% on room air. General description is a middle-aged female lying in bed in no distress. Respiratory system: Unlabored breathing, decreased breath sounds in the base. No wheeze. HEART: S1, S2. Regular rate and rhythm. ABDOMEN: Soft, no guarding, no rigidity. LABS: Hemoglobin 9.1, white count 14,000 slightly better than yesterday. Creatinine 0.94. Culture remains to be negative. DIAGNOSTIC IMPRESSION AND PLAN: Patient with metastatic locally advanced sigmoid colon cancer status post diverting colostomy with worsening possibly progression of her underlying malignancy for which the patient has been given chemo with question of an abscess. The suspicious fluid has been aspirated and those cultures have been negative. The patient never had a fever during this admission, making it to be less likely infection. We will monitor closely off antibiotic therapy. Continue supportive care. MMODL / IJN: [id number] /
[2020-10-24] MEDS: LORazepam 2 MG/ML INJ IV PRN ×3 (02:01→19:43)
[2020-10-24] MEDS: LEVOTHYROXINE 137 MCG PO SCH (05:33)
[2020-10-24] MEDS: HYDROcodone/APAP 10-325MG 1 EACH TAB PO SCH ×2 (05:34→11:36)
[2020-10-24] MEDS ORDERED: PROCHLORPERAZINE 10 MG TAB PO PRN (09:00)
[2020-10-24] MEDS ORDERED: VANCOMYCIN IV PER PHARMACY 1 EACH MISC MISCELLANE PRN ×2 (09:28→09:29)
[2020-10-24] MEDS: ALPRAZolam 1 MG TAB PO SCH ×2 (09:29→15:07)
[2020-10-24] MEDS ORDERED: VANCOMYCIN 1,500 MG in SODIUM CHLORIDE 0.9% 250 ML IVPB STA (09:29)
[2020-10-24] MEDS: FAMOTIDINE 20 MG TAB PO SCH ×2 (09:51→19:52)
[2020-10-24] MEDS: APIXABAN 5 MG TAB PO SCH ×2 (09:51→19:52)
[2020-10-24 10:01] LABS: Basophils # (A) 0.04 X 10*3/uL (0.00-0.10); Basophils % (A) 0.6 %; Eosinophils # (A) 0 X 10*3/uL (0.04-0.35); Eosinophils % (A) 0 %; HCT 29.4 % (37.2-46.3); Lymphocytes # (A) 1.36 X 10*3/uL (0.90-5.00); Lymphocytes % (A) 19.8 %; MCH 27.9 pg (27.0-32.0); MCHC 30.6 g/dL (32.0-37.0); Mean Platelet Volume 8.9 fL (9.5-12.2); Monocytes # (A) 0.76 X 10*3/uL (0.20-1.00); Monocytes % (A) 11.1 %; Neutrophils # (A) 4.69 X 10*3/uL (1.80-7.70); Neutrophils % (A) 68.2 %; Platelet Count 652 X 10*3/uL (140-440); RBC 3.23 X 10*6/uL (4.10-5.20); RDW 18.5 % (11.5-14.5); WBC 6.87 X 10*3/uL (4.50-10.00)
[2020-10-24] MEDS: PANTOPRAZOLE 40 MG/10 ML VIAL IVP SCH ×2 (10:29→19:51)
[2020-10-24] MEDS: SALT AND SODA MOUTHWASH 1,000 ML PO SCH ×4 (10:29→22:19)
[2020-10-24] MEDS: HYDROcodone/APAP 10-325MG 1 EACH TAB PO PRN ×2 (12:22→21:59)
--- NOTE | 2020-10-24 13:55 | XR ---
EXAMINATION TYPE: XR chest 1V portable DATE OF EXAM: 10/24/2020 COMPARISON: None INDICATION: Shortness of breath TECHNIQUE: Single frontal view of the chest is obtained. FINDINGS: The heart size is normal. The pulmonary vasculature is normal. The lungs are clear. 40s on the left with the tip in the proximal right atrium. IMPRESSION: 1. No acute pulmonary process.
--- NOTE | 2020-10-24 14:23 | P.PN ---
Subjective Progress Note Date: 10/24/20 Principal diagnosis: colon adenocarcinoma with funngating wound from malignancy In follow-up today patient has complaints of persistent nausea, she points to her lower abdomen when asked to localize this symptom if she can, when it was suggested that we change nausea medicines patient said that the nausea medicine works but, nursing is reporting patient persistently complains of nausea despite getting Zofran every 4 hours. Patient states persistent pain in her nephrostomy tube sites, she denies that this is changed at all. The urine in the nephrostomy collection device does not look as bloody as before. Patient still guarding her abdominal wound. She is tachycardic and hypotensive this morning. Objective - Vital Signs Vital signs: Vital Signs Temp 97.6 F 10/24/20 11:55 Pulse 117 H 10/24/20 11:55 Resp 16 10/24/20 11:55 BP 102/73 10/24/20 11:55 Pulse Ox 99 10/24/20 11:55 Intake & Output 10/23/20 10/24/20 10/24/20 18:59 06:59 18:59 Intake Total 600 Output Total 2300 0 Balance -170 -2049 Intake: Intake, IV Titration 600 Amount Sodium Chloride 0.9% 1, 600 000 ml @ 50 mls/hr IV . Q20H [facility] Rx#:[id number] Output: Drainage [id number] Left Lateral 550 300 Right Lateral 1750 1750 Other: Voiding Method Ileal Conduit (Right) Ileal Conduit (Right) Ileal Conduit (Left) Ileal Conduit (Left) # Voids 0 # Bowel Movements 0 - Constitutional General appearance: Present: disheveled, mild distress, obese - EENT Eyes: Present: anicteric sclerae, EOMI ENT: Present: hearing grossly normal, normal oropharynx - Respiratory Respiratory: bilateral: CTA - Cardiovascular Rhythm: regular Heart sounds: normal: S1, S2 Abnormal Heart Sounds: Absent: systolic murmur, diastolic murmur, rub, S3 Gallop, S4 Gallop, click, other - Peripheral edema leg Peripheral Edema: bilateral: Trace - Gastrointestinal General gastrointestinal: Present: normal bowel sounds, tenderness - Integumentary Integumentary: Present: pale - Neurologic Neurologic: Present: CNII-XII intact - Musculoskeletal Musculoskeletal: Present: generalized weakness - Psychiatric Psychiatric Comment(s): Flat affect, difficult for patient to express herself Psychiatric: Present: A&O x's 3 - Labs CBC & Chem 7: 10/24/20 05:51 10/24/20 10:18 Labs: Abnormal Lab Results - Last 24 Hours (Table) 10/24/20 Range/Units 05:51 RBC 3.23 L (4.10-5.20) X 10*6/uL Hgb 9.0 L (12.0-15.0) g/dL Hct 29.4 L (37.2-46.3) % MCHC 30.6 L (32.0-37.0) g/dL RDW 18.5 H (11.5-14.5) % Plt Count 652 H (140-440) X 10*3/uL MPV 8.9 L (9.5-12.2) fL Eosinophils # 0 L (0.04-0.35) X 10*3/uL Microbiology - Last 24 Hours (Table) 10/19/20 10:57 Anaerobic Culture - Final Aspirate 10/17/20 18:21 Blood Culture - Final Blood No Growth after 144 hours 10/19/20 10:57 Gram Stain - Final Aspirate Body Fluid Culture - Final Assessment and Plan (1) Anemia Narrative/Plan: Normocytic, normochromic, low iron studies. Secondary to chronic blood loss, recent surgery, wounds. Want patient to be a little more stable prior to administering parenteral iron. Hemoglobin is low but stable, not requiring transfusion at this time. CBC daily. Current Visit: Yes Status: Acute Priority: High Code(s): D64.9 - ANEMIA, UNSPECIFIED SNOMED Code(s): 187889826 (2) Colon cancer Narrative/Plan: Newly diagnosed. Status post first cycle of FOLFOX, completed on Friday. Cycle is every 14 days. Currently, patient is being worked up for infection and on antibiotics. She will not have another treatment completion of antibiotics Malignant obstructive uropathy, percutaneous nephrostomy tubes. Urine is clear, less bloody than yesterday. Fungating tumor coming through the abdominal wall. Patient guards the site. Current Visit: Yes Status: Acute Priority: High Code(s): C18.9 - MALIGNANT NEOPLASM OF COLON, UNSPECIFIED SNOMED Code(s): 372977382 (3) Deep vein thrombosis (DVT) Narrative/Plan: On eliquis. Cont treatment, monitor for bleeding, Hgb stable Current Visit: Yes Status: Acute Priority: High Code(s): I82.409 - ACUTE EMBOLISM AND THOMBOS UNSP DEEP VN UNSP LOWER EXTREMITY SNOMED Code(s): 060534669 (4) Chemotherapy-induced nausea Narrative/Plan: Zofran is available every 4 hours. Patient was recommended to start olanzapine at at bedtime but, she refuses. This was removed from her medication list. Compazine was added when necessary. Patient is on Xanax 3 times a day with Ativan as needed every 4 hours. It is difficult to ascertain for patient is complaining of is actually nausea. She holds the lower portion of her abdomen when asked where she feels nausea. Multiple medication options have been offered to the patient, most of which she refuses. Patient was refusing Reglan, this has been removed from her medication list as well. Current Visit: Yes Status: Acute Priority: High Code(s): R11.0 - NAUSEA; T45.1X5A - ADVERSE EFFECT OF ANTINEOPLASTIC AND IMMUNOSUP DRUGS, INIT SNOMED Code(s): 764389006 (5) Heartburn Narrative/Plan: Patient is on PPI and H2 receptor antagonist. Both of them twice a day. Added Tums, she did try last night, no discussion of improvement in her symptoms. Current Visit: Yes Status: Acute Priority: High Code(s): R12 - HEARTBURN SNOMED Code(s): 91346990 (6) Anxiety about health Narrative/Plan: Severe anxiety. Increase of Xanax to 1 mg 3 times a day. Difficult to assess patient, she is lethargic this morning, hypotensive, tachycardic. Current Visit: Yes Status: Acute Priority: High Code(s): F41.8 - OTHER SPECIFIED ANXIETY DISORDERS SNOMED Code(s): 117706515 Plan: Infection is workup initiated with pancultures ordered, 1 g of vancomycin with pharmacy to dose, ID continues to follow. Discussed the case with Digitizer and Traffic Control Supervisor. Patient does not need to stay in the hospital until the next cycle of treatment which is 13 days from now. Unfortunately, uncontrolled symptoms are one or preventing patient from being discharged. Multiple treatment options have been offered, some of which patient will try some of which she will not. Not sure if patient is able to care for herself at home. My understanding is there is a significant other but, unclear how much assistance they will be able to provide to her. I spoke with the brother yesterday who still plans to take her to [place] but, now he wants her to have another cycle of chemo before he comes to pick her up and take her. He wants to have a better idea of how she is going to do post treatment. Patient has to physically be in the state in order to apply for provided medical assistance in [place]. Her brother has been trying to communicate with [place] Medicaid as well as [place] Medicaid. Completed first cycle of treatment 10/23/20. Next cycle will be due 11/06/20. On hold until completion of antibiotics. Also, we'll have to see how patient's performance status changes in the next 2 weeks. Doctor attests: I performed a history and physical examination of this patient, developed impression and plan of care. Discussed with dictator. I agree with dictators note, documented as a scribe.
[2020-10-24] MEDS: CEFEPIME 2 GM in SODIUM CHLORIDE 0.9% 100 ML IVPB SCH ×2 (14:34→19:53)
[2020-10-24] MEDS: metroNIDAZOLE 500 MG TAB PO SCH ×3 (15:07→19:54)
--- NOTE | 2020-10-24 15:54 | P.PN ---
Subjective Progress Note Date: 10/24/20 This is a 50-year-old female was recently admitted with lower gastrointestinal bleed acute and also found to have significant malignancy. Patient has been Started on chemotherapy and oncology following closely. Patient also recently underwent psoas abscess drainage and cultures have been negative. Infectious disease is following. Patient does have bilateral urostomy tubes and hematuria is noted. Patient is maintained on Eliquis and to continue. Hemoglobin today is able at 9.9 and will continue to monitor closely. Will repeat a.m. labs. Patient is very anxious and having increased nausea today and Reglan has been added. Patient's anxiety meds have been increased as well and will continue to monitor closely. Case management and social work also following and working on discharge planning needs as the patient is potentially moving to [place] to live with family to help take care of her although her insurance is depict only. Will discuss with case management about treatment plan moving forward. 10/24/2020 Patient is seen and evaluated and follow-up continues to have nausea and fatigue and is extremely lethargic during conversation. Patient continues to have abdominal discomfort and states that her dressing is dry and intact. Oncology along with infectious disease following closely and cultures have remained negative and awaiting for finalization. Patient is tachycardic and hypotensive and antibiotic therapy in the form of vancomycin and cefepime has been initiated. Repeat blood cultures and urinalysis ordered. She does have nephrostomy tubes bilaterally and hematuria is mild. Chest x-ray done today showing no acute pulmonary process. Discussed in detail with oncology along with infectious disease and case management social work about the treatment plan moving forward and patient has recently underwent chemotherapy with her last dose yesterday and her next round would be in 2 weeks although will be on hold until acute infection is ruled out and patient is more stable. Patient continues to be weak and has not been working with physical therapy very much d ue to weakness and extreme nausea and discomfort. Social work discussed in detail with family member and working on possible placement at an [facility] and will follow-up with social work tomorrow. Review of systems: Constitutional: Reports fatigue and increased anxiety, fever, or chills Cardiovascular: No reports of chest pain or palpitations Respiratory: reports occasional shortness of breath GI: Reports increased nausea and vomiting : No reports of dysuria or retention Neurovascular: Reports generalized weakness All medications have been reviewed Active Medications Hydrocodone Bitart/Acetaminophen (Hydrocodone/Apap 10-325mg 1 Each Tab) 1 each PO Q4H PRN PRN Reason: Pain Last Admin: 10/24/20 12:22 Dose: 1 each Documented by: Alprazolam (Alprazolam 1 Mg Tab) 1 mg PO TID [facility] Last Admin: 10/24/20 15:07 Dose: 1 mg Documented by: Apixaban (Apixaban 5 Mg Tab) 5 mg PO BID [facility] Last Admin: 10/24/20 09:51 Dose: 5 mg Documented by: Calcium Carbonate/Glycine (Calcium Carbonate 500 Mg Chewable) 1,000 mg PO QID PRN PRN Reason: Heartburn Last Admin: 10/24/20 00:29 Dose: 1,000 mg Documented by: Famotidine (Famotidine 20 Mg Tab) 20 mg PO BID [facility] Last Admin: 10/24/20 09:51 Dose: 20 mg Documented by: Sodium Chloride (Saline 0.9%) 1,000 mls @ 50 mls/hr IV .Q20H [facility] Last Admin: 10/22/20 20:44 Dose: 50 mls/hr Documented by: Vancomycin HCl 1,500 mg/ (Sodium Chloride) 250 mls @ 125 mls/hr IVPB Q16H [facility]; Protocol Cefepime HCl 2 gm/ Sodium (Chloride) 100 mls @ 25 mls/hr IVPB Q12HR [facility] Last Admin: 10/24/20 14:34 Dose: Not Given Documented by: Metronidazole (Metronidazole 500 Mg Tab) 500 mg PO TID [facility] Last Admin: 10/24/20 15:10 Dose: Not Given Documented by: Morphine Sulfate (Morphine Sulfate Er 30 Mg Tablet) 30 mg PO Q8HR [facility]; Protocol Last Admin: 10/24/20 15:06 Dose: 30 mg Documented by: Naloxone HCl (Naloxone 0.4 Mg/Ml 1 Ml Vial) 0.2 mg IV Q2M PRN PRN Reason: Opioid Reversal Non Formulary Drug ( Levothyroxine 137mcg . Brand) 1 each PO DAILY@0630 [facility] Last Admin: 10/24/20 05:33 Dose: 1 each Documented by: Ondansetron HCl (Ondansetron 4 Mg/2 Ml Vial) 4 mg IVP Q4H [facility] Last Admin: 10/24/20 15:06 Dose: 4 mg Documented by: Pantoprazole Sodium (Pantoprazole 40 Mg/10 Ml Vial) 40 mg IVP BID [facility] Last Admin: 10/24/20 10:29 Dose: 40 mg Documented by: Sodium Bicarbonate (Salt And Soda Mouthwash 1,000 Ml) 20 ml PO QID [facility] Last Admin: 10/24/20 12:29 Dose: 20 ml Documented by: Objective - Vital Signs Vital signs: Vital Signs Temp 97.6 F 10/24/20 11:55 Pulse 117 H 10/24/20 11:55 Resp 16 10/24/20 11:55 BP 102/73 10/24/20 11:55 Pulse Ox 99 10/24/20 11:55 Intake & Output 10/23/20 10/24/20 10/24/20 18:59 06:59 18:59 Intake Total 600 Output Total 2302049 Balance -1699 -2049 Intake: Intake, IV Titration 600 Amount Sodium Chloride 0.9% 1, 600 000 ml @ 50 mls/hr IV . Q20H [facility] Rx#:[id number] Output: Drainage 2300 Left Lateral 550 300 Right Lateral 1750 1750 Other: Voiding Method Ileal Conduit (Right) Ileal Conduit (Right) Ileal Conduit (Left) Ileal Conduit (Left) # Voids 0 # Bowel Movements 0 - Exam GENERAL: The patient is alert and oriented x3, awake. Temp is 97.5F, pulse is 115, respirations are 16, blood pressure is 81/64, oxygen saturation is 97% on room air HEENT: Pupils are round and equally reacting to light. EOMI. No scleral icterus. No conjunctival pallor. Normocephalic, atraumatic. No pharyngeal erythema. No thyromegaly. CARDIOVASCULAR: S1, S2 are muffled PULMONARY: Diminished breath sounds bilaterally with no wheezing or rhonchi noted ABDOMEN: Adbominal scar covered in dressing - clean. Left-sided colostomy bag in place. Nephrostomy tubes showing some red tinged urine MUSCULOSKELETAL: No joint swelling or deformity. EXTREMITIES: No cyanosis, clubbing, or pedal edema. NEUROLOGICAL: Gross neurological examination did not reveal any focal deficits. Diffuse weakness - Labs CBC & Chem 7: 10/24/20 05:51 10/24/20 10:18 Labs: Abnormal Lab Results - Last 24 Hours (Table) 10/24/20 Range/Units 05:51 RBC 3.23 L (4.10-5.20) X 10*6/uL Hgb 9.0 L (12.0-15.0) g/dL Hct 29.4 L (37.2-46.3) % MCHC 30.6 L (32.0-37.0) g/dL RDW 18.5 H (11.5-14.5) % Plt Count 652 H (140-440) X 10*3/uL MPV 8.9 L (9.5-12.2) fL Eosinophils # 0 L (0.04-0.35) X 10*3/uL Microbiology - Last 24 Hours (Table) 10/19/20 10:57 Anaerobic Culture - Final Aspirate 10/17/20 18:21 Blood Culture - Final Blood No Growth after 144 hours 10/19/20 10:57 Gram Stain - Final Aspirate Body Fluid Culture - Final Assessment and Plan Assessment: Acute lower GI bleed with streaks of blood per rectum likely due to anticoagulation with Lovenox. changed to Eliquis Recent right lower extremity DVT Mild hematuria left iliopsoas abscess status post IR CT-guided drainage for fluid analysis Intra-abdominal abscess completed antibiotic therapy Hypovolemic hyponatremia Colon cancer with extensive local invasion and also with diffuse metastasis on chemotherapy Hypothyroidism Bilateral nephrostomy tubes in place Thrombocytosis GI prophylaxis DVT prophylaxis Full code Recommendations and discussion: Recommend to continue with current medications and management. Patient has received first round of chemotherapy and oncology following closely. Next round would be in 2 weeks although patient is tachycardic and hypotensive and being worked up for possible infection and started on IV antibiotic therapy. Infectious disease is following. Cultures from fluid analysis remain negative although waiting for finalization. PT/OT was refused by patient today due to increased nausea and fatigue. PT/OT following will be working with her daily. Infectious disease is following. Anticoagulation has been resumed. Hemoglobin is stable at 9.0. Infectious disease awaiting for culture finalization to determine antibiotic recommendations. Chest x-ray was done today as mentioned previously and repeat blood cultures pending at this time. Urinalysis also ordered and pending. Continue to monitor labs closely and repeat a.m. labs. Social work following and discussing with family about possible ECF placement. Next chemo treatment currently on hold until infection and symptoms have resolved. Overall prognosis remains guarded and will continue to monitor closely. Further recommendations to follow.
[2020-10-24 20:58] LABS: Budding Yeast,Urine Moderate /hpf; RBC,Urine >182 /hpf (0-5); WBC,Urine >182 /hpf (0-5)
[2020-10-24] MEDS ORDERED: HYDROcodone/APAP 10-325MG 1 EACH TAB PO SCH (21:15)
[2020-10-24 21:27] LABS: Appearance,Urine Turbid (Clear); Bilirubin,Urine Negative (Negative); Blood,Urine Large (Negative); Color,Urine Red; Glucose,Urine (UA) Negative (Negative); Ketones,Urine Negative (Negative); PH, Urine 5.5 (5.0-8.0); Protein,Urine 1+ (Negative); Specific Gravity,Urine 1.017 (1.001-1.035)
[2020-10-24 21:28] LABS: Leukocyte Esterase,Urine Moderate (Negative); Nitrite,Urine Negative (Negative); Urobilinogen,Urine <2.0 mg/dL (<2.0)
[2020-10-24] MEDS ORDERED: VANCOMYCIN 1,500 MG in SODIUM CHLORIDE 0.9% 250 ML IVPB SCH (22:00)
[2020-10-24] MEDS: SODIUM CHLORIDE 0.9% 1,000 ML IV SCH (22:10)
[2020-10-25] MEDS: MORPHINE SULFATE ER 30 MG TABLET PO SCH ×2 (00:03→07:57)
[2020-10-25] MEDS: ONDANSETRON 4 MG/2 ML VIAL IVP SCH ×3 (00:06→09:55)
[2020-10-25] MEDS ORDERED: FLUCONAZOLE 100 MG TAB PO ONE (00:13)
[2020-10-25] MEDS: LORazepam 2 MG/ML INJ IV PRN (00:49)
[2020-10-25] MEDS: AZTREONAM 2 GM in SODIUM CHLORIDE 0.9% 100 ML IVPB SCH ×2 (01:00→10:37)
[2020-10-25 01:35] LABS: Glucose,Whole Blood 203 mg/dL (75-99)
[2020-10-25 01:53] LABS: ABG Base Excess -21.1 mmol/L; ABG HCO3 11 mmol/L (21-25); ABG Oxygen Saturation 88.3 % (94-97); ABG PCO2 47 mmHg (35-45); ABG PO2 91 mmHg (83-108); ABG TCO2 12 mmol/L (19-24); Allen Test Performed? Yes
[2020-10-25 02:00] LABS: Glucose,Whole Blood 303 mg/dL (75-99)
[2020-10-25] MEDS ORDERED: DEXTROSE 5% IN WATER 1,000 ML with SODIUM BICARB (1 MEQ/ML) 150 ML IV SCH (02:00)
[2020-10-25 02:02] LABS: ABG PH 6.97 (7.35-7.45)
[2020-10-25] MEDS: SODIUM BICARB 8.4% 50 ML SYR (1 MEQ/ML) IV STA ×2 (02:04→02:09)
[2020-10-25] MEDS ORDERED: SODIUM CHLORIDE 0.9% 1,000 ML IV ONE (02:10)
[2020-10-25 02:21] LABS: Anisocytosis Slight; Basophils # (A) 0.1 k/uL (0-0.2); Basophils % (A) 0 %; Eosinophils % (A) 0 %; HCT 29.2 % (34.0-46.0); HGB 9.5 gm/dL (11.4-16.0); Hypochromasia Marked; Lymphocytes # (A) 3.5 k/uL (1.0-4.8); Lymphocytes % (A) 25 %; MCH 30.1 pg (25.0-35.0); MCHC 32.4 g/dL (31.0-37.0); MCV 92.9 fL (80.0-100.0); Mean Platelet Volume 7.1; Monocytes # (A) 0.5 k/uL (0-1.0); Monocytes % (A) 4 %; Neutrophils # (A) 9.5 k/uL (1.3-7.7); Neutrophils % (A) 69 %; Platelet Count 710 k/uL (150-450); RBC 3.14 m/uL (3.80-5.40); RDW 18.3 % (11.5-15.5); WBC 13.8 k/uL (3.8-10.6)
[2020-10-25 02:36] LABS: ALT 21 U/L (4-34); AST 76 U/L (14-36); African American GFR (CKD) 78 (>60 ml/min/1.73 sqM); Albumin 3.3 g/dL (3.5-5.0); Albumin/Globulin Ratio 1.2; Alkaline Phosphatase 61 U/L (38-126); Anion Gap 23 mmol/L; Blood Urea Nitrogen 20 mg/dL (7-17); C Reactive Protein 70.8 mg/L (<10.0); Carbon Dioxide 11 mmol/L (22-30); Chloride 103 mmol/L (98-107); Globulin 2.8 g/dL; Glucose 254 mg/dL (74-99); LDH 1084 U/L (313-618); Non-African American GFR(CKD) 67 (>60 ml/min/1.73 sqM); Potassium 4.3 mmol/L (3.5-5.1); Sodium 137 mmol/L (137-145); Total Bilirubin 0.7 mg/dL (0.2-1.3); Total Protein 6.1 g/dL (6.3-8.2)
[2020-10-25 02:39] LABS: Glucose,Whole Blood 294 mg/dL (75-99)
[2020-10-25] MEDS ORDERED: NOREPINEPHRIN 4 MG-0.9% NS PMX 4 MG/250 ML ML IV ONE ×3 (03:13→08:39)
--- NOTE | 2020-10-25 03:18 | XR ---
EXAM: XR Chest, 1 View CLINICAL HISTORY: Shortness of breath TECHNIQUE: Frontal view of the chest. COMPARISON: Yesterday FINDINGS: Lungs: Moderate amount of airspace opacities in both lungs with central distribution. Pleural space: Unremarkable. No pneumothorax. Heart: Unremarkable. No cardiomegaly. Mediastinum: Unremarkable. Bones/joints: No acute findings. IMPRESSION: Moderate pulmonary edema is new
--- NOTE | 2020-10-25 04:25 | P.EN ---
A team was called on this patient for altered mental status and hypotension patient is 50 years old with metastatic colon cancer, currently on chemotherapy , she had recently diagnosed with perirectal abscess s/p post CT drainage, she also has bilateral nephrostomy, and recently diagnosed with venous thromboembolism she has been on multiple antibiotics aztereonam, vanco and flagyl. however patient has been sporadically refusing her medications . patient seemed anxious earlier and had received a dose of ativan around midnight. now she had a sudden change in her over all clinical status . she looks confused makes brief eye contact, complaining of feeling warm , not really talking or interacting , she is struggling to follow commands. BP in mid 70s systolic , Sinus tachy 130-140s. axillary temp 94.5, oxygen sat mid 90s on non rebreather. she is cold to the touch , right nephrostomy with dark color urine , left nephrostomy with homa colored urine , she has surgical pack over her lower abd with yellowish discharge, her colostomy is empty, abd soft to the touch , lungs clear to auscultation . heart tachycardia. she has left mediport with surrounding skin looking unremarkable patient looks septic, she was started on 1 L normal saline bolus ABG showed metabolic acidosis , severe lactic acid came back severely elevated check blood culture resume antibiotics patient given 2 amps of bicarb , and will be started on bicarb drip transfer to ICU , dr. Mejias agreed patient is full code check labs check CXR patient might require pressors if she does not respond to IVF resuscitation microbiology reviewed labs reviewed faye ramsay applied patient is critical , and per nursing staff this is an acute sudden change in her overall status compared to yesterday I spent 70 minutes providing critical care service in the care of this complex patient
[2020-10-25 05:47] VITALS: TEMP 96.3
[2020-10-25 06:16] LABS: Calcium 9.3 mg/dL (8.4-10.2); Magnesium 2.7 mg/dL (1.6-2.3); Potassium 4.9 mmol/L (3.5-5.1)
[2020-10-25] MEDS: LEVOTHYROXINE 137 MCG PO SCH (06:23)
[2020-10-25 06:29] LABS: Anisocytosis Slight; HCT 35.9 % (34.0-46.0); HGB 11.1 gm/dL (11.4-16.0); Hypochromasia Marked; MCH 29.4 pg (25.0-35.0); MCHC 30.9 g/dL (31.0-37.0); MCV 95.1 fL (80.0-100.0); Mean Platelet Volume 7.9; Platelet Count 757 k/uL (150-450); RBC 3.77 m/uL (3.80-5.40); RDW 17.9 % (11.5-15.5)
[2020-10-25 06:38] LABS: ABG Base Excess -19.6 mmol/L; ABG HCO3 12 mmol/L (21-25); ABG Oxygen Saturation 91.6 % (94-97); ABG PCO2 49 mmHg (35-45); ABG PO2 98 mmHg (83-108); ABG TCO2 13 mmol/L (19-24); Allen Test Performed? Yes
[2020-10-25 06:41] LABS: ABG PH 6.99 (7.35-7.45)
[2020-10-25] MEDS ORDERED: CISATRACURIUM 2 MG/ML 5 ML VIAL IV ONE ×2 (07:00→09:16)
--- NOTE | 2020-10-25 07:00 | PN ---
PROGRESS NOTE DATE OF SERVICE: 10/24/2020 REASON FOR FOLLOWUP: Abnormal CT with a question of progression of cancer versus abscess. INTERVAL HISTORY: Patient was seen on rounds this morning. The patient has been afebrile. She was noted to be slightly tachycardic and that seemed to be slightly concerning to Oncology. They have ordered blood cultures, which are currently pending. The patient was empirically started on vancomycin, cefepime and Flagyl. Unfortunately the patient has been refusing cefepime and Flagyl but now specifically patient mentioned she is feeling better. Her nausea has improved. Denies any chest pain or shortness of breath or cough. No abdominal pain. PHYSICAL EXAMINATION: Blood pressure is 132/73 with a pulse of 117, temperature 97.6, she is 99% on room air. General description is a middle-aged female up in the bed in no distress. Respiratory system: Unlabored breathing, decreased intensity of breath sounds, no wheeze. Heart S1, S2. Regular rate and rhythm. ABDOMEN: Soft, no tenderness. LABS: Hemoglobin 9.4, white count normalized to 6.87, creatinine 0.90. Urine came back to be positive with some budding yeast. 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 She did have some abdominal collection that was drained CT-guided and those cultures have been negative along with tachycardia, slightly concerning. Cultures have been ordered, which are currently pending. The patient has been refusing her cefepime with her multiple allergies. We will try IV Flagyl and Azactam with urine showing large yeast. Diflucan will be added as well and see clinical response. Monitor clinical course closely. MMODL / IJN: [id number] /
[2020-10-25 07:10] LABS: Band Neutrophils % 1 %; Lymphocytes # (M) 2.35 k/uL (1.0-4.8); Monocytes # (M) 0.55 k/uL (0-1.0); Neutrophils % (M) 79 %; Nucleated Red Blood Cells 1 /100 WBC (0-0); Total Cells Counted 200; WBC 13.8 k/uL (3.8-10.6)
[2020-10-25] MEDS ORDERED: ETOMIDATE 2 MG/ML 10 ML VIAL ONE (07:10)
[2020-10-25] MEDS ORDERED: SODIUM CHLORIDE 0.9% 150 ML with VASOPRESSIN 60 UNIT IV SCH ×2 (07:15)
[2020-10-25] MEDS ORDERED: CISATRACURIUM 200 MG in SODIUM CHLORIDE 0.9% 180 ML IV SCH (07:15)
[2020-10-25] MEDS ORDERED: metroNIDAZOLE-NS PMX 500 MG in SALINE 1 100ML.BAG IVPB SCH (08:00)
--- NOTE | 2020-10-25 08:00 | XR ---
EXAMINATION TYPE: XR chest 1V portable DATE OF EXAM: 10/25/2020 COMPARISON: 10/25/2020 HISTORY: Intubation TECHNIQUE: Single frontal view of the chest is obtained. FINDINGS: Endotracheal tube demonstrates its tip near the right mainstem bronchus and should be pulled back 2 c m. NG tube is seen coursing into the stomach. MediPort catheter is in place. Perihilar and basilar in filtrates persist. IMPRESSION: 1. Endotracheal tube demonstrates its tip near the right mainstem bronchus and should be pulled back 2 cm.
[2020-10-25] MEDS: NOREPINEPHRINE 4 MG in SODIUM CHLORIDE 0.9% 250 ML IV SCH ×5 (08:05→10:10)
[2020-10-25] MEDS ORDERED: SODIUM BICARB 8.4% 50 ML SYR (1 MEQ/ML) ONE (08:20)
[2020-10-25] MEDS ORDERED: HYDROCORTISONE SUCCINATE 100 MG/2 ML VIAL ONE (08:41)
[2020-10-25] MEDS ORDERED: NOREPINEPHRINE 8 MG in SODIUM CHLORIDE 0.9% 250 ML IV SCH (09:00)
[2020-10-25] MEDS ORDERED: CHLORHEXIDINE GLUCONATE 15 ML CUP MUCOUS MEM SCH (09:00)
[2020-10-25 09:01] LABS: ABG Base Excess -12.6 mmol/L; ABG HCO3 19 mmol/L (21-25); ABG Oxygen Saturation 10.4 % (94-97); ABG TCO2 21 mmol/L (19-24); Allen Test Performed? Yes
[2020-10-25 09:02] LABS: ABG PCO2 76 mmHg (35-45)
[2020-10-25 09:03] LABS: ABG PO2 18 mmHg (83-108)
[2020-10-25] MEDS ORDERED: FLUCONAZOLE IN NACL,ISO-OSM 200 MG in SALINE 1 100ML.BAG IVPB SCH (09:15)
[2020-10-25 09:51] LABS: ABG Base Excess -19.8 mmol/L; ABG HCO3 14 mmol/L (21-25); ABG Oxygen Saturation 12.1 % (94-97); ABG TCO2 16 mmol/L (19-24); Allen Test Performed? Yes
[2020-10-25 09:52] LABS: ABG PCO2 75 mmHg (35-45); ABG PH 6.87 (7.35-7.45); ABG PO2 20 mmHg (83-108)
[2020-10-25] MEDS ORDERED: SODIUM BICARB 8.4% 50 ML SYR (1 MEQ/ML) IV STA (10:01)
[2020-10-25] MEDS: FAMOTIDINE 20 MG TAB PO SCH (10:11)
[2020-10-25] MEDS: SALT AND SODA MOUTHWASH 1,000 ML PO SCH (10:11)
[2020-10-25] MEDS: APIXABAN 5 MG TAB PO SCH (10:11)
[2020-10-25] MEDS ORDERED: EPINEPHrine 10 ML SYRINGE (0.1 MG/ML) ONE (10:14)
--- NOTE | 2020-10-25 10:31 | PCN ---
PROCEDURE NOTE PROCEDURES: 1. Right femoral vein triple-lumen catheter. 2. Right femoral arterial line. 3. Left femoral arterial line. PREOPERATIVE DIAGNOSIS: 1. For the triple lumen catheter is administration of fluids and pressors. 2. For arterial lines, it is frequent blood draws and blood gas monitoring. POSTOPERATIVE DIAGNOSIS: 1. For the triple lumen catheter is administration of fluids and pressors. 2. For arterial lines, it is frequent blood draws and blood gas monitoring. OPERATORS: Dr. Mejias and Dr. Luque. There was informed consent and universal timeout on both. RIGHT FEMORAL TRIPLE LUMEN CATHETER PLACEMENT: Indication: Hemodynamic monitoring/Intravenous access. A time-out was completed verifying correct patient, procedure, site, positioning, and implant(s) or special equipment if applicable. The patient was placed in a dependent position appropriate for triple lumen catheter placement based on the vein to be cannulated. The patient's right groin was prepped and draped in sterile fashion. 1% Lidocaine was used to anesthetize the surrounding skin area. A triple lumen 9F Cordis catheter was introduced into the right common femoral vein using Seldinger technique. The catheter was threaded smoothly over the guide wire and appropriate blood return was obtained. Each lumen of the catheter was evacuated of air and flushed with sterile saline. The catheter was then sutured in place to the skin and a sterile dressing applied. Perfusion to the extremity distal to the point of catheter insertion was checked and found to be adequate. There was no immediate complication. There was good blood return from all 3 ports. The patient tolerated the procedure well. The catheter was sutured in place. Sterile dressing was applied by the nurse. RIGHT FEMORAL ARTERIAL LINE PLACEMENT: Indications: Hemodynamic monitoring. A time-out was completed verifying correct patient, procedure, site, positioning, and implant(s) or special equipment if applicable. Declan's test was performed to ensure adequate perfusion. The patient's right groin was prepped and draped in sterile fashion. 1% Lidocaine was used to anesthetize the area. An 18G Arrow arterial line was introduced into the right femoral artery. The catheter was threaded over the guide wire and the needle was removed with appropriate pulsatile blood return. Blood loss was minimal. The catheter was then sutured in place to the skin and a sterile dressing applied. Perfusion to the extremity distal to the point of catheter insertion was checked and found to be adequate. The patient tolerated the procedure well and there were no complications. For the art line on the right side, there was good blood return. There was good waveform and blood pressure reading. The catheter was sutured in place. Sterile dressing applied by the nurse. There was no immediate complication. Subsequent to that, the arterial line was accidentally removed in the process of coding the patient. LEFT FEMORAL ARTERIAL LINE PLACEMENT: Indications: Hemodynamic monitoring. A time-out was completed verifying correct patient, procedure, site, positioning, and implant(s) or special equipment if applicable. Declan's test was performed to ensure adequate perfusion. The patient's left groin was prepped and draped in sterile fashion. 1% Lidocaine was used to anesthetize the area. An 18G Arrow arterial line was introduced into the left femoral artery. The catheter was threaded over the guide wire and the needle was removed with appropriate pulsatile blood return. Blood loss was minimal. The catheter was then sutured in place to the skin and a sterile dressing applied. Perfusion to the extremity distal to the point of catheter insertion was checked and found to be adequate. The patient tolerated the procedure well and there were no complications. There was no immediate complication. There was good blood return and waveform. There was good blood pressure reading. The catheter was sutured in place. Sterile dressing was applied by the nurse. There was no immediate complication. Again, the 3 procedures are: Right femoral triple-lumen catheter, right femoral art line which was accidentally removed during the code and left femoral art line insertion. There was no immediate complication. MMODL / IJN: [id number] /
[2020-10-25] MEDS ORDERED: MORPHINE SULFATE 2 MG/ML SYRINGE IVP STA (10:33)
[2020-10-25] MEDS: MORPHINE SULFATE 4 MG/ML SYRINGE ONE ×2 (10:37→10:40)
[2020-10-25] MEDS: PANTOPRAZOLE 40 MG/10 ML VIAL IVP SCH (10:38)
[2020-10-25] MEDS ORDERED: ATROPINE OPHTH SOLN 1% 5ML BTL SUBLINGUAL PRN (10:48)
[2020-10-25] MEDS ORDERED: MORPHINE SULFATE 2 MG/ML SYRINGE IV PRN (10:48)
[2020-10-25] MEDS ORDERED: MORPHINE SULFATE 4 MG/ML SYRINGE IV PRN (10:48)
[2020-10-25] MEDS ORDERED: MORPHINE SULFATE 4 MG/ML SYRINGE IV ONE (11:00)
[2020-10-25] MEDS ORDERED: SCOPOLAMINE 1.5MG/72HR PATCH TRANSDERM SCH (11:00)
[2020-10-25] MEDS ORDERED: MORPHINE SULFATE (100 MG/2 ML) 100 MG in SODIUM CHLORIDE 0.9% 100 ML IV SCH (11:15)
[2020-10-25 11:29] VITALS: BP 73/55; PULSE 87; RESP 0
--- NOTE | 2020-10-25 11:56 | P.CNPUL ---
History of Present Illness Consult date: 10/25/20 Requesting physician: Pepe Ann Reason for consult: other Chief complaint: GI bleed, DVT, colon cancer. History of present illness: This is a 50-year-old female who was originally admitted back on October 07, she came in for GI bleed, and she apparently had blood coming out of her ostomy. She also had bloody mucus emanating from her rectal area. The patient does have a diagnosis of metastatic colorectal carcinoma. Anyway, she was admitted back on the , and last night, I was called by the on-call hospitalist, because the patient was profoundly acidotic and hypotensive. We were able to open up the bed for her in the ICU. This morning, because of severe acidosis and tachypnea, and hypoxemia, she was intubated and mechanically ventilated. Her initial vent settings include the volume assist control mode rate of 24, tidal volume 400, FiO2 100%, PEEP of 5. In addition, the patient is on norepinephrine at maximal doses, 62 mcg/m, vasopressin at 0.04 units per minute, and saline, which is currently wide open. In addition, the patient received multiple fluid boluses. We also gave her 100 mg of hydrocortisone IV push. We placed a right femoral vein triple lumen catheter in her, as well as a right femoral arterial line and left femoral arterial line. She received 5 ampules of sodium bicarbonate. She also was started on a bicarbonate drip at 3 ampules in D5W at 75 mL an hour. Finally, she received Nimbex 10 mg IV push, and was started on Nimbex drip. During the process of evaluating her, she had a cardiopulmonary arrest, and she arrested multiple times. She was resuscitated each time, but all along had a very low blood pressure. Conversation took place with the family members, and it was decided that the patient should then be a no code, and was not to be re-resuscitated. She apparently has a history of metastatic colon cancer, previous colostomy, and thyroid cancer, as well as chronic tobacco use, and anxiety. Review of Systems REVIEW OF SYSTEMS: Because she is currently intubated and mechanically ventilated, a review of systems cannot be obtained on this patient. CONSTITUTIONAL: [Negative.] NEUROLOGIC: [ Negative.] HEENT: [ Negative.] CARDIAC: [Negative.] PULMONARY: [Negative.] GI: Initially came in with GI bleed. : [Negative.] RHEUMATOLOGIC: [ Negative.] IMMUNOLOGIC: [ Negative.] ENDOCRINE: [Negative. ] DERMATOLOGIC: [Negative.] Past Medical History Past Medical History: Cancer, Thyroid Disorder Additional Past Medical History / Comment(s): Thyroid cancer, COLON CA History of Any Multi-Drug Resistant Organisms: None Reported Past Surgical History: Appendectomy Additional Past Surgical History / Comment(s): Thyroidectomy, right labia Past Anesthesia/Blood Transfusion Reactions: No Reported Reaction Past Psychological History: Anxiety Smoking Status: Former smoker Past Alcohol Use History: None Reported Past Drug Use History: None Reported - Past Family History family Family Medical History: Coronary Artery Disease (CAD), CVA/TIA Medications and Allergies Home Medications Medication Instructions Recorded Confirmed Type Levothyroxine Sodium [Synthroid] 137 mcg PO DAILY 05/19/20 10/07/20 History Ergocalciferol [Vitamin D2 (1250 1,250 mcg PO Q7D 10/07/20 10/07/20 History Mcg = [id number] Iu)] HYDROcodone/APAP 10-325MG [[place] 1 tab PO Q6H PRN 10/07/20 10/07/20 History 10-325] Naloxone HCl [Narcan] 4 mg NASAL ONCE PRN 10/07/20 10/07/20 History Ondansetron [Zofran] 4 mg PO Q8H PRN 10/07/20 10/07/20 History Apixaban [Eliquis] 5 mg PO BID #60 tab 10/11/20 Rx Morphine Sulfate ER [Ms Contin] 30 mg PO Q8H #21 tab 10/13/20 Rx Allergies Allergy/AdvReac Type Severity Reaction Status Date / Time clarithromycin [From Biaxin] Allergy Rash/Hives Verified 10/07/20 00:30 fluticasone [From Flonase] Allergy Rash/Hives Verified 10/07/20 00:30 gatifloxacin [From Tequin] Allergy Rash/Hives Verified 10/07/20 00:30 Mushroom Allergy Rash/Hives Verified 10/07/20 00:30 Penicillins Allergy Rash/Hives Verified 10/07/20 00:30 Sulfa (Sulfonamide Allergy Rash/Hives Verified 10/07/20 00:30 Antibiotics) hydromorphone [From Dilaudid] AdvReac Unknown Verified 10/16/20 19:33 prochlorperazine AdvReac Hallucinati Verified 10/16/20 19:33 ons naproxin Allergy Swelling Uncoded 10/07/20 00:30 Physical Exam Osteopathic Statement: *. No significant issues noted on an osteopathic structural exam other than those noted in the History and Physical/Consult. Vitals: Vital Signs Temp Pulse Pulse Resp BP BP Pulse Ox 10/25/20 11:00 87 0 L 73/55 96 10/25/20 10:50 112 H 36 H 100/22 99 10/25/20 10:40 115 H 36 H 98/64 100 10/25/20 10:30 116 H 13 97/64 10/25/20 10:20 112 H 12 43/21 10/25/20 10:10 126 H 36 H 106/48 100 10/25/20 10:00 118 H 36 H 99 10/25/20 09:50 120 H 24 107/53 100 10/25/20 09:40 123 H 24 96/70 100 10/25/20 09:30 128 H 24 129/85 99 10/25/20 09:20 128 H 24 143/46 100 10/25/20 09:10 125 H 25 H 10/25/20 09:00 128 H 24 112/94 10/25/20 08:50 137 H 24 83/43 97 10/25/20 08:40 135 H 24 66/50 97 10/25/20 08:30 129 H 24 187/83 99 10/25/20 08:20 135 H 23 100 10/25/20 08:10 133 H 24 87/59 97 10/25/20 08:00 134 H 24 100 10/25/20 07:50 135 H 24 101/83 98 10/25/20 07:40 135 H 24 100/60 99 10/25/20 07:30 87/73 100 10/25/20 07:20 131 H 24 93/21 98 10/25/20 07:10 128 H 24 115/100 98 10/25/20 07:00 130 H 31 H 111/59 93 L 10/25/20 06:00 140 H 40 H 92/39 94 L 10/25/20 05:45 133 H 29 H 103/39 93 L 10/25/20 05:30 133 H 34 H 90/74 94 L 10/25/20 05:15 96.3 F L 134 H 43 H 90/21 95 10/25/20 05:00 131 H 46 H 89/57 93 L 10/25/20 04:45 133 H 35 H 90/59 95 10/25/20 04:30 134 H 49 H 111/99 94 L 10/25/20 04:15 134 H 36 H 103/87 95 10/25/20 04:00 135 H 43 H 103/65 95 10/25/20 03:45 135 H 43 H 76/31 96 10/25/20 03:30 137 H 45 H 103/93 96 10/25/20 03:20 138 H 41 H 94/39 97 10/25/20 03:10 138 H 45 H 87/30 97 10/25/20 03:00 140 H 49 H 87/30 97 10/25/20 02:56 140 H 45 H 98 10/24/20 20:00 118 H 16 10/24/20 19:47 98 F 118 H 16 91/69 97 10/24/20 16:00 97.6 F 114 H 16 90/65 98 10/24/20 11:55 97.6 F 117 H 16 102/73 99 Intake and Output 10/24/20 10/25/20 10/25/20 22:59 06:59 14:59 Intake Total 1190 225 529.096 Output Total 750 175 175 Balance 440 50 354.096 Intake: Intake, IV Titration 250 225 529.096 Amount Cisatracurium 200 mg In 3.89 Sodium Chloride 0.9% 180 ml @ 1 MCG/KG/MIN 4.668 mls/hr IV .Q24H LONNIE Rx#: [id number] Dextrose 5% in Water 1, 225 000 ml @ 75 mls/hr IV . [id number] LONNIE with Sodium Bicarb (1 Meq/ml) 150 ml Rx#:[id number] Norepinephrine 4 mg In 262.398 Sodium Chloride 0.9% 250 ml @ 0.05 MCG/KG/MIN 14. 821 mls/hr IV .Q17H9M L[facility] Rx#:[id number] Norepinephrine 8 mg In 250.905 Sodium Chloride 0.9% 250 ml @ 0.05 MCG/KG/MIN 7. 527 mls/hr IV .Q24H L[facility]NIE Rx#:[id number] Vancomycin 1,500 mg In 250 Sodium Chloride 0.9% 250 ml @ 125 mls/hr IVPB Q16H LON[facility]IE Rx#:[id number] propofoL 1,000 mg In 11.903 Empty Bag 1 bag @ Titrate IV .Q0M LONNIE Rx#: [id number] Oral 940 Output: Drainage 550 175 175 Left Lateral 50 75 75 Right Lateral 500 100 100 Stool 200 Other: Voiding Method Ileal Conduit (Right) Ileal Conduit (Right) Ileal Conduit (Left) Ileal Conduit (Left) # Voids 0 ABP, PAP, CO, CI - Last 8 Hours Arterial Blood Pressure 28/22 Arterial Blood Pressure 13/8 Arterial Blood Pressure 37/31 Arterial Blood Pressure 43/29 Arterial Blood Pressure 34/28 Arterial Blood Pressure 34/28 Arterial Blood Pressure 36/28 Arterial Blood Pressure 30/23 Arterial Blood Pressure 31/22 Arterial Blood Pressure 34/17 Arterial Blood Pressure 31/22 Arterial Blood Pressure 26/15 Intubated, and mechanically ventilated, and unresponsive. HEENT examination is grossly unremarkable. There is an orally placed endotracheal tube. Neck supple. Full range of motion. No adenopathy thyromegaly or neck vein distention. Cardiovascular examination reveals regular rhythm rate. S1-S2 normal. No S3 or S4. No discernible murmur noted. Heart sounds are distant, and heart rate about 125 bpm. During the resuscitation, she had periods of pulseless electrical activity, as well as ventricular tachycardia. Lungs reveal coarse bilateral breath sounds. Diffuse rhonchi are noted. No wheezes or crackles. Abdomen soft , without bowel sounds. A midline ostomy is noted. There is also a well-healed midline abdominal incision. Extremities are intact. No cyanosis clubbing or edema. Skin is without rash or lesion. There are areas on the lower extremities of aditi rocio reticularis. Neurologic examination could not be assessed as the patient's currently on the ventilator. Results - Laboratory Findings CBC and BMP: 10/25/20 04:53 10/25/20 04:53 ABG ABG pH 6.87 (7.35-7.45) L* 10/25/20 09:49 ABG pCO2 75 mmHg (35-45) H* 10/25/20 09:49 ABG pO2 20 mmHg (83-108) L* 10/25/20 09:49 ABG O2 Saturation 12.1 % (94-97) L 10/25/20 09:49 PT/INR, D-dimer PT 10.7 sec (9.0-12.0) 10/18/20 09:18 INR 1.0 (<1.2) 10/18/20 09:18 Abnormal lab findings: Abnormal Labs 10/07/20 10/07/20 10/07/20 01:36 01:36 01:36 WBC 14.5 H RBC 3.40 L Hgb 9.1 L Hct 29.2 L MCHC RDW 19.3 H Plt Count 866 H MPV Immature Gran # Neutrophils # 11.9 H Neutrophils # (Manual) Eosinophils # Metamyelocytes # (Man) Myelocytes # (Manual) Nucleated RBCs ESR APTT 32.0 H ABG pH ABG pCO2 ABG pO2 ABG HCO3 ABG Total CO2 ABG O2 Saturation Sodium 134 L Chloride 97 L Carbon Dioxide BUN Creatinine BUN/Creatinine Ratio Glucose 110 H POC Glucose (mg/dL) Plasma Lactic Acid Eleazar Magnesium Iron TIBC % Saturation AST ALT Lactate Dehydrogenase C-Reactive Protein Total Protein Albumin 3.4 L Albumin/Globulin Ratio Carcinoembryonic Ag Procalcitonin Urine Appearance Urine Protein Urine Blood Ur Leukocyte Esterase Urine RBC Urine WBC Urine WBC Clumps Urine Bacteria Urine Mucus Urine Yeast (Budding) 10/08/20 10/08/20 10/08/20 06:57 06:57 21:31 WBC 11.0 H RBC 3.22 L 3.28 L Hgb 8.6 L 8.8 L Hct 27.9 L 28.4 L MCHC 30.8 L 30.9 L RDW 19.4 H 19.2 H Plt Count 703 H 709 H MPV Immature Gran # Neutrophils # Neutrophils # (Manual) Eosinophils # Metamyelocytes # (Man) Myelocytes # (Manual) Nucleated RBCs ESR APTT ABG pH ABG pCO2 ABG pO2 ABG HCO3 ABG Total CO2 ABG O2 Saturation Sodium Chloride Carbon Dioxide BUN Creatinine BUN/Creatinine Ratio Glucose POC Glucose (mg/dL) Plasma Lactic Acid Eleazar Magnesium Iron 31 L TIBC 158 L % Saturation AST ALT Lactate Dehydrogenase C-Reactive Protein Total Protein Albumin Albumin/Globulin Ratio Carcinoembryonic Ag Procalcitonin Urine Appearance Urine Protein Urine Blood Ur Leukocyte Esterase Urine RBC Urine WBC Urine WBC Clumps Urine Bacteria Urine Mucus Urine Yeast (Budding) 10/09/20 10/09/20 10/09/20 01:04 06:24 06:24 WBC RBC 3.33 L 3.13 L Hgb 9.4 L 8.8 L Hct 28.9 L 27.1 L MCHC RDW 19.4 H 19.3 H Plt Count 692 H 652 H MPV Immature Gran # Neutrophils # Neutrophils # (Manual) Eosinophils # Metamyelocytes # (Man) Myelocytes # (Manual) Nucleated RBCs ESR APTT ABG pH ABG pCO2 ABG pO2 ABG HCO3 ABG Total CO2 ABG O2 Saturation Sodium 135 L Chloride Carbon Dioxide BUN Creatinine BUN/Creatinine Ratio Glucose POC Glucose (mg/dL) Plasma Lactic Acid Eleazar Magnesium Iron TIBC % Saturation AST ALT Lactate Dehydrogenase C-Reactive Protein Total Protein Albumin Albumin/Globulin Ratio Carcinoembryonic Ag Procalcitonin Urine Appearance Urine Protein Urine Blood Ur Leukocyte Esterase Urine RBC Urine WBC Urine WBC Clumps Urine Bacteria Urine Mucus Urine Yeast (Budding) 10/09/20 10/09/20 10/09/20 06:24 15:15 23:10 WBC RBC Hgb Hct MCHC RDW Plt Count MPV Immature Gran # Neutrophils # Neutrophils # (Manual) Eosinophils # Metamyelocytes # (Man) Myelocytes # (Manual) Nucleated RBCs ESR APTT 32.8 H 42.1 H 43.8 H ABG pH ABG pCO2 ABG pO2 ABG HCO3 ABG Total CO2 ABG O2 Saturation Sodium Chloride Carbon Dioxide BUN Creatinine BUN/Creatinine Ratio Glucose POC Glucose (mg/dL) Plasma Lactic Acid Eleazar Magnesium Iron TIBC % Saturation AST ALT Lactate Dehydrogenase C-Reactive Protein Total Protein Albumin Albumin/Globulin Ratio Carcinoembryonic Ag Procalcitonin Urine Appearance Urine Protein Urine Blood Ur Leukocyte Esterase Urine RBC Urine WBC Urine WBC Clumps Urine Bacteria Urine Mucus Urine Yeast (Budding) 10/10/20 10/10/20 10/10/20 06:19 06:19 06:19 WBC RBC 3.16 L Hgb 9.1 L Hct 27.6 L MCHC RDW 19.4 H Plt Count 654 H MPV Immature Gran # Neutrophils # Neutrophils # (Manual) Eosinophils # Metamyelocytes # (Man) Myelocytes # (Manual) Nucleated RBCs ESR APTT 51.6 H ABG pH ABG pCO2 ABG pO2 ABG HCO3 ABG Total CO2 ABG O2 Saturation Sodium 136 L Chloride Carbon Dioxide 32 H BUN Creatinine BUN/Creatinine Ratio Glucose POC Glucose (mg/dL) Plasma Lactic Acid Eleazar Magnesium Iron TIBC % Saturation AST ALT Lactate Dehydrogenase C-Reactive Protein Total Protein Albumin Albumin/Globulin Ratio Carcinoembryonic Ag Procalcitonin Urine Appearance Urine Protein Urine Blood Ur Leukocyte Esterase Urine RBC Urine WBC Urine WBC Clumps Urine Bacteria Urine Mucus Urine Yeast (Budding) 10/11/20 10/11/20 10/12/20 08:55 08:55 08:35 WBC RBC 3.37 L Hgb 9.5 L Hct 29.3 L MCHC RDW 19.5 H Plt Count 689 H MPV Immature Gran # Neutrophils # Neutrophils # (Manual) Eosinophils # Metamyelocytes # (Man) 0.10 H Myelocytes # (Manual) 0.10 H Nucleated RBCs ESR APTT 45.0 H ABG pH ABG pCO2 ABG pO2 ABG HCO3 ABG Total CO2 ABG O2 Saturation Sodium Chloride Carbon Dioxide BUN Creatinine BUN/Creatinine Ratio Glucose POC Glucose (mg/dL) Plasma Lactic Acid Eleazar Magnesium Iron TIBC % Saturation AST ALT Lactate Dehydrogenase C-Reactive Protein Total Protein Albumin Albumin/Globulin Ratio Carcinoembryonic Ag 10.7 H Procalcitonin Urine Appearance Urine Protein Urine Blood Ur Leukocyte Esterase Urine RBC Urine WBC Urine WBC Clumps Urine Bacteria Urine Mucus Urine Yeast (Budding) 10/12/20 10/12/20 10/13/20 08:35 08:35 07:45 WBC RBC 3.54 L 3.34 L Hgb 9.6 L 9.2 L Hct 31.2 L 29.6 L MCHC 30.8 L RDW 19.6 H 20.0 H Plt Count 731 H 694 H MPV Immature Gran # Neutrophils # Neutrophils # (Manual) Eosinophils # Metamyelocytes # (Man) Myelocytes # (Manual) Nucleated RBCs ESR APTT ABG pH ABG pCO2 ABG pO2 ABG HCO3 ABG Total CO2 ABG O2 Saturation Sodium 136 L Chloride Carbon Dioxide 32 H BUN Creatinine BUN/Creatinine Ratio Glucose POC Glucose (mg/dL) Plasma Lactic Acid Eleazar Magnesium Iron TIBC % Saturation AST ALT Lactate Dehydrogenase C-Reactive Protein Total Protein 5.6 L Albumin 2.8 L Albumin/Globulin Ratio Carcinoembryonic Ag Procalcitonin Urine Appearance Urine Protein Urine Blood Ur Leukocyte Esterase Urine RBC Urine WBC Urine WBC Clumps Urine Bacteria Urine Mucus Urine Yeast (Budding) 10/13/20 10/14/20 10/14/20 21:26 07:22 07:35 WBC 11.6 H RBC 3.61 L 3.39 L Hgb 9.7 L 9.3 L Hct 31.8 L 29.6 L MCHC 30.5 L RDW 20.0 H 20.1 H Plt Count 726 H 689 H MPV Immature Gran # Neutrophils # 9.0 H Neutrophils # (Manual) Eosinophils # Metamyelocytes # (Man) Myelocytes # (Manual) Nucleated RBCs ESR APTT ABG pH ABG pCO2 ABG pO2 ABG HCO3 ABG Total CO2 ABG O2 Saturation Sodium 133 L Chloride 96 L Carbon Dioxide 32 H BUN Creatinine BUN/Creatinine Ratio Glucose POC Glucose (mg/dL) Plasma Lactic Acid Eleazar Magnesium Iron 20 L TIBC 217 L % Saturation 9.22 L AST ALT Lactate Dehydrogenase C-Reactive Protein Total Protein 5.3 L Albumin 2.7 L Albumin/Globulin Ratio Carcinoembryonic Ag Procalcitonin Urine Appearance Urine Protein Urine Blood Ur Leukocyte Esterase Urine RBC Urine WBC Urine WBC Clumps Urine Bacteria Urine Mucus Urine Yeast (Budding) 10/15/20 10/15/20 10/16/20 08:40 08:40 06:50 WBC RBC 3.32 L 3.23 L Hgb 9.2 L 9.2 L Hct 28.9 L 28.0 L MCHC RDW 19.9 H 19.6 H Plt Count 689 H 664 H MPV Immature Gran # Neutrophils # Neutrophils # (Manual) Eosinophils # Metamyelocytes # (Man) Myelocytes # (Manual) Nucleated RBCs ESR APTT ABG pH ABG pCO2 ABG pO2 ABG HCO3 ABG Total CO2 ABG O2 Saturation Sodium 133 L Chloride 94 L Carbon Dioxide 32 H BUN Creatinine BUN/Creatinine Ratio Glucose 111 H POC Glucose (mg/dL) Plasma Lactic Acid Eleazar Magnesium Iron TIBC % Saturation AST ALT Lactate Dehydrogenase C-Reactive Protein Total Protein Albumin Albumin/Globulin Ratio Carcinoembryonic Ag Procalcitonin Urine Appearance Urine Protein Urine Blood Ur Leukocyte Esterase Urine RBC Urine WBC Urine WBC Clumps Urine Bacteria Urine Mucus Urine Yeast (Budding) 10/16/20 10/17/20 10/17/20 06:50 11:44 11:44 WBC RBC 3.60 L Hgb 10.0 L Hct 31.8 L MCHC RDW 19.8 H Plt Count 716 H MPV Immature Gran # Neutrophils # Neutrophils # (Manual) Eosinophils # Metamyelocytes # (Man) Myelocytes # (Manual) Nucleated RBCs ESR APTT ABG pH ABG pCO2 ABG pO2 ABG HCO3 ABG Total CO2 ABG O2 Saturation Sodium 133 L 135 L Chloride 95 L 96 L Carbon Dioxide 34 H 33 H BUN Creatinine BUN/Creatinine Ratio Glucose 118 H POC Glucose (mg/dL) Plasma Lactic Acid Eleazar Magnesium Iron TIBC % Saturation AST ALT Lactate Dehydrogenase C-Reactive Protein Total Protein 6.2 L Albumin 3.3 L Albumin/Globulin Ratio Carcinoembryonic Ag Procalcitonin Urine Appearance Urine Protein Urine Blood Ur Leukocyte Esterase Urine RBC Urine WBC Urine WBC Clumps Urine Bacteria Urine Mucus Urine Yeast (Budding) 10/17/20 10/17/20 10/18/20 18:21 18:21 05:56 WBC RBC Hgb Hct MCHC RDW Plt Count MPV Immature Gran # Neutrophils # Neutrophils # (Manual) Eosinophils # Metamyelocytes # (Man) Myelocytes # (Manual) Nucleated RBCs ESR 115 H APTT ABG pH ABG pCO2 ABG pO2 ABG HCO3 ABG Total CO2 ABG O2 Saturation Sodium 134 L Chloride Carbon Dioxide BUN Creatinine BUN/Creatinine Ratio Glucose POC Glucose (mg/dL) Plasma Lactic Acid Eleazar Magnesium Iron TIBC % Saturation AST ALT Lactate Dehydrogenase C-Reactive Protein 66.1 H Total Protein 5.3 L Albumin 2.8 L Albumin/Globulin Ratio Carcinoembryonic Ag Procalcitonin Urine Appearance Urine Protein Urine Blood Ur Leukocyte Esterase Urine RBC Urine WBC Urine WBC Clumps Urine Bacteria Urine Mucus Urine Yeast (Budding) 10/18/20 10/18/20 10/18/20 05:56 09:22 17:24 WBC RBC 3.03 L 3.20 L Hgb 8.6 L 8.9 L Hct 28.0 L 28.1 L MCHC 30.7 L RDW 19.9 H 19.6 H Plt Count 596 H 656 H MPV 8.7 L Immature Gran # Neutrophils # Neutrophils # (Manual) Eosinophils # 0.38 H Metamyelocytes # (Man) Myelocytes # (Manual) Nucleated RBCs ESR APTT 33.3 H ABG pH ABG pCO2 ABG pO2 ABG HCO3 ABG Total CO2 ABG O2 Saturation Sodium Chloride Carbon Dioxide BUN Creatinine BUN/Creatinine Ratio Glucose POC Glucose (mg/dL) Plasma Lactic Acid Eleazar Magnesium Iron TIBC % Saturation AST ALT Lactate Dehydrogenase C-Reactive Protein Total Protein Albumin Albumin/Globulin Ratio Carcinoembryonic Ag Procalcitonin Urine Appearance Urine Protein Urine Blood Ur Leukocyte Esterase Urine RBC Urine WBC Urine WBC Clumps Urine Bacteria Urine Mucus Urine Yeast (Budding) 10/19/20 10/19/20 10/20/20 00:38 05:48 06:11 WBC RBC 3.01 L 3.03 L Hgb 8.5 L 8.5 L Hct 27.9 L 28.4 L MCHC 30.5 L 29.9 L RDW 19.7 H 19.7 H Plt Count 619 H 594 H MPV 9.2 L 8.8 L Immature Gran # 0.06 H 0.05 H Neutrophils # Neutrophils # (Manual) Eosinophils # 0.40 H 0.36 H Metamyelocytes # (Man) Myelocytes # (Manual) Nucleated RBCs ESR APTT 46.7 H ABG pH ABG pCO2 ABG pO2 ABG HCO3 ABG Total CO2 ABG O2 Saturation Sodium Chloride Carbon Dioxide BUN Creatinine BUN/Creatinine Ratio Glucose POC Glucose (mg/dL) Plasma Lactic Acid Eleazar Magnesium Iron TIBC % Saturation AST ALT Lactate Dehydrogenase C-Reactive Protein Total Protein Albumin Albumin/Globulin Ratio Carcinoembryonic Ag Procalcitonin Urine Appearance Urine Protein Urine Blood Ur Leukocyte Esterase Urine RBC Urine WBC Urine WBC Clumps Urine Bacteria Urine Mucus Urine Yeast (Budding) 10/20/20 10/21/20 10/21/20 06:11 05:45 11:40 WBC 10.36 H RBC 2.99 L Hgb 8.4 L Hct 27.7 L MCHC 30.3 L RDW 19.5 H Plt Count 603 H MPV 8.8 L Immature Gran # Neutrophils # Neutrophils # (Manual) Eosinophils # Metamyelocytes # (Man) Myelocytes # (Manual) Nucleated RBCs ESR APTT ABG pH ABG pCO2 ABG pO2 ABG HCO3 ABG Total CO2 ABG O2 Saturation Sodium 134 L Chloride Carbon Dioxide 32 H BUN Creatinine BUN/Creatinine Ratio Glucose POC Glucose (mg/dL) Plasma Lactic Acid Eleazar Magnesium Iron TIBC % Saturation AST ALT Lactate Dehydrogenase C-Reactive Protein Total Protein 5.5 L Albumin 2.8 L Albumin/Globulin Ratio Carcinoembryonic Ag Procalcitonin Urine Appearance Urine Protein Trace H Urine Blood Large H Ur Leukocyte Esterase Moderate H Urine RBC 153 H Urine WBC 8 H Urine WBC Clumps Urine Bacteria Rare H Urine Mucus Rare H Urine Yeast (Budding) 10/22/20 10/22/20 10/22/20 05:23 05:23 18:44 WBC 14.17 H 14.0 H RBC 3.20 L 3.36 L Hgb 9.0 L 9.9 L Hct 29.2 L 30.1 L MCHC 30.8 L RDW 18.3 H 19.0 H Plt Count 631 H 663 H MPV 9.0 L Immature Gran # 0.06 H Neutrophils # 12.57 H Neutrophils # (Manual) Eosinophils # 0 L Metamyelocytes # (Man) Myelocytes # (Manual) Nucleated RBCs ESR APTT ABG pH ABG pCO2 ABG pO2 ABG HCO3 ABG Total CO2 ABG O2 Saturation Sodium Chloride Carbon Dioxide BUN Creatinine BUN/Creatinine Ratio 21.25 H Glucose 133 H POC Glucose (mg/dL) Plasma Lactic Acid Eleazar Magnesium Iron TIBC % Saturation AST ALT <8 L Lactate Dehydrogenase C-Reactive Protein Total Protein 5.7 L Albumin 3.50 L Albumin/Globulin Ratio 1.59 L Carcinoembryonic Ag Procalcitonin Urine Appearance Urine Protein Urine Blood Ur Leukocyte Esterase Urine RBC Urine WBC Urine WBC Clumps Urine Bacteria Urine Mucus Urine Yeast (Budding) 10/24/20 10/24/20 10/25/20 05:51 20:39 01:33 WBC RBC 3.23 L Hgb 9.0 L Hct 29.4 L MCHC 30.6 L RDW 18.5 H Plt Count 652 H MPV 8.9 L Immature Gran # Neutrophils # Neutrophils # (Manual) Eosinophils # 0 L Metamyelocytes # (Man) Myelocytes # (Manual) Nucleated RBCs ESR APTT ABG pH ABG pCO2 ABG pO2 ABG HCO3 ABG Total CO2 ABG O2 Saturation Sodium Chloride Carbon Dioxide BUN Creatinine BUN/Creatinine Ratio Glucose POC Glucose (mg/dL) 203 H Plasma Lactic Acid Eleazar Magnesium Iron TIBC % Saturation AST ALT Lactate Dehydrogenase C-Reactive Protein Total Protein Albumin Albumin/Globulin Ratio Carcinoembryonic Ag Procalcitonin Urine Appearance Turbid H Urine Protein 1+ H Urine Blood Large H Ur Leukocyte Esterase Urine RBC >182 H Urine WBC >182 H Urine WBC Clumps Moderate H Urine Bacteria Urine Mucus Urine Yeast (Budding) Moderate H 10/25/20 10/25/20 10/25/20 01:47 01:49 02:02 WBC RBC Hgb Hct MCHC RDW Plt Count MPV Immature Gran # Neutrophils # Neutrophils # (Manual) Eosinophils # Metamyelocytes # (Man) Myelocytes # (Manual) Nucleated RBCs ESR APTT ABG pH 6.97 L* ABG pCO2 47 H ABG pO2 ABG HCO3 11 L ABG Total CO2 12 L ABG O2 Saturation 88.3 L Sodium Chloride Carbon Dioxide 11 L BUN 20 H Creatinine BUN/Creatinine Ratio Glucose 254 H POC Glucose (mg/dL) 303 H Plasma Lactic Acid Eleazar Magnesium Iron TIBC % Saturation AST 76 H ALT Lactate Dehydrogenase 1084 H C-Reactive Protein 70.8 H Total Protein 6.1 L Albumin 3.3 L Albumin/Globulin Ratio Carcinoembryonic Ag Procalcitonin Urine Appearance Urine Protein Urine Blood Ur Leukocyte Esterase Urine RBC Urine WBC Urine WBC Clumps Urine Bacteria Urine Mucus Urine Yeast (Budding) 10/25/20 10/25/20 10/25/20 02:02 02:02 02:02 WBC 13.8 H RBC 3.14 L Hgb 9.5 L Hct 29.2 L MCHC RDW 18.3 H Plt Count 710 H MPV Immature Gran # Neutrophils # 9.5 H Neutrophils # (Manual) Eosinophils # Metamyelocytes # (Man) Myelocytes # (Manual) Nucleated RBCs ESR APTT ABG pH ABG pCO2 ABG pO2 ABG HCO3 ABG Total CO2 ABG O2 Saturation Sodium Chloride Carbon Dioxide BUN Creatinine BUN/Creatinine Ratio Glucose POC Glucose (mg/dL) Plasma Lactic Acid Eleazar 10.7 H* Magnesium Iron TIBC % Saturation AST ALT Lactate Dehydrogenase C-Reactive Protein Total Protein Albumin Albumin/Globulin Ratio Carcinoembryonic Ag Procalcitonin 0.13 H Urine Appearance Urine Protein Urine Blood Ur Leukocyte Esterase Urine RBC Urine WBC Urine WBC Clumps Urine Bacteria Urine Mucus Urine Yeast (Budding) 10/25/20 10/25/20 10/25/20 02:38 04:53 04:53 WBC 13.8 H RBC 3.77 L Hgb 11.1 L Hct MCHC 30.9 L RDW 17.9 H Plt Count 757 H MPV Immature Gran # Neutrophils # Neutrophils # (Manual) 11.00 H Eosinophils # Metamyelocytes # (Man) Myelocytes # (Manual) Nucleated RBCs 1 H ESR APTT ABG pH ABG pCO2 ABG pO2 ABG HCO3 ABG Total CO2 ABG O2 Saturation Sodium Chloride Carbon Dioxide 9 L* BUN 21 H Creatinine 1.25 H BUN/Creatinine Ratio Glucose 205 H POC Glucose (mg/dL) 294 H Plasma Lactic Acid Eleazar Magnesium 2.7 H Iron TIBC % Saturation AST ALT Lactate Dehydrogenase C-Reactive Protein Total Protein Albumin Albumin/Globulin Ratio Carcinoembryonic Ag Procalcitonin Urine Appearance Urine Protein Urine Blood Ur Leukocyte Esterase Urine RBC Urine WBC Urine WBC Clumps Urine Bacteria Urine Mucus Urine Yeast (Budding) 10/25/20 10/25/20 10/25/20 05:01 06:31 08:59 WBC RBC Hgb Hct MCHC RDW Plt Count MPV Immature Gran # Neutrophils # Neutrophils # (Manual) Eosinophils # Metamyelocytes # (Man) Myelocytes # (Manual) Nucleated RBCs ESR APTT ABG pH 6.99 L* 7.00 L* ABG pCO2 49 H 76 H* ABG pO2 18 L* ABG HCO3 12 L 19 L ABG Total CO2 13 L ABG O2 Saturation 91.6 L 10.4 L Sodium Chloride Carbon Dioxide BUN Creatinine BUN/Creatinine Ratio Glucose POC Glucose (mg/dL) Plasma Lactic Acid Eleazar 12.9 H* Magnesium Iron TIBC % Saturation AST ALT Lactate Dehydrogenase C-Reactive Protein Total Protein Albumin Albumin/Globulin Ratio Carcinoembryonic Ag Procalcitonin Urine Appearance Urine Protein Urine Blood Ur Leukocyte Esterase Urine RBC Urine WBC Urine WBC Clumps Urine Bacteria Urine Mucus Urine Yeast (Budding) 10/25/20 10/25/20 10/25/20 09:05 09:05 09:49 WBC RBC Hgb Hct MCHC RDW Plt Count MPV Immature Gran # Neutrophils # Neutrophils # (Manual) Eosinophils # Metamyelocytes # (Man) Myelocytes # (Manual) Nucleated RBCs ESR APTT ABG pH 6.87 L* ABG pCO2 75 H* ABG pO2 20 L* ABG HCO3 14 L ABG Total CO2 16 L ABG O2 Saturation 12.1 L Sodium Chloride Carbon Dioxide BUN Creatinine BUN/Creatinine Ratio Glucose POC Glucose (mg/dL) Plasma Lactic Acid Eleazar 18.7 H* Magnesium Iron TIBC % Saturation AST ALT Lactate Dehydrogenase C-Reactive Protein 45.1 H Total Protein Albumin Albumin/Globulin Ratio Carcinoembryonic Ag Procalcitonin Urine Appearance Urine Protein Urine Blood Ur Leukocyte Esterase Urine RBC Urine WBC Urine WBC Clumps Urine Bacteria Urine Mucus Urine Yeast (Budding) - Diagnostic Findings Chest x-ray: image reviewed Assessment and Plan Assessment: Acute mental status changes, with severe metabolic acidosis, and hypotension, possibly related to underlying sepsis. Intubation and mechanical ventilation for impending respiratory failure, on 10/25/2020. Severe lactic acidemia. Metastatic colon cancer, currently undergoing chemotherapy. History of thyroid cancer. History of GI bleed. History of DVT. Status post colostomy. Plan: Plan dated 10/25/2020. We spent quite a bit of time at the bedside this morning, pulling lines in, including a right femoral vein triple lumen catheter, right femoral art line, and a left femoral art line. The patient had multiple episodes of cardi opulmonary arrest. She was resuscitated each time. The patient received multiple medications including norepinephrine, vasopressin, hydrocortisone, Nimbex, propofol, fluids, etc. Despite all that, she never really responded in a positive way. Eventually the family was notified. They did not want the patient to continue to be resuscitated after the next episode of cardiopulmonary arrest. Hence, eventually, the resuscitation was called by the hospital doctor. Labs x-rays a medications are reviewed. In the end, she was receiving hydrocortisone, sodium bicarbonate drip, maximal norepinephrine, vasopressin, and fluid boluses. Time with Patient: Greater than 30
--- NOTE | 2020-10-25 12:11 | P.PN ---
Subjective Progress Note Date: 10/25/20 Principal diagnosis: colon adenocarcinoma with funngating wound from malignancy In follow-up today patient in the intensive care unit. She is intubated, on vasopressors, we understanding is that she has experienced respiratory failure at least 3 times requiring resuscitation. Objective - Vital Signs Vital signs: Vital Signs Temp 96.3 F L 10/25/20 05:15 Pulse 87 10/25/20 11:00 Resp 0 L 10/25/20 11:00 BP 73/55 10/25/20 11:00 Pulse Ox 96 10/25/20 11:00 Intake & Output 10/24/20 10/25/20 10/25/20 18:59 06:59 18:59 Intake Total 1190 225 529.096 Output Total 1200 775 175 Balance -10 -550 354.096 Intake: Intake, IV Titration 250 225 529.096 Amount Cisatracurium 200 mg In 3.89 Sodium Chloride 0.9% 180 ml @ 1 MCG/KG/MIN 4.668 mls/hr IV .Q24H LONNIE Rx#: [id number] Dextrose 5% in Water 1, 225 000 ml @ 75 mls/hr IV . [id number] LONNIE with Sodium Bicarb (1 Meq/ml) 150 ml Rx#:[id number] Norepinephrine 4 mg In 262.398 Sodium Chloride 0.9% 250 ml @ 0.05 MCG/KG/MIN 14. 821 mls/hr IV .Q17H9M LON[facility]IE Rx#:[id number] Norepinephrine 8 mg In 250.905 Sodium Chloride 0.9% 250 ml @ 0.05 MCG/KG/MIN 7. 527 mls/hr IV .Q24H LONNIE Rx#:[id number] Vancomycin 1,500 mg In 250 Sodium Chloride 0.9% 250 ml @ 125 mls/hr IVPB Q16H LONNIE Rx#:[id number] propofoL 1,000 mg In 11.903 Empty Bag 1 bag @ Titrate IV .Q0M LONNIE Rx#: [id number] Oral 940 Output: Drainage 1000 575 175 Left Lateral 250 75 75 Right Lateral 750 500 100 Stool 200 200 Other: Voiding Method Ileal Conduit (Right) Ileal Conduit (Right) Ileal Conduit (Left) Ileal Conduit (Left) # Voids 0 ABP, PAP, CO, CI - Last Documented Arterial Blood Pressure - Exam Patient is cold to the touch, chest visibly rises and falls very rapidly, shallowly, there is mottling of the lower extremities, there is a profound amount of blood draining from the ET tube, urostomy. - Labs CBC & Chem 7: 10/25/20 04:53 10/25/20 04:53 Labs: Abnormal Lab Results - Last 24 Hours (Table) 10/24/20 10/25/20 10/25/20 Range/Units 20:39 01:33 01:47 WBC (3.8-10.6) k/uL RBC (3.80-5.40) m/uL Hgb (11.4-16.0) gm/dL Hct (34.0-46.0) % MCHC (31.0-37.0) g/dL RDW (11.5-15.5) % Plt Count (150-450) k/uL Neutrophils # (1.3-7.7) k/uL Neutrophils # (Manual) (1.3-7.7) k/uL Nucleated RBCs (0-0) /100 WBC ABG pH 6.97 L* (7.35-7.45) ABG pCO2 47 H (35-45) mmHg ABG pO2 (83-108) mmHg ABG HCO3 11 L (21-25) mmol/L ABG Total CO2 12 L (19-24) mmol/L ABG O2 Saturation 88.3 L (94-97) % Carbon Dioxide (22-30) mmol/L BUN (7-17) mg/dL Creatinine (0.52-1.04) mg/dL Glucose (74-99) mg/dL POC Glucose (mg/dL) 203 H (75-99) mg/dL Plasma Lactic Acid Eleazar (0.7-2.0) mmol/L Magnesium (1.6-2.3) mg/dL AST (14-36) U/L Lactate Dehydrogenase (313-618) U/L C-Reactive Protein (<10.0) mg/L Total Protein (6.3-8.2) g/dL Albumin (3.5-5.0) g/dL Procalcitonin (0.02-0.09) ng/mL Urine Appearance Turbid H (Clear) Urine Protein 1+ H (Negative) Urine Blood Large H (Negative) Urine RBC >182 H (0-5) /hpf Urine WBC >182 H (0-5) /hpf Urine WBC Clumps Moderate H (None) /hpf Urine Yeast (Budding) Moderate H (None) /hpf 10/25/20 10/25/20 10/25/20 Range/Units 01:49 02:02 02:02 WBC 13.8 H (3.8-10.6) k/uL RBC 3.14 L (3.80-5.40) m/uL Hgb 9.5 L (11.4-16.0) gm/dL Hct 29.2 L (34.0-46.0) % MCHC (31.0-37.0) g/dL RDW 18.3 H (11.5-15.5) % Plt Count 710 H (150-450) k/uL Neutrophils # 9.5 H (1.3-7.7) k/uL Neutrophils # (Manual) (1.3-7.7) k/uL Nucleated RBCs (0-0) /100 WBC ABG pH (7.35-7.45) ABG pCO2 (35-45) mmHg ABG pO2 (83-108) mmHg ABG HCO3 (21-25) mmol/L ABG Total CO2 (19-24) mmol/L ABG O2 Saturation (94-97) % Carbon Dioxide 11 L (22-30) mmol/L BUN 20 H (7-17) mg/dL Creatinine (0.52-1.04) mg/dL Glucose 254 H (74-99) mg/dL POC Glucose (mg/dL) 303 H (75-99) mg/dL Plasma Lactic Acid Eleazar (0.7-2.0) mmol/L Magnesium (1.6-2.3) mg/dL AST 76 H (14-36) U/L Lactate Dehydrogenase 1084 H (313-618) U/L C-Reactive Protein 70.8 H (<10.0) mg/L Total Protein 6.1 L (6.3-8.2) g/dL Albumin 3.3 L (3.5-5.0) g/dL Procalcitonin (0.02-0.09) ng/mL Urine Appearance (Clear) Urine Protein (Negative) Urine Blood (Negative) Urine RBC (0-5) /hpf Urine WBC (0-5) /hpf Urine WBC Clumps (None) /hpf Urine Yeast (Budding) (None) /hpf 10/25/20 10/25/20 10/25/20 Range/Units 02:02 02:02 02:38 WBC (3.8-10.6) k/uL RBC (3.80-5.40) m/uL Hgb (11.4-16.0) gm/dL Hct (34.0-46.0) % MCHC (31.0-37.0) g/dL RDW (11.5-15.5) % Plt Count (150-450) k/uL Neutrophils # (1.3-7.7) k/uL Neutrophils # (Manual) (1.3-7.7) k/uL Nucleated RBCs (0-0) /100 WBC ABG pH (7.35-7.45) ABG pCO2 (35-45) mmHg ABG pO2 (83-108) mmHg ABG HCO3 (21-25) mmol/L ABG Total CO2 (19-24) mmol/L ABG O2 Saturation (94-97) % Carbon Dioxide (22-30) mmol/L BUN (7-17) mg/dL Creatinine (0.52-1.04) mg/dL Glucose (74-99) mg/dL POC Glucose (mg/dL) 294 H (75-99) mg/dL Plasma Lactic Acid Eleazar 10.7 H* (0.7-2.0) mmol/L Magnesium (1.6-2.3) mg/dL AST (14-36) U/L Lactate Dehydrogenase (313-618) U/L C-Reactive Protein (<10.0) mg/L Total Protein (6.3-8.2) g/dL Albumin (3.5-5.0) g/dL Procalcitonin 0.13 H (0.02-0.09) ng/mL Urine Appearance (Clear) Urine Protein (Negative) Urine Blood (Negative) Urine RBC (0-5) /hpf Urine WBC (0-5) /hpf Urine WBC Clumps (None) /hpf Urine Yeast (Budding) (None) /hpf 10/25/20 10/25/20 10/25/20 Range/Units 04:53 04:53 05:01 WBC 13.8 H (3.8-10.6) k/uL RBC 3.77 L (3.80-5.40) m/uL Hgb 11.1 L (11.4-16.0) gm/dL Hct (34.0-46.0) % MCHC 30.9 L (31.0-37.0) g/dL RDW 17.9 H (11.5-15.5) % Plt Count 757 H (150-450) k/uL Neutrophils # (1.3-7.7) k/uL Neutrophils # (Manual) 11.00 H (1.3-7.7) k/uL Nucleated RBCs 1 H (0-0) /100 WBC ABG pH (7.35-7.45) ABG pCO2 (35-45) mmHg ABG pO2 (83-108) mmHg ABG HCO3 (21-25) mmol/L ABG Total CO2 (19-24) mmol/L ABG O2 Saturation (94-97) % Carbon Dioxide 9 L* (22-30) mmol/L BUN 21 H (7-17) mg/dL Creatinine 1.25 H (0.52-1.04) mg/dL Glucose 205 H (74-99) mg/dL POC Glucose (mg/dL) (75-99) mg/dL Plasma Lactic Acid Eleazar 12.9 H* (0.7-2.0) mmol/L Magnesium 2.7 H (1.6-2.3) mg/dL AST (14-36) U/L Lactate Dehydrogenase (313-618) U/L C-Reactive Protein (<10.0) mg/L Total Protein (6.3-8.2) g/dL Albumin (3.5-5.0) g/dL Procalcitonin (0.02-0.09) ng/mL Urine Appearance (Clear) Urine Protein (Negative) Urine Blood (Negative) Urine RBC (0-5) /hpf Urine WBC (0-5) /hpf Urine WBC Clumps (None) /hpf Urine Yeast (Budding) (None) /hpf 10/25/20 10/25/20 10/25/20 Range/Units 06:31 08:59 09:05 WBC (3.8-10.6) k/uL RBC (3.80-5.40) m/uL Hgb (11.4-16.0) gm/dL Hct (34.0-46.0) % MCHC (31.0-37.0) g/dL RDW (11.5-15.5) % Plt Count (150-450) k/uL Neutrophils # (1.3-7.7) k/uL Neutrophils # (Manual) (1.3-7.7) k/uL Nucleated RBCs (0-0) /100 WBC ABG pH 6.99 L* 7.00 L* (7.35-7.45) ABG pCO2 49 H 76 H* (35-45) mmHg ABG pO2 18 L* (83-108) mmHg ABG HCO3 12 L 19 L (21-25) mmol/L ABG Total CO2 13 L (19-24) mmol/L ABG O2 Saturation 91.6 L 10.4 L (94-97) % Carbon Dioxide (22-30) mmol/L BUN (7-17) mg/dL Creatinine (0.52-1.04) mg/dL Glucose (74-99) mg/dL POC Glucose (mg/dL) (75-99) mg/dL Plasma Lactic Acid Eleazar 18.7 H* (0.7-2.0) mmol/L Magnesium (1.6-2.3) mg/dL AST (14-36) U/L Lactate Dehydrogenase (313-618) U/L C-Reactive Protein (<10.0) mg/L Total Protein (6.3-8.2) g/dL Albumin (3.5-5.0) g/dL Procalcitonin (0.02-0.09) ng/mL Urine Appearance (Clear) Urine Protein (Negative) Urine Blood (Negative) Urine RBC (0-5) /hpf Urine WBC (0-5) /hpf Urine WBC Clumps (None) /hpf Urine Yeast (Budding) (None) /hpf 10/25/20 10/25/20 Range/Units 09:05 09:49 WBC (3.8-10.6) k/uL RBC (3.80-5.40) m/uL Hgb (11.4-16.0) gm/dL Hct (34.0-46.0) % MCHC (31.0-37.0) g/dL RDW (11.5-15.5) % Plt Count (150-450) k/uL Neutrophils # (1.3-7.7) k/uL Neutrophils # (Manual) (1.3-7.7) k/uL Nucleated RBCs (0-0) /100 WBC ABG pH 6.87 L* (7.35-7.45) ABG pCO2 75 H* (35-45) mmHg ABG pO2 20 L* (83-108) mmHg ABG HCO3 14 L (21-25) mmol/L ABG Total CO2 16 L (19-24) mmol/L ABG O2 Saturation 12.1 L (94-97) % Carbon Dioxide (22-30) mmol/L BUN (7-17) mg/dL Creatinine (0.52-1.04) mg/dL Glucose (74-99) mg/dL POC Glucose (mg/dL) (75-99) mg/dL Plasma Lactic Acid Eleazar (0.7-2.0) mmol/L Magnesium (1.6-2.3) mg/dL AST (14-36) U/L Lactate Dehydrogenase (313-618) U/L C-Reactive Protein 45.1 H (<10.0) mg/L Total Protein (6.3-8.2) g/dL Albumin (3.5-5.0) g/dL Procalcitonin (0.02-0.09) ng/mL Urine Appearance (Clear) Urine Protein (Negative) Urine Blood (Negative) Urine RBC (0-5) /hpf Urine WBC (0-5) /hpf Urine WBC Clumps (None) /hpf Urine Yeast (Budding) (None) /hpf Microbiology - Last 24 Hours (Table) 10/24/20 20:39 Urine Culture - Preliminary Urine,Voided Assessment and Plan (1) Anemia Current Visit: Yes Status: Acute Priority: High Code(s): D64.9 - ANEMIA, UNSPECIFIED SNOMED Code(s): 826615690 (2) Colon cancer Current Visit: Yes Status: Acute Priority: High Code(s): C18.9 - MALIGNANT NEOPLASM OF COLON, UNSPECIFIED SNOMED Code(s): 056828248 (3) Deep vein thrombosis (DVT) Current Visit: Yes Status: Acute Priority: High Code(s): I82.409 - ACUTE EMBOLISM AND THOMBOS UNSP DEEP VN UNSP LOWER EXTREMITY SNOMED Code(s): 046059708 (4) Chemotherapy-induced nausea Current Visit: Yes Status: Acute Priority: High Code(s): R11.0 - NAUSEA; T45.1X5A - ADVERSE EFFECT OF ANTINEOPLASTIC AND IMMUNOSUP DRUGS, INIT SNOMED Code(s): 958501948 (5) Heartburn Current Visit: Yes Status: Acute Priority: High Code(s): R12 - HEARTBURN SNOMED Code(s): 80753879 (6) Anxiety about health Current Visit: Yes Status: Acute Priority: High Code(s): F41.8 - OTHER SPECIFIED ANXIETY DISORDERS SNOMED Code(s): 762637047 Plan: Plans were for the patient has a guardian to help assist her and help her navigate a very complex medical condition as she has been making extremely poor decisions. Workup for sepsis began yesterday morning with empiric antibiotics ordered, patient refused antibiotics initially. She also refused chest x-ray initially but then agreed to a single view. She refused quite certain care and many medications. Her brother in [place] has been kept updated on her condition over the last 16 days. I have never spoken to the boyfriend or had any messages to contact the boyfriend. After assessing the patient this a.m. in ICU, and discussing clinical course over the last several hours with the Intensive Care team it was obvious that the patient's condition was terminal, despite best medical efforts. RN contacted brother to update him. When I spoke with him he question patient's quality of life "after "all of this is over. I explained to the patient's brother that I did not believe that patient could recover from this. I highly recommended discontinuation of aggressive medical care, keeping the patient comfortable in allowing her to naturally. He agreed with the same. This information was communicated to the nursing staff. Orders were updated. Time with Patient: Greater than 30
--- NOTE | 2020-10-25 12:46 | P.PN ---
Subjective Progress Note Date: 10/25/20 This is a 50-year-old female was recently admitted with lower gastrointestinal bleed acute and also found to have significant malignancy. Patient has been Started on chemotherapy and oncology following closely. Patient also recently underwent psoas abscess drainage and cultures have been negative. Infectious disease is following. Patient does have bilateral urostomy tubes and hematuria is noted. Patient is maintained on Eliquis and to continue. Hemoglobin today is able at 9.9 and will continue to monitor closely. Will repeat a.m. labs. Patient is very anxious and having increased nausea today and Reglan has been added. Patient's anxiety meds have been increased as well and will continue to monitor closely. Case management and social work also following and working on discharge planning needs as the patient is potentially moving to [place] to live with family to help take care of her although her insurance is [employer] only. Will discuss with case management about treatment plan moving forward. 10/24/2020 Patient is seen and evaluated and follow-up continues to have nausea and fatigue and is extremely lethargic during conversation. Patient continues to have abdominal discomfort and states that her dressing is dry and intact. Oncology along with infectious disease following closely and cultures have remained negative and awaiting for finalization. Patient is tachycardic and hypotensive and antibiotic therapy in the form of vancomycin and cefepime has been initiated. Repeat blood cultures and urinalysis ordered. She does have nephrostomy tubes bilaterally and hematuria is mild. Chest x-ray done today showing no acute pulmonary process. Discussed in detail with oncology along with infectious disease and case management social work about the treatment plan moving forward and patient has recently underwent chemotherapy with her last dose yesterday and her next round would be in 2 weeks although will be on hold until acute infection is ruled out and patient is more stable. Patient continues to be weak and has not been working with physical therapy very much d ue to weakness and extreme nausea and discomfort. Social work discussed in detail with family member and working on possible placement at an [facility] and will follow-up with social work tomorrow. Review of systems: Constitutional: Reports fatigue and increased anxiety, fever, or chills Cardiovascular: No reports of chest pain or palpitations Respiratory: reports occasional shortness of breath GI: Reports increased nausea and vomiting : No reports of dysuria or retention Neurovascular: Reports generalized weakness All medications have been reviewed Active Medications Hydrocodone Bitart/Acetaminophen (Hydrocodone/Apap 10-325mg 1 Each Tab) 1 each PO Q4H PRN PRN Reason: Pain Last Admin: 10/24/20 12:22 Dose: 1 each Documented by: Alprazolam (Alprazolam 1 Mg Tab) 1 mg PO TID [facility] Last Admin: 10/24/20 15:07 Dose: 1 mg Documented by: Apixaban (Apixaban 5 Mg Tab) 5 mg PO BID [facility] Last Admin: 10/24/20 09:51 Dose: 5 mg Documented by: Calcium Carbonate/Glycine (Calcium Carbonate 500 Mg Chewable) 1,000 mg PO QID PRN PRN Reason: Heartburn Last Admin: 10/24/20 00:29 Dose: 1,000 mg Documented by: Famotidine (Famotidine 20 Mg Tab) 20 mg PO BID [facility] Last Admin: 10/24/20 09:51 Dose: 20 mg Documented by: Sodium Chloride (Saline 0.9%) 1,000 mls @ 50 mls/hr IV .Q20H [facility] Last Admin: 10/22/20 20:44 Dose: 50 mls/hr Documented by: Vancomycin HCl 1,500 mg/ (Sodium Chloride) 250 mls @ 125 mls/hr IVPB Q16H [facility]; Protocol Cefepime HCl 2 gm/ Sodium (Chloride) 100 mls @ 25 mls/hr IVPB Q12HR [facility] Last Admin: 10/24/20 14:34 Dose: Not Given Documented by: Metronidazole (Metronidazole 500 Mg Tab) 500 mg PO TID [facility] Last Admin: 10/24/20 15:10 Dose: Not Given Documented by: Morphine Sulfate (Morphine Sulfate Er 30 Mg Tablet) 30 mg PO Q8HR [facility]; Protocol Last Admin: 10/24/20 15:06 Dose: 30 mg Documented by: Naloxone HCl (Naloxone 0.4 Mg/Ml 1 Ml Vial) 0.2 mg IV Q2M PRN PRN Reason: Opioid Reversal Non Formulary Drug ( Levothyroxine 137mcg . Brand) 1 each PO DAILY@0630 [facility] Last Admin: 10/24/20 05:33 Dose: 1 each Documented by: Ondansetron HCl (Ondansetron 4 Mg/2 Ml Vial) 4 mg IVP Q4H [facility] Last Admin: 10/24/20 15:06 Dose: 4 mg Documented by: Pantoprazole Sodium (Pantoprazole 40 Mg/10 Ml Vial) 40 mg IVP BID [facility] Last Admin: 10/24/20 10:29 Dose: 40 mg Documented by: Sodium Bicarbonate (Salt And Soda Mouthwash 1,000 Ml) 20 ml PO QID [facility] Last Admin: 10/24/20 12:29 Dose: 20 ml Documented by: Objective - Vital Signs Vital signs: Vital Signs Temp 96.3 F L 10/25/20 05:15 Pulse 140 H 10/25/20 06:00 Resp 40 H 10/25/20 06:00 BP 92/39 10/25/20 06:00 Pulse Ox 94 L 10/25/20 06:00 Intake & Output 10/24/20 10/25/20 10/25/20 18:59 06:59 18:59 Intake Total 1190 225 Output Total 1200 775 175 Balance -10 550 -175 Intake: Intake, IV Titration 250 225 Amount Dextrose 5% in Water 1, 225 000 ml @ 75 mls/hr IV . [id number] [facility] with Sodium Bicarb (1 Meq/ml) 150 ml Rx#:[id number] Vancomycin 1,500 mg In 250 Sodium Chloride 0.9% 250 ml @ 125 mls/hr IVPB Q16H [facility] Rx#:[id number] Oral 940 Output: Drainage 1000 575 175 Left Lateral 250 75 75 Right Lateral 750 500 100 Stool 200 200 Other: Voiding Method Ileal Conduit (Right) Ileal Conduit (Right) Ileal Conduit (Left) Ileal Conduit (Left) # Voids 0 - Exam GENERAL: The patient is alert and oriented x3, awake. Temp is 97.5F, pulse is 115, respirations are 16, blood pressure is 81/64, oxygen saturation is 97% on room air HEENT: Pupils are round and equally reacting to light. EOMI. No scleral icterus. No conjunctival pallor. Normocephalic, atraumatic. No pharyngeal erythema. No thyromegaly. CARDIOVASCULAR: S1, S2 are muffled PULMONARY: Diminished breath sounds bilaterally with no wheezing or rhonchi noted ABDOMEN: Adbominal scar covered in dressing - clean. Left-sided colostomy bag in place. Nephrostomy tubes showing some red tinged urine MUSCULOSKELETAL: No joint swelling or deformity. EXTREMITIES: No cyanosis, clubbing, or pedal edema. NEUROLOGICAL: Gross neurological examination did not reveal any focal deficits. Diffuse weakness - Labs CBC & Chem 7: 10/25/20 04:53 10/25/20 04:53 Labs: Abnormal Lab Results - Last 24 Hours (Table) 10/24/20 10/24/20 10/25/20 Range/Units 05:51 20:39 01:33 WBC (3.8-10.6) k/uL RBC 3.23 L (4.10-5.20) X 10*6/uL Hgb 9.0 L (12.0-15.0) g/dL Hct 29.4 L (37.2-46.3) % MCHC 30.6 L (32.0-37.0) g/dL RDW 18.5 H (11.5-14.5) % Plt Count 652 H (140-440) X 10*3/uL MPV 8.9 L (9.5-12.2) fL Neutrophils # (1.3-7.7) k/uL Neutrophils # (Manual) (1.3-7.7) k/uL Eosinophils # 0 L (0.04-0.35) X 10*3/uL Nucleated RBCs (0-0) /100 WBC ABG pH (7.35-7.45) ABG pCO2 (35-45) mmHg ABG HCO3 (21-25) mmol/L ABG Total CO2 (19-24) mmol/L ABG O2 Saturation (94-97) % Carbon Dioxide (22-30) mmol/L BUN (7-17) mg/dL Creatinine (0.52-1.04) mg/dL Glucose (74-99) mg/dL POC Glucose (mg/dL) 203 H (75-99) mg/dL Plasma Lactic Acid Eleazar (0.7-2.0) mmol/L Magnesium (1.6-2.3) mg/dL AST (14-36) U/L Lactate Dehydrogenase (313-618) U/L C-Reactive Protein (<10.0) mg/L Total Protein (6.3-8.2) g/dL Albumin (3.5-5.0) g/dL Urine Appearance Turbid H (Clear) Urine Protein 1+ H (Negative) Urine Blood Large H (Negative) Urine RBC >182 H (0-5) /hpf Urine WBC >182 H (0-5) /hpf Urine WBC Clumps Moderate H (None) /hpf Urine Yeast (Budding) Moderate H (None) /hpf 10/25/20 10/25/20 10/25/20 Range/Units 01:47 01:49 02:02 WBC (3.8-10.6) k/uL RBC (4.10-5.20) X 10*6/uL Hgb (12.0-15.0) g/dL Hct (37.2-46.3) % MCHC (32.0-37.0) g/dL RDW (11.5-14.5) % Plt Count (140-440) X 10*3/uL MPV (9.5-12.2) fL Neutrophils # (1.3-7.7) k/uL Neutrophils # (Manual) (1.3-7.7) k/uL Eosinophils # (0.04-0.35) X 10*3/uL Nucleated RBCs (0-0) /100 WBC ABG pH 6.97 L* (7.35-7.45) ABG pCO2 47 H (35-45) mmHg ABG HCO3 11 L (21-25) mmol/L ABG Total CO2 12 L (19-24) mmol/L ABG O2 Saturation 88.3 L (94-97) % Carbon Dioxide 11 L (22-30) mmol/L BUN 20 H (7-17) mg/dL Creatinine (0.52-1.04) mg/dL Glucose 254 H (74-99) mg/dL POC Glucose (mg/dL) 303 H (75-99) mg/dL Plasma Lactic Acid Eleazar (0.7-2.0) mmol/L Magnesium (1.6-2.3) mg/dL AST 76 H (14-36) U/L Lactate Dehydrogenase 1084 H (313-618) U/L C-Reactive Protein 70.8 H (<10.0) mg/L Total Protein 6.1 L (6.3-8.2) g/dL Albumin 3.3 L (3.5-5.0) g/dL Urine Appearance (Clear) Urine Protein (Negative) Urine Blood (Negative) Urine RBC (0-5) /hpf Urine WBC (0-5) /hpf Urine WBC Clumps (None) /hpf Urine Yeast (Budding) (None) /hpf 10/25/20 10/25/20 10/25/20 Range/Units 02:02 02:02 02:38 WBC 13.8 H (3.8-10.6) k/uL RBC 3.14 L (4.10-5.20) X 10*6/uL Hgb 9.5 L (12.0-15.0) g/dL Hct 29.2 L (37.2-46.3) % MCHC (32.0-37.0) g/dL RDW 18.3 H (11.5-14.5) % Plt Count 710 H (140-440) X 10*3/uL MPV (9.5-12.2) fL Neutrophils # 9.5 H (1.3-7.7) k/uL Neutrophils # (Manual) (1.3-7.7) k/uL Eosinophils # (0.04-0.35) X 10*3/uL Nucleated RBCs (0-0) /100 WBC ABG pH (7.35-7.45) ABG pCO2 (35-45) mmHg ABG HCO3 (21-25) mmol/L ABG Total CO2 (19-24) mmol/L ABG O2 Saturation (94-97) % Carbon Dioxide (22-30) mmol/L BUN (7-17) mg/dL Creatinine (0.52-1.04) mg/dL Glucose (74-99) mg/dL POC Glucose (mg/dL) 294 H (75-99) mg/dL Plasma Lactic Acid Eleazar 10.7 H* (0.7-2.0) mmol/L Magnesium (1.6-2.3) mg/dL AST (14-36) U/L Lactate Dehydrogenase (313-618) U/L C-Reactive Protein (<10.0) mg/L Total Protein (6.3-8.2) g/dL Albumin (3.5-5.0) g/dL Urine Appearance (Clear) Urine Protein (Negative) Urine Blood (Negative) Urine RBC (0-5) /hpf Urine WBC (0-5) /hpf Urine WBC Clumps (None) /hpf Urine Yeast (Budding) (None) /hpf 10/25/20 10/25/20 10/25/20 Range/Units 04:53 04:53 05:01 WBC 13.8 H (3.8-10.6) k/uL RBC 3.77 L (4.10-5.20) X 10*6/uL Hgb 11.1 L (12.0-15.0) g/dL Hct (37.2-46.3) % MCHC 30.9 L (32.0-37.0) g/dL RDW 17.9 H (11.5-14.5) % Plt Count 757 H (140-440) X 10*3/uL MPV (9.5-12.2) fL Neutrophils # (1.3-7.7) k/uL Neutrophils # (Manual) 11.00 H (1.3-7.7) k/uL Eosinophils # (0.04-0.35) X 10*3/uL Nucleated RBCs 1 H (0-0) /100 WBC ABG pH (7.35-7.45) ABG pCO2 (35-45) mmHg ABG HCO3 (21-25) mmol/L ABG Total CO2 (19-24) mmol/L ABG O2 Saturation (94-97) % Carbon Dioxide 9 L* (22-30) mmol/L BUN 21 H (7-17) mg/dL Creatinine 1.25 H (0.52-1.04) mg/dL Glucose 205 H (74-99) mg/dL POC Glucose (mg/dL) (75-99) mg/dL Plasma Lactic Acid Eleazar 12.9 H* (0.7-2.0) mmol/L Magnesium 2.7 H (1.6-2.3) mg/dL AST (14-36) U/L Lactate Dehydrogenase (313-618) U/L C-Reactive Protein (<10.0) mg/L Total Protein (6.3-8.2) g/dL Albumin (3.5-5.0) g/dL Urine Appearance (Clear) Urine Protein (Negative) Urine Blood (Negative) Urine RBC (0-5) /hpf Urine WBC (0-5) /hpf Urine WBC Clumps (None) /hpf Urine Yeast (Budding) (None) /hpf 10/25/20 Range/Units 06:31 WBC (3.8-10.6) k/uL RBC (4.10-5.20) X 10*6/uL Hgb (12.0-15.0) g/dL Hct (37.2-46.3) % MCHC (32.0-37.0) g/dL RDW (11.5-14.5) % Plt Count (140-440) X 10*3/uL MPV (9.5-12.2) fL Neutrophils # (1.3-7.7) k/uL Neutrophils # (Manual) (1.3-7.7) k/uL Eosinophils # (0.04-0.35) X 10*3/uL Nucleated RBCs (0-0) /100 WBC ABG pH 6.99 L* (7.35-7.45) ABG pCO2 49 H (35-45) mmHg ABG HCO3 12 L (21-25) mmol/L ABG Total CO2 13 L (19-24) mmol/L ABG O2 Saturation 91.6 L (94-97) % Carbon Dioxide (22-30) mmol/L BUN (7-17) mg/dL Creatinine (0.52-1.04) mg/dL Glucose (74-99) mg/dL POC Glucose (mg/dL) (75-99) mg/dL Plasma Lactic Acid Eleazar (0.7-2.0) mmol/L Magnesium (1.6-2.3) mg/dL AST (14-36) U/L Lactate Dehydrogenase (313-618) U/L C-Reactive Protein (<10.0) mg/L Total Protein (6.3-8.2) g/dL Albumin (3.5-5.0) g/dL Urine Appearance (Clear) Urine Protein (Negative) Urine Blood (Negative) Urine RBC (0-5) /hpf Urine WBC (0-5) /hpf Urine WBC Clumps (None) /hpf Urine Yeast (Budding) (None) /hpf Microbiology - Last 24 Hours (Table) 10/24/20 20:39 Urine Culture - Preliminary Urine,Voided Assessment and Plan Assessment: Acute lower GI bleed with streaks of blood per rectum likely due to anticoagulation with Lovenox. changed to Eliquis Recent right lower extremity DVT Mild hematuria left iliopsoas abscess status post IR CT-guided drainage for fluid analysis Intra-abdominal abscess completed antibiotic therapy Hypovolemic hyponatremia Colon cancer with extensive local invasion and also with diffuse metastasis on chemotherapy Hypothyroidism Bilateral nephrostomy tubes in place Thrombocytosis GI prophylaxis DVT prophylaxis Full code Recommendations and discussion: Recommend to continue with current medications and management. Patient has received first round of chemotherapy and oncology following closely. Next round would be in 2 weeks although patient is tachycardic and hypotensive and being worked up for possible infection and started on IV antibiotic therapy. Infectious disease is following. Cultures from fluid analysis remain negative although waiting for finalization. PT/OT was refused by patient today due to increased nausea and fatigue. PT/OT following will be working with her daily. Infectious disease is following. Anticoagulation has been resumed. Hemoglobin is stable at 9.0. Infectious disease awaiting for culture finalization to determine antibiotic recommendations. Chest x-ray was done today as mentioned previously and repeat blood cultures pending at this time. Urinalysis also ordered and pending. Continue to monitor labs closely and repeat a.m. labs. So kennethl work following and discussing with family about possible ECF placement. Next chemo treatment currently on hold until infection and symptoms have resolved. Overall prognosis remains guarded and will continue to monitor closely. Further recommendations to follow.
--- NOTE | 2020-10-25 13:38 | P.DS ---
Providers Date of admission: 10/09/20 14:52 Expected date of discharge: 10/25/20 Attending physician: Pepe Ann Consults: 10/07/20 15:35 Consult Physician Routine Consulting Provider: Jose Novoa Consult Reason/Comments: DVT and GI bleed Do you want consulting provider notified?: Yes 10/08/20 09:00 Consult Physician Routine Consulting Provider: Tang Sampson Consult Reason/Comments: R/O surgical site infection Do you want consulting provider notified?: Yes 10/15/20 22:26 Consult Physician Routine Consulting Provider: Ruth Anglin Consult Reason/Comments: Recent hx pseudo abdominal abscess/fistula - chemo clearance Do you want consulting provider notified?: Yes, Notify in am 10/17/20 12:06 Consult Physician Routine Consulting Provider: Angel Alfaro Consult Reason/Comments: in patient rehab eval please, plan weekend transfer Do you want consulting provider notified?: Yes 10/25/20 03:53 Consult Physician Stat Consulting Provider: Candido Mejias Consult Reason/Comments: intesivist Do you want consulting provider notified?: Already Contacted Primary care physician: Julee Araujo [facility] Course: Final diagnosis Acute respiratory failure requiring intubation and mechanical ventilation Acute Mental status changes with severe metabolic acidosis and hypotension possibly secondary to sepsis Lactic acidosis Acute lower GI bleed with streaks of blood per rectum likely due to anticoagulation with Lovenox. changed to Eliquis Recent right lower extremity DVT Mild hematuria left iliopsoas abscess status post IR CT-guided drainage for fluid analysis Intra-abdominal abscess completed antibiotic therapy Hypovolemic hyponatremia Colon cancer with extensive local invasion and also with diffuse metastasis on chemotherapy Hypothyroidism Bilateral nephrostomy tubes in place Thrombocytosis GI prophylaxis DVT prophylaxis Full code Discharge disposition Patient has . Please refer to nursing documentation for time of . Time spent greater than 35 minutes Preliminary cause of Colon cancer with diffuse metastasis Hospital course This is a 50-year-old female with multiple complex medical issues who was recently admitted with lower gastrointestinal bleeding and also found to have significant malignancy with prolonged hospitalization and multiple medical consultations following the patient closely. Patient started chemotherapy and finished on 10/23/2020 and was to receive her next round of chemotherapy in 2 weeks. Patient continued to have extreme nausea and became more anxious and less responsive. Patient was tachycardic and a sepsis workup was initiated yesterday and patient was placed on empiric antibiotics. Chest x-ray was also done which was negative for any acute pulmonary process. Patient initially refu sed antibiotic therapy and further treatment although was agreeable in the afternoon. Patient continued to be lethargic and becoming more hypotensive and less responsive throughout the evening. a team was called on the patient and was found to have severe metabolic acidosis and lactic acidosis and was transferred to the ICU. Patient clinical condition continued to worsen ultimately requiring mechanical ventilation and intubation and intensive is following. Patient was also placed on pressors and multiple drips per nursing staff and maxed out on levophed and continued to be hypotensive. Patient had multiple episodes of cardiac arrest this morning while in the ICU and was resuscitated and family was notified. Family told nursing staff and intensivists to stop all treatment and place the patient on comfort measures. Patient has . Time of per nursing documentation noted to be 11:07 AM. Please refer to previous documentation for further HPI. Patient Condition at Discharge: Poor Plan - Discharge Summary Discharge Rx Participant: No New Discharge Prescriptions: New Apixaban [Eliquis] 5 mg PO BID #60 tab Continue Levothyroxine Sodium [Synthroid] 137 mcg PO DAILY Ondansetron [Zofran] 4 mg PO Q8H PRN PRN Reason: Nausea HYDROcodone/APAP 10-325MG [[place] 10-325] 1 tab PO Q6H PRN PRN Reason: Pain Morphine Sulfate ER [Ms Contin] 30 mg PO Q8H #21 tab Ergocalciferol [Vitamin D2 (1250 Mcg = 34558 Iu)] 1,250 mcg PO Q7D Naloxone HCl [Narcan] 4 mg NASAL ONCE PRN PRN Reason: overdose Discontinued metroNIDAZOLE [Flagyl] 500 mg PO TID Enoxaparin [Lovenox] 100 mg SQ DAILY Discharge Medication List Levothyroxine Sodium [Synthroid] 137 mcg PO DAILY 05/19/20 [History] Ergocalciferol [Vitamin D2 (1250 Mcg = 73460 Iu)] 1,250 mcg PO Q7D 10/07/20 [History] HYDROcodone/APAP 10-325MG [[place] 10-325] 1 tab PO Q6H PRN 10/07/20 [History] Naloxone HCl [Narcan] 4 mg NASAL ONCE PRN 10/07/20 [History] Ondansetron [Zofran] 4 mg PO Q8H PRN 10/07/20 [History] Apixaban [Eliquis] 5 mg PO BID #60 tab 10/11/20 [Rx] Morphine Sulfate ER [Ms Contin] 30 mg PO Q8H #21 tab 10/13/20 [Rx] Follow up Appointment(s)/Referral(s): [facility], [NON-STAFF] - Julee Garcia III, MD [Primary Care Provider] - 1-2 days Discharge Disposition: - Preliminary Cause of Preliminary Cause of : Colon cancer with metastasis
--- NOTE | 2020-10-25 15:04 | P.EN ---
Code Blue: Indication: PEA arrest Arrival to room to find CPR in progress. Per nursing patient had an PEA on the monitor. She was given 2 rounds of epinephrine as well as chest compressions. Nursing contacted her brother who stated he would like to transition her to comfort care. CPR was stopped she did have ROSC with mariginal blood pressure felt to be more reflective epinephrine use and likely transient. For further details see CODE BLUE record.
--- NOTE | 2020-10-30 11:51 | CDI ---
Documentation Clarification Form Date: 10/30/2020 11:32:29 AM From: Katiuska Ramírez CCS, CCDS Admit Date: 10/09/2020 02:52:00 PM Patient Name: Jennifer Corral Visit Number: [id number] Discharge Date: 10/25/2020 01:45:00 PM ATTENTION: The Clinical Documentation Specialists (CDI) and [facility] Coding Staff appreciate your assistance in clarifying documentation. Please respond to the clarification below the line at the bottom and electronically sign. The CDI & [facility] Coding staff will review the response and follow-up if needed. Please note: Queries are made part of the Legal Health Record. If you have any questions, please contact the author of this message via ITS. Dr. Jose Novoa: Malnutrition is documented in the 10/13 & 10/16 Oncology Progress Notes. Additional clarification regarding the severity of Malnutrition is requested. History/Risk Factors: Colon Cancer with Colostomy, Thyroid Cancer status post Thyroidectomy, Anxiety, Former Smoker. Clinical Indicators: Presented to the ED on 10/07 with GI Bleed, broken Colostomy bag & Rectal Bleeding, Generalized weakness, body aches & nausea. ED Clinical Impression: GI Bleed, Anemia. Per Nutritional Assessment: 10/07 BMI: 30.4, Height: 5 ft 3 in, Weight 69.853 kg, IBW 115.00 lb. Feeding Assessment: 25 - 100% meals consumed, Poor Diet. 10/13: Refusing diet, consumed 50% Treatment: 10/07 Dietitian Consulted, CBC Daily, IV Fluid 1,000 mls @ 999 mls/hr q1H, IV Ativan, IV Zofran, IV Protonix 10/09 Ensure Enlive ordered. 10/25: Intubated, NGT Please clarify the type of malnutrition, if known: [ ] Mild Protein-Calorie Malnutrition [ ] Moderate Protein-Calorie Malnutrition [ ] Malnutrition following GI surgery [ ] Other condition, please specify [ ] Unable to Determine (Template Last Revised: September 2020) MTDD
--- NOTE | 2020-10-30 12:19 | CDI ---
Documentation Clarification Form Date: 10/30/2020 12:09:06 PM From: Katiuska DormanRamírezOSMAN salmon, CCDS Admit Date: 10/09/2020 02:52:00 PM Patient Name: Jennifer Corral Visit Number: [id number] Discharge Date: 10/25/2020 01:45:00 PM ATTENTION: The Clinical Documentation Specialists (CDI) and [facility] Coding Staff appreciate your assistance in clarifying documentation. Please respond to the clarification below the line at the bottom and electronically sign. The CDI & [facility] Coding staff will review the response and follow-up if needed. Please note: Queries are made part of the Legal Health Record. If you have any questions, please contact the author of this message via ITS. Dr. Miranda Derrek: Please clarify the cause of the positive urine culture: Per the 10/25 Infectious Disease Progress Note: Urine came back to be positive with some budding yeast. Plan: We will try IV Flagyl and Azactam with urine showing large yeast. History/Risk Factors per the 10/07 History & Physical: Colon Cancer with Colostomy, Thyroid Cancer status post Thyroidectomy, Hypothyroidism, Former Smoker. Clinical Indicators: Presented to the ED on 10/07 with bleeding in Colostomy & rectal bleeding, possible broken colostomy bag. patient also has Nephrostomy tubes. 10/21 Urinalysis: Light yellow, Clear, Trace protein, Large Blood, negative Nitrite, Moderate Esterase, RBC 153, WBC 8, Rare Bacteria 10/24 Urinalysis: Red, Turbid, 1+ Protein, Large Blood, negative Nitrite, RBC >182, WBC >182, Moderate WBC Clumps, Moderate Yeast Budding 10/24 Urine Culture: Radha glabrata Treatment 10/21: IV Decadron, IV Pepcid, IV Zofran, IV Leucovorin Calcium, IV Oxalipilatin, IV Fluorouracil 10/24: IV Vancomycin, IV Cefepime 10/25: po Diflucan Please clarify if there is an additional diagnosis associated with the abnormal urinalysis and urine culture: [ ] UTI, please specify organism: [ ] Sepsis due to UTI, please specify organism: [ ] Other, please specify [ ] Unable to determine (Template Last Revised: September 2020) possible colonization __ MTDD
== END 2020-10-25 13:45 | disposition expired | DRG 981 ==
LOC: EC 00:23 → 3SCARD 02:29 → OBSVTOIN 10-09 14:52 → 5NMEDONC 10-17 02:26 → UNDODISIN 10-25 02:00 → 2SICU 10-25 03:18
PROVIDERS: ADMIT Hospitalist; ATTEND Hospitalist
PROC: 0K9P3ZX Drainage of Left Hip Muscle, Percutaneous Approach, Diagnostic (ICD-10-PCS; principal; 2020-10-19)
PROC: 0D9670Z Drainage of Stomach with Drainage Device, Via Natural or Artificial Opening (ICD-10-PCS; 2020-10-25)
PROC: 4A133B1 Monitoring of Arterial Pressure, Peripheral, Percutaneous Approach (ICD-10-PCS; 2020-10-25)
PROC: 5A1935Z Respiratory Ventilation, Less than 24 Consecutive Hours (ICD-10-PCS; 2020-10-25)
PROC: 0BH17EZ Insertion of Endotracheal Airway into Trachea, Via Natural or Artificial Opening (ICD-10-PCS; 2020-10-25)
PROC: 06HM33Z Insertion of Infusion Device into Right Femoral Vein, Percutaneous Approach (ICD-10-PCS; 2020-10-25)
PROC: 5A12012 Performance of Cardiac Output, Single, Manual (ICD-10-PCS; 2020-10-25)
PROC: 4A133J1 Monitoring of Arterial Pulse, Peripheral, Percutaneous Approach (ICD-10-PCS; 2020-10-25)
PROC: 04HY32Z Insertion of Monitoring Device into Lower Artery, Percutaneous Approach (ICD-10-PCS; 2020-10-25)
PROC: 3E043XZ Introduction of Vasopressor into Central Vein, Percutaneous Approach (ICD-10-PCS; 2020-10-25)
PROC: 5A12012 Performance of Cardiac Output, Single, Manual (ICD-10-PCS; 2020-10-25)
DX: D68.32 Hemorrhagic disorder due to extrinsic circulating anticoagulants (principal); K68.12 Psoas muscle abscess; R65.21 Severe sepsis with septic shock; J96.01 Acute respiratory failure with hypoxia; A41.9 Sepsis, unspecified organism; I47.2 Ventricular tachycardia; N17.9 Acute kidney failure, unspecified; C79.9 Secondary malignant neoplasm of unspecified site; E87.2 Acidosis; E87.1 Hypo-osmolality and hyponatremia; C18.7 Malignant neoplasm of sigmoid colon; K62.5 Hemorrhage of anus and rectum; E44.0 Moderate protein-calorie malnutrition; I46.8 Cardiac arrest due to other underlying condition; D69.6 Thrombocytopenia, unspecified; Z43.3 Encounter for attention to colostomy; Z43.6 Encounter for attention to other artificial openings of urinary tract; Z66 Do not resuscitate; Z51.5 Encounter for palliative care; Z20.822 Contact with and (suspected) exposure to COVID-19; T45.515A Adverse effect of anticoagulants, initial encounter; E86.1 Hypovolemia; N13.9 Obstructive and reflux uropathy, unspecified; E86.0 Dehydration; E89.0 Postprocedural hypothyroidism; R31.9 Hematuria, unspecified; D63.0 Anemia in neoplastic disease; D50.0 Iron deficiency anemia secondary to blood loss (chronic); R11.0 Nausea; T45.1X5A Adverse effect of antineoplastic and immunosuppressive drugs, initial encounter; R59.0 Localized enlarged lymph nodes; F41.9 Anxiety disorder, unspecified; R26.9 Unspecified abnormalities of gait and mobility; R12 Heartburn; Z68.30 Body mass index [BMI] 30.0-30.9, adult; Z79.890 Hormone replacement therapy; Z79.01 Long term (current) use of anticoagulants; Z79.891 Long term (current) use of opiate analgesic; Z79.899 Other long term (current) drug therapy; Z86.718 Personal history of other venous thrombosis and embolism; Z90.49 Acquired absence of other specified parts of digestive tract; Z85.850 Personal history of malignant neoplasm of thyroid; Z87.891 Personal history of nicotine dependence; Z98.890 Other specified postprocedural states; Z56.0 Unemployment, unspecified; Z87.42 Personal history of other diseases of the female genital tract; Z71.3 Dietary counseling and surveillance; Z88.6 Allergy status to analgesic agent; Z88.1 Allergy status to other antibiotic agents; Z88.5 Allergy status to narcotic agent; Z88.0 Allergy status to penicillin; Z88.2 Allergy status to sulfonamides; Z88.8 Allergy status to other drugs, medicaments and biological substances; Y92.009 Unspecified place in unspecified non-institutional (private) residence as the place of occurrence of the external cause; Z91.018 Allergy to other foods; Z82.3 Family history of stroke; Z82.49 Family history of ischemic heart disease and other diseases of the circulatory system; Z83.3 Family history of diabetes mellitus
CPT/HCPCS: 36415; 36600; 71045; 71260; 74177; 75989; 80048; 80053; 81001; 82272; 82306; 82378; 82565; 82607; 82728; 82784; 82805; 83540; 83550; 83605; 83615; 83690; 83735; 83921; 84145; 84443; 84484; 85025; 85027; 85610; 85652; 85730; 86140; 86850; 86870; 86880; 86900; 86901; 87040; 87070; 87075; 87086; 87102; 87205; 87635; 88108; 88305; 89050; 93005; 93970; 94002; 96360; 99285